=== PATIENT | female | born 1945 | race Caucasian/White ===

== ENCOUNTER 2016-09-03 18:15 | Inpatient (IN) | payer MEDICARE ==
[~2016-09-03] VITALS: Ht 165.1 cm; Wt 117.9 kg
--- OUTSIDE RECORDS SUMMARY | 2016-09-03 18:20 | XMS REPORT | Continuity of Care Document ---
Author Author [facility] Organization [facility] Address Unknown Phone Unavailable Care Team Providers Care Freight Rate Clerk Name Role Phone Niko Underwood PCP [phone] Source Comments Some departments are not documenting in the electronic medical record. If you do not see the information that you expected, contact Release of Information in the Health Information Management department at [phone] for further assistance in locating additional records.[facility] Active Allergies and Adverse Reactions Allergen Noted Date Severity Reactions Comments Dust 05/27/2016 Low SEE COMMENTS Post nasal drip Erythromycin 07/18/2016 Low NAUSEA AND VOMITING Levaquin 07/18/2016 Medium MUSCLE PAIN Mold Spores 05/27/2016 Low SEE COMMENTS Post nasal drip Pollen 05/27/2016 Low SEE COMMENTS Post nasal drip Current Medications Prescription Sig. Disp. Refills Start End Date Status Date DOCOSAHEXANOIC ACID/EPA Take by mouth daily. Active (FISH OIL PO) naproxen sodium(+) Take 1 Tab by mouth as Active (ALEVE) 220 mg tablet Needed. Take with food. ASCORBATE CALCIUM Take by mouth daily. Active (VITAMIN C PO) MULTIVITAMIN PO Take by mouth daily. Active CRANBERRY FRUIT EXTRACT Take by mouth daily. Active (CRANBERRY PO) omeprazole DR(+) Take 20 mg by mouth Active (PRILOSEC) 20 mg capsule daily. atorvastatin (LIPITOR) 10 Take 10 mg by mouth Active mg tablet daily. WARFARIN SODIUM (COUMADIN Take 4 mg by mouth. Active PO) levothyroxine (SYNTHROID) Take 75 mcg by mouth Active 75 mcg tablet daily. oxybutynin XL (DITROPAN Take 5 mg by mouth three Active XL) 5 mg tablet times daily as needed. amiodarone (CORDARONE) Take 400 mg by mouth Active 200 mg tablet daily. Take with food. metoprolol tartrate Take 0.5 Tabs by mouth 30 Tab 1 07/21/20 Active (LOPRESSOR) 25 mg tablet twice daily. 16 Active Problems Problem Noted Date Atrial fibrillation (HCC) 07/18/2016 Overview: Managed by Dr Lincoln VELOZ, Chas Noel. [id number] score is 2. On warfarin. 04/04/16 - Reveal Linq device implant - Dr Munoz. Started Flecainide 04/30/16 - Lexiscan Myoview Stress test: AF persisted throughout testing w/RVR. No ischemia or infarction. EF 66%. Gated images are unreliable d/t underlying AF. 04/24/16 - Echo: Normal LV size. EF 50%. LA upper normal limit in size. No thrombus/clot. Mild MR. AV is trileaflet w/o or regurg. PAP 25mmHg. 07/15/16 - Failed to maintain SR. Flecainide stopped. Switched to Amiodarone, referral to Dr Hernández. Hyperlipidemia 07/18/2016 Overview: On atorvastatin. Carotid stenosis 07/18/2016 Overview: Mild bilateral carotid stenosis. US in March,. Hypothyroidism 07/18/2016 Overview: Managed by PCP Osteopenia 07/18/2016 GERD (gastroesophageal reflux disease) 07/18/2016 Mild obstructive sleep apnea 07/18/2016 Overview: Conservative treatment Most Recent Encounters Date Type Specialty Providers Description 09/03/2016 Telephone Cardiology Brooklynn Arnett RN 07/21/2016 Telephone Cardiology Mariia Hanson LPN Medication Update - Lopressor 07/18/2016 Hospital Cardiology Jose Luis Hernández MD Encounter 07/18/2016 Office Visit Cardiology Jose Luis Hernández MD New Patient; Atrial fibrillation; Device Check-Device Rep - ILR 07/18/2016 Documentation Cardiology Norma Saucedo RN Device Check - request for interrogation ILR 07/18/2016 Telephone Cardiology Norma Saucedo RN Appointment - for today's appt Social History Tobacco Use Types Packs/Day Years Used Date Former Smoker Smokeless Tobacco: Never Used Alcohol Use Drinks/Week oz/Week Comments No Last Filed Vital Signs Vital Sign Reading Time Taken Blood Pressure 116/70 07/18/2016 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 Pulse 55 07/18/2016 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 Temperature - - Respiratory Rate - - Height 1.651 m (5' 5") 07/18/2016 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 Weight 73.029 kg (161 lb) 07/18/2016 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 Body Mass Index 26.79 07/18/2016 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 Oxygen Saturation - - Plan of Care Date Type Specialty Providers Description 10/14/2016 Appointment Cardiology 10/14/2016 Appointment Cardiology Jose Luis Hernández MD [address] [facility] [address] [place] [address] [phone] (Fax) Health Maintenance Due Date Last Done Comments Physical (Comprehensive) 1950 Exam Pertussis Vaccine 1954 Tetanus Vaccine 1960 Breast Cancer Screening 1983 Colorectal Cancer 1993 Screening Shingles Vaccine 2003 Osteoporosis Screening 2008 Prevnar/Pneumovax (#1) 2008 Influenza Vaccine 05/08/2016 Results from Last 3 Months DEVICE EVALUATION - ILR (07/21/2016 9:38 AM) Narrative Outreach Check [07/21/2016 9:40:10 AM - MELLISA AYALA] Device check by [employer] Rep in clinic. ILR check WNL. Please click blue HR Data Sheet Hyperlink for Report. Routed to E for sign off. ECG/QRS (07/18/2016) Component Value Range QRS DURATION 96
[2016-09-03] MEDS ORDERED: PHYTONADIONE (VIT. K) 10 MG/ML AMP IV ONE (18:30)
[2016-09-03] MEDS ORDERED: WARF4TAB70 PO (18:40)
[2016-09-03] MEDS ORDERED: WARF-48 PO (18:40)
[2016-09-03] MEDS ORDERED: OXYB5TAB PO (18:40)
[2016-09-03] MEDS ORDERED: ATOR10TA66 PO (18:40)
[2016-09-03] MEDS ORDERED: LEVO75TA6 PO (18:40)
[2016-09-03 18:43] LABS: BASOPHILS % (AUTO) 0 % (0-10); EOSINOPHILS # (AUTO) 0.5 10^3/uL (0.0-0.3); EOSINOPHILS % (AUTO) 6 % (0-10); LYMPHOCYTES # (AUTO) 1.2 X 10^3 (1.0-4.0); LYMPHOCYTES % (AUTO) 14 % (12-44); MEAN CORPUSCULAR HEMOGLOBIN 31 PG (25-34); MEAN CORPUSCULAR HGB CONC 34 G/DL (32-36); MEAN CORPUSCULAR VOLUME 89 FL (80-99); MEAN PLATELET VOLUME 10.5 FL (7.4-10.4); MONOCYTES # (AUTO) 0.9 X 10^3 (0.0-1.0); MONOCYTES % (AUTO) 11 % (0-12); NEUTROPHILS # (AUTO) 5.6 X 10^3 (1.8-7.8); NEUTROPHILS % (AUTO) 69 % (42-75); PLATELET COUNT 256 10^3/uL (130-400); RED BLOOD COUNT 4.46 10^6/uL (4.35-5.85); RED CELL DISTRIBUTION WIDTH 15.1 % (10.0-14.5); WHITE BLOOD COUNT 8.1 10^3/uL (4.3-11.0)
[2016-09-03 18:58] LABS: INR 9.4 (0.8-1.4); PROTHROMBIN TIME PATIENT 77.1 SEC (12.2-14.7)
[2016-09-03 19:03] LABS: ALANINE AMINOTRANSFERASE 29 U/L (0-55); ANION GAP 11 MMOL/L (5-14); ASPARTATE AMINO TRANSFERASE 40 U/L (5-34); BILIRUBIN,TOTAL 0.4 MG/DL (0.1-1.0); BLOOD UREA NITROGEN 12 MG/DL (7-18); BUN/CREATININE RATIO 14; CALCIUM 9.4 MG/DL (8.5-10.1); CARBON DIOXIDE 26 MMOL/L (21-32); CHLORIDE 98 MMOL/L (98-107); CREATININE SERUM 0.85 MG/DL (0.60-1.30); GFR ESTIMATED > 60; GLUCOSE 94 MG/DL (70-105); POTASSIUM 3.9 MMOL/L (3.6-5.0); SODIUM 135 MMOL/L (135-145); TOTAL PROTEIN 6.9 G/DL (6.4-8.2)
[2016-09-03] MEDS ORDERED: NS IV 500 ML 500 ML ONE (19:37)
--- NOTE | 2016-09-03 19:39 | Diagnostic Imaging Report ---
INDICATION: Hemoptysis. Exam compared to study 09/03/2016. FINDINGS: Five-lobed interstitial opacities and predominantly basilar Hiwot Bs as well as some vague perihilar opacity all unchanged. Heart size stable. No gross overdistention of the vascularity. No effusion or pneumothorax. IMPRESSION: Unchanged bilateral interstitial infiltrates. Dictated by: Dictated on workstation # [id number]
[2016-09-03 19:58] VITALS: BP 149/70
[2016-09-03 20:20] VITALS: BP 146/67
[2016-09-03] MEDS ORDERED: cefTRIAXone INJECTION 1,000 MG in NORMAL SALINE (BAXTER MINI) 50 ML IV ONE (21:15)
[2016-09-03] MEDS ORDERED: NORMAL SALINE (BAXTER MINI) 50 ML IV ONE (21:22)
[2016-09-03] MEDS ORDERED: cefTRIAXone 1 GM (ROCEPHIN) VIAL ONE (21:22)
--- NOTE | 2016-09-03 21:42 | ED General ---
General Chief Complaint: Coughing up blood Stated Complaint: COUGHING UP BLOOD,SOA Nursing Triage Note: AMB TO ED WITH SPITTING UP BLOOD HIGH INR Nursing Sepsis Screen: No Definite Risk Source of Information: Patient Exam Limitations: No Limitations History of Present Illness Time Seen by Provider: 18:16 Initial Comments This 71-year-old woman presents to the emergency room with markedly elevated INR. Her INR in the office today was 9.2. This evening she began coughing up some blood. She presents a bag with bloody tissues representing likely 2-3 teaspoons of blood she has coughed up over the last hour. She takes Coumadin for atrial fibrillation. She reports difficulty managing her INR since having an infection about 2 months ago for which she received antibiotics. Vital signs are stable at this time. She has a history of hemoptysis in the past when ill. Allergies and Home Medications Allergies Coded Allergies: erythromycin base (Verified Allergy, Unknown, 04/04/16) levofloxacin (Verified Allergy, Unknown, 04/04/16) Home Medications Amiodarone HCl 200 Mg Tablet 200 MG PO DAILY (Reported) Atorvastatin Calcium 10 Mg Tablet #45 PO HS (Reported) Levothyroxine Sodium 75 Mcg Tablet #90 PO DAILY (Reported) Metoprolol Tartrate 25 Mg Tablet 25 MG PO DAILY (Reported) Oxybutynin Chloride 5 Mg Tab.er.24 #135 PO TID (Reported) Warfarin Sodium 5 Mg Tablet #30 (Reported) Warfarin Sodium 4 Mg Tablet #90 (Reported) Constitutional: no symptoms reported EENTM: no symptoms reported Respiratory: see HPI Cardiovascular: see HPI Gastrointestinal: no symptoms reported Genitourinary: no symptoms reported Musculoskeletal: no symptoms reported Skin: no symptoms reported Psychiatric/Neurological: No Symptoms Reported Hematologic/Lymphatic: See HPI Past Gwmovub-Dgsjua-Otflxn Hx Patient Social History Recent Foreign Travel: No Contact w/Someone Who Travel: No Recent Infectious Disease Expo: No Recent Hopitalizations: No Surgeries HX Surgeries: No Respiratory Hx Respiratory Disorders: No Cardiovascular Hx Cardiac Disorders: Yes Cardiac Disorders: Atrial Fibrillation Reproductive System : No Genitourinary Hx Genitourinary Disorders: No Gastrointestinal Hx Gastrointestinal Disorders: Yes Gastrointestinal Disorders: Gastroesophageal Reflux Musculoskeletal Hx Musculoskeletal Disorders: Yes Musculoskeletal Disorders: Chronic Back Pain Endocrine Hx Endocrine Disorders: No HEENT HX ENT Disorders: No Cancer Hx Cancer: No Psychosocial Hx Psychiatric Problems: No Physical Exam Vital Signs Vital Sign - Last 12Hours 09/03/16 09/03/16 18:22 19:58 Temp 97.5 Pulse 72 Resp 18 B/P 167/83 Pulse Ox 80 O2 Delivery Nasal Cannula O2 Flow Rate 2 Capillary Refill : Less Than 3 Seconds General Appearance: No Apparent Distress WD/WN HEENT: PERRL/EOMI Normal ENT Inspection Pharynx Normal Neck: Normal Inspection Respiratory: Lungs Clear Normal Breath Sounds No Accessory Muscle Use No Respiratory Distress Other (patient observed to be coughing up bright red blood) Cardiovascular: Regular Rate, Rhythm No Edema No Murmur Gastrointestinal: Normal Bowel Sounds Non Tender Soft Extremity: Normal Inspection No Pedal Edema Neurologic/Psychiatric: Alert Oriented x3 No Motor/Sensory Deficits Normal 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 Norm as Tested Skin: Normal Color Warm/Dry Progress/Results/Core Measures Results/Orders Lab Results Laboratory Tests Test 09/03/16 18:36 09/03/16 21:20 09/04/16 05:02 09/04/16 05:05 Range/Units Activated Partial Thromboplast Time 75 H 24-35 SEC Alanine Aminotransferase (ALT/SGPT) 29 31 0-55 U/L Albumin 4.0 3.7 3.2-4.5 G/DL Alkaline Phosphatase 104 89 40-136 U/L Anion Gap 11 11 5-14 MMOL/L Aspartate Amino Transf (AST/SGOT) 40 H 35 H 5-34 U/L BUN/Creatinine Ratio 14 13 Basophils # (Auto) 0.0 0.0 0.0-0.1 10^3/uL Basophils (%) (Auto) 0 0 0-10 % Blood Urea Nitrogen 12 10 7-18 MG/DL C-Reactive Protein High Sensitivity 3.82 H 0.00-0.50 MG/DL Calcium Level 9.4 9.0 8.5-10.1 MG/DL Carbon Dioxide Level 26 27 21-32 MMOL/L Chloride Level 98 101 98-107 MMOL/L Creatinine 0.85 0.76 0.60-1.30 MG/DL Eosinophils # (Auto) 0.5 H 0.3 0.0-0.3 10^3/uL Eosinophils (%) (Auto) 6 4 0-10 % Estimat Glomerular Filtration Rate > 60 > 60 Free Thyroxine 1.63 H 0.70-1.48 NG/DL Glucose Level 94 100 70-105 MG/DL Hematocrit 40 35 35-52 % Hemoglobin 13.6 12.0 11.5-16.0 G/DL INR Comment 9.4 *H 1.3 0.8-1.4 Lymphocytes # (Auto) 1.2 0.7 L 1.0-4.0 X 10^3 Lymphocytes (%) (Auto) 14 9 L 12-44 % Mean Corpuscular Hemoglobin 31 31 25-34 PG Mean Corpuscular Hemoglobin Concent 34 34 32-36 G/DL Mean Corpuscular Volume 89 89 80-99 FL Mean Platelet Volume 10.5 H 10.8 H 7.4-10.4 FL Monocytes # (Auto) 0.9 0.6 0.0-1.0 X 10^3 Monocytes (%) (Auto) 11 9 0-12 % Neutrophils # (Auto) 5.6 5.8 1.8-7.8 X 10^3 Neutrophils (%) (Auto) 69 78 H 42-75 % Platelet Count 256 228 130-400 10^3/uL Potassium Level 3.9 3.3 L 3.6-5.0 MMOL/L Prothrombin Time 77.1 *H 16.2 H 12.2-14.7 SEC Red Blood Count 4.46 3.91 L 4.35-5.85 10^6/uL Red Cell Distribution Width 15.1 H 14.9 H 10.0-14.5 % Sodium Level 135 139 135-145 MMOL/L Thyroid Stimulating Hormone (TSH) 6.41 H 0.35-4.94 UIU/ML Total Bilirubin 0.4 0.7 0.1-1.0 MG/DL Total Protein 6.9 6.6 6.4-8.2 G/DL White Blood Count 8.1 7.4 4.3-11.0 10^3/uL Lactic Acid Level 0.9 0.5-2.0 MMOL/L My Orders Orders-JOSHUA KEITA MD Cbc With Automated Diff (09/03/16 18:21) Comprehensive Metabolic Panel (09/03/16 18:21) Protime With Inr (09/03/16 18:21) Partial Thromboplastin Time (09/03/16 18:21) Saline Lock/Iv-Start (09/03/16 18:21) O2 (09/03/16 18:21) Phytonadione (Adult) Injection (Aquameph (09/03/16 18:30) Fresh Frozen Plasma (09/03/16 18:21) Red Cells Leukocytes Reduced (09/03/16 18:38) Hs C Reactive Protein (09/03/16 18:38) Chest Pa/Lat (2 View) (09/03/16 18:38) Type And Screen (09/03/16 18:21) Fresh Frozen Plasma (09/03/16 18:45) Ns Iv 500 Ml (Sodium Chloride 0.9%) (09/03/16 19:37) Ceftriaxone Injection (Rocephin Injectio (09/03/16 21:15) Lactic Acid Analyzer (09/03/16 21:05) Blood Culture (09/03/16 21:05) Ceftriaxone Injection (Rocephin Injectio (09/03/16 21:22) Normal Saline (Cross Mini) (Ns (Cross (09/03/16 21:22) Thyroid Stimulating Hormone (09/03/16 21:52) Free T4 (Free Thyroxine) (09/03/16 21:52) Medications Given in ED Current Medications Medications Dose Ordered Sig/Liana Route Start Time Stop Time Status Last Admin Dose Admin Ceftriaxone Sodium/Sodium Chloride 50 ml @ 100 mls/hr ONCE ONCE IV 09/03/16 21:15 09/03/16 21:44 DC 09/03/16 21:33 100 MLS/HR Sodium Chloride 500 ml STK-MED ONCE .ROUTE 09/03/16 19:37 09/03/16 19:44 DC 09/03/16 19:53 Vital Signs/I&O Vital Sign - Last 12Hours 09/03/16 09/03/16 09/03/16 09/03/16 19:58 20:20 22:00 22:10 Temp 97.2 97.6 97.5 Pulse 67 66 66 65 Resp 18 20 16 18 B/P 149/70 146/67 151/66 122/65 Pulse Ox 95 94 94 95 O2 Delivery Nasal Cannula Nasal Cannula Nasal Cannula Nasal Cannula O2 Flow Rate 2.00 2.00 2.00 2.00 09/03/16 09/03/16 09/03/16 09/03/16 22:25 23:00 23:00 23:19 Temp 97.3 97.4 98.8 Pulse 62 62 64 79 Resp 18 16 16 24 B/P 142/70 144/71 148/79 Pulse Ox 94 95 95 91 O2 Delivery Nasal Cannula Nasal Cannula Nasal Cannula O2 Flow Rate 2 2 2.00 09/03/16 09/03/16 09/04/16 09/04/16 23:30 23:52 00:00 00:30 Temp 98.6 97.9 Pulse 85 72 Resp 18 20 B/P 137/65 172/72 Pulse Ox 90 92 93 92 O2 Delivery Nasal Cannula Nasal Cannula Nasal Cannula Nasal Cannula O2 Flow Rate 4.00 2.00 5.00 4.00 09/04/16 09/04/16 09/04/16 09/04/16 00:30 01:01 01:43 02:00 Temp 97.9 97.8 98.6 Pulse 72 66 77 85 Resp 20 18 20 B/P 172/72 164/77 137/65 Pulse Ox 92 90 O2 Delivery Nasal Cannula Nasal Cannula Nasal Cannula O2 Flow Rate 4.00 4.00 4.00 09/04/16 04:00 Temp 98.0 Pulse 88 Resp 18 B/P 139/72 Pulse Ox 93 O2 Delivery Nasal Cannula O2 Flow Rate 5.00 Intake and Output 09/04/16 00:00 Intake Total 51 ml Balance 51 ml Blood Pressure Mean: 93 Progress Note #1: Progress Note due to the life-threatening nature of pulmonary bleeding in the context of markedly elevated INR, vitamin K 10 mg IV was administered and 3 units of FFP were initiated in the emergency room. Patient had no significant hemoptysis during her ER stay. Pneumonia was also discovered on the chest x-ray, relatively unchanged from the x-ray earlier in the day. Rocephin was administered in the ER after lactic acid and blood cultures were drawn. Doxycycline was chosen for atypical coverage due to her allergy profile. TSH and free T4 were ordered prior to admission but results were not back upon admission. Progress Note #2: Progress Note Vitamin K was administered and at least one unit of FFP was administered in the emergency room. The hemoptysis stopped shortly after treatment began. Diagnostic Imaging Diagonstic Imaging: Xray Plain Films/CT/US/NM/MRI: chest Comments Chest x-ray viewed by me and report reviewed. See report below: NAME: SANTOSH CASTREJON [facility] REC#: [id number] PT STATUS: REG ER : 1945 PHYSICIAN: JOSHUA KEITA MD ADMIT DATE: 09/03/16/ER Signed Date of Exam: 09/03/16 CHEST PA/LAT (2 VIEW) INDICATION: Hemoptysis. Exam compared to study 09/03/2016. FINDINGS: Five-lobed interstitial opacities and predominantly basilar Hiwot Bs as well as some vague perihilar opacity all unchanged. Heart size stable. No gross overdistention of the vascularity. No effusion or pneumothorax. IMPRESSION: Unchanged bilateral interstitial infiltrates. Dictated by: Dictated on workstation # [id number] Dict: 09/03/161934 Trans: 09/03/162214 [facility] [id number] Interpreted by: RAYMOND MUNGUIA Electronically signed by:RAYMOND MUNGUIA 09/03/167 Departure Communication Time/Spoke to Admitting Phy: 21:[address] Courtney Time/Spoke to Consulting Physi: 21:45 Communication/Consulting Dr. Torres. Impression Impression: Primary Impression: Elevated INR Additional Impressions: Hemoptysis Pneumonia Qualified Code: J18.9 - Pneumonia, unspecified organism Disposition: ADMITTED INPATIENT Condition: Improved Decision to Admit Reason: Admit from ER (General) Decision to Admit/Date: Sep 03, 2016 Time/Decision to Admit Time: 18:16 Departure-Patient Inst. Referrals: SERGIO MORENO MD (PCP/Family) Primary Care Physician JOSHUA KEITA MD Sep 03, 2016 21:42
[2016-09-03 22:00] VITALS: BP 151/66
[2016-09-03 22:10] VITALS: BP 122/65
[2016-09-03 22:25] VITALS: BP 142/70
[2016-09-03 22:32] LABS: THYROID STIMULATING HORMONE 6.41 UIU/ML (0.35-4.94)
[2016-09-03 23:19] VITALS: BP 148/79
[2016-09-03] MEDS ORDERED: CATHETER FLUSH 10 ML SYR IV PRN (23:30)
[2016-09-03] MEDS ORDERED: ONDANSETRON 4 MG/2 ML (SDV) Z0FRAN IV PRN (23:30)
[2016-09-03] MEDS ORDERED: AMIO200T2 PO (23:41)
[2016-09-03] MEDS ORDERED: METO-333 PO (23:41)
[2016-09-03] MEDS: DOXYCYCLINE 100 MG (VIBRAMYCIN) TABLET PO SCH (23:45)
[2016-09-04] VITALS (9 sets, daily range): BP systolic 109–172; BP diastolic 59–77
[2016-09-04] MEDS ORDERED: RT-ALBUTEROL SULF 2.5 MG/3 ML PRE-MIX VIAL INH PRN (00:15)
[2016-09-04] MEDS: DOXYCYCLINE 100 MG (VIBRAMYCIN) TABLET PO SCH ×3 (02:28→21:10)
[2016-09-04 05:38] LABS: BASOPHILS % (AUTO) 0 % (0-10); EOSINOPHILS # (AUTO) 0.3 10^3/uL (0.0-0.3); EOSINOPHILS % (AUTO) 4 % (0-10); LYMPHOCYTES # (AUTO) 0.7 X 10^3 (1.0-4.0); LYMPHOCYTES % (AUTO) 9 % (12-44); MEAN CORPUSCULAR HEMOGLOBIN 31 PG (25-34); MEAN CORPUSCULAR HGB CONC 34 G/DL (32-36); MEAN CORPUSCULAR VOLUME 89 FL (80-99); MEAN PLATELET VOLUME 10.8 FL (7.4-10.4); MONOCYTES # (AUTO) 0.6 X 10^3 (0.0-1.0); MONOCYTES % (AUTO) 9 % (0-12); NEUTROPHILS # (AUTO) 5.8 X 10^3 (1.8-7.8); NEUTROPHILS % (AUTO) 78 % (42-75); PLATELET COUNT 228 10^3/uL (130-400); RED BLOOD COUNT 3.91 10^6/uL (4.35-5.85); RED CELL DISTRIBUTION WIDTH 14.9 % (10.0-14.5); WHITE BLOOD COUNT 7.4 10^3/uL (4.3-11.0)
[2016-09-04 05:56] LABS: INR 1.3 (0.8-1.4); PROTHROMBIN TIME PATIENT 16.2 SEC (12.2-14.7)
[2016-09-04 06:12] LABS: ALANINE AMINOTRANSFERASE 31 U/L (0-55); ALBUMIN 3.7 G/DL (3.2-4.5); ANION GAP 11 MMOL/L (5-14); ASPARTATE AMINO TRANSFERASE 35 U/L (5-34); BILIRUBIN,TOTAL 0.7 MG/DL (0.1-1.0); BLOOD UREA NITROGEN 10 MG/DL (7-18); BUN/CREATININE RATIO 13; CARBON DIOXIDE 27 MMOL/L (21-32); CHLORIDE 101 MMOL/L (98-107); CREATININE SERUM 0.76 MG/DL (0.60-1.30); GFR ESTIMATED > 60; GLUCOSE 100 MG/DL (70-105); POTASSIUM 3.3 MMOL/L (3.6-5.0); SODIUM 139 MMOL/L (135-145); TOTAL PROTEIN 6.6 G/DL (6.4-8.2)
[2016-09-04] MEDS: CATHETER FLUSH 10 ML SYR IV SCH ×3 (06:46→21:10)
--- NOTE | 2016-09-04 09:13 | History & Physicial ---
History of Present Illness History of Present Illness Reason for visit/HPI patient has atrial fib. Patient on Coumadin. Patient spitting up blood. INR prolonged 9.2. Patient recently put on Amiodarone Patient having much problems with this Patient short of breath for one week. Patient on oxygen at home which is new Date of Admission Sep 03, 2016 at 22:19 I consulted on this patient on 09/04/16 09:08 Attending Physician David Abraham DO Admitting Physician Stacey Underwood MD Consult Allergies and Home Medications Allergies Coded Allergies: erythromycin base (Verified Allergy, Unknown, 04/04/16) levofloxacin (Verified Allergy, Unknown, 04/04/16) Home Medications Amiodarone HCl 200 Mg Tablet 200 MG PO DAILY (Reported) Atorvastatin Calcium 10 Mg Tablet #45 PO HS (Reported) Levothyroxine Sodium 75 Mcg Tablet #90 PO DAILY (Reported) Metoprolol Tartrate 25 Mg Tablet 25 MG PO DAILY (Reported) Oxybutynin Chloride 5 Mg Tab.er.24 #135 PO TID (Reported) Warfarin Sodium 5 Mg Tablet #30 (Reported) Warfarin Sodium 4 Mg Tablet #90 (Reported) Past Hcvwdsu-Tdtyky-Zsdtlm Hx Patient Social History Marrital Status: Smoking Status: Former Smoker Type Used: Cigarettes Recent Foreign Travel: No Contact w/other who traveled: No Recent Hopitalizations: No Recent Infectious Disease Expo: No Seasonal Allergies Seasonal Allergies: Yes Surgeries HX Surgeries: No Respiratory Hx Respiratory Disorders: No Cardiovascular Hx Cardiovascular Disorders: Yes (IMPLANTED ELECTRODE-PER DR JEAN) Cardiac Disorders: Atrial Fibrillation Neurological Hx Neurological Disorders: No Reproductive System : No Hx Reproductive Disorders: No Sexually Transmitted Disease: No HIV/AIDS: No Genitourinary Hx Genitourinary Disorders: Yes ([employer]) Gastrointestinal Hx Gastrointestinal Disorders: Yes Gastrointestinal Disorders: Gastroesophageal Reflux Musculoskeletal Hx Musculoskeletal Disorders: Yes Musculoskeletal Disorders: Chronic Back Pain Endocrine Hx Endocrine Disorders: No Endocrine Disorders: Hypothyroidsim HEENT HX ENT Disorders: No Hearing Impairment: Hard of Hearing Cancer Hx Cancer: No Psychosocial Hx Psychiatric Problems: No Integumentary HX Skin/Integumentary Disorder: No Blood Transfusions Hx Blood Disorders: No Adverse Reaction to a Blood Tr: No Constitutional: malaise weakness EENTM: no symptoms reported Respiratory: short of breath other (on oxygen lately) Cardiovascular: other (atrial fib history) Gastrointestinal: no symptoms reported Physical Exam Vital Signs Vital Sign - Last 12Hours 09/03/16 09/03/16 18:22 19:58 Temp 97.5 Pulse 72 Resp 18 B/P 167/83 Pulse Ox 80 O2 Delivery Nasal Cannula O2 Flow Rate 2 Capillary Refill : Less Than 3 Seconds General Appearance: No Apparent Distress WD/WN HEENT: Normal ENT Inspection Neck: Normal Inspection Respiratory: Chest Non Tender No Accessory Muscle Use No Respiratory Distress Other (Luis oxygen) Cardiovascular: Irregularly Irregular Gastrointestinal: Non Tender Assessment/Plan Assessment and Plan prolonged INR area Hemoptysis. Atrial fibrillation. Weakness Clinical Quality Measures DVT/VTE Risk/Contraindication: Risk Factor Score Per Nursin RFS Level Per Nursing on Admit: 3=High Contraindications-Pharm: Other *list below* DAVID ABRAHAM DO Sep 04, 2016 09:13
[2016-09-04] MEDS ORDERED: KCL 10 MEQ TAB (MICRO K) PO NR (09:15)
[2016-09-04] MEDS ORDERED: FLUT16SP22 NS (09:19)
[2016-09-04] MEDS ORDERED: OMEP20CA12 PO (09:19)
[2016-09-04] MEDS ORDERED: WARF-48 PO (09:26)
[2016-09-04] MEDS ORDERED: ASCO500T6 PO (09:43)
[2016-09-04] MEDS ORDERED: KRIL1CAP18 PO (09:43)
[2016-09-04] MEDS ORDERED: COCO1000 PO (09:43)
[2016-09-04] MEDS ORDERED: CALC-654 PO (09:43)
[2016-09-04] MEDS ORDERED: ZINC50TA51 PO (09:43)
[2016-09-04] MEDS ORDERED: CYAN50TA3 PO (09:43)
[2016-09-04] MEDS ORDERED: CHOL10007 PO (09:43)
[2016-09-04] MEDS ORDERED: TURM500C7 PO (09:43)
[2016-09-04] MEDS ORDERED: LUTE1CAP3 PO (09:43)
[2016-09-04] MEDS ORDERED: MULT-974 PO (09:43)
--- NOTE | 2016-09-04 09:46 | Pulmonary Consultation ---
History of Present Illness History of Present Illness Date of Consultation 09/04/16 09:43 Date of Admission History of Present Illness 71yo with hx of Afib on coumadin therapy presented to ED secondary to hemoptysis. INR found to be 9.2. CXR shows bilateral infiltrates. Coumadin was reversed. I am consulted for pulmonary management. CT scan is pending. She has coughed up blood int eh past. Allergies and Home Medications Allergies Coded Allergies: erythromycin base (Verified Allergy, Unknown, 04/04/16) levofloxacin (Verified Allergy, Unknown, 04/04/16) Home Medications Amiodarone HCl 200 Mg Tablet 100 MG PO BID (Reported) TAKES 1/2 (200MG) TABLET Ascorbic Acid 500 Mg Tablet 500-1,000 MG PO DAILY (Reported) Atorvastatin Calcium 10 Mg Tablet 5 MG PO HS (Reported) TAKES 1/2 (10MG) TABLET Calcium Carbonate/Vitamin D3 1 Each Tablet 1 TAB PO BID (Reported) Cholecalciferol (Vitamin D3) 1,000 Unit Capsule 1,000 UNIT PO DAILY (Reported) Coconut Oil 1,000 Mg Capsule 1,000 MG PO DAILY (Reported) Cyanocobalamin (Vitamin B-12) 50 Mcg Tablet 50 MCG PO DAILY (Reported) Krill/Om-3/Dha/Epa/Phospho/Ast 1 Each Capsule 1,000 MG PO DAILY (Reported) Levothyroxine Sodium 75 Mcg Tablet 75 MCG PO DAILY (Reported) Lutein/Zeaxanthin 1 Each Capsule 1 CAP PO HS (Reported) Metoprolol Tartrate 25 Mg Tablet 12.5 MG PO BID (Reported) TAKES 1/2 (25MG) TABLET Multivitamin 1 Each Tablet 1 TAB PO DAILY (Reported) Omeprazole 20 Mg Capsule.dr 20 MG PO DAILY (Reported) Oxybutynin Chloride 5 Mg Tab.er.24 2.5 MG PO TID (Reported) TAKES 1/2 (5MG) TABLET Turmeric Root Extract 500 Mg Capsule 500 MG PO DAILY (Reported) Warfarin Sodium 5 Mg Tablet 5 MG PO SuMoWeFrSa (Reported) Warfarin Sodium 5 Mg Tablet 2.5 MG PO TuTh (Reported) TAKES 1/2 (5MG) TABLET Zinc Amino Acid Chelate 50 Mg Tablet 50 MG PO DAILY (Reported) Past Xzpsdly-Yjiihw-Mfnnli Hx Patient Social History Smoking Status: Former Smoker Type Used: Cigarettes Recent Foreign Travel: No Contact w/Someone Who Travel: No Recent Infectious Disease Expo: No Recent Hopitalizations: No Seasonal Allergies Seasonal Allergies: Yes Surgeries HX Surgeries: No Respiratory Hx Respiratory Disorders: No Respiratory Disorders: Pneumonia Cardiovascular Hx Cardiac Disorders: Yes (IMPLANTED ELECTRODE-PER DR JEAN) Cardiac Disorders: Atrial Fibrillation Neurological Hx Neurological Disorders: No Reproductive System : No Hx Reproductive Disorders: No Sexually Transmitted Disease: No HIV/AIDS: No Genitourinary Hx Genitourinary Disorders: Yes ([employer]) Gastrointestinal Hx Gastrointestinal Disorders: Yes Gastrointestinal Disorders: Gastroesophageal Reflux Musculoskeletal Hx Musculoskeletal Disorders: Yes Musculoskeletal Disorders: Chronic Back Pain Endocrine Hx Endocrine Disorders: No Endocrine Disorders: Hypothyroidsim HEENT HX ENT Disorders: No Hearing Impairment: Hard of Hearing Cancer Hx Cancer: No Psychosocial Hx Psychiatric Problems: No Integumentary HX Skin/Integumentary Disorder: No Blood Transfusions Hx Blood Disorders: No Adverse Reaction to a Blood Tr: No Exam Exam Vital Signs Date Time Temp Pulse Resp B/P Pulse Ox O2 Delivery O2 Flow Rate FiO2 09/04/16 08:39 4.00 09/04/16 04:00 98.0 88 18 139/72 93 Nasal Cannula 5.00 09/04/16 02:00 98.6 85 20 137/65 90 Nasal Cannula 4.00 09/04/16 01:43 77 09/04/16 01:01 97.8 66 18 164/77 Nasal Cannula 4.00 09/04/16 00:30 97.9 72 20 172/72 92 Nasal Cannula 4.00 09/04/16 00:30 97.9 72 20 172/72 92 Nasal Cannula 4.00 09/04/16 00:00 98.6 85 18 137/65 93 Nasal Cannula 5.00 09/03/16 23:52 92 Nasal Cannula 2.00 09/03/16 23:30 90 Nasal Cannula 4.00 09/03/16 23:19 98.8 79 24 148/79 91 Nasal Cannula 2.00 09/03/16 23:00 64 16 95 Nasal Cannula 2 09/03/16 23:00 97.4 62 16 144/71 95 Nasal Cannula 2 09/03/16 22:25 97.3 62 18 142/70 94 09/03/16 22:10 65 18 122/65 95 Nasal Cannula 2.00 09/03/16 22:00 97.5 66 16 151/66 94 Nasal Cannula 2.00 09/03/16 20:20 97.6 66 20 146/67 94 Nasal Cannula 2.00 09/03/16 19:58 97.2 67 18 149/70 95 Nasal Cannula 2.00 09/03/16 18:41 94 Nasal Cannula 2 09/03/16 18:22 97.5 72 167/83 80 Room Air 09/03/16 18:22 Nasal Cannula 2 I & O 09/04/16 07:00 Intake Total 635 ml Output Total 3100 ml Balance -2465 ml General Appearance: No Apparent Distress WD/WN HEENT: Normal ENT Inspection Neck: Normal Inspection Respiratory: Chest Non Tender No Accessory Muscle Use No Respiratory Distress Other (Luis oxygen) Cardiovascular: Irregularly Irregular Capillary Refill: Less Than 3 Seconds Extremity: Normal Inspection No Pedal Edema Neurologic/Psychiatric: Alert Oriented x3 No Motor/Sensory Deficits Normal 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 Clinical Quality Measures DVT/VTE Risk/Contraindication: Risk Factor Score Per Nursin RFS Level Per Nursing on Admit: 3=High Contraindications-Pharm: Other *list below* LORETTA AYALA DO Sep 04, 2016 09:46
[2016-09-04] MEDS ORDERED: NS 100 ML (IVPB) BAG IV ONE (10:00)
[2016-09-04] MEDS ORDERED: IOHEXOL 350 MG/ML 100 ML (OMNIPAQUE 350) VIAL IV ONE (10:00)
[2016-09-04] MEDS: meTOprolol TARTRATE 25 MG (LOPRESSOR) TABLET PO SCH ×2 (10:25→21:10)
[2016-09-04] MEDS: LEVOTHYROXINE 75 MCG (LEVOTHROID) TABLET PO SCH (10:25)
--- NOTE | 2016-09-04 11:28 | Diagnostic Imaging Report ---
PROCEDURE: CT chest with contrast only. TECHNIQUE: Multiple contiguous axial images were obtained through the chest after administration of intravenous contrast. INDICATION: Patient states hemoptysis yesterday. There is a moderate dense bilateral basilar alveolar infiltrate along the dependent sections. There is groundglass appearance noted scattered throughout the upper lungs. No focal masses are demonstrated. No evidence of the pleural effusions or pericardial effusions. Good opacification aorta and pulmonary arteries which appear normal. No mediastinal or hilar adenopathy of pathologic size. No bony lesions are demonstrated. There is noted monitoring manager implanted in the left chest wall. IMPRESSION: Bilateral lower lobe alveolar infiltrates with bilateral upper lobe groundglass infiltrate. These findings could represent an acute infectious process versus chronic lung disease or superimposed pulmonary edema. Clinical correlation. Dictated by: Dictated on workstation # [id number]
--- NOTE | 2016-09-04 13:34 | Diagnostic Imaging Report ---
PA and lateral views of the chest. INDICATION: Pneumonia. COMPARISON: 09/03/2016. FINDINGS: The lungs are hyperinflated. There are bilateral infiltrates in the lower lobes which appear minimally more prominent compared to the previous exam of 09/03/2016. The heart size is normal. No effusion or pneumothorax. The mediastinum and rylan appear unremarkable. lunchroom monitor is again noted. IMPRESSION: Minimally increased bibasilar infiltrates. Dictated by: Dictated on workstation # [id number]
[2016-09-04] MEDS ORDERED: FUROSEMIDE 40 MG/4 ML INJ (LASIX) IVP ONE (13:45)
[2016-09-04] MEDS ORDERED: NORMAL SALINE (BAXTER MINI) 50 ML IV ONE (14:20)
[2016-09-04] MEDS ORDERED: cefTRIAXone 1 GM (ROCEPHIN) VIAL ONE (14:20)
[2016-09-04] MEDS: ACETAMINOPHEN 500 MG TAB (TYLENOL) PO PRN (14:50)
[2016-09-04] MEDS: cefTRIAXone 1 GM/NS 50 ML IVPB IV SCH ×2 (14:51)
--- NOTE | 2016-09-04 16:39 | Consultation-Cardiology ---
HPI-Cardiology Cardiology Consultation: Date of Consultation 09/04/16 Date of Admission Attending Physician David Courtney DO Admitting Physician Stacey Underwood MD Consulting Physician Brannon TORRES MD HPI: Chief Complaint: Shortness of breath This is a pleasant 71-year-old patient of Dr. Munoz. She has history of atrial fibrillation on Coumadin and amiodarone. She presents with hemoptysis and shortness of breath. She has supratherapeutic INR. She also complains of significant weakness since the dose of amiodarone was increased to 200 twice a day from 200 once a day [address] Dr. Mckeon at . She denies any bleeding except hemoptysis. She denies any chest pain or palpitations. Denies any syncope, near-syncope. She does not have any significant weight change. She denies orthopnea, PND, lower extremity swelling. Review of Systems-Cardiology Review of Systems Constitutional: No As described under HPI, No no symptoms reported, No chills, No fever, No lightheadedness, malaise tirednessNo weight loss, No weight gain, No other Eyes: No As described under HPI, No no symptoms reported, No blindness, No blurred vision, No contact lenses, No drainage, No decreased acuity, No foreign body sensation, No glasses, No inflammation, No pain, No photophobia, No previous injury, No shadows, No tunnel vision, No other, No vision change Ears/Nose/Throat: No As described under HPI, No no symptoms reported, No chronic hearing loss, No epistaxis, No ear discharge, No ear pain, No loose teeth, No mouth pain, No mouth swelling, No nasal drainage, No nose pain, No recent hearing loss, No throat pain, No throat swelling, No ulcerations, No other Respiratory: cough shortness of breath other (Hemoptysis) Cardiovascular: No no symptoms reported, No As described under HPI, No chest pain, No edema, No irregular heart rate, No lightheadedness, No palpitations, No syncope, No other Gastrointestinal: No no symptoms reported, No As described under HPI, No abdomen distended, No abdominal pain, No blood streaked bowels, No constipation , No diarrhea, No difficulty swallowing, No nausea, No poor appetite, No poor fluid intake, No rectal bleeding, No vomiting, No other, No nausea/vomiting/ diarrhea, No stool coloration changes Genitourinary: No no symptoms reported, No As described under HPI, No burning, No dysuria, No discharge, No frequency, No flank pain, No hematuria, No incontinence, No pain, No urgency, No other, No urine frequency changes, No urine coloration changes Musculoskeletal: No no symptoms reported, No As describe under HPI, No back pain, No gout, No joint pain, No joint swelling, No muscle pain, No muscle stiffness, No neck pain, No other Skin: No no symptoms reported, No As described under HPI, No change in color, No change in hair/nails, No dryness, No lesions, No lumps, No rash, No other, No skin related problems, No ulcerations, No rash on exposed areas, No ulcerations on exposed areas Psychiatric/Neurological: No As described under HPI, No anxiety, No depression , No emotional problems, No focal weakness, No headache, No no symptoms reported , No numbness, No other, No pre-existing deficit, No seizure, No syncope, No tingling, No tremors, No weakness Hematologic: No no symptoms reported, No As described under HPI, No anemia, No blood clots, No easy bleeding, No easy bruising, No swollen glands, No other, No bleeding abnormalities [id number] Hx Patient Social History Marrital Status: Smoking Status: Former Smoker Type Used: Cigarettes Recent Foreign Travel: No Recent Infectious Disease Expo: No Hospitalization with Isolation: Denies Immunizations Up To Date Date of Pneumonia Vaccine: Jun 07, 2012 Date of Influenza Vaccine: Jun 07, 2016 Past Medical History PMH As described under Assessment. Allergies and Home Medications Allergies Coded Allergies: erythromycin base (Verified Allergy, Unknown, 04/04/16) levofloxacin (Verified Allergy, Unknown, 04/04/16) Home Medications Amiodarone HCl 200 Mg Tablet 100 MG PO BID (Reported) TAKES 1/2 (200MG) TABLET Ascorbic Acid 500 Mg Tablet 500-1,000 MG PO DAILY (Reported) Atorvastatin Calcium 10 Mg Tablet 5 MG PO HS (Reported) TAKES 1/2 (10MG) TABLET Calcium Carbonate/Vitamin D3 1 Each Tablet 1 TAB PO BID (Reported) Cholecalciferol (Vitamin D3) 1,000 Unit Capsule 1,000 UNIT PO DAILY (Reported) Coconut Oil 1,000 Mg Capsule 1,000 MG PO DAILY (Reported) Cyanocobalamin (Vitamin B-12) 50 Mcg Tablet 50 MCG PO DAILY (Reported) Krill/Om-3/Dha/Epa/Phospho/Ast 1 Each Capsule 1,000 MG PO DAILY (Reported) Levothyroxine Sodium 75 Mcg Tablet 75 MCG PO DAILY (Reported) Lutein/Zeaxanthin 1 Each Capsule 1 CAP PO HS (Reported) Metoprolol Tartrate 25 Mg Tablet 12.5 MG PO BID (Reported) TAKES 1/2 (25MG) TABLET Multivitamin 1 Each Tablet 1 TAB PO DAILY (Reported) Omeprazole 20 Mg Capsule.dr 20 MG PO DAILY (Reported) Oxybutynin Chloride 5 Mg Tab.er.24 2.5 MG PO TID (Reported) TAKES 1/2 (5MG) TABLET Turmeric Root Extract 500 Mg Capsule 500 MG PO DAILY (Reported) Warfarin Sodium 5 Mg Tablet 5 MG PO SuMoWeFrSa (Reported) Warfarin Sodium 5 Mg Tablet 2.5 MG PO TuTh (Reported) TAKES 1/2 (5MG) TABLET Zinc Amino Acid Chelate 50 Mg Tablet 50 MG PO DAILY (Reported) Physical Exam-Cardiology Physical Exam Vital Signs/I&O Vital Sign - Last 12Hours 09/04/16 09/04/16 09/04/16 08:00 08:39 12:00 Temp 99.0 97.2 Pulse 70 63 Resp 18 24 B/P 132/69 128/59 Pulse Ox 91 94 O2 Delivery Nasal Cannula Nasal Cannula O2 Flow Rate 4.50 4.00 5.00 Intake and Output 09/04/16 00:00 Intake Total 51 ml Balance 51 ml Capillary Refill : Less Than 3 Seconds Constitutional: No appears stated age, No AAO x 3, No apparent distress, No PERRL, No well-developed, No well-nourished, No other HEENT: No PERRL, No normal ENT inspection, No TMs normal, No pharynx normal, No scleral icterus (R), No scleral icterus (L), No pale conjunctivae (R), No pale conjunctivae (L), No photophobia, No TM abnormal (R), No TM abnormal (L), No pharyngeal erythema, No tonsillar exudate, No other, No discharge, No EOMI, No hearing is well preserved, No hard of hearing, No oral hygience is good, No ulceration, No xanthelasmas are seen Neck: No non-tender, No full range of motion, No supple, No normal inspection, No carotid bruit, No limited range of motion, No lymphadenopathy (R), No lymphadenopathy (L), No tender lateral, No tender midline, No thyromegaly, No other, No carotid pulses are 2 + bilaterally, No with good upstrokes Respiratory: No accessory muscle use, No respiratory distress, No chest tender , No chest expansion is symmetric, No chest is bilaterally symmetric, No lungs clear to percussion, No lungs clear to auscultation, No crackles, No rhonchi, No rales, No stridor, No wheezing, No pleural rub, No other Cardiovascular: No regular rate-rhythm, No irregularly irregular, No extra beats, No parasternal heave is noted, No JVD, No edema, No bradycardia, No tachycardia, No point of maximal impulse, No cardiac thrills are palpable, No S1 and S2, No gallop/S3, No gallop/S4, No diastolic murmur, No systolic murmur, No friction rub, No click, No other Gastrointestinal: No tender, No soft, No round, No distended, No pulsatile mass , No organomegaly, No guarding, No rebound, No tenderness, No hernia, No mass, No audible bowel sounds, No abnormal bowel sounds, No abdominal bruits, No spleenomegaly, No other Rectal: deferred Extremities: No normal range of motion, No non-tender, No normal inspection, No pedal edema, No calf tenderness, No normal capillary refill, No pelvis stable , No calf tenderness, No inflammation, No pedal edema, No slow capillary refill , No swelling, No other, No abrasion, No clubbing, No cyanosis, No ecchymosis, No laceration, No no lower extremity edema bilateral, No significant edema, No tenderness, No wound Neurologic/Psychiatric: No wheel and pinion inspector II-XII nml as tested, No no motor/sensory deficits, No alert, No normal mood/affect, No oriented x 3, No abnormal cerebellar tests, No abnormal wheel and pinion inspector II-XII, No abnormal gait, No aphasia, No EOM palsy, No facial droop, No motor weakness, No sensory deficit, No depressed affect, No disoriented x 3, No other, No grossly intact, No power is 5/5 both on sides Skin: No normal color, No warm/dry, No cyanosis, No cool, No diaphoresis, No damp, No ecchymosis, No jaundice, No mottled, No pallor, No rash, No tattoos/ piercings, No ulcerations, No rash on exposed areas, No ulcerations on exposed areas, No other Data Review Labs Laboratory Tests 09/03/16 18:36: Activated Partial Thromboplast Time 75H, Alanine Aminotransferase (ALT/SGPT) 29 , Albumin 4.0, Alkaline Phosphatase 104, Anion Gap 11, Aspartate Amino Transf ( AST/SGOT) 40H, BUN/Creatinine Ratio 14, Basophils # (Auto) 0.0, Basophils (%) ( Auto) 0, Blood Urea Nitrogen 12, C-Reactive Protein High Sensitivity 3.82H, Calcium Level 9.4, Carbon Dioxide Level 26, Chloride Level 98, Creatinine 0.85, Eosinophils # (Auto) 0.5H, Eosinophils (%) (Auto) 6, Estimat Glomerular Filtration Rate > 60, Free Thyroxine 1.63H, Glucose Level 94, Hematocrit 40, Hemoglobin 13.6, INR Comment 9.4*H, Lymphocytes # (Auto) 1.2, Lymphocytes (%) ( Auto) 14, Mean Corpuscular Hemoglobin 31, Mean Corpuscular Hemoglobin Concent 34 , Mean Corpuscular Volume 89, Mean Platelet Volume 10.5H, Monocytes # (Auto) 0.9 , Monocytes (%) (Auto) 11, Neutrophils # (Auto) 5.6, Neutrophils (%) (Auto) 69, Platelet Count 256, Potassium Level 3.9, Prothrombin Time 77.1*H, Red Blood Count 4.46, Red Cell Distribution Width 15.1H, Sodium Level 135, Thyroid Stimulating Hormone (TSH) 6.41H, Total Bilirubin 0.4, Total Protein 6.9, White Blood Count 8.1 09/03/16 21:20: Lactic Acid Level 0.9 09/04/16 05:02: INR Comment 1.3, Prothrombin Time 16.2H 09/04/16 05:05: Alanine Aminotransferase (ALT/SGPT) 31, Albumin 3.7, Alkaline Phosphatase 89, Anion Gap 11, Aspartate Amino Transf (AST/SGOT) 35H, BUN/Creatinine Ratio 13, Basophils # (Auto) 0.0, Basophils (%) (Auto) 0, Blood Urea Nitrogen 10, Calcium Level 9.0, Carbon Dioxide Level 27, Chloride Level 101, Creatinine 0.76, Eosinophils # (Auto) 0.3, Eosinophils (%) (Auto) 4, Estimat Glomerular Filtration Rate > 60, Glucose Level 100, Hematocrit 35, Hemoglobin 12.0, Lymphocytes # (Auto) 0.7L, Lymphocytes (%) (Auto) 9L, Mean Corpuscular Hemoglobin 31, Mean Corpuscular Hemoglobin Concent 34, Mean Corpuscular Volume 89, Mean Platelet Volume 10.8H, Monocytes # (Auto) 0.6, Monocytes (%) (Auto) 9, Neutrophils # (Auto) 5.8, Neutrophils (%) (Auto) 78H, Platelet Count 228, Potassium Level 3.3L, Red Blood Count 3.91L, Red Cell Distribution Width 14.9H, Sodium Level 139, Total Bilirubin 0.7, Total Protein 6.6, White Blood Count 7.4 , B-Type Natriuretic Peptide 92.9 A/P-Cardiology Assessment/Admission Diagnosis Paroxysmal atrial fibrillation, supratherapeutic INR, hemoptysis, significant weakness, shortness of breath. Plan This is a very pleasant 71-year-old lady who presents with hemoptysis. She has history of atrial fibrillation and is on Coumadin. She was found to have supratherapeutic INR. Warfarin was discontinued and INR today is 1.3. I have discussed with her newer anticoagulation agents which may have less bleeding as compared to Coumadin and also do not have drug drug interaction with many other medications including amiodarone. She thinks that these medications are too expensive. I have requested her to call her pharmacy and find out if any of these will be affordable. These medications include Eliquis, Xarelto, edoxaban , pradaxa. I'm okay with either of the 4 that she can afford. If she cannot afford either of them then she will have to continue on Coumadin but needs to understand the risk of bleeding and risk of stroke increases with labile INR. She also complains of significant weakness and malaise. This could be secondary due to the recent increasing the dose of amiodarone from 200 mg a day to 200 mg twice a day. Super therapeutic INR could be secondary to drug drug interaction between amiodarone and Coumadin. I will either discontinue amiodarone or change to multaq 400 mg twice a day. Her last echocardiogram done recently showed an EF of over 50 percent. Left atrial size was 4 cm. She also had a normal stress test in April 2016; therefore I think multaq will be a safe choice for her. For atrial fibrillation she is a reasonable candidate for percutaneous ablation as well since she is paroxysmal atrial fibrillation and her left atrial size is 4 cm. She also complains of shortness of breath and pulmonary consult has been recommended. Amiodarone associated lung toxicity should be evaluated for. My chest examination did not reveal any fine or coarse crackle. I will defer to Dr. Lama. Thank you for your consultation. Please call me if you have any questions. Mihaela Torres MD, FACP, FACC, FSCAI, FHRS, CCDS Interventional Cardiology Cardiac Electrophysiology Vascular Medicine and Endovascular Interventions Clinical Quality Measures DVT/VTE Risk/Contraindication: Risk Factor Score Per Nursin RFS Level Per Nursing on Admit: 3=High Contraindications-Pharm: Other *list below* Brannon TORRES MD Sep 04, 2016 4:39 pm
[2016-09-04] MEDS ORDERED: meTOprolol TARTRATE 25 MG (LOPRESSOR) TABLET PO SCH (21:00)
[2016-09-04] MEDS: ATORVASTATIN 10 MG (LIPITOR) TABLET PO SCH (21:10)
[2016-09-05] VITALS: BP 137/68
[2016-09-05] MEDS: ACETAMINOPHEN 500 MG TAB (TYLENOL) PO PRN ×2 (00:38→08:40)
[2016-09-05 04:00] VITALS: BP 119/61
[2016-09-05 05:29] LABS: INR 1.3 (0.8-1.4); PROTHROMBIN TIME PATIENT 15.9 SEC (12.2-14.7)
[2016-09-05] MEDS: PANTOPRAZOLE 20 MG TABLET (PROTONIX) PO SCH (06:02)
[2016-09-05] MEDS: LEVOTHYROXINE 75 MCG (LEVOTHROID) TABLET PO SCH (06:02)
[2016-09-05] MEDS: CATHETER FLUSH 10 ML SYR IV SCH ×3 (06:02→20:28)
--- NOTE | 2016-09-05 08:04 | Progress Note (SOAP) ---
Subjective Subjective/Events-last exam patient doing better today. once back on some amiodarone. Explained she should go back on eLQUIST as a blood thinner. worried about expense Objective Exam Vital Signs Date Time Temp Pulse Resp B/P Pulse Ox O2 Delivery O2 Flow Rate FiO2 09/05/16 04:00 98.3 64 18 119/61 94 Nasal Cannula 5.00 09/05/16 01:00 62 09/05/16 00:00 97.3 67 18 137/68 96 Nasal Cannula 5.00 09/04/16 21:15 95 Nasal Cannula 4.00 09/04/16 20:00 98.7 67 20 132/68 93 Nasal Cannula 5.00 09/04/16 19:00 84 09/04/16 16:00 98.5 64 16 109/65 92 Nasal Cannula 5.00 09/04/16 12:00 97.2 63 24 128/59 94 Nasal Cannula 5.00 09/04/16 09:00 Nasal Cannula 5.00 09/04/16 08:39 4.00 I & O 09/05/16 07:00 Intake Total 2980 ml Output Total 1680 ml Balance 1300 ml Capillary Refill : Less Than 3 Seconds General Appearance: No Apparent Distress WD/WN HEENT: Normal ENT Inspection Neck: Full Range of Motion Normal Inspection Respiratory: Chest Non Tender No Accessory Muscle Use No Respiratory Distress Cardiovascular: Regular Rate, Rhythm Gastrointestinal: non tender soft Results Lab Laboratory Tests 09/04/16 16:31: Lab Scanned Report Transfusion Reaction Form 09/05/16 05:05: INR Comment 1.3, Prothrombin Time 15.9H Microbiology 09/03/16 Blood Culture - Preliminary, Resulted No growth Assessment/Plan Assessment/Plan Assess & Plan/Chief Complaint hemoptysis. Atrial fibrillation now patient in sinus rhythm area Family wants him that her own. Patient worried about expensive blood thinners Diagnosis/Problems: Clinical Quality Measures DVT/VTE Risk/Contraindication: Risk Factor Score Per Nursin RFS Level Per Nursing on Admit: 3=High Contraindications-Pharm: Other *list below* CLAUDINE ABRAHAM DO Sep 05, 2016 08:04
[2016-09-05] MEDS: DOXYCYCLINE 100 MG (VIBRAMYCIN) TABLET PO SCH ×2 (08:32→20:25)
[2016-09-05] MEDS: meTOprolol TARTRATE 25 MG (LOPRESSOR) TABLET PO SCH ×2 (08:32→20:27)
[2016-09-05] MEDS ORDERED: cefTRIAXone INJECTION 1,000 MG in NORMAL SALINE (BAXTER MINI) 50 ML IV SCH (09:00)
[2016-09-05] MEDS ORDERED: LEVOTHYROXINE 75 MCG (LEVOTHROID) TABLET PO SCH (09:00)
[2016-09-05 09:07] VITALS: BP 117/56
--- NOTE | 2016-09-05 10:00 | Cardiology Progress Note ---
Cardiology SOAP Progress Note Subjective: no complaints Objective: I&O/Vital Signs Vital Sign - Last 12Hours 09/05/16 09/05/16 09/05/16 09/05/16 08:32 09:00 09:07 12:00 Temp 97.1 97.3 Pulse 62 58 53 Resp 20 20 B/P 117/56 134/61 Pulse Ox 96 92 95 O2 Delivery Nasal Cannula Nasal Cannula Nasal Cannula O2 Flow Rate 5.00 5.00 5.00 09/05/16 09/05/16 09/05/16 13:00 16:00 19:29 Temp 98.4 99.0 Pulse 60 58 70 Resp 16 20 B/P 100/64 100/60 Pulse Ox 96 93 O2 Delivery Nasal Cannula Nasal Cannula O2 Flow Rate 5.00 5.00 Intake and Output 09/05/16 00:00 Intake Total 2170 ml Output Total 1580 ml Balance 590 ml Weight (Pounds): 260 Weight (Ounces): 0.0 Weight (Calculated Kilograms): 117.159348 Constitutional: No appears stated age, No AAO x 3, No apparent distress, No PERRL, No well-developed, No well-nourished, No other Respiratory: No accessory muscle use, No respiratory distress, No chest tender , No chest expansion is symmetric, No chest is bilaterally symmetric, No lungs clear to percussion, No lungs clear to auscultation, No crackles, No rhonchi, No rales, No stridor, No wheezing, No pleural rub, No other Cardiovascular: No regular rate-rhythm, No irregularly irregular, No extra beats, No parasternal heave is noted, No JVD, No edema, No bradycardia, No tachycardia, No point of maximal impulse, No cardiac thrills are palpable, No S1 and S2, No gallop/S3, No gallop/S4, No diastolic murmur, No systolic murmur, No friction rub, No click, No other Gastrointestional: No tender, No soft, No round, No distended, No pulsatile mass, No organomegaly, No guarding, No rebound, No tenderness, No hernia, No mass, No audible bowel sounds, No abnormal bowel sounds, No abdominal bruits, No spleenomegaly, No other Extremities: No normal range of motion, No non-tender, No normal inspection, No pedal edema, No calf tenderness, No normal capillary refill, No pelvis stable , No calf tenderness, No inflammation, No pedal edema, No slow capillary refill , No swelling, No other, No abrasion, No clubbing, No cyanosis, No ecchymosis, No laceration, No no lower extremity edema bilateral, No significant edema, No tenderness, No wound Neurologic/Psychiatric: No textile screen maker II-XII nml as tested, No no motor/sensory deficits, No alert, No normal mood/affect, No oriented x 3, No abnormal cerebellar tests, No abnormal textile screen maker II-XII, No abnormal gait, No aphasia, No EOM palsy, No facial droop, No motor weakness, No sensory deficit, No depressed affect, No disoriented x 3, No other, No grossly intact, No power is 5/5 both on sides Skin: No normal color, No warm/dry, No cyanosis, No cool, No diaphoresis, No damp, No ecchymosis, No jaundice, No mottled, No pallor, No rash, No tattoos/ piercings, No ulcerations, No rash on exposed areas, No ulcerations on exposed areas, No other Results/Procedures: Labs Laboratory Tests 09/05/16 05:05: INR Comment 1.3, Prothrombin Time 15.9H Microbiology 09/03/16 Blood Culture - Preliminary, Resulted No growth A/P: Assessment/Dx: Atrial Fibrillation, Coumadin toxicity, Weakness Plan: I have been told that the is concerned with the change of medications and my recommendation on her future medications. I believe that the she has had coumadin toxicity with supratherapuetic INR with labile INRs according to records from Dr Munoz's office. This is a common indication for NOACs since labile INR is a known risk factor for CVA in patients with AF. Secondly, the likely cause of increased INR is drug-drug interaction between amiodarone and coumadin. Therefore, it may not be the most appropriate anti- arrhthymic agent. Also the patient complains of weakness which could be secondary to amiodarone and shortness of breath could be also related to amio. once ready for discharge the patient can follow with Dr Munoz and Dr Hernández as an outpatient. Thank you for your consultation. Please call me if you have any questions. Mihaela Torres MD, FACP, FACC, FSCAI, FHRS, CCDS Interventional Cardiology Cardiac Electrophysiology Vascular Medicine and Endovascular Interventions Brannon TORRES MD Sep 05, 2016 10:00 am Mihaela Torres MD, ASIFP, ASIFC, FSCAI, FHRS, CCDS Interventional Cardiology Cardiac Electrophysiology Vascular Medicine and Endovascular Interventions Brannon TORRES MD Sep 05, 2016 10:00
--- NOTE | 2016-09-05 10:42 | Pulmonary Progress Note ---
Subjective Subjective/Events-last exam NO hemoptysis currently. PT is feeling improved no complications noted. Exam Exam Vital Signs Date Time Temp Pulse Resp B/P Pulse Ox O2 Delivery O2 Flow Rate FiO2 09/05/16 09:07 97.1 58 20 117/56 92 Nasal Cannula 5.00 09/05/16 08:32 62 09/05/16 08:01 92 Nasal Cannula 09/05/16 07:00 53 09/05/16 04:00 98.3 64 18 119/61 94 Nasal Cannula 5.00 09/05/16 01:00 62 09/05/16 00:00 97.3 67 18 137/68 96 Nasal Cannula 5.00 09/04/16 21:15 95 Nasal Cannula 4.00 09/04/16 20:00 98.7 67 20 132/68 93 Nasal Cannula 5.00 09/04/16 19:00 84 09/04/16 16:00 98.5 64 16 109/65 92 Nasal Cannula 5.00 09/04/16 12:00 97.2 63 24 128/59 94 Nasal Cannula 5.00 I & O 09/05/16 07:00 Intake Total 2980 ml Output Total 1680 ml Balance 1300 ml General Appearance: No Apparent Distress WD/WN HEENT: Normal ENT Inspection Neck: Normal Inspection Respiratory: Chest Non Tender No Accessory Muscle Use No Respiratory Distress Other (Luis oxygen) Cardiovascular: Irregularly Irregular Capillary Refill: Less Than 3 Seconds Gastrointestinal: non tender soft Extremity: Normal Inspection No Pedal Edema Neurologic/Psychiatric: Alert Oriented x3 No Motor/Sensory Deficits Normal Mood/Affect fireworks maker II-XII Norm as Tested Skin: Normal Color Warm/Dry Results Lab Laboratory Tests 09/03/16 18:36 09/04/16 05:05 Assessment/Plan Assessment/Plan Pneumonia -DOXY and rocephin -Pt will need repeat CT scan in 4-6 wks as out patient Coumadin coagulopathy - resolved with hemoptysis - improved. Pt will probably need home 02. I will see her in f/u as out patient in 4-6 wks. I am going to sign off now. Please call with any questions or concerns. Pt is ok from pulmonary standpoint for discharge. Clinical Quality Measures DVT/VTE Risk/Contraindication: Risk Factor Score Per Nursin RFS Level Per Nursing on Admit: 3=High Contraindications-Pharm: Other *list below* LORETTA AYALA DO Sep 05, 2016 10:41
[2016-09-05 12:00] VITALS: BP 134/61
[2016-09-05 16:00] VITALS: BP 100/64
[2016-09-05] MEDS ORDERED: NORMAL SALINE (BAXTER MINI) 50 ML IV ONE (17:15)
[2016-09-05] MEDS ORDERED: cefTRIAXone 1 GM (ROCEPHIN) VIAL ONE (17:15)
[2016-09-05] MEDS: cefTRIAXone 1 GM/NS 50 ML IVPB IV SCH ×2 (17:27)
[2016-09-05 19:29] VITALS: BP 100/60
[2016-09-05] MEDS: ATORVASTATIN 10 MG (LIPITOR) TABLET PO SCH (20:25)
[2016-09-05] MEDS: APIXABAN 5 MG (ELIQUIS) TABLET PO SCH (20:26)
[2016-09-05] MEDS: AMIODARONE 200 MG (CORDARONE) TAB PO SCH (20:27)
[2016-09-06] VITALS (7 sets, daily range): BP systolic 97–144; BP diastolic 44–70
[2016-09-06] MEDS: ACETAMINOPHEN 500 MG TAB (TYLENOL) PO PRN ×3 (00:11→18:10)
[2016-09-06] MEDS: CATHETER FLUSH 10 ML SYR IV SCH ×3 (06:06→20:48)
[2016-09-06] MEDS: PANTOPRAZOLE 20 MG TABLET (PROTONIX) PO SCH (06:06)
[2016-09-06] MEDS: LEVOTHYROXINE 75 MCG (LEVOTHROID) TABLET PO SCH (06:06)
[2016-09-06 07:18] LABS: MEAN PLATELET VOLUME 10.5 FL (7.4-10.4); RED BLOOD COUNT 4.05 10^6/uL (4.35-5.85); RED CELL DISTRIBUTION WIDTH 14.8 % (10.0-14.5); WHITE BLOOD COUNT 7.1 10^3/uL (4.3-11.0)
[2016-09-06 07:29] LABS: INR 1.8 (0.8-1.4); PROTHROMBIN TIME PATIENT 20.8 SEC (12.2-14.7)
[2016-09-06 07:40] LABS: ANION GAP 12 MMOL/L (5-14); BLOOD UREA NITROGEN 10 MG/DL (7-18); BUN/CREATININE RATIO 13; CARBON DIOXIDE 22 MMOL/L (21-32); CHLORIDE 101 MMOL/L (98-107); CREATININE SERUM 0.77 MG/DL (0.60-1.30); GFR ESTIMATED > 60; GLUCOSE 100 MG/DL (70-105); POTASSIUM 3.8 MMOL/L (3.6-5.0); SODIUM 135 MMOL/L (135-145)
[2016-09-06] MEDS: RT-ALBUTEROL SULF 2.5 MG/3 ML PRE-MIX VIAL INH SCH ×4 (07:54→19:56)
[2016-09-06] MEDS: DOXYCYCLINE 100 MG (VIBRAMYCIN) TABLET PO SCH ×2 (08:26→20:48)
[2016-09-06] MEDS: meTOprolol TARTRATE 25 MG (LOPRESSOR) TABLET PO SCH ×2 (08:26→20:48)
[2016-09-06] MEDS: AMIODARONE 200 MG (CORDARONE) TAB PO SCH ×2 (08:26→20:47)
[2016-09-06] MEDS: APIXABAN 5 MG (ELIQUIS) TABLET PO SCH ×2 (08:26→20:48)
--- NOTE | 2016-09-06 09:50 | Diagnostic Imaging Report ---
EXAMINATION: Chest radiograph, portable AP view. DATE: September 06, 2016, at 0513 hours. INDICATION: 71-year-old female, shortness of breath. COMPARISON: September 04, 2016. FINDINGS: Stable overall appearance of the cardiomediastinal silhouette. There is no identified pneumothorax. There are bilateral interstitial opacities. There is nonspecific left basilar airspace consolidation which has increased since comparison exam. There are right upper quadrant surgical clips. IMPRESSION: 1. Bilateral predominantly interstitial opacities which may relate to atypical infection, pneumonitis, or potentially pulmonary edema. 2. Increased nonspecific left basilar airspace consolidation since comparison exam. Dictated by: Dictated on workstation # [id number]
--- NOTE | 2016-09-06 10:02 | Progress Note (SOAP) ---
Subjective Subjective/Events-last exam patient feeling 40 percent better. Respiratory therapy help yesterday. Patient still has shortness of breath. Patient on amiodarone 100 mg twice a day as per [facility]U Objective Exam Vital Signs Date Time Temp Pulse Resp B/P Pulse Ox O2 Delivery O2 Flow Rate FiO2 09/06/16 08:00 97.8 52 18 123/63 96 Nasal Cannula 5.00 09/06/16 07:54 96 Nasal Cannula 5.00 09/06/16 04:00 98.0 60 16 121/61 96 Nasal Cannula 5.00 09/06/16 01:00 72 09/06/16 00:00 98.0 69 18 144/59 95 Nasal Cannula 5.00 09/05/16 21:03 94 Nasal Cannula 5.00 09/05/16 20:10 94 Nasal Cannula 5.00 09/05/16 19:29 99.0 70 20 100/60 93 Nasal Cannula 5.00 09/05/16 19:00 84 09/05/16 16:00 98.4 58 16 100/64 96 Nasal Cannula 5.00 09/05/16 13:00 60 09/05/16 12:00 97.3 53 20 134/61 95 Nasal Cannula 5.00 I & O 09/06/16 07:00 Intake Total 1960 ml Output Total 1400 ml Balance 560 ml Capillary Refill : Less Than 3 Seconds General Appearance: No Apparent Distress WD/WN HEENT: Normal ENT Inspection Neck: Full Range of Motion Normal Inspection Respiratory: Chest Non Tender No Accessory Muscle Use No Respiratory Distress Cardiovascular: Regular Rate, Rhythm Gastrointestinal: non tender soft Results Lab Laboratory Tests 09/06/16 06:52 Laboratory Tests 09/06/16 06:52: Anion Gap 12, BUN/Creatinine Ratio 13, Blood Urea Nitrogen 10, Calcium Level 9.0 , Carbon Dioxide Level 22, Chloride Level 101, Creatinine 0.77, Estimat Glomerular Filtration Rate > 60, Glucose Level 100, Hematocrit 37, Hemoglobin 12.3, INR Comment 1.8H, Mean Corpuscular Hemoglobin 30, Mean Corpuscular Hemoglobin Concent 34, Mean Corpuscular Volume 90, Mean Platelet Volume 10.5H, Platelet Count 226, Potassium Level 3.8, Prothrombin Time 20.8H, Red Blood Count 4.05L, Red Cell Distribution Width 14.8H, Sodium Level 135, White Blood Count 7.1 Microbiology 09/03/16 Blood Culture - Preliminary, Resulted No growth Assessment/Plan Assessment/Plan Assess & Plan/Chief Complaint hemoptysis. Atrial fibrillation now patient in sinus rhythm area Family wants him that her own. Patient worried about expensive blood thinners. . Hemoptysis due to prolonged INR. Atrial fibrillation history. Hemoptysis Diagnosis/Problems: Clinical Quality Measures DVT/VTE Risk/Contraindication: Risk Factor Score Per Nursin RFS Level Per Nursing on Admit: 3=High Contraindications-Pharm: Other *list below* CLAUDINE ABRAHAM DO Sep 06, 2016 10:02
--- NOTE | 2016-09-06 16:01 | Cardiology Progress Note ---
Cardiology SOAP Progress Note Subjective: no further complaints Objective: I&O/Vital Signs Vital Sign - Last 12Hours 09/06/16 09/06/16 09/06/16 09/06/16 07:54 08:00 08:00 10:57 Temp 97.8 Pulse 52 Resp 18 B/P 123/63 Pulse Ox 96 96 95 O2 Delivery Nasal Cannula Nasal Cannula Nasal Cannula Nasal Cannula O2 Flow Rate 5.00 5.00 5.00 5.00 09/06/16 09/06/16 12:00 15:42 Temp 97.4 Pulse 65 Resp 20 B/P 97/61 Pulse Ox 99 93 O2 Delivery Nasal Cannula O2 Flow Rate 4.00 Intake and Output 09/06/16 00:00 Intake Total 1660 ml Output Total 800 ml Balance 860 ml Weight (Pounds): 260 Weight (Ounces): 0.0 Weight (Calculated Kilograms): 117.124919 Constitutional: No appears stated age, No AAO x 3, No apparent distress, No PERRL, No well-developed, No well-nourished, No other Respiratory: No accessory muscle use, No respiratory distress, No chest tender , No chest expansion is symmetric, No chest is bilaterally symmetric, No lungs clear to percussion, No lungs clear to auscultation, No crackles, No rhonchi, No rales, No stridor, No wheezing, No pleural rub, No other Cardiovascular: No regular rate-rhythm, No irregularly irregular, No extra beats, No parasternal heave is noted, No JVD, No edema, No bradycardia, No tachycardia, No point of maximal impulse, No cardiac thrills are palpable, No S1 and S2, No gallop/S3, No gallop/S4, No diastolic murmur, No systolic murmur, No friction rub, No click, No other Gastrointestional: No tender, No soft, No round, No distended, No pulsatile mass, No organomegaly, No guarding, No rebound, No tenderness, No hernia, No mass, No audible bowel sounds, No abnormal bowel sounds, No abdominal bruits, No spleenomegaly, No other Extremities: No normal range of motion, No non-tender, No normal inspection, No pedal edema, No calf tenderness, No normal capillary refill, No pelvis stable , No calf tenderness, No inflammation, No pedal edema, No slow capillary refill , No swelling, No other, No abrasion, No clubbing, No cyanosis, No ecchymosis, No laceration, No no lower extremity edema bilateral, No significant edema, No tenderness, No wound Neurologic/Psychiatric: No labor contract analyst II-XII nml as tested, No no motor/sensory deficits, No alert, No normal mood/affect, No oriented x 3, No abnormal cerebellar tests, No abnormal labor contract analyst II-XII, No abnormal gait, No aphasia, No EOM palsy, No facial droop, No motor weakness, No sensory deficit, No depressed affect, No disoriented x 3, No other, No grossly intact, No power is 5/5 both on sides Skin: No normal color, No warm/dry, No cyanosis, No cool, No diaphoresis, No damp, No ecchymosis, No jaundice, No mottled, No pallor, No rash, No tattoos/ piercings, No ulcerations, No rash on exposed areas, No ulcerations on exposed areas, No other Results/Procedures: Labs Laboratory Tests 09/06/16 06:52: Anion Gap 12, BUN/Creatinine Ratio 13, Blood Urea Nitrogen 10, Calcium Level 9.0 , Carbon Dioxide Level 22, Chloride Level 101, Creatinine 0.77, Estimat Glomerular Filtration Rate > 60, Glucose Level 100, Hematocrit 37, Hemoglobin 12.3, INR Comment 1.8H, Mean Corpuscular Hemoglobin 30, Mean Corpuscular Hemoglobin Concent 34, Mean Corpuscular Volume 90, Mean Platelet Volume 10.5H, Platelet Count 226, Potassium Level 3.8, Prothrombin Time 20.8H, Red Blood Count 4.05L, Red Cell Distribution Width 14.8H, Sodium Level 135, White Blood Count 7.1 Microbiology 09/03/16 Blood Culture - Preliminary, Resulted No growth A/P: Assessment/Dx: Atrial Fibrillation, Coumadin toxicity, Weakness Plan: continue Eliquis. Low-dose amiodarone. shortness of breath improved with breathing treatments. once ready for discharge the patient can follow with Dr Munoz and Dr Hernández as an outpatient. Brannon MACK MD Sep 06, 2016 4:01 pm
[2016-09-06] MEDS ORDERED: NORMAL SALINE (BAXTER MINI) 50 ML IV ONE (20:08)
[2016-09-06] MEDS ORDERED: cefTRIAXone 1 GM (ROCEPHIN) VIAL ONE (20:08)
[2016-09-06] MEDS: ATORVASTATIN 10 MG (LIPITOR) TABLET PO SCH (20:46)
[2016-09-06] MEDS: cefTRIAXone 1 GM/NS 50 ML IVPB IV SCH ×2 (20:49)
[2016-09-07] VITALS (9 sets, daily range): BP systolic 97–130; BP diastolic 52–89
[2016-09-07] MEDS: ACETAMINOPHEN 500 MG TAB (TYLENOL) PO PRN (03:36)
[2016-09-07] MEDS: LEVOTHYROXINE 75 MCG (LEVOTHROID) TABLET PO SCH (06:09)
[2016-09-07] MEDS: PANTOPRAZOLE 20 MG TABLET (PROTONIX) PO SCH (06:09)
[2016-09-07] MEDS: CATHETER FLUSH 10 ML SYR IV SCH ×3 (06:09→21:00)
[2016-09-07 06:19] LABS: BASOPHILS % (AUTO) 0 % (0-10); EOSINOPHILS # (AUTO) 0.3 10^3/uL (0.0-0.3); EOSINOPHILS % (AUTO) 4 % (0-10); LYMPHOCYTES # (AUTO) 0.8 X 10^3 (1.0-4.0); LYMPHOCYTES % (AUTO) 12 % (12-44); MEAN CORPUSCULAR HEMOGLOBIN 30 PG (25-34); MEAN CORPUSCULAR HGB CONC 34 G/DL (32-36); MEAN CORPUSCULAR VOLUME 90 FL (80-99); MEAN PLATELET VOLUME 10.7 FL (7.4-10.4); MONOCYTES # (AUTO) 0.8 X 10^3 (0.0-1.0); MONOCYTES % (AUTO) 11 % (0-12); NEUTROPHILS # (AUTO) 5.3 X 10^3 (1.8-7.8); NEUTROPHILS % (AUTO) 74 % (42-75); PLATELET COUNT 243 10^3/uL (130-400); RED BLOOD COUNT 3.75 10^6/uL (4.35-5.85); RED CELL DISTRIBUTION WIDTH 14.8 % (10.0-14.5); WHITE BLOOD COUNT 7.2 10^3/uL (4.3-11.0)
[2016-09-07 06:43] LABS: ALANINE AMINOTRANSFERASE 37 U/L (0-55); ALBUMIN 3.2 G/DL (3.2-4.5); ANION GAP 11 MMOL/L (5-14); ASPARTATE AMINO TRANSFERASE 37 U/L (5-34); BILIRUBIN,TOTAL 0.5 MG/DL (0.1-1.0); BLOOD UREA NITROGEN 11 MG/DL (7-18); BUN/CREATININE RATIO 15; CALCIUM 8.9 MG/DL (8.5-10.1); CARBON DIOXIDE 25 MMOL/L (21-32); CHLORIDE 103 MMOL/L (98-107); CREATININE SERUM 0.73 MG/DL (0.60-1.30); GFR ESTIMATED > 60; GLUCOSE 93 MG/DL (70-105); POTASSIUM 3.9 MMOL/L (3.6-5.0); SODIUM 139 MMOL/L (135-145); TOTAL PROTEIN 5.7 G/DL (6.4-8.2)
[2016-09-07] MEDS: RT-ALBUTEROL SULF 2.5 MG/3 ML PRE-MIX VIAL INH SCH ×4 (08:01→19:59)
[2016-09-07] MEDS: meTOprolol TARTRATE 25 MG (LOPRESSOR) TABLET PO SCH ×2 (09:00→20:59)
--- NOTE | 2016-09-07 09:09 | Progress Note (SOAP) ---
Subjective Subjective/Events-last exam patient feels better with her breathing. Yesterday was on 5 L of nasal oxygen. Today on 3 L of nasal oxygen. Patient still can't walk by herself. To start physical therapy. Patient hypotensive this morning. Holding beta katy area Chest x-ray not done Objective Exam Vital Signs Date Time Temp Pulse Resp B/P Pulse Ox O2 Delivery O2 Flow Rate FiO2 09/07/16 08:00 97.7 84 24 97/52 93 Nasal Cannula 3.00 09/07/16 07:45 89 Nasal Cannula 4.00 09/07/16 07:38 Nasal Cannula 5.00 09/07/16 06:30 73 18 115/53 95 Nasal Cannula 3.00 09/07/16 05:30 75 18 118/55 92 Nasal Cannula 3.00 09/07/16 05:20 84 18 130/89 92 09/07/16 03:27 98.5 74 18 125/61 97 Nasal Cannula 3.00 09/07/16 01:00 78 09/06/16 23:32 97.0 75 18 120/70 92 Nasal Cannula 3.00 09/06/16 20:00 97.9 46 22 97/44 93 Nasal Cannula 3.00 09/06/16 19:57 93 Nasal Cannula 3.00 09/06/16 19:55 93 Nasal Cannula 3.00 09/06/16 19:00 84 09/06/16 16:10 98.7 20 20 115/51 92 Nasal Cannula 2.50 09/06/16 15:42 93 Nasal Cannula 4.00 09/06/16 12:00 97.4 65 20 97/61 99 09/06/16 10:57 95 Nasal Cannula 5.00 I & O 09/07/16 07:00 Intake Total 1730 ml Output Total 1550 ml Balance 180 ml Capillary Refill : Less Than 3 SecondsLess Than 3 Seconds General Appearance: No Apparent Distress WD/WN HEENT: Normal ENT Inspection Neck: Normal Inspection Respiratory: Chest Non Tender Normal Breath Sounds No Accessory Muscle Use No Respiratory Distress Cardiovascular: Regular Rate, Rhythm No Murmur Gastrointestinal: soft Results Lab Laboratory Tests 09/07/16 05:50 Laboratory Tests 09/07/16 05:50: Alanine Aminotransferase (ALT/SGPT) 37, Albumin 3.2, Alkaline Phosphatase 92, Anion Gap 11, Aspartate Amino Transf (AST/SGOT) 37H, BUN/Creatinine Ratio 15, Basophils # (Auto) 0.0, Basophils (%) (Auto) 0, Blood Urea Nitrogen 11, Calcium Level 8.9, Carbon Dioxide Level 25, Chloride Level 103, Creatinine 0.73, Eosinophils # (Auto) 0.3, Eosinophils (%) (Auto) 4, Estimat Glomerular Filtration Rate > 60, Glucose Level 93, Hematocrit 34L, Hemoglobin 11.4L, Lymphocytes # (Auto) 0.8L, Lymphocytes (%) (Auto) 12, Mean Corpuscular Hemoglobin 30, Mean Corpuscular Hemoglobin Concent 34, Mean Corpuscular Volume 90, Mean Platelet Volume 10.7H, Monocytes # (Auto) 0.8, Monocytes (%) (Auto) 11 , Neutrophils # (Auto) 5.3, Neutrophils (%) (Auto) 74, Platelet Count 243, Potassium Level 3.9, Red Blood Count 3.75L, Red Cell Distribution Width 14.8H, Sodium Level 139, Total Bilirubin 0.5, Total Protein 5.7L, White Blood Count 7.2 Microbiology 09/03/16 Blood Culture - Preliminary, Resulted No growth Assessment/Plan Assessment/Plan Assess & Plan/Chief Complaint hemoptysis. Atrial fibrillation now patient in sinus rhythm area Family wants him that her own. Patient worried about expensive blood thinners. . Hemoptysis due to prolonged INR. Atrial fibrillation history. Hemoptysis. . 09/07/16 elevated INR. Hemoptysis. Pneumonia. Patient still weak and shaky. Patient breathing better. Patient hypotensive today. Patient needs physical therapy Diagnosis/Problems: Clinical Quality Measures DVT/VTE Risk/Contraindication: Risk Factor Score Per Nursin RFS Level Per Nursing on Admit: 3=High Contraindications-Pharm: Other *list below* CLAUDINE ABRAHAM DO Sep 07, 2016 09:09
[2016-09-07] MEDS: DOXYCYCLINE 100 MG (VIBRAMYCIN) TABLET PO SCH ×2 (09:31→20:57)
[2016-09-07] MEDS: AMIODARONE 200 MG (CORDARONE) TAB PO SCH ×2 (09:31→20:58)
[2016-09-07] MEDS: APIXABAN 5 MG (ELIQUIS) TABLET PO SCH ×2 (09:31→20:57)
[2016-09-07] MEDS: DOCUSATE SODIUM 100 MG (COLACE) CAP PO SCH ×2 (09:38→20:57)
--- NOTE | 2016-09-07 09:42 | Diagnostic Imaging Report ---
EXAMINATION: CHEST (PA AND LATERAL) CLINICAL INDICATION: 71-year-old female, pneumonia. COMPARISON: September 06, 2016. FINDINGS: Stable overall appearance of the cardiomediastinal silhouette. There is no identified pneumothorax. There is no pleural effusion. There are streaky opacities in the lung bases with improved aeration of the left lung base since comparison exam. There are slightly prominent bilateral interstitial opacities. IMPRESSION: 1. Interval improved aeration of the left lung base since comparison exam with persistent streaky opacities in the lung bases and mild interstitial lung opacities. Findings may potentially relate to pulmonary interstitial edema, pneumonitis, or an atypical infection. Dictated by: Dictated on workstation # [id number]
[2016-09-07] MEDS ORDERED: meTOprolol TARTRATE 25 MG (LOPRESSOR) TABLET PO ONE (16:30)
[2016-09-07] MEDS ORDERED: NORMAL SALINE (BAXTER MINI) 50 ML IV ONE (20:15)
[2016-09-07] MEDS ORDERED: cefTRIAXone 1 GM (ROCEPHIN) VIAL ONE (20:15)
[2016-09-07] MEDS: cefTRIAXone 1 GM/NS 50 ML IVPB IV SCH ×2 (20:57)
[2016-09-07] MEDS: ATORVASTATIN 10 MG (LIPITOR) TABLET PO SCH (20:58)
[2016-09-08 04:00] VITALS: BP 112/55
[2016-09-08] MEDS: ACETAMINOPHEN 500 MG TAB (TYLENOL) PO PRN (06:21)
[2016-09-08] MEDS: LEVOTHYROXINE 75 MCG (LEVOTHROID) TABLET PO SCH (06:21)
[2016-09-08] MEDS: CATHETER FLUSH 10 ML SYR IV SCH ×3 (06:21→21:15)
[2016-09-08] MEDS: PANTOPRAZOLE 20 MG TABLET (PROTONIX) PO SCH (06:21)
[2016-09-08 07:22] LABS: BASOPHILS % (AUTO) 1 % (0-10); EOSINOPHILS # (AUTO) 0.4 10^3/uL (0.0-0.3); EOSINOPHILS % (AUTO) 6 % (0-10); LYMPHOCYTES # (AUTO) 0.8 X 10^3 (1.0-4.0); LYMPHOCYTES % (AUTO) 13 % (12-44); MEAN CORPUSCULAR HEMOGLOBIN 30 PG (25-34); MEAN CORPUSCULAR HGB CONC 33 G/DL (32-36); MEAN CORPUSCULAR VOLUME 91 FL (80-99); MEAN PLATELET VOLUME 10.9 FL (7.4-10.4); MONOCYTES # (AUTO) 0.7 X 10^3 (0.0-1.0); MONOCYTES % (AUTO) 13 % (0-12); NEUTROPHILS # (AUTO) 3.8 X 10^3 (1.8-7.8); NEUTROPHILS % (AUTO) 68 % (42-75); PLATELET COUNT 252 10^3/uL (130-400); RED BLOOD COUNT 3.69 10^6/uL (4.35-5.85); RED CELL DISTRIBUTION WIDTH 14.9 % (10.0-14.5); WHITE BLOOD COUNT 5.7 10^3/uL (4.3-11.0)
[2016-09-08] MEDS: RT-ALBUTEROL SULF 2.5 MG/3 ML PRE-MIX VIAL INH SCH (07:33)
[2016-09-08 07:41] LABS: ALANINE AMINOTRANSFERASE 34 U/L (0-55); ALBUMIN 3.1 G/DL (3.2-4.5); ANION GAP 8 MMOL/L (5-14); ASPARTATE AMINO TRANSFERASE 32 U/L (5-34); BILIRUBIN,TOTAL 0.4 MG/DL (0.1-1.0); BLOOD UREA NITROGEN 11 MG/DL (7-18); BUN/CREATININE RATIO 14; CARBON DIOXIDE 27 MMOL/L (21-32); CHLORIDE 104 MMOL/L (98-107); CREATININE SERUM 0.81 MG/DL (0.60-1.30); GFR ESTIMATED > 60; GLUCOSE 89 MG/DL (70-105); POTASSIUM 3.8 MMOL/L (3.6-5.0); SODIUM 139 MMOL/L (135-145); TOTAL PROTEIN 5.7 G/DL (6.4-8.2)
[2016-09-08] MEDS ORDERED: RT-ALBUTEROL/IPRATROPIUM 3 ML (DUONEB) VIAL INH PRN (07:45)
[2016-09-08 07:51] LABS: ANISOCYTOSIS SLIGHT; BAND NEUTROPHILS 1 %; BASOPHILS % (MANUAL) 1 %; EOSINOPHILS % (MANUAL) 5 %; LYMPHOCYTES % (MANUAL) 12 %; NEUTROPHILS % (MANUAL) 70 %
[2016-09-08 08:00] VITALS: BP 93/51
[2016-09-08] MEDS: APIXABAN 5 MG (ELIQUIS) TABLET PO SCH ×2 (08:50→21:14)
[2016-09-08] MEDS: DOXYCYCLINE 100 MG (VIBRAMYCIN) TABLET PO SCH ×2 (08:50→21:14)
[2016-09-08] MEDS: meTOprolol TARTRATE 25 MG (LOPRESSOR) TABLET PO SCH ×2 (08:51→21:14)
[2016-09-08] MEDS: AMIODARONE 200 MG (CORDARONE) TAB PO SCH ×2 (08:51→21:15)
[2016-09-08] MEDS: DOCUSATE SODIUM 100 MG (COLACE) CAP PO SCH ×2 (08:52→21:00)
--- NOTE | 2016-09-08 09:45 | Diagnostic Imaging Report ---
INDICATION: Followup pneumonia. COMPARISON: 09/07/2016. FINDINGS: Bilateral lower lobe heterogeneous consolidations are unchanged. No pleural effusion or pneumothorax. Heart size is normal. Normal pulmonary vasculature. IMPRESSION: Stable bibasilar heterogeneous consolidations likely representing multifocal pneumonia. Dictated by: Dictated on workstation # [id number]
--- NOTE | 2016-09-08 10:58 | Progress Note (SOAP) ---
Subjective Subjective/Events-last exam PT REPORTS THAT SHE IS FATIGUED, BUT FEELING A LITTLE BIT BETTER TODAY. SHE REPORTS THAT SHE FEELS BETTER SINCE HER METOPROLOL WAS RESTARTED AND SHE DOES NOTE SOME "JUMPING AROUND" IN HER PULSE WITH THE BREATHING TREATMENTS. PT NOTES THAT SHE HAS FELT POORLY SINCE SHE WAS STARTED ON THE AMIODARONE. SHE REPORTS THAT SHE WAS TOLD BY DR. SCHAEFFER THAT SHE SHOULD NOT JUST "COLD TURKEY STOP HER AMIODARONE" AND AT THAT TIME HE DECREASED THE DOSE FROM 200MG BID TO 100MG BID. Review of Systems General: Fatigue Malaise HEENT: No Head Aches, No Dysphasia Pulmonary: Dyspnea Cough Cardiovascular: : PalpitationsNo: Chest Pain Gastrointestinal: No: Abdominal Pain, Constipation, Nausea Genitourinary: No Dysuria Musculoskeletal: No: back pain Neurological: : WeaknessNo: Confusion Objective Exam Vital Signs Date Time Temp Pulse Resp B/P Pulse Ox O2 Delivery O2 Flow Rate FiO2 09/08/16 08:00 97.2 78 22 93/51 93 Nasal Cannula 5.00 09/08/16 07:33 89 Nasal Cannula 3.00 09/08/16 07:33 89 09/08/16 04:00 98.3 61 20 112/55 95 Nasal Cannula 3.00 09/08/16 01:00 66 09/07/16 23:33 99.1 71 18 106/53 94 Nasal Cannula 3.00 09/07/16 20:10 Nasal Cannula 3.00 09/07/16 20:00 90 Nasal Cannula 3.00 09/07/16 20:00 99.2 87 20 110/53 92 Nasal Cannula 3.00 09/07/16 19:47 73 09/07/16 16:00 98.2 71 18 107/62 98 Nasal Cannula 3.00 09/07/16 15:57 94 Nasal Cannula 3.00 09/07/16 12:00 97.1 60 24 122/56 96 Nasal Cannula 3.00 I & O 09/08/16 07:00 Intake Total 1970 ml Output Total 2150 ml Balance -180 ml Capillary Refill : Less Than 3 SecondsLess Than 3 Seconds General Appearance: No Apparent Distress WD/WN HEENT: PERRL/EOMI Pharynx Normal Neck: Full Range of Motion Supple Respiratory: Chest Non Tender Crackles (IN BASES BILATERALLY) Decreased Breath Sounds Cardiovascular: Irregularly Irregular Gastrointestinal: normal bowel sounds non tender soft no organomegaly no pulsatile mass Extremity: Normal Capillary Refill No Calf Tenderness No Pedal Edema Neurologic/Psychiatric: Alert Oriented x3 No Motor/Sensory Deficits Normal Mood/Affect special education administrator II-XII Norm as Tested Skin: Normal Color Warm/Dry Lymphatic: No Adenopathy Results Lab Laboratory Tests 09/08/16 06:55: Alanine Aminotransferase (ALT/SGPT) 34, Albumin 3.1L, Alkaline Phosphatase 93, Anion Gap 8, Anisocytosis SLIGHT, Aspartate Amino Transf (AST/SGOT) 32, BUN/ Creatinine Ratio 14, Band Neutrophils 1, Basophils # (Auto) 0.0, Basophils % ( Manual) 1, Basophils (%) (Auto) 1, Blood Urea Nitrogen 11, Calcium Level 9.0, Carbon Dioxide Level 27, Chloride Level 104, Creatinine 0.81, Eosinophils # ( Auto) 0.4H, Eosinophils % (Manual) 5, Eosinophils (%) (Auto) 6, Estimat Glomerular Filtration Rate > 60, Glucose Level 89, Hematocrit 34L, Hemoglobin 11.1L, Lymphocytes # (Auto) 0.8L, Lymphocytes % (Manual) 12, Lymphocytes (%) ( Auto) 13, Mean Corpuscular Hemoglobin 30, Mean Corpuscular Hemoglobin Concent 33 , Mean Corpuscular Volume 91, Mean Platelet Volume 10.9H, Monocytes # (Auto) 0.7 , Monocytes % (Manual) 11, Monocytes (%) (Auto) 13H, Neutrophils # (Auto) 3.8, Neutrophils % (Manual) 70, Neutrophils (%) (Auto) 68, Platelet Count 252, Potassium Level 3.8, Red Blood Count 3.69L, Red Cell Distribution Width 14.9H, Sodium Level 139, Total Bilirubin 0.4, Total Protein 5.7L, White Blood Count 5.7 Microbiology 09/03/16 Blood Culture - Preliminary, Resulted No growth Assessment/Plan Assessment/Plan Assess & Plan/Chief Complaint PNEUMONIA ATRIAL FIBRILLATION WEAKNESS HYPOTENSION PT ON PNEUMONIA PROTOCOL, CONTINUE WITH CURRENT TREATMENT AND MAT PROTOCOL INCREASED. MONITOR PATIENT'S SYMPTOMS AND CHEST XRAY SERIALLY. AFIB - CONTINUE WITH AMIODARONE AND METOPROLOL. HYPOTENSION - PT CANNOT HAVE METOPROLOL DOSE DECREASED OR STOPPED DUE TO HER AFIB. WEAKNESS - CONTINUE WITH THERAPY. Diagnosis/Problems: Clinical Quality Measures DVT/VTE Risk/Contraindication: Risk Factor Score Per Nursin RFS Level Per Nursing on Admit: 3=High Contraindications-Pharm: Other *list below* SERGIO MORENO MD Sep 08, 2016 10:58
[2016-09-08] MEDS: RT-ALBUTEROL/IPRATROPIUM 3 ML (DUONEB) VIAL INH SCH ×4 (11:06→23:44)
--- NOTE | 2016-09-08 11:33 | Physical Therapy Evaluation ---
PT Evaluation-General Medical Diagnosis Admission Date Sep 03, 2016 at 22:19 Medical Diagnosis: pneumonia Onset Date: Sep 03, 2016 Therapy Diagnosis Therapy Diagnosis: debility Height/Weight Height (Feet): 5 Height (Inches): 5.00 Weight (Pounds): 260 Weight (Ounces): 0.0 Precautions Precautions/Isolations: Standard Precautions Referral Physician: Sherwin Reason for Referral: Evaluation/Treatment Medical History Pertinent Medical History: Atrial Fib, Hypothroidism, Smoking Additional Medical History established O2 at home per chart Current History increase SOA x 1 week and hypotensive Reviewed History: Yes Social History Home: Single Level Current Living Status: Spouse Prior/Core FIM Prior Level of Function Functional Edwards Measure 0=Not Assessed/NA 4=Minimal Assistance 1=Total Assistance 5=Supervision or Setup 2=Maximal Assistance 6=Modified Edwards 3=Moderate Assistance 7=Complete Edwards Bed Mobility: 7 Transfers (B,C,W/C) (FIM): 7 Gait: 7 PT Evaluation-Current Subjective Patient is currently up ad elly in room with extended O2 tubing on 5L. Pain Numeric Pain Scale: 0-No Pain Location: No Pain Reported Objective Patient Orientation: Normal For Age Problem Solving: Good Attachments: Oxygen (5L) ROM/Strength ROM Lower Extremities bilateral LE WFL all planes Strenght Lower Extremities MMT bilateral LE 4+/5 all planes Integumentary/Posture Integumentary refer to nursing notes Bowel Incontinence: No Bladder Incontinence: No Posture WNL Neuromuscular (Tone, Coordination, Reflexes) all tone, coordination, reflexes WNL Sensory Vision: Wears Glasses Hearing: Functional Sensation Right Lower Extremit: Intact Sensation Left Lower Extremity: Intact Transfers Functional Edwards Measure 0=Not Assessed/NA 4=Minimal Assistance 1=Total Assistance 5=Supervision or Setup 2=Maximal Assistance 6=Modified Edwards 3=Moderate Assistance 7=Complete Edwards Transfers (B, C, W/C) (FIM): 6 Scootin Rollin Supine to/from Sit: 6 Sit to/from Stand: 6 Gait Mode of Locomotion: Walk Anticipated Mode of Locomotion: Walk Gait (FIM): 6 Distance (FIM): 3=150 ft Distance: 800' Gait Level of Assist: 6 Gait Assistive Device: FWW Comments/Gait Description safe and functional with FWW to assist patient with pulmonary function Balance Sitting Static: Normal Sitting Dynamic: Normal Standing Static: Normal Standing Dynamic: Normal Assessment/Needs 71 y.o. female, will benefit from short term skilled PT to address pulmonary function with functional mobility. Patient has been instructed to ambulate PRN in hallway with family or staff on O2 as set by RT. Rehab Potential: Good PT Nursing Home Goals Nursing Home Goals PT Hydrometer Tester Goals Time Frame: Sep 15, 2016 Transfers (B,C,W/C) (FIM): 6 Gait (FIM): 6 Gait distance (FIM): 3=150 ft Distance: >800 Gait Level of Assist: 6 Gait Assistive Device: None, FWW PT Plan Problem List Problem List: Other (pulmonary function) Treatment/Plan Treatment Plan: Continue Plan of Care Treatment Plan: Education, Functional Activity Alicia, Functional Strength, Gait , Safety, Therapeutic Exercise, Transfers Treatment Duration: Sep 15, 2016 # of days/week 6 Visits Per Week: 6 Pt/Family Agrees w/Plan: Yes Safety Risks/Education Patient Education: Disease Process, Safety Issues Teaching Recipient: Patient Teaching Methods: Discussion Response to Teaching: Verbalize Understanding Time/GCodes Time In: 1040 Time Out: 1110 Total Billed Treatment Time: 30 Total Billed Treatment 1 visit EVM 30 min RAYMON COY PT Sep 08, 2016 11:33
[2016-09-08 12:00] VITALS: BP 109/52
--- NOTE | 2016-09-08 13:42 | Cardiology Progress Note ---
Cardiology SOAP Progress Note Subjective: no cardiac complaints Objective: I&O/Vital Signs Vital Sign - Last 12Hours 09/08/16 09/08/16 09/08/16 09/08/16 11:06 12:00 12:00 14:22 Temp 96.5 Pulse 65 72 Resp 22 B/P 109/52 Pulse Ox 96 99 97 O2 Delivery Nasal Cannula Nasal Cannula Nasal Cannula O2 Flow Rate 5.00 5.00 5.00 09/08/16 09/08/16 09/08/16 16:00 19:00 19:38 Temp 98.1 Pulse 64 69 Resp 22 B/P 120/68 Pulse Ox 98 97 O2 Delivery Nasal Cannula Nasal Cannula O2 Flow Rate 5.00 3.00 Intake and Output 09/08/16 00:00 Intake Total 1470 ml Output Total 1750 ml Balance -280 ml Weight (Pounds): 260 Weight (Ounces): 0.0 Weight (Calculated Kilograms): 117.529659 Constitutional: No appears stated age, No AAO x 3, No apparent distress, No PERRL, No well-developed, No well-nourished, No other Respiratory: No accessory muscle use, No respiratory distress, No chest tender , No chest expansion is symmetric, No chest is bilaterally symmetric, No lungs clear to percussion, No lungs clear to auscultation, No crackles, No rhonchi, No rales, No stridor, No wheezing, No pleural rub, No other Cardiovascular: No regular rate-rhythm, No irregularly irregular, No extra beats, No parasternal heave is noted, No JVD, No edema, No bradycardia, No tachycardia, No point of maximal impulse, No cardiac thrills are palpable, No S1 and S2, No gallop/S3, No gallop/S4, No diastolic murmur, No systolic murmur, No friction rub, No click, No other Gastrointestional: No tender, No soft, No round, No distended, No pulsatile mass, No organomegaly, No guarding, No rebound, No tenderness, No hernia, No mass, No audible bowel sounds, No abnormal bowel sounds, No abdominal bruits, No spleenomegaly, No other Extremities: No normal range of motion, No non-tender, No normal inspection, No pedal edema, No calf tenderness, No normal capillary refill, No pelvis stable , No calf tenderness, No inflammation, No pedal edema, No slow capillary refill , No swelling, No other, No abrasion, No clubbing, No cyanosis, No ecchymosis, No laceration, No no lower extremity edema bilateral, No significant edema, No tenderness, No wound Neurologic/Psychiatric: No value engineer II-XII nml as tested, No no motor/sensory deficits, No alert, No normal mood/affect, No oriented x 3, No abnormal cerebellar tests, No abnormal value engineer II-XII, No abnormal gait, No aphasia, No EOM palsy, No facial droop, No motor weakness, No sensory deficit, No depressed affect, No disoriented x 3, No other, No grossly intact, No power is 5/5 both on sides Skin: No normal color, No warm/dry, No cyanosis, No cool, No diaphoresis, No damp, No ecchymosis, No jaundice, No mottled, No pallor, No rash, No tattoos/ piercings, No ulcerations, No rash on exposed areas, No ulcerations on exposed areas, No other Results/Procedures: Labs Laboratory Tests 09/08/16 06:55: Alanine Aminotransferase (ALT/SGPT) 34, Albumin 3.1L, Alkaline Phosphatase 93, Anion Gap 8, Anisocytosis SLIGHT, Aspartate Amino Transf (AST/SGOT) 32, BUN/ Creatinine Ratio 14, Band Neutrophils 1, Basophils # (Auto) 0.0, Basophils % ( Manual) 1, Basophils (%) (Auto) 1, Blood Urea Nitrogen 11, Calcium Level 9.0, Carbon Dioxide Level 27, Chloride Level 104, Creatinine 0.81, Eosinophils # ( Auto) 0.4H, Eosinophils % (Manual) 5, Eosinophils (%) (Auto) 6, Estimat Glomerular Filtration Rate > 60, Glucose Level 89, Hematocrit 34L, Hemoglobin 11.1L, Lymphocytes # (Auto) 0.8L, Lymphocytes % (Manual) 12, Lymphocytes (%) ( Auto) 13, Mean Corpuscular Hemoglobin 30, Mean Corpuscular Hemoglobin Concent 33 , Mean Corpuscular Volume 91, Mean Platelet Volume 10.9H, Monocytes # (Auto) 0.7 , Monocytes % (Manual) 11, Monocytes (%) (Auto) 13H, Neutrophils # (Auto) 3.8, Neutrophils % (Manual) 70, Neutrophils (%) (Auto) 68, Platelet Count 252, Potassium Level 3.8, Red Blood Count 3.69L, Red Cell Distribution Width 14.9H, Sodium Level 139, Total Bilirubin 0.4, Total Protein 5.7L, White Blood Count 5.7 Microbiology 09/03/16 Blood Culture - Preliminary, Resulted No growth A/P: Assessment/Dx: Atrial Fibrillation, Coumadin toxicity, Weakness, pneumonia Plan: continue Eliquis. Low-dose amiodarone. shortness of breath improved with breathing treatments. Dr Munoz to take over care on thursday for Cardiology. Thank you. Brannon MACK MD Sep 08, 2016 1:42 pm [facility] Brannon MACK MD Sep 08, 2016 1:42 pm
[2016-09-08 16:00] VITALS: BP 120/68
[2016-09-08 20:00] VITALS: BP 114/66
[2016-09-08] MEDS ORDERED: cefTRIAXone 1 GM (ROCEPHIN) VIAL ONE (20:56)
[2016-09-08] MEDS ORDERED: NORMAL SALINE (BAXTER MINI) 50 ML IV ONE (20:57)
[2016-09-08] MEDS: cefTRIAXone 1 GM/NS 50 ML IVPB IV SCH ×2 (21:13)
[2016-09-08] MEDS: ATORVASTATIN 10 MG (LIPITOR) TABLET PO SCH (21:13)
[2016-09-09] VITALS: BP 96/50
[2016-09-09] MEDS: RT-ALBUTEROL/IPRATROPIUM 3 ML (DUONEB) VIAL INH SCH ×6 (01:55→23:04)
[2016-09-09 04:00] VITALS: BP 100/54
[2016-09-09] MEDS: LEVOTHYROXINE 75 MCG (LEVOTHROID) TABLET PO SCH (06:23)
[2016-09-09] MEDS: PANTOPRAZOLE 20 MG TABLET (PROTONIX) PO SCH (06:23)
[2016-09-09] MEDS: CATHETER FLUSH 10 ML SYR IV SCH ×3 (06:23→21:31)
[2016-09-09] MEDS: ACETAMINOPHEN 500 MG TAB (TYLENOL) PO PRN (06:38)
[2016-09-09 08:00] VITALS: BP 136/60
--- NOTE | 2016-09-09 08:17 | Diagnostic Imaging Report ---
INDICATION: Pneumonia. COMPARISON: 09/08/2016 FINDINGS: Frontal and lateral radiographic views of the chest were obtained and continue to show infiltrates within the bilateral lower lungs, left greater than right. Overall, aeration is stable. There is no large effusion or pneumothorax. There is hyperinflation consistent with underlying COPD. Cardiac silhouette and pulmonary vasculature are stable. Bony structures show no new acute abnormalities. IMPRESSION: 1. Stable bibasilar infiltrates. Dictated by: Dictated on workstation # [id number]
[2016-09-09] MEDS: meTOprolol TARTRATE 25 MG (LOPRESSOR) TABLET PO SCH ×2 (08:22→21:25)
[2016-09-09] MEDS: DOCUSATE SODIUM 100 MG (COLACE) CAP PO SCH ×2 (08:22→21:00)
[2016-09-09] MEDS: APIXABAN 5 MG (ELIQUIS) TABLET PO SCH ×2 (08:22→21:25)
[2016-09-09] MEDS: AMIODARONE 200 MG (CORDARONE) TAB PO SCH ×2 (08:22→21:25)
--- NOTE | 2016-09-09 09:15 | Progress Note (SOAP) ---
Subjective Subjective/Events-last exam PT IS A 71 Y/O FEMALE WHO IS KNOWN TO ME FROM CLINIC. SHE REPORTS THAT SHE IS FEELING BETTER TODAY - STILL A LITTLE FATIGUED THIS MORNING, BUT OVERALL, BETTER FROM A BREATHING STANDPOINT Review of Systems General: No Chills, Fatigue HEENT: No Head Aches Pulmonary: Dyspnea Cough (IMPROVED PER PT REPORT) Cardiovascular: No: Chest Pain, Edema Gastrointestinal: No: Abdominal Pain, Nausea Genitourinary: No Dysuria Musculoskeletal: No: back pain Neurological: : WeaknessNo: Confusion Objective Exam Vital Signs Date Time Temp Pulse Resp B/P Pulse Ox O2 Delivery O2 Flow Rate FiO2 09/09/16 08:54 93 Nasal Cannula 2.00 09/09/16 08:13 93 Nasal Cannula 2.00 09/09/16 08:00 96.2 67 20 136/60 95 Nasal Cannula 2.00 09/09/16 04:00 97.1 80 20 100/54 95 Nasal Cannula 2.00 09/09/16 01:56 93 Nasal Cannula 2.00 09/09/16 00:58 76 09/09/16 00:00 96.4 79 20 96/50 95 Nasal Cannula 2.00 09/08/16 23:45 93 Nasal Cannula 2.00 09/08/16 20:55 Nasal Cannula 3.00 09/08/16 20:00 97.4 82 20 114/66 95 Nasal Cannula 2.00 09/08/16 19:38 97 Nasal Cannula 3.00 09/08/16 19:00 69 09/08/16 16:00 98.1 64 22 120/68 98 Nasal Cannula 5.00 09/08/16 14:22 97 Nasal Cannula 5.00 09/08/16 12:00 72 09/08/16 12:00 96.5 65 22 109/52 99 Nasal Cannula 5.00 09/08/16 11:06 96 Nasal Cannula 5.00 I & O 09/09/16 07:00 Intake Total 1490 ml Output Total 1500 ml Balance -10 ml Capillary Refill : Less Than 3 SecondsLess Than 3 Seconds General Appearance: No Apparent Distress WD/WN HEENT: PERRL/EOMI Pharynx Normal Neck: Full Range of Motion Supple Respiratory: Chest Non Tender Decreased Breath Sounds (IN BASES WITH FAINT CRACKLES) Cardiovascular: Irregularly Irregular Gastrointestinal: normal bowel sounds non tender soft no organomegaly no pulsatile mass Extremity: Normal Capillary Refill No Calf Tenderness No Pedal Edema Neurologic/Psychiatric: Alert Oriented x3 No Motor/Sensory Deficits Normal Mood/Affect Skin: Normal Color Warm/Dry Lymphatic: No Adenopathy Results Lab Microbiology 09/03/16 Blood Culture - Preliminary, Resulted No growth Assessment/Plan Assessment/Plan Assess & Plan/Chief Complaint PNEUMONIA ATRIAL FIBRILLATION WEAKNESS HYPOTENSION PT ON PNEUMONIA PROTOCOL, CONTINUE WITH CURRENT TREATMENT AND MAT PROTOCOL INCREASED. PT IMPROVING - MONITOR SYMPTOMS - CONTINUE WITH ANTIBIOTICS. AFIB - CONTINUE WITH AMIODARONE AND METOPROLOL. HYPOTENSION - PT CANNOT HAVE METOPROLOL DOSE DECREASED OR STOPPED DUE TO HER AFIB. WEAKNESS - CONTINUE WITH THERAPY. HOPEFULLY WILL BE ABLE TO DISCHARGE TO HOME TOMORROW WITH CLOSE OUTPATIENT FOLLOW UP AND HOME HEALTH Diagnosis/Problems: Clinical Quality Measures DVT/VTE Risk/Contraindication: Risk Factor Score Per Nursin RFS Level Per Nursing on Admit: 3=High Contraindications-Pharm: Other *list below* SERGIO MORENO MD Sep 09, 2016 09:15
--- NOTE | 2016-09-09 09:55 | Physical Therapy Daily Note ---
PT Daily Note-Current Subjective Patient is in bed and agreeable to participate with PT. Pain Numeric Pain Scale: 0-No Pain Location: No Pain Reported Mental Status Patient Orientation: Normal For Age Attachments: Oxygen (2-3L) Transfers Functional [place] Measure 0=Not Assessed/NA 4=Minimal Assistance 1=Total Assistance 5=Supervision or Setup 2=Maximal Assistance 6=Modified [place] 3=Moderate Assistance 7=Complete IndependenceIRFPAI Quality Coding Scale 6 Independent with activity with or without an assistive device 5 Patient requires set up or clean up by helper. Patient completes activity by themselves 4 Supervision or touching assist (CGA). [place] provide cues , steadying assist 3 The helper provides less than half the effort to complete the activity 2 The helper provides more than half the effort to complete the activity 1 Dependent. The helper does all the effort to complete an activity 7 Patient refused to complete or attempt activity 9 The patient did not perform the activity before the current illness or injury 88 Not attempted due to Medical conditions or safety concerns Transfers (B, C, W/C) (FIM): 6 Scootin Rollin Supine to/from Sit: 6 Sit to/from Stand: 6 Gait Training Gait (FIM): 6 Distance (FIM): 3=150 ft Distance: 1200' Gait Level of Assist: 6 Gait Assistive Device: FWW ambulates with and without FWW with stable and safe gait sequence Assessment Patient tolerated treatment well and displayed mild SOA with O2 3L NC in place. Plan dismissal tomorrow to home. PT Exchange Consultant Goals Exchange Consultant Goals PT Detention Goals Time Frame: Sep 15, 2016 Transfers (B,C,W/C) (FIM): 6 Gait (FIM): 6 Gait distance (FIM): 3=150 ft Distance: >800 Gait Level of Assist: 6 Gait Assistive Device: None, FWW PT Plan Treatment/Plan Treatment Plan: Continue Plan of Care Treatment Plan: Education, Functional Activity Alicia, Functional Strength, Gait , Safety, Therapeutic Exercise, Transfers Treatment Duration: Sep 15, 2016 Visits Per Week: 6 Time/GCodes Time In: 937 Time Out: 947 Total Billed Treatment Time: 10 Total Billed Treatment 1 visit GT 10 min RAYMON COY PT Sep 09, 2016 09:55
[2016-09-09 12:00] VITALS: BP 107/57
[2016-09-09 15:58] VITALS: BP 113/54
[2016-09-09 20:00] VITALS: BP 107/66
[2016-09-09] MEDS ORDERED: cefTRIAXone 1 GM (ROCEPHIN) VIAL ONE (21:03)
[2016-09-09] MEDS ORDERED: NORMAL SALINE (BAXTER MINI) 50 ML IV ONE (21:03)
[2016-09-09] MEDS: ATORVASTATIN 10 MG (LIPITOR) TABLET PO SCH (21:25)
[2016-09-09] MEDS: cefTRIAXone 1 GM/NS 50 ML IVPB IV SCH ×2 (21:26)
[2016-09-10] VITALS: BP 116/64
[2016-09-10] MEDS: ACETAMINOPHEN 500 MG TAB (TYLENOL) PO PRN (00:38)
[2016-09-10] MEDS: RT-ALBUTEROL/IPRATROPIUM 3 ML (DUONEB) VIAL INH SCH ×4 (02:47→15:00)
[2016-09-10] MEDS: LEVOTHYROXINE 75 MCG (LEVOTHROID) TABLET PO SCH (06:09)
[2016-09-10] MEDS: CATHETER FLUSH 10 ML SYR IV SCH ×2 (06:09→13:40)
[2016-09-10] MEDS: PANTOPRAZOLE 20 MG TABLET (PROTONIX) PO SCH (06:09)
[2016-09-10 07:45] VITALS: BP 116/58
[2016-09-10] MEDS: meTOprolol TARTRATE 25 MG (LOPRESSOR) TABLET PO SCH (08:35)
[2016-09-10] MEDS: AMIODARONE 200 MG (CORDARONE) TAB PO SCH (08:35)
[2016-09-10] MEDS: APIXABAN 5 MG (ELIQUIS) TABLET PO SCH (08:35)
[2016-09-10] MEDS: DOCUSATE SODIUM 100 MG (COLACE) CAP PO SCH (08:35)
--- NOTE | 2016-09-10 09:04 | Cardiology Progress Note ---
Subjective Subjective/Events-last exam Patient sitting up in bed. No new complaint. Denies any CP or dyspnea. States she is ready to go home. Review of Systems General: No Night Sweats, No Fatigue, No Malaise HEENT: No Visual Changes, No Dysphasia, No Sore Throat Pulmonary: No Dyspnea, No Cough Cardiovascular: No: Chest Pain, Palpitations Gastrointestinal: No: Abdominal Pain, Nausea, Vomiting Genitourinary: No Dysuria, No Frequency Musculoskeletal: No: back pain, neck pain Neurological: No: Change in speech, Confusion, Numbness, Weakness Objective-Cardiology Exam Last Set of Vital Signs Vital Signs 09/10/16 09/10/16 09/10/16 00:00 01:00 07:48 Temp 98.3 Pulse 108 Resp 20 B/P 116/64 Pulse Ox 94 O2 Delivery Nasal Cannula O2 Flow Rate 2.00 Capillary Refill : Less Than 3 SecondsLess Than 3 Seconds I&O Intake and Output 09/10/16 00:00 Intake Total 1680 ml Output Total 1600 ml Balance 80 ml Intake Oral 1680 ml Output Urine Total 1600 ml # Bowel Movements 1 General: Alert, Oriented X3, Cooperative HEENT: Atraumatic, PERRLA Neck: Supple, No JVD, No Thyromegaly Lungs: Clear to Auscultation, Normal Air Movement Heart: Other (irregular, slightly tachycardic) Abdomen: Normal Bowel Sounds, Soft Extremities: No Clubbing, No Cyanosis Skin: No Rashes, No Breakdown Neuro: Normal Gait, Normal Speech Psych/Mental Status: Mental Status NL, Mood NL A/P-Cardiology Admission Diagnosis Pneumonia Supratherapeutic INR PAF Hypothyroidism Assessment/Plan Pneumonia- continue antibiotics and MAT protocol. Managed by PCP Paroxysmal atrial fibrillation, seen and managed by Dr. Lincoln Marrufo insight director with [facility] cardiology, she was on flecainide and failed to maintain sinus rhythm, Seen by Dr Hernández at , Maintained on amiodarone and metoprolol. Possible A. fib ablation in the next month. [id number] score is 2, yearly risk of stroke without oral anticoagulation is 2.2 percent. Maintained on Coumadin in the past. INR had been difficult to manage. Patient was admitted with pneumonia and supratherapeutic INR >9. Coumadin discontinued and now on Eliquis tolerating it well. Patient voiced concerns about the affordability of NOAC. I will see if she will qualify for patient assistance. Lexiscan stress test shows baseline atrial fibrillation with typical female pattern, no ischemia or infarction, ejection fraction 66 percent, done on April 30, 2016. Continue to monitor Hyperlipidemia, maintained on atorvastatin. Continue to monitor lipids. Recurrent palpitation, status post Reveal device implantation, I will continue monitoring and evaluate for any bradycardia or arrhythmia. Mild bilateral carotid stenosis, ultrasound was done in March 2016. Continue to monitor History of varicose vein surgery, hysterectomy, cholecystectomy Hypothyroidism, followed and managed by primary care physician History of osteopenia History of gastroesophageal reflux disease Mild degree of obstructive sleep apnea, and if conservatively History of flexion sclerosis Clinical Quality Measures DVT/VTE Risk/Contraindication: Risk Factor Score Per Nursin RFS Level Per Nursing on Admit: 3=High Contraindications-Pharm: Other *list below* MANSOOR DUQUE Sep 10, 2016 09:04
[2016-09-10] MEDS ORDERED: APIX5TAB PO (09:43)
[2016-09-10] MEDS ORDERED: IPRA3AMP INH (09:43)
--- NOTE | 2016-09-10 09:50 | Discharge Inst-Home Health ---
Discharge Inst-to Home Health Patient Instructions Patient Instructions/FollowUp: [address] rodriguez 2 weeks with cardiology [place], [place] DISCHARGE ORDERS Allergies: Coded Allergies: erythromycin base (Verified Allergy, Unknown, 04/04/16) levofloxacin (Verified Allergy, Unknown, 04/04/16) Height (Feet): 5 Height (Inches): 5.00 Weight (Pounds): 260 Weight (Ounces): 0.0 Home Health Need/Face to Face Reason Pt Homebound dyspnea, pneumonia, weakness, afib I Have Seen Pt [id number]: Yes Date of Face to Face: Sep 10, 2016 Discharged To: Home Diagnosis/Conditions HH Order: dyspnea, pneumonia, weakness, afib Consult/Follow Up/New Order *I certify that based on my findings, the following services are medically necessary Home Health Services: Services: Nursing Services, Physical Therapy-Evaluate & Treat My clinical findings support the need for the above services; see Diagnosis. Dicharge Diet: Regular Diet Daily Activity as Tolerated: Yes Discharge Medications: New, Converted, or Re-newed RX: Call to Patient Pharmacy I certify that this patient is under my care and that I, a nurse practitioner or a physician; a student assistant working with me, had a face to face encounter that - meets the physician face to face encounter requirements with this patient as dated. SERGIO RODRIGUEZ MD Sep 10, 2016 09:50
--- NOTE | 2016-09-10 09:51 | Discharge Summary ---
Diagnosis/Chief Complaint Date of Admission Sep 03, 2016 at 22:19 Date of Discharge Discharge Date: Sep 10, 2016 Discharge Time: 1000 Admission Diagnosis Admission Diagnosis prolonged INR area Hemoptysis. Atrial fibrillation. Weakness Discharge Diagnosis PNEUMONIA HYPOXEMIA ATRIAL FIBRILLATION WEAKNESS HYPOTENSION HEMOPTYSIS ELEVATED INR Reason Hospital Visit patient has atrial fib. Patient on Coumadin. Patient spitting up blood. INR prolonged 9.2. Patient recently put on Amiodarone Patient having much problems with this Patient short of breath for one week. Patient on oxygen at home which is new Discharge Summary Discharge Physical Examination Allergies: Coded Allergies: erythromycin base (Verified Allergy, Unknown, 04/04/16) levofloxacin (Verified Allergy, Unknown, 04/04/16) Vitals & I&Os Vital Signs Date Time Temp Pulse Resp B/P Pulse Ox O2 Delivery O2 Flow Rate FiO2 09/10/16 10:59 95 Nasal Cannula 2.00 09/10/16 07:45 97.4 80 20 116/58 General Appearance: Alert, Oriented X3, Cooperative HEENT: Atraumatic, PERRLA Respiratory: Clear to Auscultation, Normal Air Movement Cardiovascular: Other (irregular, slightly tachycardic) Abdominal: Normal Bowel Sounds, Soft Extremities: No Clubbing, No Cyanosis Skin: No Rashes, No Breakdown Neuro: Normal Gait, Normal Speech Psych/Mental Status: Mental Status NL, Mood NL Hospital Course PNEUMONIA ATRIAL FIBRILLATION WEAKNESS HYPOTENSION PNEUMONIA, HYPOXEMIA, RESPIRATORY DISTRESS - PT ON PNEUMONIA PROTOCOL, PT WILL GO HOME ON OXYGEN, BREATHING TREATMENTS, AND HOME HEALTH FOR MONITORING OF PT AT HOME AFIB - CONTINUE WITH AMIODARONE AND METOPROLOL AND ELIQUIS HYPOTENSION - PT CANNOT HAVE METOPROLOL DOSE DECREASED OR STOPPED DUE TO HER AFIB. WEAKNESS - CONTINUE WITH THERAPY. DISCHARGE TO HOME TODAY WITH CLOSE OUTPATIENT FOLLOW UP AND HOME HEALTH Discharge Condition at discharge IMPROVING Instructions to patient/family Please see electonic discharge instructions given to patient. Discharge Medications Reviewed and agree with Discharge Medication list on patient's Discharge Instruction sheet Clinical Quality Measures DVT/VTE Risk/Contraindication: Risk Factor Score Per Nursin RFS Level Per Nursing on Admit: 3=High Contraindications-Pharm: Other *list below* SERGIO MORENO MD Sep 10, 2016 09:51
--- NOTE | 2016-09-10 15:26 | Physical Therapy Daily Note ---
PT Daily Note-Current Subjective Pt sitting in recliner upon arrival. Pt reports discharging today. Pt agrees to walking for PT. Pain Numeric Pain Scale: 0-No Pain Location: No Pain Reported Mental Status Patient Orientation: Person, Place, Time, Situation Attachments: Oxygen Transfers Functional [place] Measure 0=Not Assessed/NA 4=Minimal Assistance 1=Total Assistance 5=Supervision or Setup 2=Maximal Assistance 6=Modified [place] 3=Moderate Assistance 7=Complete IndependenceIRFPAI Quality Coding Scale 6 Independent with activity with or without an assistive device 5 Patient requires set up or clean up by helper. Patient completes activity by themselves 4 Supervision or touching assist (CGA). [place] provide cues , steadying assist 3 The helper provides less than half the effort to complete the activity 2 The helper provides more than half the effort to complete the activity 1 Dependent. The helper does all the effort to complete an activity 7 Patient refused to complete or attempt activity 9 The patient did not perform the activity before the current illness or injury 88 Not attempted due to Medical conditions or safety concerns Scootin Sit to/from Stand: 6 Weight Bearing Weight Bearing Restriction: Full Weight Bearing Location Restriction: LE Bilateral Gait Training Distance (FIM): 3=150 ft Distance: 500' Gait Level of Assist: 5 Gait Persons Needed: 1 Gait Assistive Device: None Pt walks at SBA w/o AD but occasionally will slightly have LOB but self corrects but holding on the hand rail in hallway. Pt walks with normalized gait. Treatments Pt transfers from recliner to standing at Mod I w/o AD then ambulates in hallway w/o AD at SBA for approx. 500'. Pt then returns to recliner to rest. Pt asks PT & nursing a few questions regarding discharge for today. Pt is left with all needs met at end of tx. Assessment Pt has made progress with transfers and mobility as well as activity tolerance. PT Fci Goals [employer] Goals PT Fci Goals Time Frame: Sep 15, 2016 Transfers (B,C,W/C) (FIM): 6 Gait (FIM): 6 Gait distance (FIM): 3=150 ft Distance: >800 Gait Level of Assist: 6 Gait Assistive Device: None, FWW PT Plan Problem List Problem List: Functional Strength Treatment/Plan Treatment Plan: Continue Plan of Care Treatment Plan: Education, Functional Activity Alicia, Functional Strength, Gait , Safety, Therapeutic Exercise, Transfers Treatment Duration: Sep 15, 2016 Visits Per Week: 6 Safety Risks/Education Patient Education: Gait Training, Transfer Techniques, Correct Positioning, Safety Issues Teaching Recipient: Patient Teaching Methods: Discussion Response to Teaching: Verbalize Understanding Time/GCodes Time In: 1340 Time Out: 1405 Total Billed Treatment Time: 25 Total Billed Treatment visit, GT (15m) & FA (10m) TIFF LEMUS EXPRESSIVE THERAPIST Sep 10, 2016 15:26
[2016-09-10 16:00] VITALS: BP 110/66
[2016-12-05] MEDS ORDERED: ENOX40DI13 SQ (07:41)
[2016-12-05] MEDS ORDERED: SENN-20 PO (07:41)
[2016-12-05] MEDS ORDERED: HYDR-3812 PO (07:41)
[2016-12-05] MEDS ORDERED: GABA-488 PO (07:41)
[2016-12-05] MEDS ORDERED: APIX5TAB PO (07:41)
[2016-12-08] MEDS ORDERED: APIX5TAB PO (09:45)
[2016-12-08] MEDS ORDERED: ENOX40DI13 SQ (09:45)
[2016-12-08] MEDS ORDERED: CEPH-507 PO (09:46)
== END 2016-09-10 17:08 | disposition home health service (06) | DRG 194 ==
LOC: EDUNIT# 18:15 → ER 18:16 → 4TH 22:19
PROVIDERS: ADMIT Family Medicine; ATTEND Family Medicine
DX: J18.9 Pneumonia, unspecified organism (principal); R09.02 Hypoxemia; R04.2 Hemoptysis; R79.1 Abnormal coagulation profile; I48.0 Paroxysmal atrial fibrillation; I95.9 Hypotension, unspecified; K21.9 Gastro-esophageal reflux disease without esophagitis; M54.9 Dorsalgia, unspecified; R53.1 Weakness; E03.9 Hypothyroidism, unspecified; E78.5 Hyperlipidemia, unspecified; I65.23 Occlusion and stenosis of bilateral carotid arteries; G47.33 Obstructive sleep apnea (adult) (pediatric); Z79.01 Long term (current) use of anticoagulants; Z87.891 Personal history of nicotine dependence
CPT/HCPCS: 36415; 36430; 71010; 71020; 71260; 80048; 80053; 83605; 83880; 84439; 84443; 85007; 85025; 85027; 85610; 85730; 86141; 86850; 86900; 86901; 86920; 87040; 94640; 94664; 94760; 94761; 96361; 96365; 96375

== ENCOUNTER → 2016-09-18 | Outpatient (CLI) | payer MEDICARE ==
[~2016-09-18] MED LIST: ALPR0.25 PO; AMIO200T2 PO; AMOX1TAB11 PO; AMOX500C2 PO; APIX5TAB PO; ASCO500T6 PO; ATOR10TA66 PO; CALC-654 PO; CEPH-507 PO; CHOL10007 PO; COCO1000 PO; CRAN1CAP9 PO; CYAN50TA3 PO; DICL100G18 TOP; ENOX40DI13 SQ; ENOX40DI8 SQ; FAMO-119 PO; FLUT16SP22 NS; GABA-486 PO; GABA-488 PO; HYDR-3812 PO; IPRA3AMP IH; IPRA3AMP INH; KRIL1CAP18 PO; LEVO75TA6 PO; LUTE1CAP3 PO; METO-333 PO; MULT-974 PO; NAPR220T66 PO; NITR-65 PO; OMEP20CA12 PO; OMG1KC PO; ONDA4TAB11 PO; ONDA8TAB13 PO; ORPH100T PO; OXYB5TAB PO; OXYC-471 PO; PANT40TA3 PO; PROM25TA14 PO; SENN-20 PO; TURM500C7 PO; WARF-48 PO; WARF4TAB70 PO; ZINC50TA51 PO
--- OUTSIDE RECORDS SUMMARY | 2016-09-18 12:27 | XMS REPORT | Continuity of Care Document ---
[facility] Address Unknown Phone Unavailable Care Team Providers Care Mgmt Specialist Name Role Phone Niko Underwood PCP [phone] Source Comments Some departments are not documenting in the electronic medical record. If you do not see the information that you expected, contact Release of Information in the Health Information Management department at [phone] for further assistance in locating additional records[facility] Active Allergies and Adverse Reactions Allergen Noted [...] Take 0.5 Tabs by mouth 30 Tab 11 09/05/20 Active (LOPRESSOR) 25 mg tablet twice daily. 16 metoprolol tartrate Take 0.5 Tabs by mouth 30 Tab 1 07/21/20 Discontin (LOPRESSOR) 25 mg tablet twice daily. 16 16 ued Active Problems Problem Noted Date Atrial fibrillation (HCC) 07/18/2016 Overview: Managed by Dr Lincoln VELOZ, [place]. [id number] score is 2. On warfarin. 04/04/16 - [...] Recent Encounters Date Type Specialty Providers Description 09/05/2016 Refill Cardiology Paula Siddiqi, label drier Refill - Metoprolol 09/03/2016 Telephone Cardiology Brooklynn Arnett RN 07/21/2016 Telephone Cardiology Mariia Hanson LPN Medication Update - Lopressor 07/18/2016 Hospital Cardiology Jose Luis Hernández MD Encounter 07/18/2016 Office Visit Cardiology Jose Luis Hernández MD New Patient; Atrial fibrillation; Device Check-Device Rep - ILR 07/18/2016 Documentation Cardiology Norma Saucedo, VALDEZ Device Check - request for interrogation ILR 07/18/2016 Telephone Cardiology Norma Saucedo, RN Appointment - for today's appt Social History Tobacco Use Types Packs/Day Years Used Date Former Smoker Smokeless Tobacco: Never Used Alcohol Use Drinks/Week oz/Week Comments No Last Filed Vital Signs Vital Sign Reading Time Taken Blood Pressure 116/70 07/18/2016 12:58 PM ETHICS OFFICER Pulse 55 07/18/2016 12:58 PM ETHICS OFFICER Temperature - - Respiratory Rate - - Height 1.651 m (5' 5") 07/18/2016 12:58 PM ETHICS OFFICER Weight 73.029 kg (161 lb) 07/18/2016 12:58 PM ETHICS OFFICER Body Mass Index 26.79 07/18/2016 12:58 PM ETHICS OFFICER Oxygen Saturation - - Plan of Care Date Type Specialty Providers Description 10/14/2016 Appointment Cardiology 10/14/2016 Appointment Cardiology Jose Luis Hernández MD [address] [facility] [address] [place] [address] [phone] (Fax) Health Maintenance Due Date Last Done [...]
--- NOTE | 2016-09-18 15:02 | Diagnostic Imaging Report ---
INDICATION: Pneumonia. PA and lateral chest. FINDINGS: There are some patchy infiltrates in both medial lung bases. This has shown interval improvement since 09/09/2009. There are no effusions or pneumothoraces. IMPRESSION: Improving bilateral medial basilar infiltrates. Dictated by: Dictated on workstation # [id number]
== END ==
LOC: RAD 12:23
PROVIDERS: ATTEND Nurse Practitioner Family
DX: J18.9 Pneumonia, unspecified organism (principal)
CPT/HCPCS: 71020

== ENCOUNTER → 2016-09-29 | Outpatient (CLI) | payer MEDICARE ==
--- OUTSIDE RECORDS SUMMARY | 2016-09-29 12:46 | XMS REPORT | Continuity of Care Document ---
Author Author [facility] Organization [facility] Address Unknown Phone Unavailable Care Team Providers Care Meat Seafood Associate Name Role Phone Niko Underwood PCP [phone] Source Comments Some departments are not documenting in the electronic medical record. If you do not see the information that you expected, contact Release of Information in the Health Information Management department at [phone] for further assistance in locating additional records.[facility] Active Allergies and Adverse Reactions Allergen [...] mg by mouth Active mg tablet daily. levothyroxine (SYNTHROID) Take 75 mcg by mouth Active 75 mcg tablet daily. oxybutynin XL (DITROPAN Take 5 mg by mouth three Active XL) 5 mg tablet times daily as needed. metoprolol tartrate Take 0.5 Tabs by mouth 30 Tab 11 09/05/20 Active (LOPRESSOR) 25 mg tablet twice daily. 16 apixaban (ELIQUIS) 5 mg Take 5 mg by mouth twice Active tablet daily. amiodarone (CORDARONE) Take 100 mg by mouth Active 200 mg tablet twice daily. Take with food. WARFARIN SODIUM (COUMADIN Take 4 mg by mouth. 09/18/19 Discontin PO) 17 ued amiodarone (CORDARONE) Take 200 mg by mouth 09/18/19 Discontin 200 mg tablet twice daily. Take with 17 ued food. metoprolol tartrate Take 0.5 Tabs by mouth 30 Tab 1 07/21/20 Discontin (LOPRESSOR) 25 mg tablet twice daily. 16 16 ued Active Problems Problem Noted Date Atrial fibrillation (HCC) 07/18/2016 [facility] [id number] score is 2. On warfarin. 04/04/16 - [...] Recent Encounters Date Type Specialty Providers Description 09/19/2016 Documentation Cardiology Sharona Guadarrama Records Request - [facility]- [phone] 09/18/2016 Telephone Cardiology Ramona Barriga, RN Notification Of Hospitalization - ED with bleeding inr 9.2, and dx pneumonia 09/05/2016 Refill Cardiology Paula Siddiqi, preschool education director Refill - Metoprolol 09/03/2016 Telephone Cardiology Brooklynn [...] Taken Blood Pressure 116/70 07/18/2016 12:58 PM WAREHOUSE ASSEMBLY WORKER Pulse 55 07/18/2016 12:58 PM WAREHOUSE ASSEMBLY WORKER Temperature - - Respiratory Rate - - Height 1.651 m (5' 5") 07/18/2016 12:58 PM WAREHOUSE ASSEMBLY WORKER Weight 73.029 kg (161 lb) 07/18/2016 12:58 PM WAREHOUSE ASSEMBLY WORKER Body Mass Index 26.79 07/18/2016 12:58 PM WAREHOUSE ASSEMBLY WORKER Oxygen Saturation - - Plan of Care Date Type Specialty Providers Description 10/14/2016 Appointment Cardiology 10/14/2016 Appointment Cardiology Jose Luis Hernández MD [address] [facility] [address] [place] [address] [phone] (Fax) Health Maintenance Due Date Last Done [...] clinic. ILR check WNL. Please click blue HRM Data Sheet Hyperlink for Report. Routed to E for sign off. ECG/QRS (07/18/2016) Component Value Range QRS DURATION 96
--- NOTE | 2016-09-29 13:18 | Diagnostic Imaging Report ---
PROCEDURE: CT chest without contrast. TECHNIQUE: Multiple contiguous axial images were obtained through the chest without the use of intravenous contrast. INDICATION: Pneumonia. FINDINGS: The previous CT chest exam performed on 09/04/2016 noted bilateral lower lobe alveolar/interstitial pulmonary infiltrates with bilateral upper lobe ground-glass infiltrates. On this study, both lungs do seem much better aerated. However, there are still patchy alveolar/interstitial infiltrates involving both lower lobes. This appearance suggests that there is some residual pneumonia/atelectasis present. The heart size is within normal limits. Coronary artery calcifications are noted. The aorta is not abnormally dilated. There is no mediastinal or hilar adenopathy, although this exam is limited in evaluation of adenopathy due to the absence of intravenous contrast. The thyroid gland was not visualized in its entirety. Where visualized, it seems similar to the prior study. The ventricular recording device in the subcutaneous fat of the left thorax seen previously is again evident and no different. There is no obvious breast mass. The sections through the upper abdomen fail to show any sign of an acute abnormality. As noted on the prior exam, the gallbladder is surgically absent. The bone window show no evidence for a fracture or for a destructive lesion. IMPRESSION: 1. The appearance of the chest has improved as both lungs do seem much better aerated. However, there are still persistent alveolar/interstitial infiltrates involving the lower lobes. These may well be secondary to residual pneumonia/atelectasis. 2. No new abnormality has developed otherwise. Dictated by: Dictated on workstation # [id number]
== END ==
LOC: RAD 12:42
PROVIDERS: ATTEND Internal Medicine Critical Care Medicine
DX: R06.00 Dyspnea, unspecified (principal); R09.02 Hypoxemia
CPT/HCPCS: 71250

== ENCOUNTER → 2016-10-08 | Outpatient (CLI) | payer MEDICARE ==
[~2016-10-08] MED LIST changes: +RT-ALBUTEROL SULF 2.5 MG/3 ML PRE-MIX VIAL INH ONE
--- OUTSIDE RECORDS SUMMARY | 2016-10-08 11:47 | XMS REPORT | Continuity of Care Document ---
Author Author [facility] Organization [facility] Address Unknown Phone Unavailable Care Team Providers Care Centrifugal Drier Operator Name Role Phone Niko Underwood PCP [phone] Source Comments Some departments are not documenting in the electronic medical record. If you do not see the information that you expected, contact Release of Information in the Health Information Management department at [phone] for further assistance in locating additional records.[facility] Active Allergies and Adverse Reactions Allergen [...] twice daily. Take with 17 ued food. Active Problems Problem Noted Date Atrial fibrillation (HCC) 07/18/2016 Overview: Managed by Dr Lincoln VELOZ, Chas Panda'Neill. [id number] score is 2. On warfarin. 04/04/16 - [...] Cardiology Sharona Guadarrama Records Request - Via [facility]- [phone] 09/18/2016 Telephone Cardiology Ramona Barriga, VALDEZ Notification Of Hospitalization - ED with bleeding inr 9.2, and dx pneumonia 09/05/2016 Refill Cardiology Paula Siddiqi, welding machine operator ultrasonic Refill - Metoprolol 09/03/2016 Telephone Cardiology Brooklynn Arnett, VALDEZ 07/21/2016 Telephone Cardiology Mariia Hanson LPN Medication [...] Taken Blood Pressure 116/70 07/18/2016 12:58 PM ASSOCIATE DRAFTER Pulse 55 07/18/2016 12:58 PM ASSOCIATE DRAFTER Temperature - - Respiratory Rate - - Height 1.651 m (5' 5") 07/18/2016 12:58 PM ASSOCIATE DRAFTER Weight 73.029 kg (161 lb) 07/18/2016 12:58 PM ASSOCIATE DRAFTER Body Mass Index 26.79 07/18/2016 12:58 PM ASSOCIATE DRAFTER Oxygen Saturation - - Plan of Care Date Type Specialty Providers Description 10/14/2016 Appointment Cardiology 10/14/2016 Appointment Cardiology Jose Luis Hernández MD [address] [facility] [address] [place] [address] [phone] (Fax) Health Maintenance Due Date Last Done [...]
== END ==
LOC: RT 11:42
PROVIDERS: ATTEND Internal Medicine Critical Care Medicine
DX: R06.00 Dyspnea, unspecified (principal); R09.02 Hypoxemia
CPT/HCPCS: 94060; 94640; 94726; 94729

== ENCOUNTER → 2016-10-16 | Outpatient (CLI) | payer MEDICARE ==
[~2016-10-16] MED LIST changes: +CATHETER FLUSH 10 ML SYR IV PRN; +IOHEXOL 350 MG/ML 150 ML (OMNIPAQUE 350) VIAL IV ONE; +NS 100 ML (IVPB) BAG IV ONE; -RT-ALBUTEROL SULF 2.5 MG/3 ML PRE-MIX VIAL INH ONE
--- OUTSIDE RECORDS SUMMARY | 2016-10-16 14:19 | XMS REPORT | Continuity of Care Document ---
Author Author [facility] Organization [facility] Address Unknown Phone Unavailable Care Team Providers Care Campus Recruiting Coordinator Name Role Phone Niko Underwood PCP [phone] Source Comments Some departments are not documenting in the electronic medical record. If you do not see the information that you expected, contact Release of Information in the Health Information Management department at [phone] for further assistance in locating additional records.[facility] [...] naproxen sodium(+) Take 1 Tab by mouth twice Active (ALEVE) 220 mg tablet daily. Take with food. ASCORBATE CALCIUM Take by [...] mg by mouth twice Active tablet daily. CALCIUM CARBONATE Take by mouth. Active (CALCIUM 500 PO) ERGOCALCIFEROL (VITAMIN Take by mouth. Active D2) (VITAMIN D PO) cyanocobalamin (VITAMIN Take 1,000 mcg by mouth Active B-12) 1,000 mcg tablet daily. WARFARIN SODIUM (COUMADIN Take 4 mg by mouth. 09/18/19 Discontin PO) 17 ued amiodarone (CORDARONE) Take 200 mg by mouth 09/18/19 Discontin 200 mg tablet twice daily. Take with 17 ued food. amiodarone (CORDARONE) Take 100 mg by mouth 10/14/19 Discontin 200 mg tablet twice daily. Take with 17 ued food. Active Problems Problem Noted Date Atrial fibrillation (HCC) 07/18/2016 Overview: Managed by Dr Lincoln VELOZ, [place]. [id number] score is 2. On warfarin. 04/04/16 - [...] Recent Encounters Date Type Specialty Providers Description 10/15/2016 Orders Only Cardiology Mei Perdomo RN Atrial fibrillation, unspecified type (Primary Dx) 10/15/2016 Telephone Cardiology Mei Perdomo RN Other - cta requested 10/14/2016 Office Visit Cardiology Jose Luis Hernández MD Atrial fibrillation - 3 month F/U ; Medication Follow-up - Increase Amiodarone to 400mg daily ; Device Check 10/14/2016 Hospital Cardiology Jose Luis Hernández MD Arrived Encounter 09/19/2016 Documentation Cardiology Sharona Guadarrama Records Request - Via [facility]- [phone] 09/18/2016 Telephone Cardiology Ramona Barriga, VALDEZ Notification Of Hospitalization - ED with bleeding inr 9.2, and dx pneumonia 09/05/2016 Refill Cardiology Paula Siddiqi, radio maintainer Refill - Metoprolol 09/03/2016 Telephone Cardiology Brooklynn [...] Vital Sign Reading Time Taken Blood Pressure 164/80 10/14/2016 1:36 PM CHECKERING MACHINE OPERATOR Pulse 54 10/14/2016 1:17 PM CHECKERING MACHINE OPERATOR Temperature - - Respiratory Rate - - Height 1.651 m (5' 5") 10/14/2016 1:17 PM CHECKERING MACHINE OPERATOR Weight 70.716 kg (155 lb 14.4 10/14/2016 1:17 PM CHECKERING MACHINE OPERATOR oz) Body Mass Index 25.94 10/14/2016 1:17 PM CHECKERING MACHINE OPERATOR Oxygen Saturation - - Plan of Care Date Type Specialty Providers Description 01/09/2017 Appointment Cardiology Jose Luis Hernández MD [address] [facility] [address] [place] [address] [phone] (Fax) Health Maintenance Due Date Last Done Comments Physical (Comprehensive) 1950 Exam Pertussis Vaccine 1954 Tetanus Vaccine 1960 Breast Cancer Screening 1983 Colorectal Cancer 1993 Screening Shingles Vaccine 2003 Osteoporosis Screening 2008 Prevnar/Pneumovax (#1) 2008 Influenza Vaccine 05/08/2016 Results from Last 3 Months DEVICE EVALUATION - ILR (10/14/2016 1:23 PM)Only the most recent of 2 results within the time period is included. Component Value Range ILR Date of Last Daily 10/14/16 Connection ILR History of Afib Yes Generator Implnat Date 04/04/16 Generator Model # Reveal [id number] Generator Serial # [id number] EP Device Followed by MPE Name ILR Lifetime Events as of 10/14/16 Datetion ILR Symptom Events Since 0 Last Interrogation ILR Symptom Lifetime 1 Events as of ILR Symptom Duration Four 7.5min Episodes ILR Tachy Events Since 0 Last Interrogation ILR Tachy Lifetime Events 1 as of ILR Tachy Rate 158 ILR Tachy Duration 16 ILR Pause Events Since 0 Last Interrogation ILR Pause Lifetime Events 8 as of ILR Pause Duration 3 ILR Christian Events Since 0 Last Interrogation ILR Christian Lifetime Events 2 as of ILR Chrsitian Rate 30 ILR Christian Duration 4 ILR AT Events Since Last 0 Interrogation ILR AT Lifetime Events as 0 of ILR AF Events Since Last 98 Interrogation ILR AF Lifetime Events as 302 of ILR Percent Time in AT/AF 1.1%, 0.3hr /day Events Since Last Interrogation ILR Percent Time in AT/AF Sensitivity 0.025mv Duration ILR Battery Status Good ILR Presenting ECG Strip VS at 58bpm Remote Monitor Serial# [id number] Generator Galley Stripper Medtronic Generator Location Left Device Type ILR ILR AF Duration all episodes Device [place] Carelink Express Transmitter Compatible Narrative [facility] Reveal LINQ Interrogation. Presenting Rhythm: VS at 58bpm. Events since 04/04/16: 98 AF events. [place] 1.1%. Longest duration 2gu6qxy, A rates 86-261bpm. V rates 64-122bpm. Events #267 thru # 296 EGM/Markers show AF/AFL. Pt stated is on Eliquis. Remote followed by Dr Charles in [place], [place]. Report to MPE in clinic. ECG/QRS (10/14/2016)Only the most recent of 2 results within the time period is included. Component Value Range QRS DURATION 98
[2016-10-16 14:51] LABS: BLOOD UREA NITROGEN 13 MG/DL (7-18); BUN/CREATININE RATIO 15; CREATININE SERUM 0.88 MG/DL (0.60-1.30); GFR ESTIMATED > 60
--- NOTE | 2016-10-16 15:32 | Diagnostic Imaging Report ---
PROCEDURE: CT angiography of the chest with contrast. TECHNIQUE: Multiple contiguous axial images were obtained through the chest after uneventful bolus administration of intravenous contrast. Reconstructed CTA MIP acquisitions were also performed. INDICATION: Decreased diffusion capacity of the lung. Comparison 09/29/2016. 125 mL of Omnipaque 350 is administered intravenously. FINDINGS: The pulmonary arteries are well opacified. There is no pulmonary embolism. The thoracic aorta is normal in caliber. No aortic dissection. There is no mediastinal mass. There is a slightly prominent infracarinal lymph node measuring 1.1 cm in short-axis. Mildly enlarged right hilar lymph node measuring 1.3 cm is seen. The heart size is slightly prominent. No pericardial or pleural effusion. The lungs demonstrate mild groundglass opacities in the bases may relate to atelectasis or mild pneumonitis. This is significantly improved when compared to 08/27/2016, exam. Upper lobe predominant emphysema changes are seen. There are bilateral basilar bronchiectatic changes. Sections in the upper abdomen demonstrate cholecystectomy clips. There is no significant osseous abnormality seen. IMPRESSION: 1. No pulmonary embolism or aortic dissection. 2. Mild upper lobe predominant emphysema changes. Bilateral lower lobe scarring and bronchiectasis. 3. Mild dependent groundglass opacities in the posterior aspect of the lower lobes on both sides are favored to be atelectasis rather than mild pneumonitis. Dictated by: Dictated on workstation # [id number]
== END ==
LOC: RAD 14:16
PROVIDERS: ATTEND Nurse Practitioner Family
DX: J18.9 Pneumonia, unspecified organism (principal); G47.33 Obstructive sleep apnea (adult) (pediatric); R94.2 Abnormal results of pulmonary function studies; R06.00 Dyspnea, unspecified; J30.9 Allergic rhinitis, unspecified; J47.9 Bronchiectasis, uncomplicated; R09.02 Hypoxemia; Z87.891 Personal history of nicotine dependence
CPT/HCPCS: 36415; 71275; 82565; 84520

== ENCOUNTER 2016-12-03 16:30 | Observation (INO) | payer MEDICARE ==
[~2016-12-03] VITALS: Ht 165.1 cm; Wt 67.8 kg
[~2016-12-03 16:30] MED LIST changes: -ALPR0.25 PO; -AMOX1TAB11 PO; -AMOX500C2 PO; -CATHETER FLUSH 10 ML SYR IV PRN; -CEPH-507 PO; -CRAN1CAP9 PO; -DICL100G18 TOP; -ENOX40DI13 SQ; -ENOX40DI8 SQ; -FAMO-119 PO; -GABA-486 PO; -GABA-488 PO; -HYDR-3812 PO; -IOHEXOL 350 MG/ML 150 ML (OMNIPAQUE 350) VIAL IV ONE; -IPRA3AMP IH; -NAPR220T66 PO; -NITR-65 PO; -NS 100 ML (IVPB) BAG IV ONE; -OMG1KC PO; -ONDA4TAB11 PO; -ONDA8TAB13 PO; -ORPH100T PO; -OXYC-471 PO; -PANT40TA3 PO; -PROM25TA14 PO; -SENN-20 PO
[2016-12-03] MEDS ORDERED: methylPREDNISolone 125 MG (Solu-MEDROL) VIAL IM ONE (18:45)
[2016-12-03] MEDS ORDERED: ORPHENADRINE 60 MG/2 ML (NORFLEX) AMP IM ONE (18:45)
[2016-12-03] MEDS ORDERED: fentaNYL INJECTION 100 MCG/2 ML AMP IM ONE (18:45)
[2016-12-03] MEDS ORDERED: HYDR-3812 PO (18:58)
[2016-12-03] MEDS ORDERED: ORPH100T PO (18:58)
--- NOTE | 2016-12-03 18:59 | ED Back Pain ---
General Chief Complaint: Back Problems Stated Complaint: LOWER BACK/R LEG PAIN Nursing Triage Note: pt reports low back pain that radiates to r hip and leg x 1 week. Pt reports she had a ablation done 3 weeks ago for afib and had to have manual pressure to control bleeding in r groin. pt reports her back pain has been worse since then. pt reports she is currently taking gabapentin with no releif. Nursing Sepsis Screen: No Definite Risk Source of Information: Patient, Spouse History of Present Illness Time Seen by Provider: 18:25 Initial Comments PT ARRIVES VIA POV FROM HOME C/O LOWER BACK PAIN RADIATING DOWN RIGHT LEG TO RIGHT FOOT X 1 WEEK HAS HAD LOWER BACK PAIN FOR A LONG TIME OFF AND ON, BUT RADIATION DOWN RIGHT LEG IS A NEW PROBLEM NO PARESTHESIAS OR MOTOR DEFICITS NO BOWEL OR BLADDER DIFFICULTIES NO INJURY PT STATES SHE HAS BEEN SEEN BY DR. MORENO TWICE AND ALSO BY P.A. FOR DR[address] MCCALL [address] PT WAS STARTED ON GABAPENTIN 300 MG AT HS AT [address], THEN DR. MORENO ADDED 100 MG IN AM WELL PT HAD AN MRI OF HER LOWER BACK SCHEDULED FOR THIS PAST Thursday12/01/16 BUT COULD NOT GO DUE TO THIS PAIN, HAS NOT RESCHEDULED PT WAS ALSO SUPPOSED TO HAVE STARTED PHYSICAL THERAPY THIS WEEK ,BUT DID NOT DUE TO THIS PAIN PT STATES THIS IS THE FIRST TIME SHE HAS BEEN ABLE TO GET OUT OF BED ALL WEEK PT HAS TAKEN ALEVE AND EXCEDRIN WITHOUT RELIEF PT STATES SHE HAD A CARDIAC ABLATION FOR ATRIAL FIBRILLATION 3 WEEKS AGO AT , AND HAD TO HAVE MANUAL PRESSURE TO RIGHT GROIN FOR 5-6 HOURS CONTINUOUSLY-- THINKS THAT CONTRIBUTED TO THIS PROBLEM Other Comments PCP: DR. MORENO Allergies and Home Medications Allergies Coded Allergies: erythromycin base (Verified Allergy, Unknown, 04/04/16) levofloxacin (Verified Allergy, Unknown, 04/04/16) Home Medications Amoxicillin 500 Mg Capsule, 500 MG PO BID, (Reported) Apixaban 5 Mg Tablet, 5 MG PO BID, #60 Ref 3 Prescribed by: SERGIO MORENO on 09/10/16 0943 Ascorbic Acid 500 Mg Tablet, 500-1,000 MG PO DAILY, (Reported) Atorvastatin Calcium 10 Mg Tablet, 5 MG PO HS, (Reported) TAKES 1/2 (10MG) TABLET Calcium Carbonate/Vitamin D3 1 Each Tablet, 1 TAB PO BID, (Reported) Cholecalciferol (Vitamin D3) 1,000 Unit Capsule, 1,000 UNIT PO DAILY, (Reported) Coconut Oil 1,000 Mg Capsule, 1,000 MG PO DAILY, (Reported) Cyanocobalamin (Vitamin B-12) 50 Mcg Tablet, 50 MCG PO DAILY, (Reported) Hydrocodone/Acetaminophen 1 Each Tablet, 1 EACH PO Q4H, #20 Prescribed by: MARA KHALIL on 12/03/16 1858 Ipratropium/Albuterol Sulfate 3 Ml Ampul.neb, 3 ML INH RTQ4HR, #120 Prescribed by: SERGIO MORENO on 09/10/16 0943 Krill/Om-3/Dha/Epa/Phospho/Ast 1 Each Capsule, 1,000 MG PO DAILY, (Reported) Levothyroxine Sodium 75 Mcg Tablet, 75 MCG PO DAILY, (Reported) Lutein/Zeaxanthin 1 Each Capsule, 1 CAP PO HS, (Reported) Metoprolol Tartrate 25 Mg Tablet, 12.5 MG PO BID, (Reported) TAKES 1/2 (25MG) TABLET Multivitamin 1 Each Tablet, 1 TAB PO DAILY, (Reported) Omeprazole 20 Mg Capsule.dr, 20 MG PO DAILY, (Reported) Orphenadrine Citrate 100 Mg Tablet.er, 100 MG PO BID, #14 FOR MUSCLE SPASMS Prescribed by: MARA KHALIL on 12/03/161857 Oxybutynin Chloride 5 Mg Tab.er.24, 2.5 MG PO TID, (Reported) TAKES 1/2 (5MG) TABLET Pantoprazole Sodium 40 Mg Tablet.dr, 40 MG PO BID, (Reported) Turmeric Root Extract 500 Mg Capsule, 500 MG PO DAILY, (Reported) Zinc Amino Acid Chelate 50 Mg Tablet, 50 MG PO DAILY, (Reported) Constitutional: no symptoms reported Respiratory: no symptoms reported Cardiovascular: see HPI Gastrointestinal: no symptoms reported Genitourinary: no symptoms reported Musculoskeletal: see HPI, back pain Skin: no symptoms reported Psychiatric/Neurological: No Symptoms Reported, Anxiety, Denies Paresthesia, Denies Tingling, Denies Weakness Past Lbebhif-Mxfrbj-Yqbsxo Hx Patient Social History Alcohol Use: Denies Use Recreational Drug Use: No Smoking Status: Former Smoker Type Used: Cigarettes Recent Foreign Travel: No Contact w/Someone Who Travel: No Recent Infectious Disease Expo: No Recent Hopitalizations: No Immunizations Up To Date Date of Pneumonia Vaccine: Jun 07, 2012 Date of Influenza Vaccine: Jun 07, 2016 Seasonal Allergies Seasonal Allergies: Yes Surgeries HX Surgeries: Yes (CARDIAC ABLATION FOR ATRIAL FIBRILLATION 11/2016 AT ) Surgeries: Bladder Surgery, Cardiac, Gallbladder, Hysterectomy, Vascular Surgery Respiratory Hx Respiratory Disorders: Yes Respiratory Disorders: Pneumonia Cardiovascular Hx Cardiac Disorders: Yes (IMPLANTED ELECTRODE-PER DR JEAN) Cardiac Disorders: Atrial Fibrillation, High Cholesterol, Hypertension Neurological Hx Neurological Disorders: No Reproductive System Hx Reproductive Disorders: No Sexually Transmitted Disease: No HIV/AIDS: No Genitourinary Hx Genitourinary Disorders: Yes (STRESS INCONTINENCE) Gastrointestinal Hx Gastrointestinal Disorders: Yes Gastrointestinal Disorders: Gastroesophageal Reflux Musculoskeletal Hx Musculoskeletal Disorders: Yes Musculoskeletal Disorders: Chronic Back Pain Endocrine Hx Endocrine Disorders: Yes Endocrine Disorders: Hypothyroidsim HEENT HX ENT Disorders: No Hearing Impairment: Hard of Hearing Cancer Hx Cancer: No Psychosocial Hx Psychiatric Problems: No Integumentary HX Skin/Integumentary Disorder: No Blood Transfusions Hx Blood Disorders: No Adverse Reaction to a Blood Tr: No Physical Exam Vital Signs Vital Sign - Last 12Hours 12/03/16 18:11 Temp 98.1 Pulse 71 Resp 20 B/P (MAP) 147/106 Pulse Ox 100 Capillary Refill : Less Than 3 Seconds General Appearance: WD/WN, Anxious (BOTH PT AND VERY ANXIOUS. PT CONSTANTLY RUBBING RIGHT LEG. ) Neck: Full Range of Motion, Normal Inspection, Non Tender, Supple Cardiovascular: Regular Rate, Rhythm, No Edema, No JVD, No Murmur, Normal Peripheral Pulses Respiratory: Normal Breath Sounds, No Accessory Muscle Use, No Respiratory Distress Peripheral Pulses: 2+ Dorsalis Pedis (R), 2+ Left Dors-Pedis (L) Gastrointestinal: Non Tender, Soft Back: Other (MILD TENDERNESS TO LOWER LUMBAR AREA, BUT PINPOINT TENDERNESS OVER RIGHT SI JOINT--PALPATION DRAMATICALLY REPRODUCES PAIN, DOES STRAIGHT LEG RAISING ON RIGHT. ) Extremity: Normal Capillary Refill, Normal Range of Motion, Non Tender, No Calf Tenderness, No Pedal Edema Neurologic/Psychiatric: Alert, Oriented x3, No Motor/Sensory Deficits, information technology account manager II- XII Norm as Tested Skin: Normal Color, Warm/Dry, No Rash Progress/Results/Core Measures Results/Orders My Orders Orders - MARA KHALIL DO Methylprednisolone Sod Succ (Solu-Medrol (12/03/16 18:45) Orphenadrine Injection (Norflex Injectio (12/03/16 18:45) Fentanyl Injection (Sublimaze Injection (12/03/16 18:45) Saline Lock/Iv-Start (12/03/16 19:21) Morphine Injection (Morphine Injection (12/03/16 19:21) Morphine Injection (Morphine Injection (12/03/16 19:55) Medications Given in ED Current Medications Medications Dose Ordered Sig/Liana Route Start Time Stop Time Status Last Admin Dose Admin Fentanyl Citrate 50 mcg ONCE ONCE IM 12/03/16 18:45 12/03/16 18:46 DC 12/03/16 19:04 50 MCG Methylprednisolone Sodium Succinate 125 mg ONCE ONCE IM 12/03/16 18:45 12/03/16 18:46 DC 12/03/16 19:04 125 MG Orphenadrine Citrate 60 mg ONCE ONCE IM 12/03/16 18:45 12/03/16 18:46 DC 12/03/16 19:04 60 MG Vital Signs/I&O Vital Sign - Last 12Hours 12/03/16 18:11 Temp 98.1 Pulse 71 Resp 20 B/P (MAP) 147/106 Pulse Ox 100 Blood Pressure Mean: 120 Progress Note : Progress Note NO RELIEF WITH SOLU-MEDROL, NORFLEX AND FENTANYL IM GAVE 9 MG MORPHINE IV WITH MODERATE IMPROVEMENT IN PAIN Departure Communication Progress Notes 2027--SPOKE WITH DR. MORENO, ACCEPTS PT FOR ADMIT. WILL CONSULT DR. GREEN FOR PAIN MANAGEMENT AND GET MRI IN AM Impression Impression: Primary Impression: Low back pain with right-sided sciatica Disposition: ADMITTED INPATIENT Condition: Improved Decision to Admit Reason: Admit from ER (General) Decision to Admit/Date: Dec 03, 2016 Time/Decision to Admit Time: 20:30 Departure-Patient Inst. Referrals: SERGIO MORENO MD (PCP/Family) Primary Care Physician KEESHA MCCALL LARRY C Add. Discharge Instructions: All discharge instructions reviewed with patient and/or family. Voiced understanding. MARA KHALIL DO Dec 03, 2016 18:59
[2016-12-03] MEDS ORDERED: morphine INJ 10 MG/ML 1ML (SYR OR VIAL) IVP STA ×2 (19:21→19:55)
[2016-12-03] MEDS ORDERED: ONDANSETRON 4 MG/2 ML (SDV) Z0FRAN IVP ONE (21:30)
[2016-12-03 22:00] VITALS: BP 158/78
[2016-12-03] MEDS ORDERED: morphine PCA 30 MG/30 ML VIAL IV ONE (22:11)
[2016-12-03] MEDS ORDERED: NS IV 1000 ML 1,000 ML ONE (22:12)
[2016-12-03] MEDS ORDERED: ONDANSETRON 4 MG/2 ML (SDV) Z0FRAN IV PRN ×2 (22:30)
[2016-12-03] MEDS ORDERED: diphenhydrAMINE 50 MG/ML INJ (BENADRYL) IV PRN (22:30)
[2016-12-03] MEDS ORDERED: NALOXONE 0.4 MG/ML 1 ML (NARCAN) VIAL IV PRN (22:30)
[2016-12-03] MEDS ORDERED: morphine PCA 30 MG/30 ML VIAL IV PRN (22:30)
[2016-12-03] MEDS: NS IV 500 ML PCA CARRIER FLUID IV SCH (22:30)
[2016-12-03] MEDS: NS IV 1000 ML 1,000 ML IV SCH (22:56)
[2016-12-04] VITALS: BP 138/60
[2016-12-04] MEDS ORDERED: ORPHENADRINE 60 MG/2 ML (NORFLEX) AMP IV SCH (02:00)
[2016-12-04] MEDS ORDERED: AMOX500C2 PO (03:07)
[2016-12-04] MEDS ORDERED: PANT40TA3 PO (03:09)
[2016-12-04 04:00] VITALS: BP 120/55
[2016-12-04 08:27] VITALS: BP 128/64
[2016-12-04] MEDS ORDERED: DICL100G18 TOP (08:55)
[2016-12-04] MEDS ORDERED: GABA-488 PO (08:55)
[2016-12-04] MEDS ORDERED: GABA-486 PO (08:55)
[2016-12-04] MEDS ORDERED: morphine INJ 4 MG/ML 1 ML (VIAL/SYRINGE) ONE (08:55)
[2016-12-04] MEDS ORDERED: AMOX1TAB11 PO (08:55)
[2016-12-04] MEDS ORDERED: IPRA3AMP IH (08:55)
[2016-12-04] MEDS ORDERED: APIX5TAB PO (08:55)
[2016-12-04] MEDS ORDERED: morphine INJ 4 MG/ML 1 ML (VIAL/SYRINGE) IVP ONE (09:15)
--- NOTE | 2016-12-04 09:28 | Short Stay Summary ---
History of Present Illness History of Present Illness Reason for visit/HPI PT IS A 71 Y/O FEMALE WHO IS KNOWN TO ME FROM CLINIC. SHE PRESENTED TO THE EMERGENCY DEPARTMENT YESTERDAY AFTER HAVING A WEEK TO 10 DAYS OF SEVERE PAIN AFTER A VASCULAR SURGERY IN [place]. SHE STATES THAT AFTER THE PROCEDURE - THE PAIN HAS JUST INCREASED DRAMATICALLY - WITH PAIN IN HER LOWER BACK ON RIGHT, IN HER GROIN ON THE RIGHT, DOWN THE BACK OF RIGHT LEG AND ON LOWER LEG TO FOOT. Date of Admission Dec 03, 2016 at 20:30 Date of Discharge Attending Physician Sergio Underwood MD Admitting Physician Segrio Underwood MD Consult Allergies and Home Medications Allergies Coded Allergies: erythromycin base (Verified Allergy, Unknown, 04/04/16) levofloxacin (Verified Allergy, Unknown, 04/04/16) Home Medications Apixaban 5 Mg Tablet, 5 MG PO BID, (Reported) Ascorbic Acid 500 Mg Tablet, 500-1,000 MG PO DAILY, (Reported) Atorvastatin Calcium 10 Mg Tablet, 5 MG PO HS, (Reported) TAKES 1/2 (10MG) TABLET Calcium Carbonate/Vitamin D3 1 Each Tablet, 1 TAB PO BID, (Reported) Cholecalciferol (Vitamin D3) 1,000 Unit Capsule, 1,000 UNIT PO DAILY@1300, ( Reported) Coconut Oil 1,000 Mg Capsule, 2,000 MG PO BID, (Reported) take 2 (1000mg) tabs Cranberry Conc/Ascorbic Acid 1 Each Capsule, 2 CAP PO TID, (Reported) Cyanocobalamin (Vitamin B-12) 50 Mcg Tablet, 50 MCG PO DAILY, (Reported) Diclofenac Sodium 100 Gm Gel..gram., TOP BID, (Reported) APPLY TO LEG AND BACK Enoxaparin Sodium 40 Mg/0.4 Ml Syringe, 40 MG SQ HS, (Reported) Gabapentin 300 Mg Capsule, 300 MG PO TID, (Reported) Hydrocodone/Acetaminophen 1 Each Tablet, 1 EACH PO Q4H PRN for PAIN, (Reported) Krill/Om-3/Dha/Epa/Phospho/Ast 1 Each Capsule, 1,000 MG PO DAILY, (Reported) Levothyroxine Sodium 75 Mcg Tablet, 75 MCG PO DAILY, (Reported) Lutein/Zeaxanthin 1 Each Capsule, 1 CAP PO HS, (Reported) Metoprolol Tartrate 25 Mg Tablet, 12.5 MG PO BID, (Reported) TAKES 1/2 (25MG) TABLET Multivitamin 1 Each Tablet, 1 TAB PO DAILY, (Reported) Naproxen Sodium 220 Mg Tablet, 220 MG PO BID, (Reported) Omeprazole 20 Mg Capsule.dr, 20 MG PO DAILY, (Reported) Oxybutynin Chloride 5 Mg Tab.er.24, 2.5 MG PO TID, (Reported) TAKES 1/2 (5MG) TABLET Sennosides/Docusate Sodium 1 Each Tablet, 1 TAB PO BID PRN for CONSTIPATION-6TH LINE, (Reported) Turmeric Root Extract 500 Mg Capsule, 500 MG PO DAILY, (Reported) Zinc Amino Acid Chelate 50 Mg Tablet, 50 MG PO DAILY, (Reported) Past Yotvzba-Arhmug-Mrubye Hx Patient Social History Alcohol Use: Denies Use Recreational Drug Use: No Smoking Status: Former Smoker Type Used: Cigarettes Physical Abuse Screen: No Sexual Abuse: No Recent Foreign Travel: No Contact w/other who traveled: No Recent Hopitalizations: No Recent Infectious Disease Expo: No Immunizations Up To Date Date of Pneumonia Vaccine: Jun 07, 2012 Date of Influenza Vaccine: Jun 07, 2016 Seasonal Allergies Seasonal Allergies: Yes Surgeries HX Surgeries: Yes (CARDIAC ABLATION FOR ATRIAL FIBRILLATION 11/2016 AT ) Surgeries: Bladder Surgery, Cardiac, Gallbladder, Hysterectomy, Vascular Surgery Respiratory Hx Respiratory Disorders: Yes Cardiovascular Hx Cardiovascular Disorders: Yes (IMPLANTED ELECTRODE-PER DR JEAN) Cardiac Disorders: Atrial Fibrillation, High Cholesterol, Hypertension Neurological Hx Neurological Disorders: No Reproductive System Hx Reproductive Disorders: No Sexually Transmitted Disease: No HIV/AIDS: No Genitourinary Hx Genitourinary Disorders: Yes (STRESS INCONTINENCE) Gastrointestinal Hx Gastrointestinal Disorders: Yes Gastrointestinal Disorders: Gastroesophageal Reflux Musculoskeletal Hx Musculoskeletal Disorders: Yes Musculoskeletal Disorders: Chronic Back Pain Endocrine Hx Endocrine Disorders: Yes Endocrine Disorders: Hypothyroidsim HEENT HX ENT Disorders: No Hearing Impairment: Hard of Hearing Cancer Hx Cancer: No Psychosocial Hx Psychiatric Problems: No Integumentary HX Skin/Integumentary Disorder: No Blood Transfusions Hx Blood Disorders: No Adverse Reaction to a Blood Tr: No Family Medical History Family Hx: Alcoholism 19 FATHER Physical Exam Vital Signs Vital Sign - Last 12Hours 12/03/16 18:11 Temp 98.1 Pulse 71 Resp 20 B/P (MAP) 147/106 Pulse Ox 100 Capillary Refill : Less Than 3 Seconds Clinical Quality Measures DVT/VTE Risk/Contraindication: Risk Factor Score Per Nursin RFS Level Per Nursing on Admit: 2=Moderate Short Stay Diagnosis Discharge Diagnosis-Short Stay Admission Diagnosis: INTRACTIBLE PAIN OF LOWER BACK SCIATIC PAIN ATRIAL FIBRILLATION CHRONIC ANTICOAGULATION Final Discharge Diagnosis: INTRACTIBLE PAIN OF LOWER BACK SCIATIC PAIN ATRIAL FIBRILLATION CHRONIC ANTICOAGULATION Conclusion Conclusion/Plan INTRACTABLE PAIN OF LOWER BACK - PT ADMITTED TO THE HOSPITAL WITH SEVERE PAIN, CALL TO SURGEON - IMAGING CONSISTENT WITH RUPTURED DISC - PT CANNOT HAVE SURGERY RIGHT NOW DUE TO PATIENT ON ELIQUIS - WILL HAVE TO BE OFF OF ELIQUIS AND ON LOVENOX UNTIL SURGICAL PROCEDURE. PT DISCHARGED ON PAIN MEDICATION - WITH FOLLOW UP WITH SPINE SURGEON IN THE NEXT FEW DAYS. SERGIO UNDERWOOD MD Dec 04, 2016 09:28
[2016-12-04] MEDS ORDERED: APIXABAN 5 MG (ELIQUIS) TABLET PO SCH (09:30)
[2016-12-04] MEDS ORDERED: RT-ALBUTEROL/IPRATROPIUM 3 ML (DUONEB) VIAL IH PRN (09:30)
[2016-12-04] MEDS ORDERED: GABAPENTIN 100 MG (NEURONTIN) CAP PO SCH ×2 (09:30→09:55)
[2016-12-04] MEDS: SENNA W/DOCUSATE (SENOKOT S) TABLET PO SCH (09:53)
[2016-12-04] MEDS: METOCLOPRAMIDE INJ 10 MG/2 ML (REGLAN) IV PRN (10:28)
[2016-12-04] MEDS: AUGMENTIN 500 MG TAB (AMOXICILLIN/CLAVULANATE) PO SCH ×2 (10:29→16:01)
[2016-12-04 12:00] VITALS: BP 101/54
--- NOTE | 2016-12-04 12:16 | Diagnostic Imaging Report ---
PROCEDURE: MRI lumbar spine. TECHNIQUE: Multiplanar, multisequence MRI of the lumbar spine was performed without contrast. INDICATION: Intractable back pain. FINDINGS: There is grade 1 spondylolisthesis of L5 over S1. There is also mild retrolisthesis of L2 over L3 and minimal retrolisthesis of L3 over L4. This is associated with multilevel prominent disc desiccation and disc height loss. There is also endplate irregularity particularly prominent at L2-L3 level with associated endplate edema at this level and also slightly prominent at L3-L4. There is also prominent facet arthropathy and minimal facet joint effusion bilaterally at L3-L4 level. There is also relatively prominent facet arthropathy at the L2-L3 and L4-L5 levels as well. No suspicious bone marrow lesion is seen. The cauda equina and conus medullaris appear grossly unremarkable. T12-L1: There is no disc herniation. No spinal canal or foraminal stenosis. L1-L2: There is a diffuse disc bulge and mild facet hypertrophy. No central canal stenosis. There is mild/ moderate narrowing of the left lateral recess. The right lateral recess is patent. There is no significant foraminal stenosis. L2-L3: There is a diffuse disc bulge asymmetric to the left. There is bilateral mild/ moderate facet arthropathy. No central canal stenosis. There is bilateral lateral recess stenosis of moderate degree bilaterally, more prominent on the left side abutting the descending L3 nerve root. The foramina demonstrate mild stenosis on the right side and moderate stenosis on the left worse at the medial aspect of the neural foramen. L3-L4: There is a diffuse disc bulge asymmetric to the right side. There is an associated large right paracentral disc extrusion with caudal migration of about 2.3 cm along the upper/ mid aspect of L4 vertebral body. There is bilateral moderate facet hypertrophy. There is moderate/ severe central canal stenosis reducing the AP dimension of the spinal canal to 7.3 mm. There is also bilateral lateral recess stenosis of severe degree worse on the right side compressing the descending right L4 nerve root. The neural foramina demonstrate bilateral stenosis mild on the left side and severe on the right. L4-L5: There is diffuse disc bulge and mild/ moderate facet hypertrophy. No central canal stenosis. There is bilateral moderate lateral recess stenosis. There is also bilateral foraminal stenosis of moderate degree bilaterally. L5-S1: There is grade 1 spondylolisthesis and diffuse disc bulge. There is moderate facet arthropathy. There is mild central canal stenosis reducing the AP dimension of the canal to 8 mm. The lateral recesses demonstrate moderate stenosis on the right and mild/ moderate stenosis on the left abutting the descending S1 nerve root particularly on the right side. The foramina demonstrate mild/ moderate stenosis on the left and moderate/severe stenosis on the right side. IMPRESSION: Alignment abnormalities with disc and facet degenerative changes as described. There is multilevel central canal, lateral recess, and foraminal stenosis worst at L3-L4 level. Dictated by: Dictated on workstation # [id number]
[2016-12-04] MEDS: OXYBUTYNIN (DITROPAN) 5 MG TAB PO SCH ×2 (12:24→20:45)
--- NOTE | 2016-12-04 13:02 | Consultation ---
History of Present Illness History of Present Illness Patient Consulted On(dereje/time) 12/04/16 12:56 Date of Admission 12/04/16 Reason for Visit: low back and right leg pain History of Present Illness Patient is a pleasant 71-year-old female seen in consultation for chief complaints of low back and right leg pain. Patient reports recent flareup of severe low back pain following a vascular procedure and has continued to gradually worsen. Currently endorsing pain now that can be up to a 9 out of 10 on a 10 point visual analog scale with activity and a 1 out of 10 on a 10 point visual analog scale with rest and pain medications. She describes the pains as sharp, stabbing, burning, and constant in nature located in the lower back radiating down the entire right leg to the foot. She denies any numbness or tingling in her legs or feet and no pain or numbness in her left leg. 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 Patient reports recently she was advised per gram ordered an MRI lumbar spine and she was unable to complete that as an outpatient but had MRI lumbar spine earlier today. Allergies and Home Medications Allergies Coded Allergies: erythromycin base (Verified Allergy, Unknown, 04/04/16) levofloxacin (Verified Allergy, Unknown, 04/04/16) Home Medications Amoxicillin/Potassium Clav 1 Each Tablet, 1 TAB PO BID, (Reported) 7 DAY SUPPLY FILLED 11-27-16 Apixaban 5 Mg Tablet, 5 MG PO BID, (Reported) Ascorbic Acid 500 Mg Tablet, 500-1,000 MG PO DAILY, (Reported) Atorvastatin Calcium 10 Mg Tablet, 5 MG PO HS, (Reported) TAKES 1/2 (10MG) TABLET Calcium Carbonate/Vitamin D3 1 Each Tablet, 1 TAB PO BID, (Reported) Cholecalciferol (Vitamin D3) 1,000 Unit Capsule, 1,000 UNIT PO DAILY, (Reported) Coconut Oil 1,000 Mg Capsule, 1,000 MG PO DAILY, (Reported) Cyanocobalamin (Vitamin B-12) 50 Mcg Tablet, 50 MCG PO DAILY, (Reported) Diclofenac Sodium 100 Gm Gel..gram., TOP BID, (Reported) APPLY TO LEG AND BACK Gabapentin 100 Mg Capsule, 100 MG PO UD, (Reported) TAKE 100MG DAILY FOR 7 DAYS THEN ICREASE TO 100MG TWICE DAILY (START DATE ) Gabapentin 300 Mg Capsule, 300 MG PO HS, (Reported) Ipratropium/Albuterol Sulfate 3 Ml Ampul.neb, 3 ML IH Q6H PRN for SHORTNESS OF BREATH, (Reported) Krill/Om-3/Dha/Epa/Phospho/Ast 1 Each Capsule, 1,000 MG PO DAILY, (Reported) Levothyroxine Sodium 75 Mcg Tablet, 75 MCG PO DAILY, (Reported) Lutein/Zeaxanthin 1 Each Capsule, 1 CAP PO HS, (Reported) Metoprolol Tartrate 25 Mg Tablet, 12.5 MG PO BID, (Reported) TAKES 1/2 (25MG) TABLET Multivitamin 1 Each Tablet, 1 TAB PO DAILY, (Reported) Oxybutynin Chloride 5 Mg Tab.er.24, 2.5 MG PO TID, (Reported) TAKES 1/2 (5MG) TABLET Pantoprazole Sodium 40 Mg Tablet.dr, 40 MG PO BID, (Reported) Turmeric Root Extract 500 Mg Capsule, 500 MG PO DAILY, (Reported) Zinc Amino Acid Chelate 50 Mg Tablet, 50 MG PO DAILY, (Reported) Past Kxjurhz-Nfbqje-Bkgyka Hx Patient Social History Alcohol Use: Denies Use Recreational Drug Use: No Smoking Status: Former Smoker Type Used: Cigarettes Recent Foreign Travel: No Contact w/Someone Who Travel: No Recent Infectious Disease Expo: No Recent Hopitalizations: No Physical Abuse Screen: No Sexual Abuse: No Immunizations Up To Date Date of Pneumonia Vaccine: Jun 07, 2012 Date of Influenza Vaccine: Jun 07, 2016 Seasonal Allergies Seasonal Allergies: Yes Surgeries HX Surgeries: Yes (CARDIAC ABLATION FOR ATRIAL FIBRILLATION 11/2016 AT ) Surgeries: Bladder Surgery, Cardiac, Gallbladder, Hysterectomy, Vascular Surgery Respiratory Hx Respiratory Disorders: Yes Respiratory Disorders: Pneumonia Cardiovascular Hx Cardiac Disorders: Yes (IMPLANTED ELECTRODE-PER DR JEAN) Cardiac Disorders: Atrial Fibrillation, High Cholesterol, Hypertension Neurological Hx Neurological Disorders: No Reproductive System Hx Reproductive Disorders: No Sexually Transmitted Disease: No HIV/AIDS: No Genitourinary Hx Genitourinary Disorders: Yes (STRESS INCONTINENCE) Gastrointestinal Hx Gastrointestinal Disorders: Yes Gastrointestinal Disorders: Gastroesophageal Reflux Musculoskeletal Hx Musculoskeletal Disorders: Yes Musculoskeletal Disorders: Chronic Back Pain Endocrine Hx Endocrine Disorders: Yes Endocrine Disorders: Hypothyroidsim HEENT HX ENT Disorders: No Hearing Impairment: Hard of Hearing Cancer Hx Cancer: No Psychosocial Hx Psychiatric Problems: No Integumentary HX Skin/Integumentary Disorder: No Blood Transfusions Hx Blood Disorders: No Adverse Reaction to a Blood Tr: No Family Medical History Family Medial History: Alcoholism 19 FATHER Review of Systems-General Constitutional: see HPI EENTM: no symptoms reported Respiratory: no symptoms reported Cardiovascular: no symptoms reported Gastrointestinal: nausea, vomiting Genitourinary: no symptoms reported Musculoskeletal: back pain Skin: no symptoms reported Psychiatric/Neurological: No Symptoms Reported Physical Exam-General Problems Physical Exam Vital Signs Vital Sign - Last 12Hours 12/03/16 18:11 Temp 98.1 Pulse 71 Resp 20 B/P (MAP) 147/106 Pulse Ox 100 Capillary Refill : Less Than 3 Seconds General Appearance: WD/WN, no apparent distress Eyes: Bilateral Eye EOMI, Bilateral Eye PERRL Respiratory: no respiratory distress Gastrointestinal: non tender, soft Back: other (tenderness to palpation lumbar spine paraspinal muscles. Tenderness to palpation over bilateral sacroiliac joints, right on left. Nontender palpation or bilateral trochanteric bursa. No pain to passive range of motion of bilateral hip joints.Fabers maneuver is negative bilaterally.) Extremities: normal range of motion, normal inspection Neurologic/Psychiatric: no motor/sensory deficits, alert, normal mood/affect, oriented x 3, other (seated straight leg raise test is positive on the right, negative on the left) Skin: normal color, warm/dry Assessment/Plan Assessment/Plan Admission Diagnosis/Plan Lumbago, degenerative disc disease lumbar, lumbar spinal stenosis Plan: Results of MRI lumbar spine were discussed with patient at length. Patient was advised that this clinic would recommend in the future follow-up with Dr. Felder to discuss surgical treatment options for her moderate to severe lumbar spinal stenosis. Patient was counseled about the etiology of their pain and advised that they would like benefit from a L3-L4 lumbar epidural steroid injection under fluoroscopic guidance. Patient was counseled on the risks and benefits of the procedure including but not limited to bleeding, infection, seizures, severe headache, loss of consciousness, , spinal cord infarction, paraplegia, quadriplegia, cortical blindness, stroke, seizures, brain edema, lack of pain relief, and nerve damage. Patient is currently on chronic anticoagulation with apixiban and she was advised that for neuraxial interventional procedures we will need to hold that medication for at least 72 hours and during that timeframe she'll be at increased risk of thrombotic events including but not limited to Phoebe and so we will need to obtain permission from either her end trimmer or her primary care team prior to considering that option in the future . Patient reports this time she like to defer on that treatment option Recommended patient is going to remain in hospital to start course of physical therapy if not recommend outpatient physical therapy to help with maintaining strength and range of motion as well as decreasing pain in the lower back and legs. 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 We'll increase gabapentin to 300 mg 3 times daily and started hydrocodone 5/325 one tab every 6 hours as needed for severe breakthrough pain. Thank you for this consultation Clinical Quality Measures DVT/VTE Risk/Contraindication: Risk Factor Score Per Nursin RFS Level Per Nursing on Admit: 2=Moderate BRENDA GREEN MD Dec 04, 2016 13:02
[2016-12-04] MEDS: NS IV 500 ML PCA CARRIER FLUID IV SCH (15:10)
[2016-12-04 15:20] VITALS: BP 122/53
[2016-12-04] MEDS: PANTOPRAZOLE 40 MG (PROTONIX) TAB PO SCH (16:01)
[2016-12-04 20:25] VITALS: BP 111/58
[2016-12-04] MEDS: meTOprolol TARTRATE 25 MG (LOPRESSOR) TABLET PO SCH (20:44)
[2016-12-04] MEDS: GABAPENTIN 300 MG (NEURONTIN) CAP PO SCH (20:44)
[2016-12-04] MEDS: DICLOFENAC 1% GEL 100 GM (VOLTAREN) TUBE TOP SCH (20:52)
[2016-12-04] MEDS ORDERED: ENOXAPARIN 30 MG/0.3 ML (LOVENOX) SYR SC NR (21:00)
[2016-12-04] MEDS ORDERED: GABAPENTIN 300 MG (NEURONTIN) CAP PO SCH (21:00)
[2016-12-04] MEDS ORDERED: ATORVASTATIN 10 MG (LIPITOR) TABLET PO SCH (21:00)
[2016-12-05] MEDS: HYDROcodone/APAP 5 MG/325 MG (LORTAB) TAB PO PRN ×2 (00:19→06:25)
[2016-12-05 00:58] VITALS: BP 104/55
[2016-12-05 04:10] VITALS: BP 119/57
[2016-12-05] MEDS: AUGMENTIN 500 MG TAB (AMOXICILLIN/CLAVULANATE) PO SCH (06:20)
[2016-12-05] MEDS: PANTOPRAZOLE 40 MG (PROTONIX) TAB PO SCH (06:20)
[2016-12-05] MEDS: NS IV 1000 ML 1,000 ML IV SCH (06:22)
[2016-12-05] MEDS ORDERED: LEVOTHYROXINE 75 MCG (LEVOTHROID) TABLET PO SCH (06:30)
[2016-12-05] MEDS ORDERED: MULTIVIT W/MINERALS TAB (THERAGRAN M) PO SCH (07:00)
[2016-12-05] MEDS ORDERED: ASCORBIC ACID (VIT C) 500 MG TABLET PO SCH (07:00)
[2016-12-05] MEDS ORDERED: ENOX40DI13 SQ (07:41)
[2016-12-05] MEDS ORDERED: GABA-488 PO (07:41)
[2016-12-05] MEDS ORDERED: APIX5TAB PO (07:41)
[2016-12-05] MEDS ORDERED: SENN-20 PO (07:41)
[2016-12-05] MEDS ORDERED: HYDR-3812 PO (07:41)
--- NOTE | 2016-12-05 07:45 | Discharge Inst-Complex ---
PDI Med Rec & Follow Up Appt. New Medications: Enoxaparin Sodium (Lovenox) 40 Mg/0.4 Ml Syringe 40 MG SQ HS for 4 Days, #4 SYRINGE Gabapentin (Gabapentin) 300 Mg Capsule 300 MG PO TID for 30 Days, #90 CAP Hydrocodone/Acetaminophen (Hydrocodon -Acetaminophen 5-325) 1 Each Tablet 1-2 TAB PO Q6HR PRN for BACK PAIN for 30 Days, #60 TAB Sennosides/Docusate Sodium (Senna-Time S Tablet) 1 Each Tablet 1 EA PO BID for 30 Days, #60 TAB Changed Medications: Apixaban (Eliquis) 5 Mg Tablet 5 MG PO BID for 30 Days, #30 TAB (Medication details modified) eliquis on hold from 12/04/16 through 11/09/16 or at least 24 hours post op back surgery, then restart at twice daily dosing Continued Medications: Ascorbic Acid (Vitamin C) 500 Mg Tablet 500-1000 MG PO DAILY, TAB Atorvastatin Calcium (Atorvastatin Calcium) 10 Mg Tablet 5 MG PO HS, TAB TAKES 1/2 (10MG) TABLET Calcium Carbonate/Vitamin D3 (Calcium 500 + D Tablet) 1 Each Tablet 1 TAB PO BID, TAB Cholecalciferol (Vitamin D3) (Vitamin D3) 1,000 Unit Capsule 1000 UNIT PO DAILY, CAP Coconut Oil (Coconut Oil) 1,000 Mg Capsule 1000 MG PO DAILY, CAP Cyanocobalamin (Vitamin B-12) (Vitamin B-12) 50 Mcg Tablet 50 MCG PO DAILY, TAB Diclofenac Sodium (Voltaren) 100 Gm Gel..gram. TOP BID, EA APPLY TO LEG AND BACK Ipratropium/Albuterol Sulfate (Iprat-Albut 0.5-3(2.5) mg/3 ml) 3 Ml Ampul.neb 3 ML IH Q6H PRN for SHORTNESS OF BREATH, EACH Krill/Om-3/Dha/Epa/Phospho/Ast (Krill Oil 1,000 mg Softgel) 1 Each Capsule 1000 MG PO DAILY, CAP Levothyroxine Sodium (Levothyroxine Sodium) 75 Mcg Tablet 75 MCG PO DAILY, TAB Lutein/Zeaxanthin ([facility]vs Lutein 40 mg Softgel) 1 Each Capsule 1 CAP PO HS, CAP Metoprolol Tartrate (Metoprolol Tartrate) 25 Mg Tablet 12.5 MG PO BID, TAB TAKES 1/2 (25MG) TABLET Multivitamin (Multi-Vitamin Daily) 1 Each Tablet 1 TAB PO DAILY, TAB Oxybutynin Chloride (Oxybutynin Chloride ER) 5 Mg Tab.er.24 2.5 MG PO TID, TAB TAKES 1/2 (5MG) TABLET Pantoprazole Sodium (Pantoprazole Sodium) 40 Mg Tablet.dr 40 MG PO BID, TAB Turmeric Root Extract (Turmeric) 500 Mg Capsule 500 MG PO DAILY, CAP Zinc Amino Acid Chelate (Zinc) 50 Mg Tablet 50 MG PO DAILY, TAB Discontinued Medications: Amoxicillin/Potassium Clav (Amox Tr-K Clv 500-125 mg Tab) 1 Each Tablet 1 TAB PO BID, TAB 7 DAY SUPPLY FILLED 11-27-16 Gabapentin (Gabapentin) 100 Mg Capsule 100 MG PO UD, CAP TAKE 100MG DAILY FOR 7 DAYS THEN ICREASE TO 100MG TWICE DAILY (START DATE 12-01-16) Gabapentin (Gabapentin) 300 Mg Capsule 300 MG PO HS, CAP Prescription: Other (printed hydrocodone, rest went electronically to [facility]) Patient Instructions: follow up with dr. tyron martinez at [phone] at his office in [place] at [address] give lovenox injections at bedtime Activity, Diet and PDI Resume Normal Activity: No (bed-rest as much as possible for the next 4 days) Discharge Diet: Regular Diet Drink 6-8 Glasses of Fluid/Day: Yes Driving Instructions: No Driving/Refer to Return to The Hospital For: any concern for worsening symptoms of back pain, leg pain that is uncontrolled. Symptoms to Reoprt to : Bleeding Excessive, Pain Increased, Pain/Pressure in Chest For Problems or Questions: Contact Your Physician, Go to Emergency Room SERGIO MORENO MD Dec 05, 2016 07:45
[2016-12-05] MEDS: NS IV 500 ML PCA CARRIER FLUID IV SCH (07:50)
[2016-12-05 08:00] VITALS: BP 120/67
[2016-12-05] MEDS: OXYBUTYNIN (DITROPAN) 5 MG TAB PO SCH (08:46)
[2016-12-05] MEDS: meTOprolol TARTRATE 25 MG (LOPRESSOR) TABLET PO SCH (08:46)
[2016-12-05] MEDS: SENNA W/DOCUSATE (SENOKOT S) TABLET PO SCH (08:46)
[2016-12-05] MEDS: GABAPENTIN 300 MG (NEURONTIN) CAP PO SCH (08:46)
[2016-12-05] MEDS: DICLOFENAC 1% GEL 100 GM (VOLTAREN) TUBE TOP SCH (08:50)
[2016-12-05] MEDS: METOCLOPRAMIDE INJ 10 MG/2 ML (REGLAN) IV PRN (09:35)
[2016-12-05] MEDS ORDERED: PROM25TA14 PO (10:25)
[2016-12-08] MEDS ORDERED: GABAPENTIN 100 MG (NEURONTIN) CAP PO SCH (09:00)
--- OUTSIDE RECORDS SUMMARY | 2016-12-28 05:04 | XMS REPORT | Continuity of Care Document ---
Author Author [facility] Organization [facility] Address Unknown Phone Unavailable Care Team Providers Care Psych Rn Name Role Phone Stacey Underwood PCP [phone] Source Comments Some departments are not documenting in the electronic medical record. If you do not see the information that you expected, contact Release of Information in the Health Information Management department at [phone] for further assistance in locating additional records.[facility] Active Allergies and Adverse Reactions Allergen Noted Date Severity Reactions Comments Dust 05/27/2016 Low SEE COMMENTS Post nasal drip Erythromycin 07/18/2016 Low NAUSEA AND VOMITING Levaquin 07/18/2016 Medium MUSCLE PAIN Mold Spores 05/27/2016 Low SEE COMMENTS Post nasal drip Pollen 05/27/2016 Low SEE COMMENTS Post nasal drip Current Medications Prescription Sig. Disp. Refills Start End Date Status Date naproxen sodium(+) Take 1 Tab by mouth twice Active (ALEVE) 220 mg tablet daily. Take with food. atorvastatin (LIPITOR) 10 Take 5 mg by mouth at Active mg tablet bedtime daily. levothyroxine (SYNTHROID) Take 75 mcg by mouth Active 75 mcg tablet daily. oxybutynin XL (DITROPAN Take 2.5 mg by mouth Active XL) 5 mg tablet three times daily as needed. metoprolol tartrate Take 0.5 Tabs by mouth 30 Tab 11 09/05/20 Active (LOPRESSOR) 25 mg tablet twice daily. 16 apixaban (ELIQUIS) 5 mg Take 5 mg by mouth twice Active tablet daily. cholecalciferol (VITAMIN Take 1,000 Units by mouth Active D-3) 1,000 units tablet daily after lunch. HYDROcodone/acetaminophen Take 1 Tab by mouth every 10 Tab 0 11/09/19 Active (NORCO) 5/325 mg tablet 4 hours as needed [address] Take 1 Tab by mouth twice 70 Tab 0 10/31/19 (PROTONIX) 40 mg tablet daily for 35 days. Start 17 17 10/31, last dose 12/05 Active Problems Problem Noted Date Atrial fibrillation (HCC) 07/18/2016 Overview: Managed by Dr Lincoln Estrada EP, [facility]. [id number] score is 2. On warfarin. 04/04/16 - [...] Recent Encounters Date Type Specialty Providers Description 12/11/2016 Telephone Cardiology Delores Ac, Onelia Question - RN protonix 12/08/2016 Orders Only Cardiology Rama Franklin Atrial fibrillation, unspecified type (Primary Dx) 11/14/2016 Telephone Cardiology Mati Frederick RN Follow-up Phone Call - 1 week post-LAAA f/u phone call; s/p LAAA 3/3 w/ MPE 11/07/2016 Hospital Cardiology Jose Luis Hernández MD No Show Encounter 11/07/2016 Hospital Jose Luis Hernández MD Atrial fibrillation (HCC) - Encounter 11/08/2016 11/07/2016 Surgery Cardiology Jose Luis Hernández MD Atrial Fibrillation Cryo Ablation 11/06/2016 Patient Profile Cardiology Maryann Anderson New Patient - Paroxysmal atrial fibrillation 11/06/2016 Pre-Admit Cardiology Amanda Mg APRN-C Orders Only 11/05/2016 Telephone Cardiology Paula Siddiqi RN Other - EDWARD order for 3/3 ablation 11/04/2016 Telephone Cardiology Ramona Barriga RN 11/03/2016 Telephone Cardiology Norma Saucedo RN General Question - no reason given 11/03/2016 Telephone Cardiology Ramona Barriga RN Results - 10/16/16 CT angio chest - completed Via Cathy 11/03/2016 Documentation Cardiology Joyce Johns RN Medication Follow-up - Enoxaparin 100 mg/ml syringe approved until 12/01/16 per [employer]. 10/31/2016 Telephone Cardiology Norma Saucedo RN Medication Change Request - Protonix 10/29/2016 Documentation Cardiology Norma Saucedo RN 10/29/2016 Documentation Cardiology Sarah Hensley RN Records Request - Dr. Alan Lama p) [phone] / f) [phone] 10/29/2016 Telephone Cardiology Ramona Barriga RN Shortness of Breath - improving but continues following her pneumonia 10/28/2016 Documentation Cardiology Ramona Barriga RN EDWARD Pre-Procedure Instuctions - orders only - to be done in EP lab prior to procedure 10/28/2016 Orders Only Cardiology Ramona Barriga RN Paroxysmal atrial fibrillation (HCC) (Primary Dx) 10/27/2016 Hospital Cardiology Jose Luis Hernández MD Encounter 10/27/2016 PAC Office Anesthesiology Jose Luis Hernández MD Preop examination Visit (Primary Dx); Paroxysmal atrial fibrillation (HCC); Encounter for blood typing 10/27/2016 [facility] Radiology Jose Luis Hernández MD Encounter 10/27/2016 Anesthesia Cardiology Tarsha Taveras APRN-JOCKEY AGENT Event 10/27/2016 Orders Only Cardiology Ramona Barriga RN Paroxysmal atrial fibrillation (HCC) (Primary Dx) 10/27/2016 Telephone Cardiology Mariia Hanson LPN Cardiac Clearance 10/22/2016 Telephone Cardiology Mariia Hanson LPN Appointment - Pre op 10/27/16 10/22/2016 Orders Only Cardiology Sharona Ordoñez Atrial fibrillation, unspecified type 10/21/2016 Documentation Cardiology Paddy Schrader RN Precertification - Medicare 10/17/2016 Orders Only Cardiology Lou Joseph RN Atrial fibrillation , unspecified type (Primary Dx) 10/16/2016 Telephone Cardiology Ramona Barriga RN 10/15/2016 Orders Only Cardiology Mei Perdomo RN Atrial fibrillation, unspecified type (Primary Dx) 10/15/2016 Telephone Cardiology Mei Perdomo RN Other - cta requested 10/14/2016 Office Visit Cardiology Jose Luis Hernández MD Atrial fibrillation - 3 month F/U ; Medication Follow-up - Increase Amiodarone to 400mg daily ; Device Check 10/14/2016 Hospital Cardiology Jose Luis Hernández MD Encounter Social History Tobacco Use Types Packs/Day Years Used Date Former Smoker 0.2 8 Quit: 09/07/1968 Smokeless Tobacco: Never Used Alcohol Use Drinks/Week oz/Week Comments No Last Filed Vital Signs Vital Sign Reading Time Taken Blood Pressure 89/44 11/08/2016 12:00 PM FEEDLOT MANAGER Pulse 69 11/08/2016 12:00 PM FEEDLOT MANAGER Temperature 36.7 C (98 F) 11/08/2016 12:00 PM FEEDLOT MANAGER Respiratory Rate - - Height 1.651 m (5' 5") 11/07/2016 9:06 AM FEEDLOT MANAGER Weight 68.1 kg (150 lb 2.1 oz) 11/07/2016 9:06 AM FEEDLOT MANAGER Body Mass Index 24.98 11/07/2016 9:06 AM FEEDLOT MANAGER Oxygen Saturation 93% 11/08/2016 12:00 PM FEEDLOT MANAGER Plan of Care Health Maintenance Due Date Last Done Comments Physical (Comprehensive) 1950 Exam Pertussis Vaccine 1954 Tetanus Vaccine 1960 Breast Cancer Screening 1983 Colorectal Cancer 1993 Screening Shingles Vaccine 2003 Osteoporosis Screening 2008 Prevnar/Pneumovax (#1) 2008 Influenza Vaccine 05/08/2017 Procedures from Last 3 Months Procedure Name Priority Date/Time Associated Diagnosis Comments ECG-SCAN 11/13/2016 Results for this 8:48 AM FEEDLOT MANAGER procedure are in the results section. ECG-SCAN 11/13/2016 Results for this 8:48 AM FEEDLOT MANAGER procedure are in the results section. TELEMETRY STRIPS-SCAN 11/12/2016 Results for this 2:07 PM FEEDLOT MANAGER procedure are in the results section. ECG UNCONFIRMED-SCAN 11/12/2016 Results for this 1:59 PM FEEDLOT MANAGER procedure are in the results section. ECG UNCONFIRMED-SCAN 11/12/2016 Results for this 1:58 PM FEEDLOT MANAGER procedure are in the results section. ECG UNCONFIRMED-SCAN 11/12/2016 Results for this 1:57 PM FEEDLOT MANAGER procedure are in the results section. ECG-SCAN 11/12/2016 Results for this 10:28 AM FEEDLOT MANAGER procedure are in the results section. Results from Last 3 Months * ECG-SCAN (11/13/2016 8:48 AM) Narrative Ordered by an unspecified provider. * ECG-SCAN (11/13/2016 8:48 AM) Narrative Ordered by an unspecified provider. * TELEMETRY STRIPS-SCAN (11/12/2016 2:07 PM) Narrative Ordered by an unspecified provider. * ECG UNCONFIRMED-SCAN (11/12/2016 1:59 PM) Narrative Ordered by an unspecified provider. * ECG UNCONFIRMED-SCAN (11/12/2016 1:58 PM) Narrative Ordered by an unspecified provider. * ECG UNCONFIRMED-SCAN (11/12/2016 1:57 PM) Narrative Ordered by an unspecified provider. * ECG-SCAN (11/12/2016 10:28 AM) Narrative Ordered by an unspecified provider. * CBC (11/08/2016 4:45 AM) Only the most recent of 3 results within the time period is included. Component Value Range White Blood Cells 6.5 4.5-11.0 K/UL RBC 3.63 (L) 4.0-5.0 M/UL Hemoglobin 11.2 (L) 12.0-15.0 GM/DL Hematocrit 32.5 (L) 36-45 % MCV 89.4 80-100 FL MCH 30.7 26-34 PG MCHC 34.4 32.0-36.0 G/DL RDW 16.1 (H) 11-15 % Platelet Count 162 150-400 K/UL MPV 8.6 7-11 FL Specimen Blood * MAGNESIUM (11/08/2016 4:45 AM) Only the most recent of 2 results within the time period is included. Component Value Range Magnesium 1.8 1.6-2.6 mg/dL Specimen Blood * BASIC METABOLIC PANEL (11/08/2016 4:45 AM) Only the most recent of 4 results within the time period is included. Component Value Range Sodium 133 (L) 137-147 MMOL/L Potassium 3.8 3.5-5.1 MMOL/L Chloride 101 98-110 MMOL/L CO2 27 21-30 MMOL/L Anion Gap 5 3-12 Glucose 117 (H) 70-100 MG/DL Blood Urea Nitrogen 10 7-25 MG/DL Creatinine 0.76 0.4-1.00 MG/DL Calcium 8.4 (L) 8.5-10.6 MG/DL eGFR Non >60Comment: >60 mL/min The eGFR is not validated for use in drug dosing adjustments. Continue to use estimated creatinine clearance per dosing reference text. Please contact the Clinical Pharmacist for questions. eGFR >60Comment: >60 mL/min The eGFR is not validated for use in drug dosing adjustments. Continue to use estimated creatinine clearance per dosing reference text. Please contact the Clinical Pharmacist for questions. Specimen Blood * POC ACTIVATED CLOTTING TIME (11/07/2016 2:47 PM) Only the most recent of 3 results within the time period is included. Component Value Range Activated Clotting Time 162 s * AMIODARONE LEVEL (11/07/2016 2:34 PM) Component Value Range Amiodarone 0.4 (L)Comment: Unit: mcg/mL REFERENCE VALUE 0.5 - 2.0 (Toxic >2.5) [facility], [address] [place] [id number] Desethylamiodarone 0.7Comment: Unit: mcg/mL REFERENCE VALUE No therapeutic range established; activity and serum concentration are similar to parent drug. ADDITIONAL INFORMATION This test was developed and its performance characteristics determined by [facility] in a manner consistent with CLIA requirements. This test has not been cleared or approved by the U.S. Food and Drug Administration. [facility], [address], [place] [address] Specimen Blood * EP STUDY (11/07/2016 12:01 PM) Impressions : -NSR existed at baseline -Status post Cryo-Balloon Ablation of AFIB -Atrial fibrillation status post pulmonary vein antral isolation. -Successful ablation of LA to isolate pulmonary veins. Normal AV node function. Normal His-Purkinje system function. -Procedure done under general anesthesia. PLAN: -Patient will be monitored overnight in the hospital with access sites checked in the morning. -Will restart home antiarrhythmic drug for the next two to three months. -Will give Lasix and KCl Q12 hr for fluid and electrolyte management. -Will restart Coumadin. We will bridge with Lovenox until INR 2.0 or greater. -Pt. To be extubated and recovered per anesthesia Local [id number] TS Znzu308 Pre TS Fluoro4.9 LA Dwell Qfmy656 Total Hsllev79.1 Narrative AFIB ABLATION WITH CRYO ENERGY Patient Name: Bria Shirley DATE OF PROCEDURE: 11/07/2016 PROCEDURE: Intracardiac Ablation of Atrial Fibrillation through pulmonary vein antral isolation in the left atrium with a [employer] [place] Cryo-Balloon Left atrial antral ablation for atrial fibrillation General Anesthesia EP study with CS catheter placement His bundle assessment Right and left heart catheterization Intracardiac echocardiography Single transseptal puncture with LA entry Pulmonary vein angiography Three-dimensional intracardiac electroanatomic mapping using the Vascular Closure NAvX System. Intracardiac left atrial ablation of atrial fibrillation for pulmonary vein antral isolation Complex fractionated atrial electrogram ablation IV drug Administration - Isuprel PHOTOGRAPHIC INTELLIGENCE OFFICER: Jose Luis Hernández MD FELLOW: none INDICATION FOR PROCEDURE: Symptomatic paroxysmal atrial fibrillation PRESENTING RHYTHM: NORMAL SINUS RHYTHM CONSENT: The risks, benefits, indications and alternatives to the procedure were explained in detail with the patient and discussed at length prior to the procedure. The patient expressed understanding of the risks and consented to the procedure. All questions asked were answered and all permits were signed. The patient was transported to the Electrophysiology Laboratory in a non-sedated state and was placed supine on the fluoroscopy table. GENERAL ANESTHESIA: The patient underwent general anesthesia as administered by a Anesthesia servce. He was on mechanical ventilation which was managed by anesthesia team who was present through out the procedure. Continuous blood pressure, heart rate and O2 saturation monitoring with supplemental oxygen as needed was utilized throughout the procedure. LOCAL ANESTHESIA: Marcaine 0.25% was injected into subcutaneous tissue for local anesthesia. ANTICOAGULATION: Heparin bolus was given following transseptal puncture and a drip was started to maintain ACT > 400 throughout the procedure. Protamine was given at the completion of the procedure for reversal of heparin anticoagulation. ANATOMY: The left atrial anatomy correlated well with the cardiac CT. CATHETERS USED: - An 11Fr. SL1 sheath was exchanged for a short 8 Fr. Sheath in the RFV and then for the Flex Cryo-balloon deflectable sheath - A 20 pole Variable Lasso was used and inserted thru the Flex Cryo-balloon Sheath in the RFV in exchanged for the Cryo-balloon catheter at the end of the procedure to confirm PV isolation. - The Cryo-Balloon catheter was advanced into the LA for ablation thru the deflectable sheath in the RFV.20 mm Achieve lasso Catheter was introduced through the Flex sheath - Decapolar deflectable EP catheter inserted via a 6Fr Swazi sheath in the left femoral vein, advanced to the coronary sinus. - Accunav or SJM ICE catheter placed via access with an 11 Swazi sheath in the left femoral vein and advanced into right atrium to assess cardiac anatomy. - A 6 Fr. Fixed QuadrapolarCatheter was advanced thru a short sheath in the LFV and used for Temporary RVA pacing as needed and then advanced to the Right SCV to pace stimulate the phrenic nerve with all Rt. Sided Ablation applications. ACCESS: The left and right groins and right neck were prepped and draped in a sterile fashion. 0.25% Marcaine was injected into the subcutaneous tissue overlying the right and left femoral veins, and right internal jugular vein. The veins were accessed using the modified Seldinger technique with placement of sheaths and catheters as mentioned above. INTRACARDIAC ECHO: A 9 Swazi ICEcatheter was advanced via left femoral vein to mid right atrium to assess cardiac anatomy and to guide transseptal puncture. There was no pericardial effusion or thrombus. The left atrium was mildly enlarged. Intracardiac echo was used to assist and guide transseptal puncture. SINGLE TRANSSEPTAL PUNCTURE WITH LA ENTRY: A short 8 Swazi sheath in the right femoral vein was exchanged for a long SL1 sheath. A transseptal needle was used for transseptal puncture. Transseptal puncture was performed in the low septum successfully under guidance of fluoroscopy and intracardiac echo. Contrast was injected immediately after puncture to confirm appropriate LA location before advancing the sheath. Heparin IV bolus was started immediately to keep ACT 400 or greater throughout left atrial ablation. (Intra-atrial pressure was 12/1 mmHg) TS needle angle at 0400 THREE-DIMENSIONAL INTRACARDIAC ELECTROANATOMIC MAPPING: Using the 20 pole Achieve Lasso catheter 3-D electroanatomic mapping of the left atrium and pulmonary veins was created. Post RFA the Variable Lasso catheter was used. The left atrial anatomy correlated well with the cardiac CT. CRYOABLATION: The 4 veins were sequentially entered using the Achieve lasso catheter, and the balloon was advanced into each of the veins. Using the 3-D electro-anatomic map and the Doppler window on the ICE catheter, an appropriate occlusion of the vein was judged.The balloon was dilated and an occlusive venogram of each vein was done to confirm that there was no leak.The balloon was adjusted to minimize any leak around the balloon. An initial freeze for was done, and at lease one subsequent freeze was done on each vein.The goal freezing temperature would be less than 40 degrees. The transseptal puncture was done using a SL1 sheath in the inferoanterior aspect of the interatrial septum.The sheath was then exchanged over to the 15-Swazi FlexCath sheath.The groin access site was dilated using the 14-Swazi dilator before introducing the sheath as well.With the long wire parked in the left upper vein, the FlexCath sheath was introduced into the left atrium with the Achieve Lasso leading.Using the Achieve Lasso, we demarcated the different Pulmonary Veins under NavX 3D guidance mapping. He had a 2 SEPARATE LEFT PVs--a LSPV and A LIPV AND 2 SEPARATE RIGHT PVs--a RSPV AND RIPV. The left superior pulmonary vein was very superior and very anterior in its course.It was isolated and 35 seconds of cryo application.The PV potential stretched out and then disappeared.The left inferior pulmonary vein had an anterior branch that followed a typical course for a standard left superior pulmonary vein but of course it was the superior branch. This is able to be identified utilizing 3D mapping and utilizing the prior CT that have been reconstructed for the procedure. The cryo balloon was sequentially applied at the pulmonary vein ostia. For each PV Cryo-balloon application, the position of the balloon was also confirmed with the ICE catheter.The ICE catheter was panned across the vein to make sure there was no leak across through the sides of the balloon.Also, puffs of contrast/venogram of the vein was done to demonstrate PV os occlusion. If there was a leak, or there was a suspicion of inadequate occlusion, adjustment of the balloon was done to cover the leaked segment and repeat treatment was done.This strategy was followed at all the Pulmonary Veins. We started with the Left PVs, followed by the Right inferior PV and finally the Right Superior PV. After positioning the Achieve Lasso inside the vein, the balloon was pushed onto the antrum and was inflated.Proper occlusion of the vein was done and an angiogram using injection of dye from the distal port was done to verify appropriate occlusion of the vein.Once it was confirmed that the vein was adequately occluded, we sometimes also did pull back the balloon just a bit to make sure we were not too much inside the vein and was appropriately at the antrum. Treatment in the form of cryoablation using liquid nitrogen with freezing of the balloon at a target of -40 to 55 degrees Celsius was done. Applications are described below. During Cryo energy delivery to the Right-sided veins the phrenic nerve was stimulated by pacing and diaphragmatic stimulation was monitored thru the entire application to ensure no diaphragmatic paralysis occurred, i.e. Phrenic nerve injury. LocationTemp @ 30 SecTime To EffectMaximum TempDuration [id number] There was complete elimination of potentials on the Achieve Lasso at the end of isolation in all the 4 veins. After the isolation of all the 4 PVs patient was started on Isuprel for 10 minutes at 20mcg/kg/min with no spontaneous ectopic activity. After ablation, the patient was started on Isuprel at 20 mcg.Burst pacing was done at 350 and down to 250 msec without any inducible arrhythmias, flutters, or atrial fibrillation. All 4 veins were active and signals disappeared with each application. No inducible arrhythmias with aggressive stimulation and isuprel. ADDITIONAL COMMENTS: --Vascular Closure Navx was used as the mapping system for the procedure. --Transseptal puncture was performed with the access needle pointed to 0400 o'clock and theTS puncture occurred without difficulty --Arrhythmogenic Vein:The all pulmonary vein(s) was/were the most active, although all veins were active. --Dissociated Firing of the PVs:Did not occur --Vagal Effect:did occur during Cryo of the RSPV. --A CTI ablation for AFL:was not performed. No Hx of AFL COMPREHENSIVE EP STUDY WITH CORONARY SINUS CATHETER FINDINGS and PROGRAMMED ELECTRICAL STIMULATION WITH AND WITHOUT ISUPREL: Initial:SR 940 msec, WA 180 msec,QRS 82 msec, QT 424 msec. Final: SR coming off isuprel 640 msec, WA 140 msec,QRS 90 msec, QT 385 msec. AH 97msec and HV57 msec,at completion of procedure. The patient did have evidence of bundle branch block aberrancy that occurred when atrial pacing at a rate of 250 ms. INTRA ATRIAL AND INTRAVENTRICULAR PACING & ARRHYTHMIA INDUCTION: -We paced the RA/LA and RV for decremental conduction and programmed electrical stimulation with no inducible atrial fibrillation. -AV wenkeback 410ms -AV node function was normal -After the isolation of all the 4 PVs patient was started on Isuprel for 10 minutes at 20mcg/kg/min with no spontaneous ectopic activity. -Atrial burst pacing up to 250 msec from both the atria, did not induce any arrhythmias. POSTABLATION INTRACARDIAC ECHOCARDIOGRAPHY: The ICE catheter was placed at the tricuspid annulus. The cardiac anatomy was assessed. There was no evidence of pericardial effusion. The left ventricular ejection fraction was unchanged. No regional wall motion abnormalities were noted. ACUTE DRUG TESTING: Isuprel was started at 10 mcg/min for acute drug testing. After 10 minutes of infusion, and burst pacing up to 250 ms from CS as well as gutierrez, no additional atrial arrhythmias were noted. The Isuprel was stopped and catheters were pulled back. POST ABLATION INTRACARDIAC ECHOCARDIOGRAPHY: The ICE catheter was placed at the tricuspid annulus. The cardiac anatomy was assessed. There was no evidence of pericardial effusion. The left ventricular ejection fraction was unchanged. No regional wall motion abnormalities were noted. Time Out:908 Procedure End:1143 COMPLICATIONS: The patient tolerated the procedure well. No adverse events were noted at the end of the study. The catheters were then removed and the long SL1 sheaths were exchanged for short sheaths. The patient was then given protamine to reverse anticoagulation and was transferred to the outpatient for plans to remove sheaths with manual pressure held until adequate hemostasis noted. IV lasix was given to prevent pulmonary congestion. ASSESSMENT/ * POC ACTIVATED CLOTTING TIME (11/07/2016 11:37 AM) Only the most recent of 7 results within the time period is included. Component Value Range Activated Clotting Time 349 s * EDWARD INTCD IN CATH/EP/CVOR PRO ONLY (11/07/2016 9:06 AM) Component Value Range BSA 1.77 m2 ECHO EF 55 % Referring Provider Stacey Underwood CV ECHO PV INFORMATION SYSTEMS AUDIT MANAGER EP lab Narrative Mildly dilated atria Left ventricular ejection fraction=55% Possible mild prolapse of a segment of the mitral valve Mild MV and TV regurgitation No significant pericardial effusion No thrombus present in the left atrium or its appendage No prior study is available for comparison. Zeus Appiah MD, MSc * POC PT/INR (11/07/2016 7:17 AM) Component Value Range INR POC 1.0 0.8-1.2 * TYPE & CROSSMATCH (11/07/2016 6:40 AM) Component Value Range Units Ordered 0 Crossmatch Expires 11/10/2016 Record Check FOUND ABO/RH(D) B NEG Antibody Screen NEG Specimen Blood * CT CARDIAC STRUCTURE WO/W CONT (10/27/2016 12:34 PM) Impressions Cardiac: 1. Mildly enlarged left atrium without evidence of left atrial appendage thrombus. 2.Normal pulmonary venous anatomy as described, with early branching of the right superior and inferior pulmonary veins. Limited CT Chest: 1. Scattered areas of bronchiectasis, greatest in the right middle lobe and lingula, with mild associated mucous plugging, likely related to previous infection. 2. Patchy groundglass opacity within the lower lobes, which is nonspecific and may be related to scarring, however atypical pneumonia is a possibility. 3. Prominent mediastinal and hilar nodes, which are likely reactive in the absence of known malignancy. Finalized by SHAILESH FREIRE M.D. on 10/27/2016 2:29 PM. Dictated by SHAILESH FREIRE M.D. on 10/27/2016 2:[address] of the heart with contrast for cardiac structure evaluation, pulmonary vein mapping and limited CT chest. Clinical Indication: 71-year-old female with atrial fibrillation undergoing evaluation for pulmonary vein ablation therapy. Technique: CT of the heart was performed with precontrast scans for localization. Dynamic contrast-enhanced scans were performed during bolus contrast administration. Multiplanar reformations and 3 dimensional reformations were performed on a free standing workstation for evaluation of the left atrium and pulmonary veins. 100 ml of Isovue 370 was given intravenously. Findings: 1. Cardiac morphology and structure with attention to the left atrium and pulmonary veins: Left atrium and left atrial appendage: The left atrium is mildly enlarged. The left atrial volume including the appendage measures approximately 111 cc.The atrial septum appears intact. No left atrial appendage thrombus is identified. Pulmonary veins: There is normal pulmonary venous anatomy with bilateral superior and inferior pulmonary veins. There is early branching of the right superior and inferior pulmonary veins. Pulmonary vein ostia measurements: Right superior pulmonary vein: 14mm x 17mm; 185 sq mm. Right inferior pulmonary vein:19mm x 15mm; 206 sq mm. Left inferior pulmonary vein:11mm x 17mm; 148 sq mm. Left superior pulmonary vein:17mm x 13mm; 167 sq mm. General cardiac morphology: No pericardial effusion is identified. The pericardium appears normal in thickness. The aortic and mitral valves are unremarkable.The left ventricular wall is within normal limits for thickness.There is at least mild calcified coronary artery plaque identified, however, the coronary arteries are poorly evaluated and the presence of soft plaque and/or coronary artery stenosis cannot be determined on this study. 2. Aorta and pulmonary vessels: The visualized portions of the pulmonary arteries are unremarkable.The ascending aorta measures about 2.8 cm in diameter. 3. Limited CT Chest findings: There are prominent mediastinal and hilar nodes. Scattered areas of mild to moderate bronchiectasis are present bilaterally, greatest within the right middle lobe and lingula, with few areas of mucus plugging. Patchy groundglass opacity is present bilaterally, greatest in the lower lobes. Mild, focal subpleural consolidation is present within the right middle lobe, likely scarring or atelectasis. Procedure Note Interface, Radiant Results - ThuOct 27, 2016 2:[address] of the heart with contrast for cardiac structure evaluation, pulmonary vein mapping and limited CT chest. Clinical Indication: 71-year-old female with atrial fibrillation undergoing evaluation for pulmonary vein ablation therapy. Technique: CT of the heart was performed with precontrast scans for localization. Dynamic contrast-enhanced scans were performed during bolus contrast administration. Multiplanar reformations and 3 dimensional reformations were performed on a free standing workstation for evaluation of the left atrium and pulmonary veins. 100 ml of Isovue 370 was given intravenously. Findings: 1. Cardiac morphology and structure with attention to the left atrium and pulmonary veins: Left atrium and left atrial appendage: The left atrium is mildly enlarged. The left atrial volume including the appendage measures approximately 111 cc. The atrial septum appears intact. No left atrial appendage thrombus is identified. Pulmonary veins: There is normal pulmonary venous anatomy with bilateral superior and inferior pulmonary veins. There is early branching of the right superior and inferior pulmonary veins. Pulmonary vein ostia measurements: Right superior pulmonary vein: 14mm x 17mm; 185 sq mm. Right inferior pulmonary vein: 19mm x 15mm; 206 sq mm. Left inferior pulmonary vein: 11mm x 17mm; 148 sq mm. Left superior pulmonary vein: 17mm x 13mm; 167 sq mm. General cardiac morphology: No pericardial effusion is identified. The pericardium appears normal in thickness. The aortic and mitral valves are unremarkable. The left ventricular wall is within normal limits for thickness. There is at least mild calcified coronary artery plaque identified, however, the coronary arteries are poorly evaluated and the presence of soft plaque and/or coronary artery stenosis cannot be determined on this study. 2. Aorta and pulmonary vessels: The visualized portions of the pulmonary arteries are unremarkable. The ascending aorta measures about 2.8 cm in diameter. 3. Limited CT Chest findings: There are prominent mediastinal and hilar nodes. Scattered areas of mild to moderate bronchiectasis are present bilaterally, greatest within the right middle lobe and lingula, with few areas of mucus plugging. Patchy groundglass opacity is present bilaterally, greatest in the lower lobes. Mild, focal subpleural consolidation is present within the right middle lobe, likely scarring or atelectasis. IMPRESSION Cardiac: 1. Mildly enlarged left atrium without evidence of left atrial appendage thrombus. 2. Normal pulmonary venous anatomy as described, with early branching of the right superior and inferior pulmonary veins. Limited CT Chest: 1. Scattered areas of bronchiectasis, greatest in the right middle lobe and lingula, with mild associated mucous plugging, likely related to previous infection. 2. Patchy groundglass opacity within the lower lobes, which is nonspecific and may be related to scarring, however atypical pneumonia is a possibility. 3. Prominent mediastinal and hilar nodes, which are likely reactive in the absence of known malignancy. Finalized by SHAILESH FREIRE M.D. on 10/27/2016 2:29 PM. Dictated by SHAILESH FREIRE M.D. on 10/27/2016 2:12 PM. * CT LMTD CHEST W CARDIAC (10/27/2016 12:34 PM) Impressions Cardiac: 1. Mildly enlarged left atrium without evidence of left atrial appendage thrombus. 2.Normal pulmonary venous anatomy as described, with early branching of the right superior and inferior pulmonary veins. Limited CT Chest: 1. Scattered areas of bronchiectasis, greatest in the right middle lobe and lingula, with mild associated mucous plugging, likely related to previous infection. 2. Patchy groundglass opacity within the lower lobes, which is nonspecific and may be related to scarring, however atypical pneumonia is a possibility. 3. Prominent mediastinal and hilar nodes, which are likely reactive in the absence of known malignancy. Finalized by SHAILESH FREIRE M.D. on 10/27/2016 2:29 PM. Dictated by SHAILESH FREIRE M.D. on 10/27/2016 2:[address] of the heart with contrast for cardiac structure evaluation, pulmonary vein mapping and limited CT chest. Clinical Indication: 71-year-old female with atrial fibrillation undergoing evaluation for pulmonary vein ablation therapy. Technique: CT of the heart was performed with precontrast scans for localization. Dynamic contrast-enhanced scans were performed during bolus contrast administration. Multiplanar reformations and 3 dimensional reformations were performed on a free standing workstation for evaluation of the left atrium and pulmonary veins. 100 ml of Isovue 370 was given intravenously. Findings: 1. Cardiac morphology and structure with attention to the left atrium and pulmonary veins: Left atrium and left atrial appendage: The left atrium is mildly enlarged. The left atrial volume including the appendage measures approximately 111 cc.The atrial septum appears intact. No left atrial appendage thrombus is identified. Pulmonary veins: There is normal pulmonary venous anatomy with bilateral superior and inferior pulmonary veins. There is early branching of the right superior and inferior pulmonary veins. Pulmonary vein ostia measurements: Right superior pulmonary vein: 14mm x 17mm; 185 sq mm. Right inferior pulmonary vein:19mm x 15mm; 206 sq mm. Left inferior pulmonary vein:11mm x 17mm; 148 sq mm. Left superior pulmonary vein:17mm x 13mm; 167 sq mm. General cardiac morphology: No pericardial effusion is identified. The pericardium appears normal in thickness. The aortic and mitral valves are unremarkable.The left ventricular wall is within normal limits for thickness.There is at least mild calcified coronary artery plaque identified, however, the coronary arteries are poorly evaluated and the presence of soft plaque and/or coronary artery stenosis cannot be determined on this study. 2. Aorta and pulmonary vessels: The visualized portions of the pulmonary arteries are unremarkable.The ascending aorta measures about 2.8 cm in diameter. 3. Limited CT Chest findings: There are prominent mediastinal and hilar nodes. Scattered areas of mild to moderate bronchiectasis are present bilaterally, greatest within the right middle lobe and lingula, with few areas of mucus plugging. Patchy groundglass opacity is present bilaterally, greatest in the lower lobes. Mild, focal subpleural consolidation is present within the right middle lobe, likely scarring or atelectasis. Procedure Note Interface, Radiant Results - ThuOct 27, 2016 2:[address] of the heart with contrast for cardiac structure evaluation, pulmonary vein mapping and limited CT chest. Clinical Indication: 71-year-old female with atrial fibrillation undergoing evaluation for pulmonary vein ablation therapy. Technique: CT of the heart was performed with precontrast scans for localization. Dynamic contrast-enhanced scans were performed during bolus contrast administration. Multiplanar reformations and 3 dimensional reformations were performed on a free standing workstation for evaluation of the left atrium and pulmonary veins. 100 ml of Isovue 370 was given intravenously. Findings: 1. Cardiac morphology and structure with attention to the left atrium and pulmonary veins: Left atrium and left atrial appendage: The left atrium is mildly enlarged. The left atrial volume including the appendage measures approximately 111 cc. The atrial septum appears intact. No left atrial appendage thrombus is identified. Pulmonary veins: There is normal pulmonary venous anatomy with bilateral superior and inferior pulmonary veins. There is early branching of the right superior and inferior pulmonary veins. Pulmonary vein ostia measurements: Right superior pulmonary vein: 14mm x 17mm; 185 sq mm. Right inferior pulmonary vein: 19mm x 15mm; 206 sq mm. Left inferior pulmonary vein: 11mm x 17mm; 148 sq mm. Left superior pulmonary vein: 17mm x 13mm; 167 sq mm. General cardiac morphology: No pericardial effusion is identified. The pericardium appears normal in thickness. The aortic and mitral valves are unremarkable. The left ventricular wall is within normal limits for thickness. There is at least mild calcified coronary artery plaque identified, however, the coronary arteries are poorly evaluated and the presence of soft plaque and/or coronary artery stenosis cannot be determined on this study. 2. Aorta and pulmonary vessels: The visualized portions of the pulmonary arteries are unremarkable. The ascending aorta measures about 2.8 cm in diameter. 3. Limited CT Chest findings: There are prominent mediastinal and hilar nodes. Scattered areas of mild to moderate bronchiectasis are present bilaterally, greatest within the right middle lobe and lingula, with few areas of mucus plugging. Patchy groundglass opacity is present bilaterally, greatest in the lower lobes. Mild, focal subpleural consolidation is present within the right middle lobe, likely scarring or atelectasis. IMPRESSION Cardiac: 1. Mildly enlarged left atrium without evidence of left atrial appendage thrombus. 2. Normal pulmonary venous anatomy as described, with early branching of the right superior and inferior pulmonary veins. Limited CT Chest: 1. Scattered areas of bronchiectasis, greatest in the right middle lobe and lingula, with mild associated mucous plugging, likely related to previous infection. 2. Patchy groundglass opacity within the lower lobes, which is nonspecific and may be related to scarring, however atypical pneumonia is a possibility. 3. Prominent mediastinal and hilar nodes, which are likely reactive in the absence of known malignancy. Finalized by SHAILESH FREIRE M.D. on 10/27/2016 2:29 PM. Dictated by SHAILESH FREIRE M.D. on 10/27/2016 2:12 PM. * TYPE & SCREEN (NOT CROSSMATCH ELIGIBLE) (10/27/2016 9:25 AM) Component Value Range ABO/RH(D) B NEG Antibody Screen NEG Blood Component Type RED CELL GROUP Specimen Blood, venous - Blood * PROTIME INR (PT) (10/27/2016 9:25 AM) Component Value Range INR 1.3 (H) 0.8-1.2 Specimen Blood * DEVICE EVALUATION - ILR (10/14/2016 1:23 PM) Component Value Range ILR Date of Last Daily 10/14/16 Connection ILR History of Afib Yes Generator Implnat Date 04/04/16 Generator Model # Reveal [id number] Generator Serial # [id number] EP Device Followed by MPE Name ILR [...] Christian Lifetime Events 2 as of ILR Christian Rate 30 ILR Christian Duration 4 ILR [...] Strip VS at 58bpm Remote Monitor Serial# [id number] Generator [employer] Generator Location Left Device Type ILR ILR AF Duration all episodes Device [place] [employer] Express Transmitter Compatible Narrative [facility] Reveal LINQ Interrogation. Presenting Rhythm: VS at 58bpm. Events since 04/04/16: 98 AF events. [place] 1.1%. Longest duration [id number], A rates 86-261bpm. V rates 64-122bpm. Events #267 thru # 296 EGM/Markers show AF/AFL. Pt stated is on [employer]. Remote followed by Dr Charles in [place], [place]. Report to MPE in clinic. * ECG/QRS (10/14/2016) Component Value Range QRS DURATION 98
--- OUTSIDE RECORDS SUMMARY | 2016-12-28 05:05 | XMS REPORT | Continuity of Care Document ---
Author Author [facility] Organization [facility] Address Unknown Phone Unavailable Allergies Active Description Code Type Severity Reaction Onset Reported/Identified Relationship to Patient Clinical Status Yes erythromycin base [id number] Drug Allergy Unknown N/A 04/04/2016 Yes levofloxacin [id number] Drug Allergy Unknown N/A 04/04/2016 Medications Problems Date Dx Coded Attending Type Code Diagnosis Diagnosed By 01/14/2016 TIFFANIE MARTINEZ, SERGIO Pope Ot G47.33 OBSTRUCTIVE SLEEP APNEA (ADULT) ( PEDIATR 02/19/2016 TIFFANIE MARTINEZ, SERGIO Pope Ot G47.33 OBSTRUCTIVE SLEEP APNEA (ADULT) ( PEDIATR 02/19/2016 TIFFANIE MARTINEZ, SERGIO Pope Ot G47.33 OBSTRUCTIVE SLEEP APNEA (ADULT) ( PEDIATR 02/19/2016 TIFFANIE MARTINEZ, SERGIO Pope Ot G47.33 OBSTRUCTIVE SLEEP APNEA (ADULT) ( PEDIATR 02/19/2016 TIFFANIE MARTINEZ, SERGIO Pope Ot G47.33 OBSTRUCTIVE SLEEP APNEA (ADULT) ( PEDIATR 02/19/2016 TIFFANIE MARTINEZ, SERGIO Pope Ot G47.33 OBSTRUCTIVE SLEEP APNEA (ADULT) ( PEDIATR 02/19/2016 TIFFANIE MARTINEZ, SERGIO Pope Ot G47.33 OBSTRUCTIVE SLEEP APNEA (ADULT) ( PEDIATR 02/20/2016 TIFFANIE MARTINEZ, SERGIO Pope Ot G47.33 OBSTRUCTIVE SLEEP APNEA (ADULT) ( PEDIATR 02/26/2016 TIFFANIE MARTINEZ, SERGIO Pope Ot G47.33 OBSTRUCTIVE SLEEP APNEA (ADULT) ( PEDIATR 04/17/2016 TED MARTINEZ, ABDON Sneed Ot E03.9 HYPOTHYROIDISM, UNSPECIFIED 04/17/2016 TED MARTINEZ, ABDON Sneed Ot E78.5 HYPERLIPIDEMIA, UNSPECIFIED 04/17/2016 ETD MARTINEZ, ABDON Sneed Ot G47.33 OBSTRUCTIVE SLEEP APNEA (ADULT) (PEDIATR 04/17/2016 TED MARTINEZ, ABDON Sneed Ot I48.0 PAROXYSMAL ATRIAL FIBRILLATION 04/17/2016 TED MARTINEZ, ABDON Sneed Ot Z79.01 TUNNEL HEADING INSPECTOR (CURRENT) USE OF ANTICOAGULANT 04/17/2016 ABDON JEAN MD Ot Z79.899 OTHER DETENTION (CURRENT) DRUG THERAPY 04/24/2016 ABDON JEAN MD Ot E03.9 HYPOTHYROIDISM, UNSPECIFIED 04/24/2016 ABDON JEAN MD Ot E78.5 HYPERLIPIDEMIA, UNSPECIFIED 04/24/2016 ABDON JEAN MD Ot G47.33 OBSTRUCTIVE SLEEP APNEA (ADULT) (PEDIATR 04/24/2016 ABDON JEAN MD Ot I48.0 PAROXYSMAL ATRIAL FIBRILLATION 04/24/2016 ABDON JEAN MD Ot Z79.01 DETENTION (CURRENT) USE OF ANTICOAGULANT 04/24/2016 ABDON JEAN MD Ot Z79.899 OTHER TUNNEL HEADING INSPECTOR (CURRENT) DRUG THERAPY 04/25/2016 ABDON JEAN MD Ot E78.5 HYPERLIPIDEMIA, UNSPECIFIED 04/25/2016 ABDON JEAN MD Ot G47.33 OBSTRUCTIVE SLEEP APNEA (ADULT) (PEDIATR 04/25/2016 ABDON JEAN MD Ot I48.91 UNSPECIFIED ATRIAL FIBRILLATION 04/25/2016 ABDON JEAN MD Ot 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 04/30/2016 ABDON JEAN MD Ot E78.5 HYPERLIPIDEMIA, UNSPECIFIED 04/30/2016 ABDON JEAN MD Ot G47.33 OBSTRUCTIVE SLEEP APNEA (ADULT) (PEDIATR 04/30/2016 ABDON JEAN MD Ot I48.91 UNSPECIFIED ATRIAL FIBRILLATION 04/30/2016 ABDON JEAN MD Ot 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 04/30/2016 ABDON JEAN MD Ot E03.9 HYPOTHYROIDISM, UNSPECIFIED 04/30/2016 ABDON JEAN MD Ot E78.5 HYPERLIPIDEMIA, UNSPECIFIED 04/30/2016 ABDON JEAN MD Ot G47.33 OBSTRUCTIVE SLEEP APNEA (ADULT) (PEDIATR 04/30/2016 ABDON JEAN MD Ot I48.0 PAROXYSMAL ATRIAL FIBRILLATION 04/30/2016 ABDON JEAN MD Ot Z79.01 DETENTION (CURRENT) USE OF ANTICOAGULANT 04/30/2016 ABDON JEAN MD Ot Z79.899 OTHER TUNNEL HEADING INSPECTOR (CURRENT) DRUG THERAPY 04/30/2016 ABDON JEAN MD Ot I48.91 UNSPECIFIED ATRIAL FIBRILLATION 04/30/2016 ABDON JEAN MD Ot I48.91 UNSPECIFIED ATRIAL FIBRILLATION 05/01/2016 ABDON JEAN MD Ot I48.91 UNSPECIFIED ATRIAL FIBRILLATION 05/02/2016 ABDON JEAN MD Ot E78.5 HYPERLIPIDEMIA, UNSPECIFIED 05/02/2016 ABDON JEAN MD Ot G47.33 OBSTRUCTIVE SLEEP APNEA (ADULT) (PEDIATR 05/02/2016 ABDON JEAN MD Ot I48.91 UNSPECIFIED ATRIAL FIBRILLATION 05/02/2016 ABDON JEAN MD Ot 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 05/06/2016 ABDON JEAN MD Ot E78.5 HYPERLIPIDEMIA, UNSPECIFIED 05/06/2016 ABDON JEAN MD Ot G47.33 OBSTRUCTIVE SLEEP APNEA (ADULT) (PEDIATR 05/06/2016 ABDON JEAN MD Ot I48.91 UNSPECIFIED ATRIAL FIBRILLATION 05/06/2016 ABDON JEAN MD Ot 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 05/06/2016 ABDON JEAN MD Ot E03.9 HYPOTHYROIDISM, UNSPECIFIED 05/06/2016 ABDON JEAN MD Ot E78.5 HYPERLIPIDEMIA, UNSPECIFIED 05/06/2016 ABDON JEAN MD Ot G47.33 OBSTRUCTIVE SLEEP APNEA (ADULT) (PEDIATR 05/06/2016 ABDON JEAN MD Ot I48.0 PAROXYSMAL ATRIAL FIBRILLATION 05/06/2016 ABDON JEAN MD Ot Z79.01 TUNNEL HEADING INSPECTOR (CURRENT) USE OF ANTICOAGULANT 05/06/2016 BADON JEAN MD Ot Z79.899 OTHER TUNNEL HEADING INSPECTOR (CURRENT) DRUG THERAPY 05/09/2016 ABDON JEAN MD Ot E03.9 HYPOTHYROIDISM, UNSPECIFIED 05/09/2016 ABDON JEAN MD Ot E78.5 HYPERLIPIDEMIA, UNSPECIFIED 05/09/2016 ABDON JEAN MD Ot G47.33 OBSTRUCTIVE SLEEP APNEA (ADULT) (PEDIATR 05/09/2016 ABDON JEAN MD Ot I48.0 PAROXYSMAL ATRIAL FIBRILLATION 05/09/2016 ABDON JEAN MD Ot Z79.01 DETENTION (CURRENT) USE OF ANTICOAGULANT 05/09/2016 ABDON JEAN MD Ot Z79.899 OTHER TUNNEL HEADING INSPECTOR (CURRENT) DRUG THERAPY 05/09/2016 ABDON JEAN MD Ot E78.5 HYPERLIPIDEMIA, UNSPECIFIED 05/09/2016 ABDON JEAN MD Ot G47.33 OBSTRUCTIVE SLEEP APNEA (ADULT) (PEDIATR 05/09/2016 ABDON JEAN MD Ot I48.91 UNSPECIFIED ATRIAL FIBRILLATION 05/09/2016 ABDON JEAN MD Ot 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 05/09/2016 ABDON JEAN MD Ot E78.5 HYPERLIPIDEMIA, UNSPECIFIED 05/09/2016 ABDON JEAN MD Ot G47.33 OBSTRUCTIVE SLEEP APNEA (ADULT) (PEDIATR 05/09/2016 ABDON JEAN MD Ot I48.91 UNSPECIFIED ATRIAL FIBRILLATION 05/09/2016 ABDON JEAN MD Ot 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 05/16/2016 ABDON JEAN MD Ot E78.5 HYPERLIPIDEMIA, UNSPECIFIED 05/16/2016 ABDON JEAN MD Ot G47.33 OBSTRUCTIVE SLEEP APNEA (ADULT) (PEDIATR 05/16/2016 ABDON JEAN MD Ot I48.91 UNSPECIFIED ATRIAL FIBRILLATION 05/16/2016 ABDON JEAN MD Ot 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 05/19/2016 ABDON JEAN MD Ot E03.9 HYPOTHYROIDISM, UNSPECIFIED 05/19/2016 ABDON JEAN MD Ot E78.5 HYPERLIPIDEMIA, UNSPECIFIED 05/19/2016 ABDON JEAN MD Ot G47.33 OBSTRUCTIVE SLEEP APNEA (ADULT) (PEDIATR 05/19/2016 ABDON JEAN MD Ot I48.0 PAROXYSMAL ATRIAL FIBRILLATION 05/19/2016 ABDON JEAN MD Ot Z79.01 TUNNEL HEADING INSPECTOR (CURRENT) USE OF ANTICOAGULANT 05/19/2016 ABDON JEAN MD Ot Z79.899 OTHER TUNNEL HEADING INSPECTOR (CURRENT) DRUG THERAPY 05/21/2016 ABDON JEAN MD Ot E78.5 HYPERLIPIDEMIA, UNSPECIFIED 05/21/2016 ABDON JEAN MD Ot G47.33 OBSTRUCTIVE SLEEP APNEA (ADULT) (PEDIATR 05/21/2016 ABDON JEAN MD Ot I48.91 UNSPECIFIED ATRIAL FIBRILLATION 05/21/2016 ABDON JEAN MD Ot 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 05/29/2016 ABDON JEAN MD Ot E78.5 HYPERLIPIDEMIA, UNSPECIFIED 05/29/2016 ABDON JEAN MD, Ot G47.33 OBSTRUCTIVE SLEEP APNEA (ADULT) (PEDIATR 05/29/2016 ABDON JEAN MD Ot I48.91 UNSPECIFIED ATRIAL FIBRILLATION 05/29/2016 ABDON JEAN MD Ot 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 06/09/2016 ABDON JEAN MD Ot E78.5 HYPERLIPIDEMIA, UNSPECIFIED 06/09/2016 ABDON JEAN MD, Ot G47.33 OBSTRUCTIVE SLEEP APNEA (ADULT) (PEDIATR 06/09/2016 ABDON JEAN MD Ot I48.91 UNSPECIFIED ATRIAL FIBRILLATION 06/09/2016 ABDON JEAN MD, Ot 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 09/04/2016 MARTA HANCOCK APRN Ot E03.9 HYPOTHYROIDISM, UNSPECIFIED 09/04/2016 MARTA HANCOCK APRN Ot R06.02 SHORTNESS OF BREATH 09/09/2016 GELLENDER DOCLAUDINE Ot I48.91 UNSPECIFIED ATRIAL FIBRILLATION 09/09/2016 EMETERIOLENCLAUDINE MANJARREZ DO Ot J18.9 PNEUMONIA, UNSPECIFIED ORGANISM 09/09/2016 GELLENDER DO, CLAUDINE Pope Ot K21.9 GASTRO-ESOPHAGEAL REFLUX DISEASE WITHOUT 09/09/2016 GELLENDER DOCLAUDINE Ot M54.9 DORSALGIA, UNSPECIFIED 09/09/2016 GELLENDER DOCLAUDINE Ot R04.2 HEMOPTYSIS 09/09/2016 GELLENDER DOCLAUDINE Ot R79.1 ABNORMAL COAGULATION PROFILE 09/09/2016 GELLENDER DOCLAUDINE Ot Z79.01 DETENTION (CURRENT) USE OF ANTICOAGULANT 09/10/2016 ABDON JEAN MD Ot E03.9 HYPOTHYROIDISM, UNSPECIFIED 09/10/2016 ABDON JEAN MD, Ot E78.5 HYPERLIPIDEMIA, UNSPECIFIED 09/10/2016 ABDON JEAN MD, Ot G47.33 OBSTRUCTIVE SLEEP APNEA (ADULT) (PEDIATR 09/10/2016 ABDON JEAN MD Ot I48.0 PAROXYSMAL ATRIAL FIBRILLATION 09/10/2016 ABDON JEAN MD Ot Z79.01 TUNNEL HEADING INSPECTOR (CURRENT) USE OF ANTICOAGULANT 09/10/2016 ABDON JEAN MD, Ot Z79.899 OTHER DETENTION (CURRENT) DRUG THERAPY 09/10/2016 ABDON JEAN MD, Ot E78.5 HYPERLIPIDEMIA, UNSPECIFIED 09/10/2016 TED MARTINEZ, ABDON Sneed Ot G47.33 OBSTRUCTIVE SLEEP APNEA (ADULT) (PEDIATR 09/10/2016 TED MARTINEZ, ABDON Sneed Ot I48.91 UNSPECIFIED ATRIAL FIBRILLATION 09/10/2016 ABDON JEAN MD Ot 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 09/10/2016 ABDON JEAN MD Ot E78.5 HYPERLIPIDEMIA, UNSPECIFIED 09/10/2016 ABDON JEAN MD, Ot G47.33 OBSTRUCTIVE SLEEP APNEA (ADULT) (PEDIATR 09/10/2016 TED MARTINEZ, ABDON Sneed Ot I48.91 UNSPECIFIED ATRIAL FIBRILLATION 09/10/2016 ABDON JEAN MD, Ot 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 09/10/2016 MARTA HANCOCK APRN Ot E03.9 HYPOTHYROIDISM, UNSPECIFIED 09/10/2016 MARTA HANCOCK APRN Ot R06.02 SHORTNESS OF BREATH 09/10/2016 GELLENDER DOCLAUDINE Ot I48.91 UNSPECIFIED ATRIAL FIBRILLATION 09/10/2016 CLAUDINE ABRAHAM DO Ot J18.9 PNEUMONIA, UNSPECIFIED ORGANISM 09/10/2016 GELLENDER CLAUDINE ZACARIAS Ot K21.9 GASTRO-ESOPHAGEAL REFLUX DISEASE WITHOUT 09/10/2016 GELLENDER DOCLAUDINE Ot M54.9 DORSALGIA, UNSPECIFIED 09/10/2016 GELLENDER CLAUDINE ZACARIAS Ot R04.2 HEMOPTYSIS 09/10/2016 GELLENDER CLAUDINE ZACARIAS Ot R79.1 ABNORMAL COAGULATION PROFILE 09/10/2016 GELXOCHITLDER CLAUDINE ZACARIAS Ot Z79.01 TUNNEL HEADING INSPECTOR (CURRENT) USE OF ANTICOAGULANT 09/10/2016 EMETERIOLENDER CLAUDINE ZACARIAS Ot E03.9 HYPOTHYROIDISM, UNSPECIFIED 09/10/2016 GELLENDER DOCLAUDINE Ot E78.5 HYPERLIPIDEMIA, UNSPECIFIED 09/10/2016 GELLENDER DOCLAUDINE Ot G47.33 OBSTRUCTIVE SLEEP APNEA (ADULT) ( PEDIATR 09/10/2016 GELLENDER DOCLAUDINE Ot I48.0 PAROXYSMAL ATRIAL FIBRILLATION 09/10/2016 EMETERIOLENDER DOCLAUDINE Ot I65.23 OCCLUSION AND STENOSIS OF BILATERAL CARREON 09/10/2016 GELLENDER DOCLAUDINE Ot I95.9 HYPOTENSION, UNSPECIFIED 09/10/2016 GELLENDER DOCLAUDINE Ot J18.9 PNEUMONIA, UNSPECIFIED ORGANISM 09/10/2016 CLAUDINE ABRAHAM DO Ot K21.9 GASTRO-ESOPHAGEAL REFLUX DISEASE WITHOUT 09/10/2016 CLAUDINE ABRAHAM DO Ot M54.9 DORSALGIA, UNSPECIFIED 09/10/2016 CLAUDINE ABRAHAM DO Ot R04.2 HEMOPTYSIS 09/10/2016 CLAUDINE ABRAHAM DO Ot R09.02 HYPOXEMIA 09/10/2016 CLAUDINE ABRAHAM DO Ot R53.1 WEAKNESS 09/10/2016 CLAUDINE ABRAHAM DO Ot R79.1 ABNORMAL COAGULATION PROFILE 09/10/2016 CLAUDINE ABRAHAM DO Ot Z79.01 TUNNEL HEADING INSPECTOR (CURRENT) USE OF ANTICOAGULANT 09/10/2016 CLAUDINE ABRAHAM DO Ot Z87.891 PERSONAL HISTORY OF NICOTINE DEPENDENCE 09/19/2016 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 Ot J18.9 PNEUMONIA, UNSPECIFIED ORGANISM 09/24/2016 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 Ot J18.9 PNEUMONIA, UNSPECIFIED ORGANISM 09/26/2016 MARTA HANCOCK PROMOTIONAL DEMONSTRATOR Ot E03.9 HYPOTHYROIDISM, UNSPECIFIED 09/26/2016 MARTA HANCOCK PROMOTIONAL DEMONSTRATOR Ot R06.02 SHORTNESS OF BREATH 10/08/2016 ABDON JEAN MD Ot E03.9 HYPOTHYROIDISM, UNSPECIFIED 10/08/2016 ABDON JEAN MD Ot E78.5 HYPERLIPIDEMIA, UNSPECIFIED 10/08/2016 ABDON JEAN MD Ot G47.33 OBSTRUCTIVE SLEEP APNEA (ADULT) (PEDIATR 10/08/2016 ABDON JEAN MD Ot I48.0 PAROXYSMAL ATRIAL FIBRILLATION 10/08/2016 ABDON JEAN MD Ot Z79.01 TUNNEL HEADING INSPECTOR (CURRENT) USE OF ANTICOAGULANT 10/08/2016 ABDON JEAN MD Ot Z79.899 OTHER DETENTION (CURRENT) DRUG THERAPY 10/08/2016 ABDON JEAN MD Ot E78.5 HYPERLIPIDEMIA, UNSPECIFIED 10/08/2016 ABDON JEAN MD Ot G47.33 OBSTRUCTIVE SLEEP APNEA (ADULT) (PEDIATR 10/08/2016 ABDON JEAN MD Ot I48.91 UNSPECIFIED ATRIAL FIBRILLATION 10/08/2016 ABDON JEAN MD Ot 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 10/08/2016 ABDON JEAN MD Ot E78.5 HYPERLIPIDEMIA, UNSPECIFIED 10/08/2016 TED MARTINEZ, ABDON Sneed Ot G47.33 OBSTRUCTIVE SLEEP APNEA (ADULT) (PEDIATR 10/08/2016 TED MARTINEZ, ABDON Sneed Ot I48.91 UNSPECIFIED ATRIAL FIBRILLATION 10/08/2016 TED MARTINEZ, ABDON Sneed Ot 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 10/08/2016 MARTA HANCOCK PROMOTIONAL DEMONSTRATOR Ot E03.9 HYPOTHYROIDISM, UNSPECIFIED 10/08/2016 MARTA HANCOCK APRN Ot R06.02 SHORTNESS OF BREATH 10/08/2016 SEB MENDOZA Ot J18.9 PNEUMONIA, UNSPECIFIED ORGANISM 10/08/2016 LORETTA AYALA DO Ot R06.00 DYSPNEA, UNSPECIFIED 10/08/2016 LORETTA AYALA DO Ot R09.02 HYPOXEMIA 10/10/2016 MARTA HANCOCK APRN Ot E03.9 HYPOTHYROIDISM, UNSPECIFIED 10/10/2016 MARTA HANCOCK PROMOTIONAL DEMONSTRATOR Ot R06.02 SHORTNESS OF BREATH 10/13/2016 SEB MENDOZAP Ot J18.9 PNEUMONIA, UNSPECIFIED ORGANISM 10/17/2016 NUNU QURESHI APRN Ot G47.33 OBSTRUCTIVE SLEEP APNEA (ADULT) ( PEDIATR 10/17/2016 NUNU QURESHI APRN Ot J18.9 PNEUMONIA, UNSPECIFIED ORGANISM 10/17/2016 NUNU QURESHI APRN Ot J30.9 ALLERGIC RHINITIS, UNSPECIFIED 10/17/2016 NUNU QURESHI PROMOTIONAL DEMONSTRATOR Ot J47.9 BRONCHIECTASIS, UNCOMPLICATED 10/17/2016 NUNU QURESHI APRN Ot R06.00 DYSPNEA, UNSPECIFIED 10/17/2016 NUNU QURESHI APRN Ot R09.02 HYPOXEMIA 10/17/2016 NUNU QURESHI APRN Ot R94.2 ABNORMAL RESULTS OF PULMONARY FUNCTION S 10/17/2016 NUNU QURESHI APRN Ot Z87.891 PERSONAL HISTORY OF NICOTINE DEPENDENCE 10/28/2016 LORETTA AYALA DO Ot R06.00 DYSPNEA, UNSPECIFIED 10/28/2016 LORETTA AYALA DO Ot R09.02 HYPOXEMIA 10/30/2016 LORETTA AYALA DO Ot R06.00 DYSPNEA, UNSPECIFIED 10/30/2016 LORETTA AYALA DO Ot R09.02 HYPOXEMIA 10/30/2016 SEB MENDOZA Ot J18.9 PNEUMONIA, UNSPECIFIED ORGANISM 10/30/2016 LUCY DO L[place]TA [place] Ot R06.00 DYSPNEA, UNSPECIFIED 10/30/2016 LUCY LORETTA ZACARIAS Ot R09.02 HYPOXEMIA 11/06/2016 NUNU QURESHI APRN Ot G47.33 OBSTRUCTIVE SLEEP APNEA (ADULT) ( PEDIATR 11/06/2016 NUNU QURESHI APRN Ot J18.9 PNEUMONIA, UNSPECIFIED ORGANISM 11/06/2016 NUNU QURESHI APRN Ot J30.9 ALLERGIC RHINITIS, UNSPECIFIED 11/06/2016 NUNU QURESHI APRN Ot J47.9 BRONCHIECTASIS, UNCOMPLICATED 11/06/2016 NUNU QURESHI APRN Ot R06.00 DYSPNEA, UNSPECIFIED 11/06/2016 NUNU QURESHI APRN Ot R09.02 HYPOXEMIA 11/06/2016 NUNU QURESHI APRN Ot R94.2 ABNORMAL RESULTS OF PULMONARY FUNCTION S 11/06/2016 NUNU QURESHI APRN Ot Z87.891 PERSONAL HISTORY OF NICOTINE DEPENDENCE 11/10/2016 LUCY [place] Ot R06.00 DYSPNEA, UNSPECIFIED 11/10/2016 LUCY [place] Ot R09.02 HYPOXEMIA 11/10/2016 LUCY [place] Ot R06.00 DYSPNEA, UNSPECIFIED 11/10/2016 LUCY ZACARIAS [place] Ot R09.02 HYPOXEMIA 11/24/2016 NUNU QURESHI APRN Ot G47.33 OBSTRUCTIVE SLEEP APNEA (ADULT) ( PEDIATR 11/24/2016 NUNU QURESHI APRN Ot J18.9 PNEUMONIA, UNSPECIFIED ORGANISM 11/24/2016 NUNU QURESHI APRN Ot J30.9 ALLERGIC RHINITIS, UNSPECIFIED 11/24/2016 NUNU QURESHI APRN Ot J47.9 BRONCHIECTASIS, UNCOMPLICATED 11/24/2016 NUNU QURESHI APRN Ot R06.00 DYSPNEA, UNSPECIFIED 11/24/2016 NUNU QURESHI APRN Ot R09.02 HYPOXEMIA 11/24/2016 NUNU QURESHI PROMOTIONAL DEMONSTRATOR Ot R94.2 ABNORMAL RESULTS OF PULMONARY FUNCTION S 11/24/2016 NUNU QURESHI PROMOTIONAL DEMONSTRATOR Ot Z87.891 PERSONAL HISTORY OF NICOTINE DEPENDENCE 12/04/2016 LUCYLORETTA MARTIN DO Ot R06.00 DYSPNEA, UNSPECIFIED 12/04/2016 LUCY ZACARIAS [place] Ot R09.02 HYPOXEMIA 12/08/2016 SERGIO MORENO MD, Ot E03.9 HYPOTHYROIDISM, UNSPECIFIED 12/08/2016 SERGIO MORENO MD Ot E87.1 HYPO-OSMOLALITY AND HYPONATREMIA 12/08/2016 SERGIO MORENO MD, Ot I10 ESSENTIAL (PRIMARY) HYPERTENSION 12/08/2016 SERGIO MORENO MD, Ot I48.91 UNSPECIFIED ATRIAL FIBRILLATION 12/08/2016 SERGIO MORENO MD, Ot K21.9 GASTRO-ESOPHAGEAL REFLUX DISEASE WITHOUT 12/08/2016 SERGIO MORENO MD, Ot N39.0 URINARY TRACT INFECTION, SITE NOT SPECIF 12/08/2016 SERGIO MORENO MD, Ot R41.82 ALTERED MENTAL STATUS, UNSPECIFIED 12/08/2016 SERGIO MORENO MD, Ot Z87.891 PERSONAL HISTORY OF NICOTINE DEPENDENCE 12/12/2016 MARTA HANCOCK PROMOTIONAL DEMONSTRATOR Ot M79.604 PAIN IN RIGHT LEG 12/12/2016 MARTA HANCOCK PROMOTIONAL DEMONSTRATOR Ot M79.604 PAIN IN RIGHT LEG Procedures Results Test Result Range Automated blood complete blood count (hemogram) panel - 09/03/16 11:07 Blood leukocytes automated count (number/volume) 9.5 10*3/ uL 4.3-11.0 Blood erythrocytes automated count (number/volume) 4.56 10*6 /uL 4.35-5.85 Venous blood hemoglobin measurement (mass/volume) 13.7 g/dL 11.5-16.0 Blood hematocrit (volume fraction) 41 % 35-52 Automated erythrocyte mean corpuscular volume 90 [foz_us] 80-99 Automated erythrocyte mean corpuscular hemoglobin (mass per erythrocyte) 30 pg 25-34 Automated erythrocyte mean corpuscular hemoglobin concentration measurement ( mass/volume) 34 g/dL 32-36 Automated erythrocyte distribution width ratio 15.1 % 10.0-14.5 Automated blood platelet count (count/volume) 268 10*3/uL 130-400 Automated blood platelet mean volume measurement 10.4 [foz_ us] 7.4-10.4 PT panel in platelet poor plasma by coagulation assay - 09/03/16 11:07 Prothrombin time (PT) in platelet poor plasma by coagulation assay 75.9 s 12.2-14.7 INR in platelet poor plasma or blood by coagulation assay 9.2 0.8-1.4 Fibrin D-dimer FEU measurement in platelet poor plasma (mass/volume) - 11:07 Fibrin D-dimer FEU measurement in platelet poor plasma (mass/volume) < ug/mL 0.00-0.49 Comprehensive metabolic panel - 09/03/16 11:07 Serum or plasma sodium measurement (moles/volume) 135 mmol/ L 135-145 Serum or plasma potassium measurement (moles/volume) 4.0 mmol/L 3.6-5.0 Serum or plasma chloride measurement (moles/volume) 99 mmol/ L 98-107 Carbon dioxide 25 mmol/L 21-32 Serum or plasma anion gap determination (moles/volume) 11 mmol/L 5-14 Serum or plasma urea nitrogen measurement (mass/volume) 15 mg/dL 7-18 Serum or plasma creatinine measurement (mass/volume) 0.89 mg /dL 0.60-1.30 Serum or plasma urea nitrogen/creatinine mass ratio 17 NRG Serum or plasma creatinine measurement with calculation of estimated glomerular filtration rate > NRG Serum or plasma glucose measurement (mass/volume) 82 mg/dL 70-105 Serum or plasma calcium measurement (mass/volume) 9.5 mg/dL 8.5-10.1 Serum or plasma total bilirubin measurement (mass/volume) 0.4 mg/dL 0.1-1.0 Serum or plasma alkaline phosphatase measurement (enzymatic activity/volume) 104 U/L 40-136 Serum or plasma aspartate aminotransferase measurement (enzymatic activity/ volume) 40 U/L 5-34 Serum or plasma alanine aminotransferase measurement (enzymatic activity/volume ) 28 U/L 0-55 Serum or plasma protein measurement (mass/volume) 6.7 g/dL 6.4-8.2 Serum or plasma albumin measurement (mass/volume) 3.9 g/dL 3.2-4.5 THYROID STIMULATING HORMONE - 09/03/16 11:07 THYROID STIMULATING HORMONE 4.68 u[iU]/mL 0.35-4.94 Serum or plasma thyroxine (T4) free measurement (mass/volume) - 09/03/16 11:07 Serum or plasma thyroxine (T4) free measurement (mass/volume) 1.68 ng/dL 0.70-1.48 Complete blood count (CBC) with automated white blood cell (WBC) differential - 09/03/16 18:36 Blood leukocytes automated count (number/volume) 8.1 10*3/ uL 4.3-11.0 Blood erythrocytes automated count (number/volume) 4.46 10*6 /uL 4.35-5.85 Venous blood hemoglobin measurement (mass/volume) 13.6 g/dL 11.5-16.0 Blood hematocrit (volume fraction) 40 % 35-52 Automated erythrocyte mean corpuscular volume 89 [foz_us] 80-99 Automated erythrocyte mean corpuscular hemoglobin (mass per erythrocyte) 31 pg 25-34 Automated erythrocyte mean corpuscular hemoglobin concentration measurement ( mass/volume) 34 g/dL 32-36 Automated erythrocyte distribution width ratio 15.1 % 10.0-14.5 Automated blood platelet count (count/volume) 256 10*3/uL 130-400 Automated blood platelet mean volume measurement 10.5 [foz_ us] 7.4-10.4 Automated blood neutrophils/100 leukocytes 69 % 42-75 Automated blood lymphocytes/100 leukocytes 14 % 12-44 Blood monocytes/100 leukocytes 11 % 0-12 Automated blood eosinophils/100 leukocytes 6 % 0-10 Automated blood basophils/100 leukocytes 0 % 0-10 Blood neutrophils automated count (number/volume) 5.6 10*3 1.8-7.8 Blood lymphocytes automated count (number/volume) 1.2 10*3 1.0-4.0 Blood monocytes automated count (number/volume) 0.9 10*3 0.0-1.0 Automated eosinophil count 0.5 10*3/uL 0.0-0.3 Automated blood basophil count (count/volume) 0.0 10*3/uL 0.0-0.1 PT panel in platelet poor plasma by coagulation assay - 09/03/16 18:36 Prothrombin time (PT) in platelet poor plasma by coagulation assay 77.1 s 12.2-14.7 INR in platelet poor plasma or blood by coagulation assay 9.4 0.8-1.4 Activated partial thromboplastin time (aPTT) in platelet poor plasma bycoagulation assay - 09/03/16 18:36 Activated partial thromboplastin time (aPTT) in platelet poor plasma bycoagulation assay 75 s 24-35 FRESH FROZEN PLASMA - 09/03/16 18:36 FRESH FROZEN PLASMA TRANSFUSED 09/04/16 0007 NRG RED CELLS LEUKO REDUCED AS1 - 09/03/16 18:36 RED CELLS LEUKO REDUCED AS1 NOT AVAILABLE NRG Blood type T Indirect antibody screen panel - 09/03/16 18:36 ABO+Rh group BN NRG Transfusion band number [id number] NR Blood group antibody screen NEGATIVE NRG Serum or plasma C reactive protein measurement (mass/volume) - 09/03/16 18:36 Serum or plasma C reactive protein measurement (mass/volume) 3.82 mg/dL 0.00-0.50 Comprehensive metabolic panel - 09/03/16 18:36 Serum or plasma sodium measurement (moles/volume) 135 mmol/ L 135-145 Serum or plasma potassium measurement (moles/volume) 3.9 mmol/L 3.6-5.0 Serum or plasma chloride measurement (moles/volume) 98 mmol/ L 98-107 Carbon dioxide 26 mmol/L 21-32 Serum or plasma anion gap determination (moles/volume) 11 mmol/L 5-14 Serum or plasma urea nitrogen measurement (mass/volume) 12 mg/dL 7-18 Serum or plasma creatinine measurement (mass/volume) 0.85 mg /dL 0.60-1.30 Serum or plasma urea nitrogen/creatinine mass ratio 14 NRG Serum or plasma creatinine measurement with calculation of estimated glomerular filtration rate > NRG Serum or plasma glucose measurement (mass/volume) 94 mg/dL 70-105 Serum or plasma calcium measurement (mass/volume) 9.4 mg/dL 8.5-10.1 Serum or plasma total bilirubin measurement (mass/volume) 0.4 mg/dL 0.1-1.0 Serum or plasma alkaline phosphatase measurement (enzymatic activity/volume) 104 U/L 40-136 Serum or plasma aspartate aminotransferase measurement (enzymatic activity/ volume) 40 U/L 5-34 Serum or plasma alanine aminotransferase measurement (enzymatic activity/volume ) 29 U/L 0-55 Serum or plasma protein measurement (mass/volume) 6.9 g/dL 6.4-8.2 Serum or plasma albumin measurement (mass/volume) 4.0 g/dL 3.2-4.5 THYROID STIMULATING HORMONE - 09/03/16 18:36 THYROID STIMULATING HORMONE 6.41 u[iU]/mL 0.35-4.94 Serum or plasma thyroxine (T4) free measurement (mass/volume) - 09/03/16 18:36 Serum or plasma thyroxine (T4) free measurement (mass/volume) 1.63 ng/dL 0.70-1.48 Blood lactic acid measurement (moles/volume) - 09/03/16 21:20 Blood lactic acid measurement (moles/volume) 0.9 mmol/L 0.5-2.0 Bacterial blood culture - 09/03/16 21:22 Bacterial blood culture NG NRG Bacterial blood culture - 09/03/16 21:30 Bacterial blood culture NG NRG PT panel in platelet poor plasma by coagulation assay - 09/04/16 05:02 Prothrombin time (PT) in platelet poor plasma by coagulation assay 16.2 s 12.2-14.7 INR in platelet poor plasma or blood by coagulation assay 1.3 0.8-1.4 Complete blood count (CBC) with automated white blood cell (WBC) differential - 09/04/16 05:05 Blood leukocytes automated count (number/volume) 7.4 10*3/ uL 4.3-11.0 Blood erythrocytes automated count (number/volume) 3.91 10*6 /uL 4.35-5.85 Venous blood hemoglobin measurement (mass/volume) 12.0 g/dL 11.5-16.0 Blood hematocrit (volume fraction) 35 % 35-52 Automated erythrocyte mean corpuscular volume 89 [foz_us] 80-99 Automated erythrocyte mean corpuscular hemoglobin (mass per erythrocyte) 31 pg 25-34 Automated erythrocyte mean corpuscular hemoglobin concentration measurement ( mass/volume) 34 g/dL 32-36 Automated erythrocyte distribution width ratio 14.9 % 10.0-14.5 Automated blood platelet count (count/volume) 228 10*3/uL 130-400 Automated blood platelet mean volume measurement 10.8 [foz_ us] 7.4-10.4 Automated blood neutrophils/100 leukocytes 78 % 42-75 Automated blood lymphocytes/100 leukocytes 9 % 12-44 Blood monocytes/100 leukocytes 9 % 0-12 Automated blood eosinophils/100 leukocytes 4 % 0-10 Automated blood basophils/100 leukocytes 0 % 0-10 Blood neutrophils automated count (number/volume) 5.8 10*3 1.8-7.8 Blood lymphocytes automated count (number/volume) 0.7 10*3 1.0-4.0 Blood monocytes automated count (number/volume) 0.6 10*3 0.0-1.0 Automated eosinophil count 0.3 10*3/uL 0.0-0.3 Automated blood basophil count (count/volume) 0.0 10*3/uL 0.0-0.1 Comprehensive metabolic panel - 09/04/16 05:05 Serum or plasma sodium measurement (moles/volume) 139 mmol/ L 135-145 Serum or plasma potassium measurement (moles/volume) 3.3 mmol/L 3.6-5.0 Serum or plasma chloride measurement (moles/volume) 101 mmol /L 98-107 Carbon dioxide 27 mmol/L 21-32 Serum or plasma anion gap determination (moles/volume) 11 mmol/L 5-14 Serum or plasma urea nitrogen measurement (mass/volume) 10 mg/dL 7-18 Serum or plasma creatinine measurement (mass/volume) 0.76 mg /dL 0.60-1.30 Serum or plasma urea nitrogen/creatinine mass ratio 13 NRG Serum or plasma creatinine measurement with calculation of estimated glomerular filtration rate > NRG Serum or plasma glucose measurement (mass/volume) 100 mg/dL 70-105 Serum or plasma calcium measurement (mass/volume) 9.0 mg/dL 8.5-10.1 Serum or plasma total bilirubin measurement (mass/volume) 0.7 mg/dL 0.1-1.0 Serum or plasma alkaline phosphatase measurement (enzymatic activity/volume) 89 U/L 40-136 Serum or plasma aspartate aminotransferase measurement (enzymatic activity/ volume) 35 U/L 5-34 Serum or plasma alanine aminotransferase measurement (enzymatic activity/volume ) 31 U/L 0-55 Serum or plasma protein measurement (mass/volume) 6.6 g/dL 6.4-8.2 Serum or plasma albumin measurement (mass/volume) 3.7 g/dL 3.2-4.5 Serum or plasma lithium measurement (moles/volume) - 09/04/16 05:05 BNP level 92.9 pg/mL <100.0 PT panel in platelet poor plasma by coagulation assay - 09/05/16 05:05 Prothrombin time (PT) in platelet poor plasma by coagulation assay 15.9 s 12.2-14.7 INR in platelet poor plasma or blood by coagulation assay 1.3 0.8-1.4 Automated blood complete blood count (hemogram) panel - 09/06/16 06:52 Blood leukocytes automated count (number/volume) 7.1 10*3/ uL 4.3-11.0 Blood erythrocytes automated count (number/volume) 4.05 10*6 /uL 4.35-5.85 Venous blood hemoglobin measurement (mass/volume) 12.3 g/dL 11.5-16.0 Blood hematocrit (volume fraction) 37 % 35-52 Automated erythrocyte mean corpuscular volume 90 [foz_us] 80-99 Automated erythrocyte mean corpuscular hemoglobin (mass per erythrocyte) 30 pg 25-34 Automated erythrocyte mean corpuscular hemoglobin concentration measurement ( mass/volume) 34 g/dL 32-36 Automated erythrocyte distribution width ratio 14.8 % 10.0-14.5 Automated blood platelet count (count/volume) 226 10*3/uL 130-400 Automated blood platelet mean volume measurement 10.5 [foz_ us] 7.4-10.4 PT panel in platelet poor plasma by coagulation assay - 09/06/16 06:52 Prothrombin time (PT) in platelet poor plasma by coagulation assay 20.8 s 12.2-14.7 INR in platelet poor plasma or blood by coagulation assay 1.8 0.8-1.4 Whole blood basic metabolic panel - 09/06/16 06:52 Serum or plasma sodium measurement (moles/volume) 135 mmol/ L 135-145 Serum or plasma potassium measurement (moles/volume) 3.8 mmol/L 3.6-5.0 Serum or plasma chloride measurement (moles/volume) 101 mmol /L 98-107 Carbon dioxide 22 mmol/L 21-32 Serum or plasma anion gap determination (moles/volume) 12 mmol/L 5-14 Serum or plasma urea nitrogen measurement (mass/volume) 10 mg/dL 7-18 Serum or plasma creatinine measurement (mass/volume) 0.77 mg /dL 0.60-1.30 Serum or plasma urea nitrogen/creatinine mass ratio 13 NRG Serum or plasma creatinine measurement with calculation of estimated glomerular filtration rate > NRG Serum or plasma glucose measurement (mass/volume) 100 mg/dL 70-105 Serum or plasma calcium measurement (mass/volume) 9.0 mg/dL 8.5-10.1 Complete blood count (CBC) with automated white blood cell (WBC) differential - 09/07/16 05:50 Blood leukocytes automated count (number/volume) 7.2 10*3/ uL 4.3-11.0 Blood erythrocytes automated count (number/volume) 3.75 10*6 /uL 4.35-5.85 Venous blood hemoglobin measurement (mass/volume) 11.4 g/dL 11.5-16.0 Blood hematocrit (volume fraction) 34 % 35-52 Automated erythrocyte mean corpuscular volume 90 [foz_us] 80-99 Automated erythrocyte mean corpuscular hemoglobin (mass per erythrocyte) 30 pg 25-34 Automated erythrocyte mean corpuscular hemoglobin concentration measurement ( mass/volume) 34 g/dL 32-36 Automated erythrocyte distribution width ratio 14.8 % 10.0-14.5 Automated blood platelet count (count/volume) 243 10*3/uL 130-400 Automated blood platelet mean volume measurement 10.7 [foz_ us] 7.4-10.4 Automated blood neutrophils/100 leukocytes 74 % 42-75 Automated blood lymphocytes/100 leukocytes 12 % 12-44 Blood monocytes/100 leukocytes 11 % 0-12 Automated blood eosinophils/100 leukocytes 4 % 0-10 Automated blood basophils/100 leukocytes 0 % 0-10 Blood neutrophils automated count (number/volume) 5.3 10*3 1.8-7.8 Blood lymphocytes automated count (number/volume) 0.8 10*3 1.0-4.0 Blood monocytes automated count (number/volume) 0.8 10*3 0.0-1.0 Automated eosinophil count 0.3 10*3/uL 0.0-0.3 Automated blood basophil count (count/volume) 0.0 10*3/uL 0.0-0.1 Comprehensive metabolic panel - 09/07/16 05:50 Serum or plasma sodium measurement (moles/volume) 139 mmol/ L 135-145 Serum or plasma potassium measurement (moles/volume) 3.9 mmol/L 3.6-5.0 Serum or plasma chloride measurement (moles/volume) 103 mmol /L 98-107 Carbon dioxide 25 mmol/L 21-32 Serum or plasma anion gap determination (moles/volume) 11 mmol/L 5-14 Serum or plasma urea nitrogen measurement (mass/volume) 11 mg/dL 7-18 Serum or plasma creatinine measurement (mass/volume) 0.73 mg /dL 0.60-1.30 Serum or plasma urea nitrogen/creatinine mass ratio 15 NRG Serum or plasma creatinine measurement with calculation of estimated glomerular filtration rate > NRG Serum or plasma glucose measurement (mass/volume) 93 mg/dL 70-105 Serum or plasma calcium measurement (mass/volume) 8.9 mg/dL 8.5-10.1 Serum or plasma total bilirubin measurement (mass/volume) 0.5 mg/dL 0.1-1.0 Serum or plasma alkaline phosphatase measurement (enzymatic activity/volume) 92 U/L 40-136 Serum or plasma aspartate aminotransferase measurement (enzymatic activity/ volume) 37 U/L 5-34 Serum or plasma alanine aminotransferase measurement (enzymatic activity/volume ) 37 U/L 0-55 Serum or plasma protein measurement (mass/volume) 5.7 g/dL 6.4-8.2 Serum or plasma albumin measurement (mass/volume) 3.2 g/dL 3.2-4.5 Blood CBC with ordered manual differential panel - 09/08/16 06:55 Blood leukocytes automated count (number/volume) 5.7 10*3/ uL 4.3-11.0 Blood erythrocytes automated count (number/volume) 3.69 10*6 /uL 4.35-5.85 Venous blood hemoglobin measurement (mass/volume) 11.1 g/dL 11.5-16.0 Blood hematocrit (volume fraction) 34 % 35-52 Automated erythrocyte mean corpuscular volume 91 [foz_us] 80-99 Automated erythrocyte mean corpuscular hemoglobin (mass per erythrocyte) 30 pg 25-34 Automated erythrocyte mean corpuscular hemoglobin concentration measurement ( mass/volume) 33 g/dL 32-36 Automated erythrocyte distribution width ratio 14.9 % 10.0-14.5 Automated blood platelet count (count/volume) 252 10*3/uL 130-400 Automated blood platelet mean volume measurement 10.9 [foz_ us] 7.4-10.4 Automated blood neutrophils/100 leukocytes 68 % 42-75 Automated blood lymphocytes/100 leukocytes 13 % 12-44 Blood monocytes/100 leukocytes 11 % NRG Automated blood eosinophils/100 leukocytes 6 % 0-10 Automated blood basophils/100 leukocytes 1 % 0-10 Blood neutrophils automated count (number/volume) 3.8 10*3 1.8-7.8 Blood lymphocytes automated count (number/volume) 0.8 10*3 1.0-4.0 Blood monocytes automated count (number/volume) 0.7 10*3 0.0-1.0 Automated eosinophil count 0.4 10*3/uL 0.0-0.3 Automated blood basophil count (count/volume) 0.0 10*3/uL 0.0-0.1 Manual blood segmented neutrophils/100 leukocytes 70 % NRG Blood band neutrophils/100 leukocytes 1 % NRG Manual blood lymphocytes/100 leukocytes 12 % NRG Manual eosinophils/100 leukocytes in nose 5 % NRG Manual blood basophils/100 leukocytes 1 % NRG Blood anisocytosis detection by light microscopy [facility] Comprehensive metabolic panel - 09/08/16 06:55 Serum or plasma sodium measurement (moles/volume) 139 mmol/ L 135-145 Serum or plasma potassium measurement (moles/volume) 3.8 mmol/L 3.6-5.0 Serum or plasma chloride measurement (moles/volume) 104 mmol /L 98-107 Carbon dioxide 27 mmol/L 21-32 Serum or plasma anion gap determination (moles/volume) 8 mmol/L 5-14 Serum or plasma urea nitrogen measurement (mass/volume) 11 mg/dL 7-18 Serum or plasma creatinine measurement (mass/volume) 0.81 mg /dL 0.60-1.30 Serum or plasma urea nitrogen/creatinine mass ratio 14 NRG Serum or plasma creatinine measurement with calculation of estimated glomerular filtration rate > NRG Serum or plasma glucose measurement (mass/volume) 89 mg/dL 70-105 Serum or plasma calcium measurement (mass/volume) 9.0 mg/dL 8.5-10.1 Serum or plasma total bilirubin measurement (mass/volume) 0.4 mg/dL 0.1-1.0 Serum or plasma alkaline phosphatase measurement (enzymatic activity/volume) 93 U/L 40-136 Serum or plasma aspartate aminotransferase measurement (enzymatic activity/ volume) 32 U/L 5-34 Serum or plasma alanine aminotransferase measurement (enzymatic activity/volume ) 34 U/L 0-55 Serum or plasma protein measurement (mass/volume) 5.7 g/dL 6.4-8.2 Serum or plasma albumin measurement (mass/volume) 3.1 g/dL 3.2-4.5 [id number] - 10/16/16 14:27 Serum or plasma urea nitrogen measurement (mass/volume) 13 mg/dL 7-18 Serum or plasma creatinine measurement (mass/volume) 0.88 mg /dL 0.60-1.30 Serum or plasma urea nitrogen/creatinine mass ratio 15 NRG Serum or plasma creatinine measurement with calculation of estimated glomerular filtration rate > NRG Complete blood count (CBC) with automated white blood cell (WBC) differential - 12/07/16 20:40 Blood leukocytes automated count (number/volume) 8.5 10*3/ uL 4.3-11.0 Blood erythrocytes automated count (number/volume) 4.14 10*6 /uL 4.35-5.85 Venous blood hemoglobin measurement (mass/volume) 12.6 g/dL 11.5-16.0 Blood hematocrit (volume fraction) 37 % 35-52 Automated erythrocyte mean corpuscular volume 90 [foz_us] 80-99 Automated erythrocyte mean corpuscular hemoglobin (mass per erythrocyte) 30 pg 25-34 Automated erythrocyte mean corpuscular hemoglobin concentration measurement ( mass/volume) 34 g/dL 32-36 Automated erythrocyte distribution width ratio 14.6 % 10.0-14.5 Automated blood platelet count (count/volume) 209 10*3/uL 130-400 Automated blood platelet mean volume measurement 9.9 [foz_us ] 7.4-10.4 Automated blood neutrophils/100 leukocytes 83 % 42-75 Automated blood lymphocytes/100 leukocytes 11 % 12-44 Blood monocytes/100 leukocytes 5 % 0-12 Automated blood eosinophils/100 leukocytes 1 % 0-10 Automated blood basophils/100 leukocytes 0 % 0-10 Blood neutrophils automated count (number/volume) 7.0 10*3 1.8-7.8 Blood lymphocytes automated count (number/volume) 1.0 10*3 1.0-4.0 Blood monocytes automated count (number/volume) 0.4 10*3 0.0-1.0 Automated eosinophil count 0.1 10*3/uL 0.0-0.3 Automated blood basophil count (count/volume) 0.0 10*3/uL 0.0-0.1 Comprehensive metabolic panel - 12/07/16 20:40 Serum or plasma sodium measurement (moles/volume) 131 mmol/ L 135-145 Serum or plasma potassium measurement (moles/volume) 4.5 mmol/L 3.6-5.0 Serum or plasma chloride measurement (moles/volume) 94 mmol/ L 98-107 Carbon dioxide 30 mmol/L 21-32 Serum or plasma anion gap determination (moles/volume) 7 mmol/L 5-14 Serum or plasma urea nitrogen measurement (mass/volume) 11 mg/dL 7-18 Serum or plasma creatinine measurement (mass/volume) 0.98 mg /dL 0.60-1.30 Serum or plasma urea nitrogen/creatinine mass ratio 11 NRG Serum or plasma creatinine measurement with calculation of estimated glomerular filtration rate 56 NRG Serum or plasma glucose measurement (mass/volume) 102 mg/dL 70-105 Serum or plasma calcium measurement (mass/volume) 8.9 mg/dL 8.5-10.1 Serum or plasma total bilirubin measurement (mass/volume) 0.5 mg/dL 0.1-1.0 Serum or plasma alkaline phosphatase measurement (enzymatic activity/volume) 63 U/L 40-136 Serum or plasma aspartate aminotransferase measurement (enzymatic activity/ volume) 58 U/L 5-34 Serum or plasma alanine aminotransferase measurement (enzymatic activity/volume ) 50 U/L 0-55 Serum or plasma protein measurement (mass/volume) 5.8 g/dL 6.4-8.2 Serum or plasma albumin measurement (mass/volume) 3.5 g/dL 3.2-4.5 Magnesium - 12/07/16 20:40 Magnesium 2.0 mg/dL 1.8-2.4 Complete urinalysis with reflex to culture - 12/07/16 21:30 Urine color determination YELLOW NRG Urine clarity determination CLEAR NRG Urine pH measurement by test strip 7 5- 9 Specific gravity of urine by test strip 1.010 1.016-1.022 Urine protein assay by test strip, semi-quantitative NEGATIVE NEGATIVE Urine glucose detection by automated test strip NEGATIVE NEGATIVE Erythrocytes detection in urine sediment by light microscopy NEGATIVE NEGATIVE Urine ketones detection by automated test strip NEGATIVE NEGATIVE Urine nitrite detection by test strip NEGATIVE NEGATIVE Urine total bilirubin detection by test strip NEGATIVE NEGATIVE Urine urobilinogen measurement by automated test strip (mass/volume) NORMAL NORMAL Urine leukocyte esterase detection by dipstick 2+ NEGATIVE Automated urine sediment erythrocyte count by microscopy (number/high power field) NONE NRG Automated urine sediment leukocyte count by microscopy (number/high power field ) [HPF] NRG Bacteria detection in urine sediment by light microscopy TRACE NRG Squamous epithelial cells detection in urine sediment by light microscopy 2-5 NRG Crystals detection in urine sediment by light microscopy NONE NRG Casts detection in urine sediment by light microscopy NONE NRG Mucus detection in urine sediment by light microscopy NEGATIVE NRG Complete urinalysis with reflex to culture YES NRG Bacterial urine culture - 12/07/16 21:30 Bacterial urine culture [id number] NRG COLONY COUNT 10,000/ML - 100,000/ML NRG FTX;REPORTABLE SENSITIVITY REPORTED 12/09/16 6:45 NRG Bacterial susceptibility panel - 12/07/16 21:30 Gentamicin susceptibility test by minimum inhibitory concentration 2 NRG Trimethoprim/sulfamethoxazole susceptibility test by minimum inhibitoryconcentration >= NRG Ampicillin susceptibility test by minimum inhibitory concentration >= NRG Tobramycin susceptibility test by minimum inhibitory concentration 2 NRG Cefazolin susceptibility test by minimum inhibitory concentration <= NRG Ceftriaxone susceptibility test by minimum inhibitory concentration <= NRG Ampicillin/sulbactam susceptibility test by minimum inhibitory concentration >= NRG Piperacillin/tazobactam susceptibility test by minimum inhibitory concentration <= NRG Ciprofloxacin susceptibility test by minimum inhibitory concentration <= NRG Meropenem susceptibility test by minimum inhibitory concentration <= NRG Nitrofurantoin susceptibility test by minimum inhibitory concentration 128 NRG Aztreonam susceptibility test by minimum inhibitory concentration <= NRG Extended spectrum beta lactamase (ESBL) producing bacteria susceptibility test by minimum inhibitory concentration - NRG Methicillin resistant Staphylococcus aureus (MRSA) screening culture - 10:17 Methicillin resistant Staphylococcus aureus (MRSA) screening culture NEG NRG Blood type T Indirect antibody screen panel - 12/22/16 13:52 ABO+Rh group BN NRG Transfusion band number [id number] NRG Blood group antibody screen NEGATIVE NRG Automated blood complete blood count (hemogram) panel - 12/23/16 07:15 Blood leukocytes automated count (number/volume) 10.9 10*3/ uL 4.3-11.0 Blood erythrocytes automated count (number/volume) 3.48 10*6 /uL 4.35-5.85 Venous blood hemoglobin measurement (mass/volume) 10.7 g/dL 11.5-16.0 Blood hematocrit (volume fraction) 32 % 35-52 Automated erythrocyte mean corpuscular volume 91 [foz_us] 80-99 Automated erythrocyte mean corpuscular hemoglobin (mass per erythrocyte) 31 pg 25-34 Automated erythrocyte mean corpuscular hemoglobin concentration measurement ( mass/volume) 34 g/dL 32-36 Automated erythrocyte distribution width ratio 14.6 % 10.0-14.5 Automated blood platelet count (count/volume) 261 10*3/uL 130-400 Automated blood platelet mean volume measurement 10.2 [foz_ us] 7.4-10.4 Comprehensive metabolic panel - 12/23/16 07:15 Serum or plasma sodium measurement (moles/volume) 138 mmol/ L 135-145 Serum or plasma potassium measurement (moles/volume) 3.9 mmol/L 3.6-5.0 Serum or plasma chloride measurement (moles/volume) 103 mmol /L 98-107 Carbon dioxide 26 mmol/L 21-32 Serum or plasma anion gap determination (moles/volume) 9 mmol/L 5-14 Serum or plasma urea nitrogen measurement (mass/volume) 9 mg /dL 7-18 Serum or plasma creatinine measurement (mass/volume) 0.70 mg /dL 0.60-1.30 Serum or plasma urea nitrogen/creatinine mass ratio 13 NRG Serum or plasma creatinine measurement with calculation of estimated glomerular filtration rate > NRG Serum or plasma glucose measurement (mass/volume) 105 mg/dL 70-105 Serum or plasma calcium measurement (mass/volume) 8.3 mg/dL 8.5-10.1 Serum or plasma total bilirubin measurement (mass/volume) 0.4 mg/dL 0.1-1.0 Serum or plasma alkaline phosphatase measurement (enzymatic activity/volume) 55 U/L 40-136 Serum or plasma aspartate aminotransferase measurement (enzymatic activity/ volume) 73 U/L 5-34 Serum or plasma alanine aminotransferase measurement (enzymatic activity/volume ) 69 U/L 0-55 Serum or plasma protein measurement (mass/volume) 5.3 g/dL 6.4-8.2 Serum or plasma albumin measurement (mass/volume) 3.3 g/dL 3.2-4.5 Encounters ACCT No. Visit Date/Time Discharge Status Pt. Type Provider Facility Loc./Unit Complaint [id number] 12/08/2016 00:27:00 2016 18:47:00 DIS Outpatient TIFFANIE MARTINEZ, SERGIO Thompson [facility] 4TH AMS, UTI, MILD HYPONATREMIA [id number] 12/03/2016 22:00:00 2016 12:22:00 DIS Inpatient SERGIO MORENO MD [facility] 4TH INTRACTABLE LOW BACK PAIN WITH SCIATICA [id number] 09/03/2016 22:19:00 2016 17:08:00 DIS Inpatient CLAUDINE ABRAHAM DO [facility] 4TH ELEVATED INR,HEMOPTYSIS, PNEUMONIA [id number] 02/19/2016 19:56:00 2015 06:20:00 DIS Outpatient SERGIO MORENO MD [facility] SLEEP OBSERVED APNEAS,SNORING, HYPERSOMNIA [id number] 12/25/2016 16:07:00 Document Registration [id number] 12/22/2016 14:34:00 Document Registration [id number] 12/19/2016 15:17:00 Document Registration [id number] 12/12/2016 14:09:00 ACT Outpatient MARTA HANCOCK APRN [facility] RAD SEVERE RT LEG PAIN [id number] 12/11/2016 14:30:00 ACT Outpatient LORETTA AYALA DO [facility] PULM DYSPNEA,HYPOXEMIA [id number] 10/16/2016 14:16:00 ACT Outpatient NUNU QURESHI APRN [facility] RAD DECREASED DIFFUSION CAPACITY OF LUNG [id number] 10/08/2016 11:42:00 ACT Outpatient LORETTA AYALA DO [facility] RT DYSPNEA,HYPOXEMIA REQUIRING SUPPLEMENTAL OXYGEN [id number] 09/29/2016 12:42:00 ACT Outpatient LORETTA AYALA DO [facility] RAD DYSPNEA, HYPOXEMIA REQUIRING SUPPLEMENT OXYGEN [id number] 09/18/2016 12:23:00 ACT Outpatient 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 [facility] RAD PNEUMONIA [id number] 09/03/2016 11:08:00 ACT Outpatient MARTA HANCOCK APRN [facility] RAD SOB, HYPOTHYROID [id number] 04/30/2016 12:27:00 ACT Outpatient TED MARTINEZ, ABDON Sneed [facility] CARD AF,HLP,ATRIAL BIGEMINY,ROB,PALPITATIONS [id number] 04/24/2016 07:58:00 ACT Outpatient TED MARTINEZ, ABDON Sneed [facility] CARD AF,HLP,ROB,PALPITATIONS [id number] 04/08/2016 05:55:00 Document Registration [id number] 04/04/2016 09:20:00 ACT Outpatient ABDON JEAN MD [facility] CATH AF,PALPITATIONS
--- OUTSIDE RECORDS SUMMARY | 2016-12-28 05:29 | XMS REPORT | Continuity of Care Document ---
Author Author [facility] Organization [facility] Address Unknown Phone Unavailable Care Team Providers Care Service Member Name Role Phone Stacey Underwood PCP [phone] Source Comments Some departments are not documenting in the electronic medical record. If you do not see the information that you expected, contact Release of Information in the Health Information Management department at [phone] for further assistance in locating additional records.[facility] Active Allergies and Adverse Reactions Allergen Noted [...] Overview: Managed by Dr Lincoln Estrada EP, [facility]. [id number] score is 2. On warfarin. 04/04/16 - [...] Records Request - Dr. Alan Lama p) [phone] / f) [phone] 10/29/2016 Telephone Cardiology Ramona Barriga RN Shortness [...] fibrillation (HCC); Encounter for blood typing 10/27/2016 [facility] Radiology Jose Luis Hernández MD Encounter 10/27/2016 Anesthesia Cardiology Tarsha Taveras APRN-STORE SALES MANAGER Event 10/27/2016 Orders Only Cardiology Ramona Barriga [...] Taken Blood Pressure 89/44 11/08/2016 12:00 PM SHEET METAL SUPERINTENDENT Pulse 69 11/08/2016 12:00 PM SHEET METAL SUPERINTENDENT Temperature 36.7 C (98 F) 11/08/2016 12:00 PM SHEET METAL SUPERINTENDENT Respiratory Rate - - Height 1.651 m (5' 5") 11/07/2016 9:06 AM SHEET METAL SUPERINTENDENT Weight 68.1 kg (150 lb 2.1 oz) 11/07/2016 9:06 AM SHEET METAL SUPERINTENDENT Body Mass Index 24.98 11/07/2016 9:06 AM SHEET METAL SUPERINTENDENT Oxygen Saturation 93% 11/08/2016 12:00 PM SHEET METAL SUPERINTENDENT Plan of Care Health Maintenance Due Date Last Done Comments Physical (Comprehensive) 1950 Exam Pertussis Vaccine 1954 Tetanus Vaccine 1960 Breast Cancer Screening 1983 Colorectal Cancer 1993 Screening Shingles Vaccine 2003 Osteoporosis Screening 2008 Prevnar/Pneumovax (#1) 2008 Influenza Vaccine 05/08/2017 Procedures from Last 3 Months Procedure Name Priority Date/Time Associated Diagnosis Comments ECG-SCAN 11/13/2016 Results for this 8:48 AM SHEET METAL SUPERINTENDENT procedure are in the results section. ECG-SCAN 11/13/2016 Results for this 8:48 AM SHEET METAL SUPERINTENDENT procedure are in the results section. TELEMETRY STRIPS-SCAN 11/12/2016 Results for this 2:07 PM SHEET METAL SUPERINTENDENT procedure are in the results section. ECG UNCONFIRMED-SCAN 11/12/2016 Results for this 1:59 PM SHEET METAL SUPERINTENDENT procedure are in the results section. ECG UNCONFIRMED-SCAN 11/12/2016 Results for this 1:58 PM SHEET METAL SUPERINTENDENT procedure are in the results section. ECG UNCONFIRMED-SCAN 11/12/2016 Results for this 1:57 PM SHEET METAL SUPERINTENDENT procedure are in the results section. ECG-SCAN 11/12/2016 Results for this 10:28 AM SHEET METAL SUPERINTENDENT procedure are in the results section. Results [...] REFERENCE VALUE 0.5 - 2.0 (Toxic >2.5) [facility], [address] [place] [id number] Desethylamiodarone 0.7Comment: Unit: mcg/mL REFERENCE VALUE No therapeutic range established; activity and serum concentration are similar to parent drug. ADDITIONAL INFORMATION This test was developed and its performance characteristics determined by [facility] in a manner consistent with CLIA requirements. This test has not been cleared or approved by the U.S. Food and Drug Administration. [facility], [address] [facility], [place] [address] Specimen Blood * EP STUDY (11/07/2016 12:01 [...] be extubated and recovered per anesthesia Local [id number] TS Mevf766 Pre TS Fluoro4.9 LA Dwell Rhbo390 Total Rtgmos79.1 Narrative AFIB ABLATION WITH CRYO ENERGY Patient Name: Bria Shirley DATE OF PROCEDURE: 11/07/2016 PROCEDURE: Intracardiac Ablation of Atrial Fibrillation through pulmonary vein antral isolation in the left atrium with a FonJaxtronic [place] Front Cryo-Balloon Left atrial antral ablation for atrial fibrillation General Anesthesia EP study with CS catheter placement His bundle assessment Right and left heart catheterization Intracardiac echocardiography Single transseptal puncture with LA entry Pulmonary vein angiography Three-dimensional intracardiac electroanatomic mapping using the Power Vision NAvX System. Intracardiac left atrial ablation of atrial fibrillation for pulmonary vein antral isolation Complex fractionated atrial electrogram ablation IV drug Administration - Isuprel SALES DEVELOPMENT COORDINATOR: Jose Luis Hernández MD FELLOW: none INDICATION [...] deflectable EP catheter inserted via a 6Fr [place] sheath in the left femoral vein, advanced to the coronary sinus. - Accunav or SJM ICE catheter placed via access with an 11 [place] sheath in the left femoral vein and [...] as mentioned above. INTRACARDIAC ECHO: A 9 [place] ICEcatheter was advanced via left femoral vein to mid right atrium to assess cardiac anatomy and to guide transseptal puncture. There was no pericardial effusion or thrombus. The left atrium was mildly enlarged. Intracardiac echo was used to assist and guide transseptal puncture. SINGLE TRANSSEPTAL PUNCTURE WITH LA ENTRY: A short 8 [place] sheath in the right femoral vein was [...] sheath was then exchanged over to the 15-South African FlexCath sheath.The groin access site was dilated using the 14-South African dilator before introducing the sheath as well.With [...] LocationTemp @ 30 SecTime To EffectMaximum TempDuration [id number] [id number] [id number] [id number] [id number] There was complete elimination of potentials on [...] with aggressive stimulation and isuprel. ADDITIONAL COMMENTS: --Power Vision Navx was used as the mapping system [...] WITH AND WITHOUT ISUPREL: Initial:SR 940 msec, AK 180 msec,QRS 82 msec, QT 424 msec. Final: SR coming off isuprel 640 msec, AK 140 msec,QRS 90 msec, QT 385 msec. [...] Referring Provider Stacey Underwood CV ECHO PV BUTTERMAKER CONTINUOUS CHURN EP lab Narrative Mildly dilated atria Left [...] Results - ThuOct 27, 2016 2:32 PM SHEET METAL SUPERINTENDENT CT of the heart with contrast for [...] Results - ThuOct 27, 2016 2:32 PM SHEET METAL SUPERINTENDENT CT of the heart with contrast for [...] Model # Reveal LINQ11 Generator Serial # [id number] EP Device Followed by MPE Name ILR [...] Strip VS at 58bpm Remote Monitor Serial# [id number] Generator Hardwood Floor Installation Helper Medtronic Generator Location Left Device Type ILR ILR AF Duration all episodes Device [place] [facility] Transmitter Compatible Narrative [facility] Reveal LINQ Interrogation. Presenting Rhythm: VS at 58bpm. Events since 04/04/16: 98 AF events. [place] 1.1%. Longest duration 3qs1fby, A rates 86-261bpm. V rates 64-122bpm. Events #267 thru # 296 EGM/Markers show AF/AFL. Pt stated is on Unyqe. Remote followed by Dr Charles in [place], [place]. Report to MPE in clinic. * ECG/QRS (10/14/2016) Component Value Range QRS DURATION 98
--- OUTSIDE RECORDS SUMMARY | 2016-12-28 05:30 | XMS REPORT | Continuity of Care Document ---
Author Author [facility] Organization [facility] Address Unknown Phone Unavailable Allergies Active Description Code Type Severity Reaction Onset Reported/Identified Relationship to Patient Clinical Status Yes erythromycin base [id number] Drug Allergy Unknown N/A 04/04/2016 Yes levofloxacin [id number] Drug Allergy Unknown N/A 04/04/2016 Medications Problems [...] ABDON Sneed Ot E78.5 HYPERLIPIDEMIA, UNSPECIFIED 04/17/2016 TED MARTINEZ, ABDON Sneed Ot G47.33 OBSTRUCTIVE SLEEP APNEA (ADULT) (PEDIATR 04/17/2016 TED MARTINEZ, ABDON Sneed Ot I48.0 PAROXYSMAL ATRIAL FIBRILLATION 04/17/2016 TED MARTINEZ, ABDON Sneed Ot Z79.01 TELEPHONE CLERKS SUPERVISOR (CURRENT) USE OF ANTICOAGULANT 04/17/2016 ABDON JEAN MD Ot Z79.899 OTHER SKILLED NURSING (CURRENT) DRUG THERAPY 04/24/2016 ABDON JEAN MD Ot E03.9 HYPOTHYROIDISM, UNSPECIFIED 04/24/2016 ABDON JEAN MD Ot E78.5 HYPERLIPIDEMIA, UNSPECIFIED 04/24/2016 ABDON JEAN MD Ot G47.33 OBSTRUCTIVE SLEEP APNEA (ADULT) (PEDIATR 04/24/2016 ABDON JEAN MD Ot I48.0 PAROXYSMAL ATRIAL FIBRILLATION 04/24/2016 ABDON JEAN MD Ot Z79.01 SKILLED NURSING (CURRENT) USE OF ANTICOAGULANT 04/24/2016 ABDON JEAN MD Ot Z79.899 OTHER TELEPHONE CLERKS SUPERVISOR (CURRENT) DRUG THERAPY 04/25/2016 ABDON JEAN MD [...] FIBRILLATION 04/30/2016 ABDON JEAN MD Ot Z79.01 SKILLED NURSING (CURRENT) USE OF ANTICOAGULANT 04/30/2016 ABDON JEAN MD Ot Z79.899 OTHER TELEPHONE CLERKS SUPERVISOR (CURRENT) DRUG THERAPY 04/30/2016 ABDON JEAN MD [...] FIBRILLATION 05/06/2016 ABDON JEAN MD Ot Z79.01 TELEPHONE CLERKS SUPERVISOR (CURRENT) USE OF ANTICOAGULANT 05/06/2016 ABDON JEAN MD Ot Z79.899 OTHER TELEPHONE CLERKS SUPERVISOR (CURRENT) DRUG THERAPY 05/09/2016 ABDON JEAN MD Ot E03.9 HYPOTHYROIDISM, UNSPECIFIED 05/09/2016 ABDON JEAN MD Ot E78.5 HYPERLIPIDEMIA, UNSPECIFIED 05/09/2016 ABDON JEAN MD Ot G47.33 OBSTRUCTIVE SLEEP APNEA (ADULT) (PEDIATR 05/09/2016 ABDON JEAN MD Ot I48.0 PAROXYSMAL ATRIAL FIBRILLATION 05/09/2016 ABDON JEAN MD Ot Z79.01 SKILLED NURSING (CURRENT) USE OF ANTICOAGULANT 05/09/2016 ABDON JEAN MD Ot Z79.899 OTHER TELEPHONE CLERKS SUPERVISOR (CURRENT) DRUG THERAPY 05/09/2016 ABDON JEAN MD [...] FIBRILLATION 05/19/2016 ABDON JEAN MD Ot Z79.01 TELEPHONE CLERKS SUPERVISOR (CURRENT) USE OF ANTICOAGULANT 05/19/2016 ABDON JEAN MD Ot Z79.899 OTHER TELEPHONE CLERKS SUPERVISOR (CURRENT) DRUG THERAPY 05/21/2016 ABDON JEAN MD [...] COAGULATION PROFILE 09/09/2016 GELLENDER DOCLAUDINE Ot Z79.01 SKILLED NURSING (CURRENT) USE OF ANTICOAGULANT 09/10/2016 BADON JEAN MD Ot E03.9 HYPOTHYROIDISM, UNSPECIFIED 09/10/2016 ABDON JEAN MD, Ot E78.5 HYPERLIPIDEMIA, UNSPECIFIED 09/10/2016 ABDON JEAN MD, Ot G47.33 OBSTRUCTIVE SLEEP APNEA (ADULT) (PEDIATR 09/10/2016 ABDON JEAN MD Ot I48.0 PAROXYSMAL ATRIAL FIBRILLATION 09/10/2016 ABDON JEAN MD Ot Z79.01 TELEPHONE CLERKS SUPERVISOR (CURRENT) USE OF ANTICOAGULANT 09/10/2016 ABDON JEAN MD, Ot Z79.899 OTHER SKILLED NURSING (CURRENT) DRUG THERAPY 09/10/2016 ABDON JEAN MD, [...] PROFILE 09/10/2016 GELXOCHITLDER CLAUDINE ZACARIAS Ot Z79.01 TELEPHONE CLERKS SUPERVISOR (CURRENT) USE OF ANTICOAGULANT 09/10/2016 EMETERIOLENDER CLAUDINE [...] PROFILE 09/10/2016 CLAUDINE ABRAHAM DO Ot Z79.01 TELEPHONE CLERKS SUPERVISOR (CURRENT) USE OF ANTICOAGULANT 09/10/2016 CLAUDINE ABRAHAM DO Ot Z87.891 PERSONAL HISTORY OF NICOTINE DEPENDENCE 09/19/2016 SEB MENDOZA TON CYLINDER INSPECTOR Ot J18.9 PNEUMONIA, UNSPECIFIED ORGANISM 09/24/2016 SEB MENDOZA TON CYLINDER INSPECTOR Ot J18.9 PNEUMONIA, UNSPECIFIED ORGANISM 09/26/2016 MARTA HANCOCK FLAME PLANER Ot E03.9 HYPOTHYROIDISM, UNSPECIFIED 09/26/2016 MARTA HANCOCK FLAME PLANER Ot R06.02 SHORTNESS OF BREATH 10/08/2016 ABDON JEAN MD Ot E03.9 HYPOTHYROIDISM, UNSPECIFIED 10/08/2016 ABDON JEAN MD Ot E78.5 HYPERLIPIDEMIA, UNSPECIFIED 10/08/2016 ABDON JEAN MD Ot G47.33 OBSTRUCTIVE SLEEP APNEA (ADULT) (PEDIATR 10/08/2016 ABDON JEAN MD Ot I48.0 PAROXYSMAL ATRIAL FIBRILLATION 10/08/2016 ABDON JEAN MD Ot Z79.01 TELEPHONE CLERKS SUPERVISOR (CURRENT) USE OF ANTICOAGULANT 10/08/2016 ABDON JEAN MD Ot Z79.899 OTHER SKILLED NURSING (CURRENT) DRUG THERAPY 10/08/2016 ABDON JEAN MD Ot E78.5 HYPERLIPIDEMIA, UNSPECIFIED 10/08/2016 ABDON JEAN MD Ot G47.33 OBSTRUCTIVE SLEEP APNEA (ADULT) (PEDIATR 10/08/2016 ABDON JAEN MD Ot I48.91 UNSPECIFIED ATRIAL FIBRILLATION 10/08/2016 ABDON JEAN MD Ot 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 10/08/2016 ABDON JEAN MD Ot E78.5 HYPERLIPIDEMIA, UNSPECIFIED 10/08/2016 TED MARTINEZ, ABDON Sneed Ot G47.33 OBSTRUCTIVE SLEEP APNEA (ADULT) (PEDIATR 10/08/2016 TED MARTINEZ, ABDON Sneed Ot I48.91 UNSPECIFIED ATRIAL FIBRILLATION 10/08/2016 TED MARTINEZ, ABDON Sneed Ot 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 10/08/2016 MARTA HANCOCK FLAME PLANER Ot E03.9 HYPOTHYROIDISM, UNSPECIFIED 10/08/2016 MARTA HANCOCK APRN Ot R06.02 SHORTNESS OF BREATH 10/08/2016 SEB MENDOZA Ot J18.9 PNEUMONIA, UNSPECIFIED ORGANISM 10/08/2016 LORETTA AYALA DO Ot R06.00 DYSPNEA, UNSPECIFIED 10/08/2016 LORETTA AYALA DO Ot R09.02 HYPOXEMIA 10/10/2016 MARTA HANCOCK APRN Ot E03.9 HYPOTHYROIDISM, UNSPECIFIED 10/10/2016 MARTA HANCOCK FLAME PLANER Ot R06.02 SHORTNESS OF BREATH 10/13/2016 SEB MENDOZAP Ot J18.9 PNEUMONIA, UNSPECIFIED ORGANISM 10/17/2016 NUNU QURESHI APRN Ot G47.33 OBSTRUCTIVE SLEEP APNEA (ADULT) ( PEDIATR 10/17/2016 NUNU QURESHI APRN Ot J18.9 PNEUMONIA, UNSPECIFIED ORGANISM 10/17/2016 NUNU QURESHI APRN Ot J30.9 ALLERGIC RHINITIS, UNSPECIFIED 10/17/2016 NUNU QURESHI FLAME PLANER Ot J47.9 BRONCHIECTASIS, UNCOMPLICATED 10/17/2016 NUNU QURESHI [...] APRN Ot R09.02 HYPOXEMIA 11/24/2016 NUNU QURESHI FLAME PLANER Ot R94.2 ABNORMAL RESULTS OF PULMONARY FUNCTION S 11/24/2016 NUNU QURESHI FLAME PLANER Ot Z87.891 PERSONAL HISTORY OF NICOTINE DEPENDENCE 12/04/2016 LUCYLORETTA MARTIN DO Ot R06.00 DYSPNEA, UNSPECIFIED 12/04/2016 LUCY ZACARIAS LORETTA [place] Ot R09.02 HYPOXEMIA 12/08/2016 SERGIO MORENO MD, Ot E03.9 HYPOTHYROIDISM, UNSPECIFIED 12/08/2016 SERGIO MORENO MD Ot E87.1 HYPO-OSMOLALITY AND HYPONATREMIA 12/08/2016 SERGIO MORENO MD, Ot I10 ESSENTIAL (PRIMARY) HYPERTENSION 12/08/2016 SERGIO MORENO MD, Ot I48.91 UNSPECIFIED ATRIAL FIBRILLATION 12/08/2016 SERGIO MORNEO MD, Ot K21.9 GASTRO-ESOPHAGEAL REFLUX DISEASE WITHOUT 12/08/2016 SERGIO MORENO MD, Ot N39.0 URINARY TRACT INFECTION, SITE NOT SPECIF 12/08/2016 SERGIO MORENO MD, Ot R41.82 ALTERED MENTAL STATUS, UNSPECIFIED 12/08/2016 SERGIO MORENO MD, Ot Z87.891 PERSONAL HISTORY OF NICOTINE DEPENDENCE 12/12/2016 MARTA HANCOCK FLAME PLANER Ot M79.604 PAIN IN RIGHT LEG 12/12/2016 MARTA HANCOCK FLAME PLANER Ot M79.604 PAIN IN RIGHT LEG Procedures [...] ABO+Rh group BN NRG Transfusion band number [id number] NR Blood group antibody screen NEGATIVE NRG [...] Blood anisocytosis detection by light microscopy SLIGHT BANNER Comprehensive metabolic panel - 09/08/16 06:55 Serum [...] plasma albumin measurement (mass/volume) 3.1 g/dL 3.2-4.5 [id number] - 10/16/16 14:27 Serum or plasma urea [...] culture - 12/07/16 21:30 Bacterial urine culture [id number] NRG COLONY COUNT 10,000/ML - 100,000/ML NRG [...] ABO+Rh group BN NRG Transfusion band number [id number] NRG Blood group antibody screen NEGATIVE NRG [...] Status Pt. Type Provider Facility Loc./Unit Complaint [id number] 12/08/2016 00:27:00 2016 18:47:00 DIS Outpatient TIFFANIE MARTINEZ, SERGIO [facility] 4TH AMS, UTI, MILD HYPONATREMIA [id number] 12/03/2016 22:00:00 2016 12:22:00 DIS Inpatient SERGIO MORENO MD [facility] 4TH INTRACTABLE LOW BACK PAIN WITH SCIATICA [id number] 09/03/2016 22:19:00 2016 17:08:00 DIS Inpatient CLAUDINE ABRAHAM DO [facility] 4TH ELEVATED INR,HEMOPTYSIS, PNEUMONIA [id number] 02/19/2016 19:56:00 2015 06:20:00 DIS Outpatient SERGIO MORENO MD [facility] SLEEP OBSERVED APNEAS,SNORING, HYPERSOMNIA [id number] 12/25/2016 16:07:00 Document Registration [id number] 12/22/2016 14:34:00 Document Registration [id number] 12/19/2016 15:17:00 Document Registration [id number] 12/12/2016 14:09:00 ACT Outpatient MARTA HANCOCK APRN [facility] RAD SEVERE RT LEG PAIN [id number] 12/11/2016 14:30:00 ACT Outpatient LORETTA AYALA DO [facility] PULM DYSPNEA,HYPOXEMIA [id number] 10/16/2016 14:16:00 ACT Outpatient NUNU QURESHI APRN [facility] RAD DECREASED DIFFUSION CAPACITY OF LUNG [id number] 10/08/2016 11:42:00 ACT Outpatient LORETTA AYALA DO [facility] RT DYSPNEA,HYPOXEMIA REQUIRING SUPPLEMENTAL OXYGEN [id number] 09/29/2016 12:42:00 ACT Outpatient LORETTA AYALA DO [facility] RAD DYSPNEA, HYPOXEMIA REQUIRING SUPPLEMENT OXYGEN [id number] 09/18/2016 12:23:00 ACT Outpatient SEB MENDOZA TON CYLINDER INSPECTOR [facility] RAD PNEUMONIA [id number] 09/03/2016 11:08:00 ACT Outpatient MARTA HANCOCK APRN [facility] RAD SOB, HYPOTHYROID [id number] 04/30/2016 12:27:00 ACT Outpatient TED MARTINEZ, ABDON Sneed [facility] CARD AF,HLP,ATRIAL BIGEMINY,ROB,PALPITATIONS [id number] 04/24/2016 07:58:00 ACT Outpatient TED MARTINEZ, ABDON Sneed [facility] CARD AF,HLP,ROB,PALPITATIONS [id number] 04/08/2016 05:55:00 Document Registration [id number] 04/04/2016 09:20:00 ACT Outpatient ABDON JEAN MD [facility] CATH AF,PALPITATIONS
== END 2016-12-05 07:41 | disposition home or self-care (01) ==
LOC: DELPENDDIS → EDUNIT# 16:30 → ER 16:31 → UNDOADMOB 20:30 → 4TH 20:30
PROVIDERS: ADMIT Family Medicine; ATTEND Family Medicine
DX: M54.41 Lumbago with sciatica, right side (principal); I48.91 Unspecified atrial fibrillation; Z79.01 Long term (current) use of anticoagulants; I10 Essential (primary) hypertension; K21.9 Gastro-esophageal reflux disease without esophagitis; E03.9 Hypothyroidism, unspecified; Z87.891 Personal history of nicotine dependence
CPT/HCPCS: 72148; 94760; 96372; 96374; 96375; 96376; G0378

== ENCOUNTER 2016-12-07 20:28 | Observation (INO) | payer MEDICARE ==
[~2016-12-07] VITALS: Ht 153.7 cm; Wt 67.6 kg
[~2016-12-07 20:28] MED LIST changes: +AMOX1TAB11 PO; +AMOX500C2 PO; +DICL100G18 TOP; +ENOX40DI13 SQ; +GABA-486 PO; +GABA-488 PO; +HYDR-3812 PO; +IPRA3AMP IH; +ORPH100T PO; +PANT40TA3 PO; +PROM25TA14 PO; +SENN-20 PO
[2016-12-07] MEDS ORDERED: NS IV 1000 ML 1,000 ML IV ONE (20:34)
[2016-12-07 20:46] LABS: BASOPHILS % (AUTO) 0 % (0-10); EOSINOPHILS # (AUTO) 0.1 10^3/uL (0.0-0.3); EOSINOPHILS % (AUTO) 1 % (0-10); LYMPHOCYTES % (AUTO) 11 % (12-44); MEAN CORPUSCULAR HEMOGLOBIN 30 PG (25-34); MEAN CORPUSCULAR HGB CONC 34 G/DL (32-36); MEAN CORPUSCULAR VOLUME 90 FL (80-99); MEAN PLATELET VOLUME 9.9 FL (7.4-10.4); MONOCYTES # (AUTO) 0.4 X 10^3 (0.0-1.0); MONOCYTES % (AUTO) 5 % (0-12); NEUTROPHILS % (AUTO) 83 % (42-75); PLATELET COUNT 209 10^3/uL (130-400); RED BLOOD COUNT 4.14 10^6/uL (4.35-5.85); RED CELL DISTRIBUTION WIDTH 14.6 % (10.0-14.5); WHITE BLOOD COUNT 8.5 10^3/uL (4.3-11.0)
[2016-12-07 21:09] LABS: ALBUMIN 3.5 G/DL (3.2-4.5); BILIRUBIN,TOTAL 0.5 MG/DL (0.1-1.0); CALCIUM 8.9 MG/DL (8.5-10.1); CREATININE SERUM 0.98 MG/DL (0.60-1.30); POTASSIUM 4.5 MMOL/L (3.6-5.0); TOTAL PROTEIN 5.8 G/DL (6.4-8.2)
[2016-12-07 21:37] LABS: BILIRUBIN,URINE NEGATIVE (NEGATIVE); KETONES,URINE NEGATIVE (NEGATIVE); LEUKOCYTE ESTERASE ,URINE 2+ (NEGATIVE); NITRITE,URINE NEGATIVE (NEGATIVE); PH,URINE 7 (5-9); PROTEIN,URINE NEGATIVE (NEGATIVE); UROBILINOGEN,URINE NORMAL (NORMAL)
[2016-12-07 21:48] LABS: WBC,URINE 25-50 /HPF
[2016-12-07] MEDS ORDERED: cefTRIAXone INJECTION 1,000 MG in NS (IVPB) 50 ML IV ONE (22:00)
--- NOTE | 2016-12-08 00:32 | ED General ---
General Chief Complaint: Altered Mental Status Stated Complaint: AMS Nursing Triage Note: PT ARRIVED PER EMS, PT STATES HAS ALTERED MENTAL STATUS FROM MEDS Nursing Sepsis Screen: No Definite Risk Source of Information: Patient, EMS, Family Exam Limitations: No Limitations History of Present Illness Time Seen by Provider: 20:30 Initial Comments This 71-year-old woman presents to the emergency room via EMS after her family became concerned about her mental status. Patient's cognition seems to be dulled and she is somewhat confused. She has been taking multiple medications to help with pain associated with spinal problems. She reportedly is set to have surgery in the near future. She has been taking a combination of gabapentin, hydrocodone, and promethazine which were recently prescribed to her after a hospital stay. Family reports that she also fell at home. Patient reports she simply lowered herself to the floor because she was "weak in the knees". She denies any head injury but the family is not so certain. Patient is presently on Lovenox for prophylaxis with atrial fibrillation. Allergies and Home Medications Allergies Coded Allergies: erythromycin base (Verified Allergy, Unknown, 04/04/16) levofloxacin (Verified Allergy, Unknown, 04/04/16) Home Medications Apixaban 5 Mg Tablet, 5 MG PO BID for 30 Days, #30 eliquis on hold from 12/04/16 through 11/09/16 or at least 24 hours post op back surgery, then restart at twice daily dosing Prescribed by: SERGIO UNDERWOOD on 12/05/16 0741 Ascorbic Acid 500 Mg Tablet, 500-1,000 MG PO DAILY, (Reported) Atorvastatin Calcium 10 Mg Tablet, 5 MG PO HS, (Reported) TAKES 1/2 (10MG) TABLET Calcium Carbonate/Vitamin D3 1 Each Tablet, 1 TAB PO BID, (Reported) Cholecalciferol (Vitamin D3) 1,000 Unit Capsule, 1,000 UNIT PO DAILY, (Reported) Coconut Oil 1,000 Mg Capsule, 1,000 MG PO DAILY, (Reported) Cyanocobalamin (Vitamin B-12) 50 Mcg Tablet, 50 MCG PO DAILY, (Reported) Diclofenac Sodium 100 Gm Gel..gram., TOP BID, (Reported) APPLY TO LEG AND BACK Enoxaparin Sodium 40 Mg/0.4 Ml Syringe, 40 MG SQ HS for 4 Days, #4 Prescribed by: SERGIO UNDERWOOD on 12/05/16 0741 Gabapentin 300 Mg Capsule, 300 MG PO TID for 30 Days, #90 Prescribed by: SERGIO UNDERWOOD on 12/05/16 0741 Hydrocodone/Acetaminophen 1 Each Tablet, 1-2 TAB PO Q6HR PRN for BACK PAIN for 30 Days, #60 Prescribed by: SERGIO UNDERWOOD on 12/05/16 0741 Ipratropium/Albuterol Sulfate 3 Ml Ampul.neb, 3 ML IH Q6H PRN for SHORTNESS OF BREATH, (Reported) Krill/Om-3/Dha/Epa/Phospho/Ast 1 Each Capsule, 1,000 MG PO DAILY, (Reported) Levothyroxine Sodium 75 Mcg Tablet, 75 MCG PO DAILY, (Reported) Lutein/Zeaxanthin 1 Each Capsule, 1 CAP PO HS, (Reported) Metoprolol Tartrate 25 Mg Tablet, 12.5 MG PO BID, (Reported) TAKES 1/2 (25MG) TABLET Multivitamin 1 Each Tablet, 1 TAB PO DAILY, (Reported) Oxybutynin Chloride 5 Mg Tab.er.24, 2.5 MG PO TID, (Reported) TAKES 1/2 (5MG) TABLET Pantoprazole Sodium 40 Mg Tablet.dr, 40 MG PO BID, (Reported) Promethazine HCl 25 Mg Tablet, 25 MG PO Q6H PRN for NAUSEA/VOMITING, #30 Ref 0 Prescribed by: VICKY WALLACE on 12/05/16 1025 Sennosides/Docusate Sodium 1 Each Tablet, 1 EA PO BID for 30 Days, #60 Prescribed by: SERGIO UNDERWOOD on 12/05/16 0741 Turmeric Root Extract 500 Mg Capsule, 500 MG PO DAILY, (Reported) Zinc Amino Acid Chelate 50 Mg Tablet, 50 MG PO DAILY, (Reported) Constitutional: see HPI EENTM: no symptoms reported Respiratory: no symptoms reported Cardiovascular: no symptoms reported Gastrointestinal: no symptoms reported Genitourinary: no symptoms reported Musculoskeletal: see HPI Skin: no symptoms reported Psychiatric/Neurological: See HPI Hematologic/Lymphatic: No Symptoms Reported Past Moyobiy-Pydsza-Sjbwka Hx Patient Social History Alcohol Use: Denies Use Recreational Drug Use: No Smoking Status: Former Smoker Type Used: Cigarettes Recent Foreign Travel: No Contact w/Someone Who Travel: No Recent Infectious Disease Expo: No Recent Hopitalizations: Yes (INTRACTABLE PAIN) Immunizations Up To Date Date of Pneumonia Vaccine: Jun 07, 2012 Date of Influenza Vaccine: Jun 07, 2016 Seasonal Allergies Seasonal Allergies: Yes Surgeries HX Surgeries: Yes (CARDIAC ABLATION FOR ATRIAL FIBRILLATION 11/2016 AT ) Surgeries: Bladder Surgery, Cardiac, Gallbladder, Hysterectomy, Vascular Surgery Respiratory Hx Respiratory Disorders: Yes Respiratory Disorders: Pneumonia Cardiovascular Hx Cardiac Disorders: Yes (IMPLANTED ELECTRODE-PER DR JEAN) Cardiac Disorders: Atrial Fibrillation, High Cholesterol, Hypertension Neurological Hx Neurological Disorders: No Reproductive System Hx Reproductive Disorders: No Sexually Transmitted Disease: No HIV/AIDS: No Genitourinary Hx Genitourinary Disorders: Yes (STRESS INCONTINENCE) Gastrointestinal Hx Gastrointestinal Disorders: Yes Gastrointestinal Disorders: Gastroesophageal Reflux Musculoskeletal Hx Musculoskeletal Disorders: Yes Musculoskeletal Disorders: Chronic Back Pain Endocrine Hx Endocrine Disorders: Yes Endocrine Disorders: Hypothyroidsim HEENT HX ENT Disorders: No Hearing Impairment: Hard of Hearing Cancer Hx Cancer: No Psychosocial Hx Psychiatric Problems: No Integumentary HX Skin/Integumentary Disorder: No Blood Transfusions Hx Blood Disorders: No Adverse Reaction to a Blood Tr: No Family Medical History Family Medial History: Alcoholism 19 FATHER Physical Exam Vital Signs Vital Sign - Last 12Hours 12/07/16 12/08/16 12/08/16 20:30 01:10 02:03 Temp 97.8 Pulse 63 Resp 18 B/P (MAP) 138/68 Pulse Ox 94 O2 Delivery Nasal Cannula O2 Flow Rate 2.00 Capillary Refill : Less Than 3 Seconds General Appearance: No Apparent Distress, WD/WN HEENT: PERRL/EOMI, Normal ENT Inspection, Other (Dry oropharynx) Neck: Normal Inspection, Non Tender, Supple Respiratory: Lungs Clear, Normal Breath Sounds, No Accessory Muscle Use, No Respiratory Distress Cardiovascular: Regular Rate, Rhythm, No Edema, Systolic Murmur Gastrointestinal: Normal Bowel Sounds, Non Tender, Soft Extremity: Normal Inspection, No Pedal Edema Neurologic/Psychiatric: Alert, No Motor/Sensory Deficits, Normal Mood/Affect, Other (Oriented to person, place, and age, but not month. Cognition dulled, speech slightly slurred) Skin: Normal Color, Warm/Dry Progress/Results/Core Measures Results/Orders Lab Results Laboratory Tests Test 12/07/16 20:40 12/07/16 21:30 Range/Units White Blood Count 8.5 4.3-11.0 10^3/uL Red Blood Count 4.14 L 4.35-5.85 10^6/uL Hemoglobin 12.6 11.5-16.0 G/DL Hematocrit 37 35-52 % Mean Corpuscular Volume 90 80-99 FL Mean Corpuscular Hemoglobin 30 25-34 PG Mean Corpuscular Hemoglobin Concent 34 32-36 G/DL Red Cell Distribution Width 14.6 H 10.0-14.5 % Platelet Count 209 130-400 10^3/uL Mean Platelet Volume 9.9 7.4-10.4 FL Neutrophils (%) (Auto) 83 H 42-75 % Lymphocytes (%) (Auto) 11 L 12-44 % Monocytes (%) (Auto) 5 0-12 % Eosinophils (%) (Auto) 1 0-10 % Basophils (%) (Auto) 0 0-10 % Neutrophils # (Auto) 7.0 1.8-7.8 X 10^3 Lymphocytes # (Auto) 1.0 1.0-4.0 X 10^3 Monocytes # (Auto) 0.4 0.0-1.0 X 10^3 Eosinophils # (Auto) 0.1 0.0-0.3 10^3/uL Basophils # (Auto) 0.0 0.0-0.1 10^3/uL Sodium Level 131 L 135-145 MMOL/L Potassium Level 4.5 3.6-5.0 MMOL/L Chloride Level 94 L 98-107 MMOL/L Carbon Dioxide Level 30 21-32 MMOL/L Anion Gap 7 5-14 MMOL/L Blood Urea Nitrogen 11 7-18 MG/DL Creatinine 0.98 0.60-1.30 MG/DL Estimat Glomerular Filtration Rate 56 BUN/Creatinine Ratio 11 Glucose Level 102 70-105 MG/DL Calcium Level 8.9 8.5-10.1 MG/DL Magnesium Level 2.0 1.8-2.4 MG/DL Total Bilirubin 0.5 0.1-1.0 MG/DL Aspartate Amino Transf (AST/SGOT) 58 H 5-34 U/L Alanine Aminotransferase (ALT/SGPT) 50 0-55 U/L Alkaline Phosphatase 63 40-136 U/L Total Protein 5.8 L 6.4-8.2 G/DL Albumin 3.5 3.2-4.5 G/DL Urine Color YELLOW Urine Clarity CLEAR Urine pH 7 5-9 Urine Specific [place] 1.010 L 1.016-1.022 Urine Protein NEGATIVE NEGATIVE Urine Glucose (UA) NEGATIVE NEGATIVE Urine Ketones NEGATIVE NEGATIVE Urine Nitrite NEGATIVE NEGATIVE Urine Bilirubin NEGATIVE NEGATIVE Urine Urobilinogen NORMAL NORMAL MG/DL Urine Leukocyte Esterase 2+ H NEGATIVE Urine RBC (Auto) NEGATIVE NEGATIVE Urine RBC NONE /HPF Urine WBC 25-50 H /HPF Urine Squamous Epithelial Cells 2-5 /HPF Urine Crystals NONE /LPF Urine Bacteria TRACE /HPF Urine Casts NONE /LPF Urine Mucus NEGATIVE /LPF Urine Culture Indicated YES Micro Results Microbiology 12/07/16 Urine Culture - Preliminary, Resulted Gram Negative Tommy My Orders Orders - JOSHUA KEITA MD Cbc With Automated Diff (12/07/16 20:34) Comprehensive Metabolic Panel (12/07/16 20:34) Magnesium (12/07/16 20:34) Ua Culture If Indicated (12/07/16 20:34) Saline Lock/Iv-Start (12/07/16 20:34) Ns Iv 1000 Ml (Sodium Chloride 0.9%) (12/07/16 20:34) Urine Culture (12/07/16 21:30) Ceftriaxone Injection (Rocephin Injectio (12/07/16 22:00) Ct Head Wo (12/07/16 22:36) Medications Given in ED Current Medications Medications Dose Ordered Sig/Liana Route Start Time Stop Time Status Last Admin Dose Admin Ceftriaxone Sodium 1000 mg/ Sodium Chloride 50 ml @ 100 mls/hr ONCE ONCE IV 12/07/16 22:00 12/07/16 22:29 DC 12/07/16 22:07 100 MLS/HR Sodium Chloride 1,000 ml @ 0 mls/hr Q0M ONCE IV 12/07/16 20:34 12/07/16 20:36 DC 12/07/16 20:50 0 MLS/HR Vital Signs/I&O Vital Sign - Last 12Hours 12/07/16 12/08/16 12/08/16 12/08/16 20:30 01:10 02:03 02:26 Temp 97.8 96.9 Pulse 63 60 60 Resp 18 18 20 B/P (MAP) 138/68 134/75 Pulse Ox 94 92 95 O2 Delivery Nasal Cannula Nasal Cannula O2 Flow Rate 2.00 2.00 2.00 12/08/16 04:00 Temp 96.5 Pulse 57 Resp 16 B/P (MAP) 137/66 Pulse Ox 100 O2 Delivery Nasal Cannula O2 Flow Rate 2.00 Blood Pressure Mean: 91 Progress Note #1: Time: 22:00 Progress Note Patient received a liter of IV fluids. Urinary tract infection was noted by UA. Rocephin was ordered. Progress Note #2: Time: 22:40 Progress Note After further discussion with the and question of possible head injury was raised in [place] on timing of fall and onset symptoms, CT of the head was ordered. Progress Note #3: Time: 00:30 Progress Note As believes patient is not safe to return home. He reports mental status is still not near her baseline. Altered mental status is felt to be multi- factorial with factors including multiple sedating medications, urinary tract infection, and hyponatremia. Dr. Underwood agrees to admit the patient. Patient is not happy about being admitted but her safety at home is questionable. Diagnostic Imaging Diagonstic Imaging: CT Plain Films/CT/US/NM/MRI: head Comments CT head viewed by me and Stat Rad report reviewed. No acute abnormalities appreciated. Departure Communication Time/Spoke to Admitting Phy: 00:[address] Underwood who agrees with admission for observation. Impression Impression: Primary Impression: Altered mental state Qualified Codes: R41.82 - Altered mental status, unspecified Additional Impressions: Urinary tract infection Qualified Codes: N39.0 - Urinary tract infection, site not specified Hyponatremia Disposition: ADMITTED INPATIENT Condition: Improved Decision to Admit Reason: Admit from ER (General) Decision to Admit/Date: Dec 08, 2016 Time/Decision to Admit Time: 00:20 Departure-Patient Inst. Referrals: SERGIO UNDERWOOD MD (PCP/Family) Primary Care Physician JOSHUA KEITA MD Dec 08, 2016 00:32
[2016-12-08 02:26] VITALS: BP 134/75
[2016-12-08 04:00] VITALS: BP 137/66
--- NOTE | 2016-12-08 06:10 | Diagnostic Imaging Report ---
PROCEDURE: CT head without contrast. TECHNIQUE: Multiple contiguous axial images were obtained through the brain without the use of intravenous contrast. INDICATION: Altered mental status. COMPARISON: None FINDINGS: There are diffuse atrophic changes with prominence of the ventricles and sulci. There are scattered areas of decreased attenuation suggestive of chronic small vessel ischemic disease. There is otherwise normal constantino-white differentiation. No abnormal areas of attenuation to suggest edema from ischemia. There is no midline shift or mass effect. No evidence for acute intracranial hemorrhage or abnormal extra-axial fluid collection. Bony calvarium is intact. Paranasal sinuses are clear. Mastoid air cells also appear clear. IMPRESSION: 1. No CT evidence for acute intracranial abnormality. 2. Age-related atrophic changes with changes of small vessel ischemic disease. Dictated by: Dictated on workstation # [id number]
[2016-12-08 08:00] VITALS: BP 115/74
[2016-12-08] MEDS ORDERED: ENOX40DI13 SQ (09:45)
[2016-12-08] MEDS ORDERED: APIX5TAB PO (09:45)
[2016-12-08] MEDS ORDERED: CEPH-507 PO (09:46)
--- NOTE | 2016-12-08 09:48 | Discharge Inst-Complex ---
[facility] Med Rec & Follow Up Appt. New Medications: Cephalexin (Keflex) 500 Mg Capsule 500 MG PO TID, #21 CAP Changed Medications: Apixaban (Eliquis) 5 Mg Tablet 5 MG PO BID for 30 Days, #30 TAB (Changed from: eliquis on hold from 12/04/16 through 11/09/16 or at least 24 hours post op back surgery, then restart at twice daily dosing) eliquis on hold from 12/04/16 through 12/13/16 or at least 24 hours post op back surgery, then restart at twice daily dosing Continued Medications: Ascorbic Acid (Vitamin C) 500 Mg Tablet 500-1000 MG PO DAILY, TAB Atorvastatin Calcium (Atorvastatin Calcium) 10 Mg Tablet 5 MG PO HS, TAB TAKES 1/2 (10MG) TABLET Calcium Carbonate/Vitamin D3 (Calcium 500 + D Tablet) 1 Each Tablet 1 TAB PO BID, TAB Cholecalciferol (Vitamin D3) (Vitamin D3) 1,000 Unit Capsule 1000 UNIT PO DAILY, CAP Coconut Oil (Coconut Oil) 1,000 Mg Capsule 1000 MG PO DAILY, CAP Cyanocobalamin (Vitamin B-12) (Vitamin B-12) 50 Mcg Tablet 50 MCG PO DAILY, TAB Diclofenac Sodium (Voltaren) 100 Gm Gel..gram. TOP BID, EA APPLY TO LEG AND BACK Enoxaparin Sodium (Lovenox) 40 Mg/0.4 Ml Syringe 40 MG SQ HS for 4 Days, #4 SYRINGE (This prescription has been renewed) Gabapentin (Gabapentin) 300 Mg Capsule 300 MG PO TID for 30 Days, #90 CAP Hydrocodone/Acetaminophen (Hydrocodon -Acetaminophen 5-325) 1 Each Tablet 1-2 TAB PO Q6HR PRN for BACK PAIN for 30 Days, #60 TAB Ipratropium/Albuterol Sulfate (Iprat-Albut 0.5-3(2.5) mg/3 ml) 3 Ml Ampul.neb 3 ML IH Q6H PRN for SHORTNESS OF BREATH, EACH Krill/Om-3/Dha/Epa/Phospho/Ast (Krill Oil 1,000 mg Softgel) 1 Each Capsule 1000 MG PO DAILY, CAP Levothyroxine Sodium (Levothyroxine Sodium) 75 Mcg Tablet 75 MCG PO DAILY, TAB Lutein/Zeaxanthin (Cvs Lutein 40 mg Softgel) 1 Each Capsule 1 CAP PO HS, CAP Metoprolol Tartrate (Metoprolol Tartrate) 25 Mg Tablet 12.5 MG PO BID, TAB TAKES 1/2 (25MG) TABLET Multivitamin (Multi-Vitamin Daily) 1 Each Tablet 1 TAB PO DAILY, TAB Oxybutynin Chloride (Oxybutynin Chloride ER) 5 Mg Tab.er.24 2.5 MG PO TID, TAB TAKES 1/2 (5MG) TABLET Pantoprazole Sodium (Pantoprazole Sodium) 40 Mg Tablet.dr 40 MG PO BID, TAB Promethazine HCl (Promethazine Tablet) 25 Mg Tablet 25 MG PO Q6H PRN for NAUSEA/VOMITING, #30 TAB 0 Refills Sennosides/Docusate Sodium (Senna-Time S Tablet) 1 Each Tablet 1 EA PO BID for 30 Days, #60 TAB Turmeric Root Extract (Turmeric) 500 Mg Capsule 500 MG PO DAILY, CAP Zinc Amino Acid Chelate (Zinc) 50 Mg Tablet 50 MG PO DAILY, TAB Prescription: Transmitted to Pharmacy Activity, Diet and PDI Resume Normal Activity: No Discharge Diet: Regular Diet Return to The Hospital For: ANY CONCERN FOR WORSENING SYMPTOMS Symptoms to Reoprt to : Fever Over 101 Degrees F SERGIO MORENO MD Dec 08, 2016 09:48
--- NOTE | 2016-12-08 09:49 | Short Stay Summary ---
History of Present Illness History of Present Illness Reason for visit/HPI PT PRESENTED TO THE HOSPITAL AFTER HER NOTICED THAT SHE WAS CONFUSED AND HAVING TROUBLE WITH STANDING, SHE FELL AND HIT HER HEAD ON THE FLOOR PER FAMILY REPORT - HOWEVER PT REPORTS THAT SHE FELL GETTING OFF OF THE TOILET AND DUE TO HER BACK PAIN WAS UNABLE TO STAND. Date of Admission Dec 08, 2016 at 00:27 Date of Discharge Attending Physician Sergio Underwood MD Admitting Physician Sergio Underwood MD Consult Allergies and Home Medications Allergies Coded Allergies: erythromycin base (Verified Allergy, Unknown, 04/04/16) levofloxacin (Verified Allergy, Unknown, 04/04/16) Home Medications Apixaban 5 Mg Tablet, 5 MG PO BID, (Reported) Ascorbic Acid 500 Mg Tablet, 500-1,000 MG PO DAILY, (Reported) Atorvastatin Calcium 10 Mg Tablet, 5 MG PO HS, (Reported) TAKES 1/2 (10MG) TABLET Calcium Carbonate/Vitamin D3 1 Each Tablet, 1 TAB PO BID, (Reported) Cholecalciferol (Vitamin D3) 1,000 Unit Capsule, 1,000 UNIT PO DAILY@1300, ( Reported) Coconut Oil 1,000 Mg Capsule, 2,000 MG PO BID, (Reported) take 2 (1000mg) tabs Cranberry Conc/Ascorbic Acid 1 Each Capsule, 2 CAP PO TID, (Reported) Cyanocobalamin (Vitamin B-12) 50 Mcg Tablet, 50 MCG PO DAILY, (Reported) Diclofenac Sodium 100 Gm Gel..gram., TOP BID, (Reported) APPLY TO LEG AND BACK Enoxaparin Sodium 40 Mg/0.4 Ml Syringe, 40 MG SQ HS, (Reported) Gabapentin 300 Mg Capsule, 300 MG PO TID, (Reported) Hydrocodone/Acetaminophen 1 Each Tablet, 1 EACH PO Q4H PRN for PAIN, (Reported) Krill/Om-3/Dha/Epa/Phospho/Ast 1 Each Capsule, 1,000 MG PO DAILY, (Reported) Levothyroxine Sodium 75 Mcg Tablet, 75 MCG PO DAILY, (Reported) Lutein/Zeaxanthin 1 Each Capsule, 1 CAP PO HS, (Reported) Metoprolol Tartrate 25 Mg Tablet, 12.5 MG PO BID, (Reported) TAKES 1/2 (25MG) TABLET Multivitamin 1 Each Tablet, 1 TAB PO DAILY, (Reported) Naproxen Sodium 220 Mg Tablet, 220 MG PO BID, (Reported) Omeprazole 20 Mg Capsule.dr, 20 MG PO DAILY, (Reported) Oxybutynin Chloride 5 Mg Tab.er.24, 2.5 MG PO TID, (Reported) TAKES 1/2 (5MG) TABLET Sennosides/Docusate Sodium 1 Each Tablet, 1 TAB PO BID PRN for CONSTIPATION-6TH LINE, (Reported) Turmeric Root Extract 500 Mg Capsule, 500 MG PO DAILY, (Reported) Zinc Amino Acid Chelate 50 Mg Tablet, 50 MG PO DAILY, (Reported) Past Pnecqxh-Cclatt-Cvhaif Hx Patient Social History Marrital Status: Living Status: LIVES WITH Alcohol Use: Denies Use Recreational Drug Use: No Smoking Status: Former Smoker Type Used: Cigarettes Physical Abuse Screen: No Sexual Abuse: No Recent Foreign Travel: No Contact w/other who traveled: No Recent Hopitalizations: Yes (INTRACTABLE PAIN) Recent Infectious Disease Expo: No Immunizations Up To Date Date of Pneumonia Vaccine: Jun 07, 2012 Date of Influenza Vaccine: Jun 07, 2016 Seasonal Allergies Seasonal Allergies: Yes Surgeries HX Surgeries: Yes (CARDIAC ABLATION FOR ATRIAL FIBRILLATION 11/2016 AT ) Surgeries: Bladder Surgery, Cardiac, Gallbladder, Hysterectomy, Vascular Surgery Respiratory Hx Respiratory Disorders: Yes Cardiovascular Hx Cardiovascular Disorders: Yes (IMPLANTED ELECTRODE-PER DR JEAN) Cardiac Disorders: Atrial Fibrillation, High Cholesterol, Hypertension Neurological Hx Neurological Disorders: No Reproductive System Hx Reproductive Disorders: No Sexually Transmitted Disease: No HIV/AIDS: No Genitourinary Hx Genitourinary Disorders: Yes (STRESS INCONTINENCE) Gastrointestinal Hx Gastrointestinal Disorders: Yes Gastrointestinal Disorders: Gastroesophageal Reflux Musculoskeletal Hx Musculoskeletal Disorders: Yes Musculoskeletal Disorders: Chronic Back Pain Endocrine Hx Endocrine Disorders: Yes Endocrine Disorders: Hypothyroidsim HEENT HX ENT Disorders: No Hearing Impairment: Hard of Hearing Cancer Hx Cancer: No Psychosocial Hx Psychiatric Problems: No Integumentary HX Skin/Integumentary Disorder: No Blood Transfusions Hx Blood Disorders: No Adverse Reaction to a Blood Tr: No Reviewed Nursing Assessment Reviewed/Agree w Nursing PMH: Yes Family Medical History Significant Family History: Heart Disease Family Hx: Alcoholism 19 FATHER Constitutional: weakness Respiratory: No cough, No dyspnea on exertion Cardiovascular: No chest pain Gastrointestinal: No abdominal pain, No constipation Genitourinary: no symptoms reported Musculoskeletal: back pain Skin: no symptoms reported Psychiatric/Neurological: Anxiety, Denies Depressed Physical Exam Vital Signs Vital Sign - Last 12Hours 12/07/16 12/08/16 12/08/16 20:30 01:10 02:03 Temp 97.8 Pulse 63 Resp 18 B/P (MAP) 138/68 Pulse Ox 94 O2 Delivery Nasal Cannula O2 Flow Rate 2.00 Capillary Refill : Less Than 3 Seconds General Appearance: No Apparent Distress, WD/WN Eyes: Bilateral Eye EOMI, Bilateral Eye Normal Inspection, Bilateral Eye PERRL HEENT: PERRL/EOMI, Pharynx Normal Neck: Full Range of Motion, Supple Respiratory: Chest Non Tender, Lungs Clear, Normal Breath Sounds, No Accessory Muscle Use Cardiovascular: Regular Rate, Rhythm, No Edema Gastrointestinal: Normal Bowel Sounds, Soft Rectal: Deferred Extremity: No Calf Tenderness, No Pedal Edema Neurologic/Psychiatric: Alert, Oriented x3, No Motor/Sensory Deficits, Normal Mood/Affect Skin: Normal Color, Warm/Dry Lymphatic: No Adenopathy Clinical Quality Measures DVT/VTE Risk/Contraindication: Risk Factor Score Per Nursin RFS Level Per Nursing on Admit: 2=Moderate Short Stay Diagnosis Discharge Diagnosis-Short Stay Admission Diagnosis: ACCIDENTAL MEDICATION OVERDOSE INTRACTIBLE PAIN OF LOWER BACK SCIATIC PAIN ATRIAL FIBRILLATION CHRONIC ANTICOAGULATION Final Discharge Diagnosis: ACCIDENTAL MEDICATION OVERDOSE INTRACTIBLE PAIN OF LOWER BACK SCIATIC PAIN ATRIAL FIBRILLATION CHRONIC ANTICOAGULATION Conclusion Labs Laboratory Tests 12/07/16 20:40: White Blood Count 8.5, Red Blood Count 4.14L, Hemoglobin 12.6, Hematocrit 37, Mean Corpuscular Volume 90, Mean Corpuscular Hemoglobin 30, Mean Corpuscular Hemoglobin Concent 34, Red Cell Distribution Width 14.6H, Platelet Count 209, Mean Platelet Volume 9.9, Neutrophils (%) (Auto) 83H, Lymphocytes (%) (Auto) 11L , Monocytes (%) (Auto) 5, Eosinophils (%) (Auto) 1, Basophils (%) (Auto) 0, Neutrophils # (Auto) 7.0, Lymphocytes # (Auto) 1.0, Monocytes # (Auto) 0.4, Eosinophils # (Auto) 0.1, Basophils # (Auto) 0.0, Sodium Level 131L, Potassium Level 4.5, Chloride Level 94L, Carbon Dioxide Level 30, Anion Gap 7, Blood Urea Nitrogen 11, Creatinine 0.98, Estimat Glomerular Filtration Rate 56, BUN/ Creatinine Ratio 11, Glucose Level 102, Calcium Level 8.9, Magnesium Level 2.0, Total Bilirubin 0.5, Aspartate Amino Transf (AST/SGOT) 58H, Alanine Aminotransferase (ALT/SGPT) 50, Alkaline Phosphatase 63, Total Protein 5.8L, Albumin 3.5 12/07/16 21:30: Urine Color YELLOW, Urine Clarity CLEAR, Urine pH 7, Urine Specific [place] 1.010L, Urine Protein NEGATIVE, Urine Glucose (UA) NEGATIVE, Urine Ketones NEGATIVE, Urine Nitrite NEGATIVE, Urine Bilirubin NEGATIVE, Urine Urobilinogen NORMAL, Urine Leukocyte Esterase 2+H, Urine RBC (Auto) NEGATIVE, Urine RBC NONE , Urine WBC 25-50H, Urine Squamous Epithelial Cells 2-5, Urine Crystals NONE, Urine Bacteria TRACE, Urine Casts NONE, Urine Mucus NEGATIVE, Urine Culture Indicated YES Microbiology 12/07/16 Urine Culture - Preliminary, Resulted Gram Negative Tommy Conclusion/Plan INTRACTABLE PAIN OF LOWER BACK ACCIDENTAL MEDICATION OVERDOSE PT TO CONTINUE WITH CURRENT TREATMENT PLAN PT DISCHARGED ON PAIN MEDICATION - WITH FOLLOW UP WITH SPINE SURGEON IN THE NEXT FEW DAYS. SERGIO UNDERWOOD MD Dec 08, 2016 09:49
[2016-12-08] MEDS ORDERED: cefTRIAXone INJECTION 1,000 MG in NS (IVPB) 50 ML IV NR (09:53)
[2016-12-08] MEDS ORDERED: HYDROcodone/APAP 5 MG/325 MG (LORTAB) TAB PO NR (10:00)
[2016-12-08 12:00] VITALS: BP 95/57
[2016-12-08 18:43] VITALS: BP 95/57
--- OUTSIDE RECORDS SUMMARY | 2017-01-11 04:32 | XMS REPORT | Continuity of Care Document ---
Author Author [facility] Organization [facility] Address Unknown Phone Unavailable Care Team Providers Care Pathology Secretary Name Role Phone Stacey Underwood PCP [phone] Source Comments Some departments are not documenting in the electronic medical record. If you do not see the information that you expected, contact Release of Information in the Health Information Management department at [phone] for further assistance in locating additional records.[facility] Active Allergies and Adverse Reactions [...] mg tablet 4 hours as needed 17 Active Problems Problem Noted Date Atrial fibrillation (HCC) 07/18/2016 Overview: Managed by Dr Lincoln VELOZ, Chas Noel. [id number] score is 2. On warfarin. 04/04/16 - [...] Providers Description 12/11/2016 Telephone Cardiology Delores Ac, Medication Question - RN protonix 12/08/2016 Orders Only [...] Paroxysmal atrial fibrillation 11/06/2016 Pre-Admit Cardiology Amanda Mg, INSPECTOR OUTSIDE PRODUCTION-C Orders Only 11/05/2016 Telephone Cardiology Paula Siddiqi [...] RN Records Request - Dr. Alan Lama (p) [phone] / (f) [phone] 10/29/2016 Telephone Cardiology Ramona Barriga RN Shortness [...] fibrillation (HCC); Encounter for blood typing 10/27/2016 [facility] Radiology Jose Luis Hernández MD Encounter 10/27/2016 Anesthesia Cardiology Tarsha Taveras APRN-PROGRAM INSTRUCTOR Event 10/27/2016 Orders Only Cardiology Ramona Barriga RN Paroxysmal atrial fibrillation (HCC) (Primary Dx) 10/27/2016 Telephone Cardiology Mariia Hanson LPN Cardiac Clearance 10/22/2016 Telephone Cardiology Mariia aHnson LPN Appointment - Pre op 10/27/16 10/22/2016 [...] Taken Blood Pressure 89/44 11/08/2016 12:00 PM ENGINEERING DEPARTMENT CHAIR Pulse 69 11/08/2016 12:00 PM ENGINEERING DEPARTMENT CHAIR Temperature 36.7 C (98 F) 11/08/2016 12:00 PM ENGINEERING DEPARTMENT CHAIR Respiratory Rate - - Height 1.651 m (5' 5") 11/07/2016 9:06 AM ENGINEERING DEPARTMENT CHAIR Weight 68.1 kg (150 lb 2.1 oz) 11/07/2016 9:06 AM ENGINEERING DEPARTMENT CHAIR Body Mass Index 24.98 11/07/2016 9:06 AM ENGINEERING DEPARTMENT CHAIR Oxygen Saturation 93% 11/08/2016 12:00 PM ENGINEERING DEPARTMENT CHAIR Plan of Care Health Maintenance Due Date Last Done Comments Physical (Comprehensive) 1950 Exam Pertussis Vaccine 1954 Tetanus Vaccine 1960 Breast Cancer Screening 1983 Colorectal Cancer 1993 Screening Shingles Vaccine 2003 Osteoporosis Screening 2008 Prevnar/Pneumovax (#1) 2008 Influenza Vaccine 05/08/2017 Procedures from Last 3 Months Procedure Name Priority Date/Time Associated Diagnosis Comments ECG-SCAN 11/13/2016 Results for this 8:48 AM ENGINEERING DEPARTMENT CHAIR procedure are in the results section. ECG-SCAN 11/13/2016 Results for this 8:48 AM ENGINEERING DEPARTMENT CHAIR procedure are in the results section. TELEMETRY STRIPS-SCAN 11/12/2016 Results for this 2:07 PM ENGINEERING DEPARTMENT CHAIR procedure are in the results section. ECG UNCONFIRMED-SCAN 11/12/2016 Results for this 1:59 PM ENGINEERING DEPARTMENT CHAIR procedure are in the results section. ECG UNCONFIRMED-SCAN 11/12/2016 Results for this 1:58 PM ENGINEERING DEPARTMENT CHAIR procedure are in the results section. ECG UNCONFIRMED-SCAN 11/12/2016 Results for this 1:57 PM ENGINEERING DEPARTMENT CHAIR procedure are in the results section. ECG-SCAN 11/12/2016 Results for this 10:28 AM ENGINEERING DEPARTMENT CHAIR procedure are in the results section. Results [...] REFERENCE VALUE 0.5 - 2.0 (Toxic >2.5) [facility], [address] [place], [place] [id number] Desethylamiodarone 0.7Comment: Unit: mcg/mL REFERENCE VALUE No therapeutic range established; activity and serum concentration are similar to parent drug. ADDITIONAL INFORMATION This test was developed and its performance characteristics determined by [facility] in a manner consistent with CLIA requirements. This test has not been cleared or approved by the U.S. Food and Drug Administration. [facility], [address] [place] [id number] Specimen Blood * EP STUDY (11/07/2016 12:01 [...] be extubated and recovered per anesthesia Local [id number] TS Mibs696 Pre TS Fluoro4.9 LA Dwell Taoo970 Total Gaejju29.1 Narrative AFIB ABLATION WITH CRYO ENERGY Patient Name: Bria Shirley DATE OF PROCEDURE: 11/07/2016 PROCEDURE: Intracardiac Ablation of Atrial Fibrillation through pulmonary vein antral isolation in the left atrium with a WiiiWaaa [place] Cryo-Balloon Left atrial antral ablation for atrial fibrillation General Anesthesia EP study with CS catheter placement His bundle assessment Right and left heart catheterization Intracardiac echocardiography Single transseptal puncture with LA entry Pulmonary vein angiography Three-dimensional intracardiac electroanatomic mapping using the [employer] NAvX System. Intracardiac left atrial ablation of atrial fibrillation for pulmonary vein antral isolation Complex fractionated atrial electrogram ablation IV drug Administration - Isuprel VALVER: Jose Luis Hernández MD FELLOW: none INDICATION [...] deflectable EP catheter inserted via a 6Fr Palestinian sheath in the left femoral vein, advanced to the coronary sinus. - Accunav or SJM ICE catheter placed via access with an 11 Palestinian sheath in the left femoral vein and [...] as mentioned above. INTRACARDIAC ECHO: A 9 Palestinian ICEcatheter was advanced via left femoral vein to mid right atrium to assess cardiac anatomy and to guide transseptal puncture. There was no pericardial effusion or thrombus. The left atrium was mildly enlarged. Intracardiac echo was used to assist and guide transseptal puncture. SINGLE TRANSSEPTAL PUNCTURE WITH LA ENTRY: A short 8 Palestinian sheath in the right femoral vein was [...] sheath was then exchanged over to the 15-Palestinian FlexCath sheath.The groin access site was dilated using the 14-Palestinian dilator before introducing the sheath as well.With [...] LocationTemp @ 30 SecTime To EffectMaximum TempDuration [id number] There was complete elimination of potentials on [...] with aggressive stimulation and isuprel. ADDITIONAL COMMENTS: --[employer] was used as the mapping system for [...] WITH AND WITHOUT ISUPREL: Initial:SR 940 msec, NM 180 msec,QRS 82 msec, QT 424 msec. Final: SR coming off isuprel 640 msec, NM 140 msec,QRS 90 msec, QT 385 msec. [...] Referring Provider Stacey Underwood CV ECHO PV EDUCATIONAL PSYCHOLOGY TEACHER EP lab Narrative Mildly dilated atria Left [...] Results - ThuOct 27, 2016 2:[address] CHAIR CT of the heart with contrast for [...] Results - ThuOct 27, 2016 2:[address] DE[address]MENT CHAIR CT of the heart with contrast for [...] Model # Reveal [id number] Generator Serial # [id number] EP Device Followed by MPE Name ILR [...] Strip VS at 58bpm Remote Monitor Serial# [id number] Generator Strategy Analyst Medtronic Generator Location Left Device Type ILR ILR AF Duration all episodes Device Stearns Carelink Express Transmitter Compatible Narrative [facility] Reveal LINQ Interrogation. Presenting Rhythm: VS at 58bpm. Events since 04/04/16: 98 AF events. [place] 1.1%. Longest duration 2tr5cvh, A rates 86-261bpm. V rates 64-122bpm. Events #267 thru # 296 EGM/Markers show AF/AFL. Pt stated is on [place]. Remote followed by Dr Charles in [place], [place]. Report to MPE in clinic. * ECG/QRS (10/14/2016) Component Value Range QRS DURATION 98
--- OUTSIDE RECORDS SUMMARY | 2017-01-11 04:33 | XMS REPORT | Continuity of Care Document ---
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 04/17/2016 ABDON JEAN MD Ot Z79.899 OTHER [facility] (CURRENT) DRUG THERAPY 04/24/2016 ABDON JEAN MD Ot E03.9 HYPOTHYROIDISM, UNSPECIFIED 04/24/2016 ABDON JEAN MD Ot E78.5 HYPERLIPIDEMIA, UNSPECIFIED 04/24/2016 ABDON JEAN MD Ot G47.33 OBSTRUCTIVE SLEEP APNEA (ADULT) (PEDIATR 04/24/2016 ABDON JEAN MD Ot I48.0 PAROXYSMAL ATRIAL FIBRILLATION 04/24/2016 ABDON JEAN MD Ot Z79.01 [facility] (CURRENT) USE OF ANTICOAGULANT 04/24/2016 ABDON JEAN MD Ot Z79.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 THERAPY 04/25/2016 ABDON JEAN MD [...] FIBRILLATION 04/30/2016 ABDON JEAN MD Ot Z79.01 [facility] (CURRENT) USE OF ANTICOAGULANT 04/30/2016 ABDON JEAN MD Ot Z79.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 THERAPY 04/30/2016 ABDON JEAN MD [...] FIBRILLATION 05/06/2016 ABDON JEAN MD Ot 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 05/06/2016 ABDON JEAN MD Ot Z79.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 THERAPY 05/09/2016 ABDON JEAN MD Ot E03.9 HYPOTHYROIDISM, UNSPECIFIED 05/09/2016 ABDON JEAN MD Ot E78.5 HYPERLIPIDEMIA, UNSPECIFIED 05/09/2016 ABDON JEAN MD Ot G47.33 OBSTRUCTIVE SLEEP APNEA (ADULT) (PEDIATR 05/09/2016 ABDON JEAN MD Ot I48.0 PAROXYSMAL ATRIAL FIBRILLATION 05/09/2016 ABDON JEAN MD Ot Z79.01 [facility] (CURRENT) USE OF ANTICOAGULANT 05/09/2016 ABDON JEAN MD Ot 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.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 THERAPY 05/09/2016 ABDON JEAN MD [...] FIBRILLATION 05/19/2016 ABDON JEAN MD Ot 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 05/19/2016 ABDON JEAN MD Ot Z79.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 THERAPY 05/21/2016 ABDON JEAN MD [...] COAGULATION PROFILE 09/09/2016 GELLENDER DOCLAUDINE Ot Z79.01 [facility] (CURRENT) USE OF ANTICOAGULANT 09/10/2016 ABDON JEAN MD Ot E03.9 HYPOTHYROIDISM, UNSPECIFIED 09/10/2016 ABDON JEAN MD, Ot E78.5 HYPERLIPIDEMIA, UNSPECIFIED 09/10/2016 ABDON JEAN MD, Ot G47.33 OBSTRUCTIVE SLEEP APNEA (ADULT) (PEDIATR 09/10/2016 ABDON JEAN MD Ot I48.0 PAROXYSMAL ATRIAL FIBRILLATION 09/10/2016 ABDON JEAN MD Ot 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 09/10/2016 ABDON JEAN MD, Ot Z79.899 OTHER [facility] (CURRENT) DRUG THERAPY 09/10/2016 ABDON JEAN MD, [...] PROFILE 09/10/2016 GELXOCHITLDER CLAUDINE ZACARIAS Ot 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 09/10/2016 EMETERIOLENDER CLAUDINE [...] PROFILE 09/10/2016 CLAUDINE ABRAHAM DO Ot 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 09/10/2016 CLAUDINE ABRAHAM DO Ot Z87.891 PERSONAL HISTORY OF NICOTINE DEPENDENCE 09/19/2016 SEB MENDOZA CASUALTY CLAIM ADJUSTER Ot J18.9 PNEUMONIA, UNSPECIFIED ORGANISM 09/24/2016 SEB MENDOZA CASUALTY CLAIM ADJUSTER Ot J18.9 PNEUMONIA, UNSPECIFIED ORGANISM 09/26/2016 MARTA HANCOCK PROPERTY APPRAISER Ot E03.9 HYPOTHYROIDISM, UNSPECIFIED 09/26/2016 MARTA HANCOCK PROPERTY APPRAISER Ot R06.02 SHORTNESS OF BREATH 10/08/2016 ABDON JEAN MD Ot E03.9 HYPOTHYROIDISM, UNSPECIFIED 10/08/2016 ABDON JEAN MD Ot E78.5 HYPERLIPIDEMIA, UNSPECIFIED 10/08/2016 ABDON JEAN MD Ot G47.33 OBSTRUCTIVE SLEEP APNEA (ADULT) (PEDIATR 10/08/2016 ABDON JEAN MD Ot I48.0 PAROXYSMAL ATRIAL FIBRILLATION 10/08/2016 ABDON JEAN MD Ot 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 10/08/2016 ABDON JEAN MD Ot Z79.899 OTHER [facility] (CURRENT) DRUG THERAPY 10/08/2016 ABDON JEAN MD [...] 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 10/08/2016 MARTA HANCOCK PROPERTY APPRAISER Ot E03.9 HYPOTHYROIDISM, UNSPECIFIED 10/08/2016 MARTA HANCOCK APRN Ot R06.02 SHORTNESS OF BREATH 10/08/2016 SEB MENDOZA Ot J18.9 PNEUMONIA, UNSPECIFIED ORGANISM 10/08/2016 LORETTA AYALA DO Ot R06.00 DYSPNEA, UNSPECIFIED 10/08/2016 LORETTA AYALA DO Ot R09.02 HYPOXEMIA 10/10/2016 MARTA HANCOCK APRN Ot E03.9 HYPOTHYROIDISM, UNSPECIFIED 10/10/2016 MARTA HANCOCK PROPERTY APPRAISER Ot R06.02 SHORTNESS OF BREATH 10/13/2016 SEB MENDOZAP Ot J18.9 PNEUMONIA, UNSPECIFIED ORGANISM 10/17/2016 NUNU QURESHI APRN Ot G47.33 OBSTRUCTIVE SLEEP APNEA (ADULT) ( PEDIATR 10/17/2016 NUNU QURESHI APRN Ot J18.9 PNEUMONIA, UNSPECIFIED ORGANISM 10/17/2016 NUNU QURESHI APRN Ot J30.9 ALLERGIC RHINITIS, UNSPECIFIED 10/17/2016 NUNU QURESHI PROPERTY APPRAISER Ot J47.9 BRONCHIECTASIS, UNCOMPLICATED 10/17/2016 NUNU QURESHI [...] APRN Ot R09.02 HYPOXEMIA 11/24/2016 NUNU QURESHI PROPERTY APPRAISER Ot R94.2 ABNORMAL RESULTS OF PULMONARY FUNCTION S 11/24/2016 NUNU QURESHI NORA Ot Z87.891 PERSONAL HISTORY OF NICOTINE DEPENDENCE 12/04/2016 LORETTA AYALA DO Ot R06.00 DYSPNEA, UNSPECIFIED 12/04/2016 LORETTA AYALA DO Ot R09.02 HYPOXEMIA 12/05/2016 SERGIO MORENO MD Ot E03.9 HYPOTHYROIDISM, UNSPECIFIED 12/05/2016 SERGIO MORENO MD Ot I10 ESSENTIAL (PRIMARY) HYPERTENSION 12/05/2016 SERGIO MORENO MD Ot I48.91 UNSPECIFIED ATRIAL FIBRILLATION 12/05/2016 SERGIO MORENO MD, Ot K21.9 GASTRO-ESOPHAGEAL REFLUX DISEASE WITHOUT 12/05/2016 SERGIO MORENO MD Ot M54.41 LUMBAGO WITH SCIATICA, RIGHT SIDE 12/05/2016 SERGIO MORENO MD Ot Z79.01 [facility] (CURRENT) USE OF ANTICOAGULANT 12/05/2016 SERGIO MORENO MD, Ot Z87.891 PERSONAL HISTORY OF NICOTINE DEPENDENCE 12/08/2016 SERGIO MORENO MD Ot E03.9 HYPOTHYROIDISM, UNSPECIFIED 12/08/2016 SERGIO MORENO MD Ot E87.1 HYPO-OSMOLALITY AND HYPONATREMIA 12/08/2016 SERGIO MORENO MD Ot I10 ESSENTIAL (PRIMARY) HYPERTENSION 12/08/2016 SERGIO MORENO MD Ot I48.91 UNSPECIFIED ATRIAL FIBRILLATION 12/08/2016 SERGIO MORENO MD, Ot K21.9 GASTRO-ESOPHAGEAL REFLUX DISEASE WITHOUT 12/08/2016 SERGIO MORENO MD Ot N39.0 URINARY TRACT INFECTION, SITE NOT SPECIF 12/08/2016 SERGIO MORENO MD Ot R41.82 ALTERED MENTAL STATUS, UNSPECIFIED 12/08/2016 SERGIO MORENO MD Ot Z87.891 PERSONAL HISTORY OF NICOTINE DEPENDENCE 12/12/2016 MARTA HANCOCK PROPERTY APPRAISER Ot M79.604 PAIN IN RIGHT LEG 12/12/2016 MARTA HANCOCK PROPERTY APPRAISER Ot M79.604 PAIN IN RIGHT LEG 12/19/2016 KEESHA MCCALL DO Ot M51.26 OTHER INTERVERTEBRAL DISC DISPLACEMENT, 12/19/2016 KEESHA MCCALL DO Ot Z01.818 ENCOUNTER FOR OTHER PREPROCEDURAL EXAMIN 12/19/2016 KEESHA MCCALL DO Ot Z11.2 ENCOUNTER FOR SCREENING FOR OTHER BACTER 12/24/2016 KEESHA MCCALL DO Ot M51.26 OTHER INTERVERTEBRAL DISC DISPLACEMENT, 12/24/2016 KEESHA MCCALL DO Ot Z01.818 ENCOUNTER FOR OTHER PREPROCEDURAL EXAMIN 12/24/2016 KEESHA MCCALL DO Ot Z11.2 ENCOUNTER FOR SCREENING FOR OTHER BACTER 12/25/2016 KEESHA MCCALL DO Ot I10 ESSENTIAL (PRIMARY) HYPERTENSION 12/25/2016 KEESHA MCCALL DO Ot I25.10 ATHSCL HEART DISEASE OF [place] CORONARY 12/25/2016 KEESHA MCCALL DO Ot I48.91 UNSPECIFIED ATRIAL FIBRILLATION 12/25/2016 KEESHA MCCALL DO Ot K21.9 GASTRO-ESOPHAGEAL REFLUX DISEASE WITHOUT 12/25/2016 KEESHA MCCALL DO Ot M43.10 SPONDYLOLISTHESIS, SITE UNSPECIFIED 12/25/2016 KEESHA MCCALL DO Ot M47.27 OTHER SPONDYLOSIS WITH RADICULOPATHY, ZAKIA 12/25/2016 KEESHA MCCALL DO Ot M48.06 SPINAL STENOSIS, LUMBAR REGION 12/25/2016 KEESHA MCCALL DO Ot M51.16 INTERVERTEBRAL DISC DISORDERS W RADICULO 12/25/2016 KEESHA MCCALL DO Ot M51.37 OTHER INTERVERTEBRAL DISC DEGENERATION, 12/25/2016 KEESHA MCCALL DO Ot Z87.891 PERSONAL HISTORY OF NICOTINE DEPENDENCE 01/03/2017 MIGUEL MCCALL MD E Ot D64.9 ANEMIA, UNSPECIFIED 01/03/2017 MIGUEL MCCALL MD E Ot E03.9 HYPOTHYROIDISM, UNSPECIFIED 01/03/2017 MIGUEL MCCALL MD E Ot E78.00 PURE HYPERCHOLESTEROLEMIA, UNSPECIFIED 01/03/2017 MIGUEL MCCALL MD E Ot I10 ESSENTIAL (PRIMARY) HYPERTENSION 01/03/2017 MIGUEL MCCALL MD Ot I48.91 UNSPECIFIED ATRIAL FIBRILLATION 01/03/2017 MIGUEL MCCALL MD E Ot J98.11 ATELECTASIS 01/03/2017 MIGUEL MCCALL MD Ot K21.9 GASTRO-ESOPHAGEAL REFLUX DISEASE WITHOUT 01/03/2017 MIGUEL MCCALL MD E Ot K59.00 CONSTIPATION, UNSPECIFIED 01/03/2017 MIGUEL MCCALL MD E Ot L30.9 DERMATITIS, UNSPECIFIED 01/03/2017 MIGUEL MCCALL MD Ot Z48.89 ENCOUNTER FOR OTHER SPECIFIED SURGICAL A 01/03/2017 MIGUEL MCCALL MD, Ot 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 01/03/2017 MIGUEL MCCALL MD, Ot Z87.891 PERSONAL HISTORY OF NICOTINE DEPENDENCE 01/03/2017 MIGUEL MCCALL MD, Ot Z98.1 ARTHRODESIS STATUS Procedures Code Description Performed By Performed On [id number] FUSION LUM JT W AUTOL SUB, POST APPR P C 12/22/2016 [id number] FUSION LUM JT W INTBD FUS DEV, POST APPR 12/22/2016 [id number] RESECTION OF LUMBAR VERTEBRAL DISC, OPEN 12/22/2016 Results Test Result Range Automated blood complete [...] 18:36 FRESH FROZEN PLASMA TRANSFUSED 09/04/16 0007 NR RED CELLS LEUKO REDUCED AS1 - 09/03/16 18:36 RED CELLS LEUKO REDUCED AS1 NOT AVAILABLE NRG Blood type T Indirect antibody screen panel - 09/03/16 18:36 ABO+Rh group BN NRG Transfusion band number [id number] NR Blood group antibody screen NEGATIVE NRG [...] Blood anisocytosis detection by light microscopy SLIGHT NRG Comprehensive metabolic panel - 09/08/16 06:55 Serum [...] or plasma urea nitrogen/creatinine mass ratio 14 [facility] Serum or plasma creatinine measurement with calculation of estimated glomerular filtration rate > [facility] Serum or plasma glucose measurement (mass/volume) 89 [...] plasma albumin measurement (mass/volume) 3.1 g/dL 3.2-4.5 [id number] - 10/16/16 14:27 Serum or plasma urea nitrogen measurement (mass/volume) 13 mg/dL 7-18 Serum or plasma creatinine measurement (mass/volume) 0.88 mg /dL 0.60-1.30 Serum or plasma urea nitrogen/creatinine mass ratio 15 NR Serum or plasma creatinine measurement with calculation of estimated glomerular filtration rate > [facility] Complete blood count (CBC) with automated white [...] culture - 12/07/16 21:30 Bacterial urine culture [id number] NRG COLONY COUNT 10,000/ML - 100,000/ML NRG [...] ABO+Rh group BN NRG Transfusion band number [id number] NRG Blood group antibody screen NEGATIVE NRG [...] Status Pt. Type Provider Facility Loc./Unit Complaint [id number] 12/25/2016 11:20:00 2016 14:43:00 DIS Outpatient MIGUEL MCCALL MD [facility] IRF LUMBAR STENOSIS [id number] 12/22/2016 13:12:00 2016 11:20:00 DIS Inpatient KEESHA MCACLL DO [facility] 4TH HERNIATED NUCLEUS PULPOSUS [id number] 12/18/2016 10:01:00 2016 11:00:00 DIS Outpatient KEESHA MCCALL DO [facility] PREOP RIGHT L3-4 TLIF [id number] 12/08/2016 00:27:00 2016 18:47:00 DIS Outpatient SERGIO MORENO MD [facility] 4TH AMS, UTI, MILD HYPONATREMIA [id number] 12/03/2016 22:00:00 2016 12:22:00 DIS Inpatient SERGIO MORENO MD [facility] 4TH INTRACTABLE LOW BACK PAIN WITH SCIATICA [id number] 09/03/2016 22:19:00 2016 17:08:00 DIS Inpatient CLAUDINE ABRAHAM DO [facility] 4TH ELEVATED INR,HEMOPTYSIS, PNEUMONIA [id number] 02/19/2016 19:56:00 2015 06:20:00 DIS Outpatient SERGIO MORENO MD [facility] SLEEP OBSERVED APNEAS,SNORING, HYPERSOMNIA [id number] 12/12/2016 14:09:00 ACT Outpatient MARTA HANCOCK APRN [facility] RAD SEVERE RT LEG PAIN [id number] 12/11/2016 14:30:00 ACT Outpatient LORETTA AYALA DO [facility] PULM DYSPNEA,HYPOXEMIA [id number] 10/16/2016 14:16:00 ACT Outpatient NUNU QURESHI APRN [facility] RAD DECREASED DIFFUSION CAPACITY OF LUNG [id number] 10/08/2016 11:42:00 ACT Outpatient LORETTA AYALA DO [facility] RT DYSPNEA,HYPOXEMIA REQUIRING SUPPLEMENTAL OXYGEN [id number] 09/29/2016 12:42:00 ACT Outpatient LORETTA AYALA DO [facility] RAD DYSPNEA, HYPOXEMIA REQUIRING SUPPLEMENT OXYGEN [id number] 09/18/2016 12:23:00 ACT Outpatient SEB MENDOZA CASUALTY CLAIM ADJUSTER [facility] RAD PNEUMONIA [id number] 09/03/2016 11:08:00 ACT Outpatient MARTA HANCOCK APRN [facility] RAD SOB, HYPOTHYROID [id number] 04/30/2016 12:27:00 ACT Outpatient ABDON JEAN MD [facility] CARD AF,HLP,ATRIAL BIGEMINY,ROB,PALPITATIONS [id number] 04/24/2016 07:58:00 ACT Outpatient ABDON JEAN MD [facility] CARD AF,HLP,ROB,PALPITATIONS [id number] 04/08/2016 05:55:00 Document Registration [id number] 04/04/2016 09:20:00 ACT Outpatient TED MARTINEZ, ABDON Sneed [facility] AF,PALPITATIONS
--- OUTSIDE RECORDS SUMMARY | 2017-01-11 05:11 | XMS REPORT | Continuity of Care Document ---
Author Author [facility] Organization [facility] Address Unknown Phone Unavailable Care Team Providers Care Featherer Name Role Phone Stacey Underwood PCP [phone] Source Comments Some departments are not documenting in the electronic medical record. If you do not see the information that you expected, contact Release of Information in the Health Information Management department at [phone] for further assistance in locating additional records.[facility] Active Allergies and Adverse Reactions [...] Managed by Dr Lincoln VELOZ, Chas Noel. [id number] score is 2. On warfarin. 04/04/16 - [...] atrial fibrillation 11/06/2016 Pre-Admit Cardiology Amanda Mg, BOTTLE FILLER-C Orders Only 11/05/2016 Telephone Cardiology Paula Siddiqi [...] Records Request - Dr. Alan Lama (p) [phone] / (f) [phone] 10/29/2016 Telephone Cardiology Ramona Barriga RN Shortness [...] fibrillation (HCC); Encounter for blood typing 10/27/2016 [facility] Radiology Jose Luis Hernández MD Encounter 10/27/2016 Anesthesia Cardiology Tarsha Taveras APRN-MANAGER RISK MANAGEMENT Event 10/27/2016 Orders Only Cardiology Ramona Barriga [...] Taken Blood Pressure 89/44 11/08/2016 12:00 PM REPORTING SPECIALIST Pulse 69 11/08/2016 12:00 PM REPORTING SPECIALIST Temperature 36.7 C (98 F) 11/08/2016 12:00 PM REPORTING SPECIALIST Respiratory Rate - - Height 1.651 m (5' 5") 11/07/2016 9:06 AM REPORTING SPECIALIST Weight 68.1 kg (150 lb 2.1 oz) 11/07/2016 9:06 AM REPORTING SPECIALIST Body Mass Index 24.98 11/07/2016 9:06 AM REPORTING SPECIALIST Oxygen Saturation 93% 11/08/2016 12:00 PM REPORTING SPECIALIST Plan of Care Health Maintenance Due Date Last Done Comments Physical (Comprehensive) 1950 Exam Pertussis Vaccine 1954 Tetanus Vaccine 1960 Breast Cancer Screening 1983 Colorectal Cancer 1993 Screening Shingles Vaccine 2003 Osteoporosis Screening 2008 Prevnar/Pneumovax (#1) 2008 Influenza Vaccine 05/08/2017 Procedures from Last 3 Months Procedure Name Priority Date/Time Associated Diagnosis Comments ECG-SCAN 11/13/2016 Results for this 8:48 AM REPORTING SPECIALIST procedure are in the results section. ECG-SCAN 11/13/2016 Results for this 8:48 AM REPORTING SPECIALIST procedure are in the results section. TELEMETRY STRIPS-SCAN 11/12/2016 Results for this 2:07 PM REPORTING SPECIALIST procedure are in the results section. ECG UNCONFIRMED-SCAN 11/12/2016 Results for this 1:59 PM REPORTING SPECIALIST procedure are in the results section. ECG UNCONFIRMED-SCAN 11/12/2016 Results for this 1:58 PM REPORTING SPECIALIST procedure are in the results section. ECG UNCONFIRMED-SCAN 11/12/2016 Results for this 1:57 PM REPORTING SPECIALIST procedure are in the results section. ECG-SCAN 11/12/2016 Results for this 10:28 AM REPORTING SPECIALIST procedure are in the results section. Results [...] REFERENCE VALUE 0.5 - 2.0 (Toxic >2.5) [facility], [address] [place], [place] [id number] Desethylamiodarone 0.7Comment: Unit: mcg/mL REFERENCE VALUE No therapeutic range established; activity and serum concentration are similar to parent drug. ADDITIONAL INFORMATION This test was developed and its performance characteristics determined by [facility] in a manner consistent with CLIA requirements. This test has not been cleared or approved by the U.S. Food and Drug Administration. [facility], [address] [place] [id number] Specimen Blood * EP STUDY (11/07/2016 12:01 [...] be extubated and recovered per anesthesia Local [id number] TS [id number] Pre TS Fluoro4.9 LA Dwell Okpj627 Total Qdtnqn31.1 Narrative AFIB ABLATION WITH CRYO ENERGY Patient Name: Bria Shirley DATE OF PROCEDURE: 11/07/2016 PROCEDURE: Intracardiac Ablation of Atrial Fibrillation through pulmonary vein antral isolation in the left atrium with a [facility] Cryo-Balloon Left atrial antral ablation for atrial fibrillation General Anesthesia EP study with CS catheter placement His bundle assessment Right and left heart catheterization Intracardiac echocardiography Single transseptal puncture with LA entry Pulmonary vein angiography Three-dimensional intracardiac electroanatomic mapping using the [employer] NAvX System. Intracardiac left atrial ablation of atrial fibrillation for pulmonary vein antral isolation Complex fractionated atrial electrogram ablation IV drug Administration - Isuprel LAUNDERER HAND: Jose Luis Hernández MD FELLOW: none INDICATION [...] deflectable EP catheter inserted via a 6Fr Tongan sheath in the left femoral vein, advanced to the coronary sinus. - Accunav or SJM ICE catheter placed via access with an 11 Tongan sheath in the left femoral vein and [...] as mentioned above. INTRACARDIAC ECHO: A 9 Tongan ICEcatheter was advanced via left femoral vein to mid right atrium to assess cardiac anatomy and to guide transseptal puncture. There was no pericardial effusion or thrombus. The left atrium was mildly enlarged. Intracardiac echo was used to assist and guide transseptal puncture. SINGLE TRANSSEPTAL PUNCTURE WITH LA ENTRY: A short 8 Tongan sheath in the right femoral vein was [...] sheath was then exchanged over to the 15-Tongan FlexCath sheath.The groin access site was dilated using the 14-Tongan dilator before introducing the sheath as well.With [...] LocationTemp @ 30 SecTime To EffectMaximum TempDuration [id number] [id number] [id number] ekfc-[id number] ivad-[id number] [id number] rrqg-[id number] jwgm-[id number] dklq-[id number] tdqs-[id number] There was complete elimination of potentials on [...] with aggressive stimulation and isuprel. ADDITIONAL COMMENTS: --[email or web address] was used as the mapping system for [...] Referring Provider Stacey Underwood CV ECHO PV TITLE I ASSISTANT EP lab Narrative Mildly dilated atria Left [...] Results - ThuOct 27, 2016 2:[address] of the heart with contrast for [...] Results - ThuOct 27, 2016 2:[address] of the heart with contrast for [...] Model # Reveal [id number] Generator Serial # [id number] EP Device Followed by MPE Name ILR [...] Strip VS at 58bpm Remote Monitor Serial# [id number] Generator [employer] Shop Attendant Medtronic Generator Location Left Device Type ILR ILR AF Duration all episodes Device Valentine Carelink Express Transmitter Compatible Narrative [facility] Reveal LINQ Interrogation. Presenting Rhythm: VS at 58bpm. Events since 04/04/16: 98 AF events. [place] 1.1%. Longest duration 5rj6xgj, A rates 86-261bpm. V rates 64-122bpm. Events #267 thru # 296 EGM/Markers show AF/AFL. Pt stated is on [email or web address]. Remote followed by Dr Charles in [place], [place]. Report to MPE in clinic. * ECG/QRS (10/14/2016) Component Value Range QRS DURATION 98
--- OUTSIDE RECORDS SUMMARY | 2017-01-11 05:12 | XMS REPORT | Continuity of Care Document ---
Author Author [facility] Organization [facility] Address Unknown Phone Unavailable Allergies Active Description Code Type Severity Reaction Onset Reported/Identified Relationship to Patient Clinical Status Yes erythromycin base [id number] Drug Allergy Unknown N/A 04/04/2016 Yes levofloxacin [id number] Drug Allergy Unknown N/A 04/04/2016 Medications Problems [...] 04/17/2016 TED MARTINEZ, ABDON Sneed Ot Z79.01 DIRECTOR OF FOOD AND BEVERAGE SERVICES (CURRENT) USE OF ANTICOAGULANT 04/17/2016 ABDON JEAN MD Ot Z79.899 OTHER CORRECTION (CURRENT) DRUG THERAPY 04/24/2016 ABDON JEAN MD Ot E03.9 HYPOTHYROIDISM, UNSPECIFIED 04/24/2016 ABDON JEAN MD Ot E78.5 HYPERLIPIDEMIA, UNSPECIFIED 04/24/2016 ABDON JEAN MD Ot G47.33 OBSTRUCTIVE SLEEP APNEA (ADULT) (PEDIATR 04/24/2016 ABDON JEAN MD Ot I48.0 PAROXYSMAL ATRIAL FIBRILLATION 04/24/2016 ABDON JEAN MD Ot Z79.01 CORRECTION (CURRENT) USE OF ANTICOAGULANT 04/24/2016 ABDON JEAN MD Ot Z79.899 OTHER DIRECTOR OF FOOD AND BEVERAGE SERVICES (CURRENT) DRUG THERAPY 04/25/2016 ABDON JEAN MD [...] FIBRILLATION 04/30/2016 ABDON JEAN MD Ot Z79.01 CORRECTION (CURRENT) USE OF ANTICOAGULANT 04/30/2016 ABDON JEAN MD Ot Z79.899 OTHER DIRECTOR OF FOOD AND BEVERAGE SERVICES (CURRENT) DRUG THERAPY 04/30/2016 ABDON JEAN MD [...] FIBRILLATION 05/06/2016 ABDON JEAN MD Ot Z79.01 DIRECTOR OF FOOD AND BEVERAGE SERVICES (CURRENT) USE OF ANTICOAGULANT 05/06/2016 ABDON JEAN MD Ot Z79.899 OTHER DIRECTOR OF FOOD AND BEVERAGE SERVICES (CURRENT) DRUG THERAPY 05/09/2016 ABDON JAEN MD Ot E03.9 HYPOTHYROIDISM, UNSPECIFIED 05/09/2016 ABDON JEAN MD Ot E78.5 HYPERLIPIDEMIA, UNSPECIFIED 05/09/2016 ABDON JEAN MD Ot G47.33 OBSTRUCTIVE SLEEP APNEA (ADULT) (PEDIATR 05/09/2016 ABDON JEAN MD Ot I48.0 PAROXYSMAL ATRIAL FIBRILLATION 05/09/2016 ABDON JEAN MD Ot Z79.01 CORRECTION (CURRENT) USE OF ANTICOAGULANT 05/09/2016 ABDON JEAN MD Ot Z79.899 OTHER DIRECTOR OF FOOD AND BEVERAGE SERVICES (CURRENT) DRUG THERAPY 05/09/2016 ABDON JEAN MD [...] FIBRILLATION 05/19/2016 ABDON JEAN MD Ot Z79.01 DIRECTOR OF FOOD AND BEVERAGE SERVICES (CURRENT) USE OF ANTICOAGULANT 05/19/2016 ABDON JEAN MD Ot Z79.899 OTHER DIRECTOR OF FOOD AND BEVERAGE SERVICES (CURRENT) DRUG THERAPY 05/21/2016 ABDON JEAN MD [...] MD Ot E78.5 HYPERLIPIDEMIA, UNSPECIFIED 06/09/2016 ABDON JENA MD, Ot G47.33 OBSTRUCTIVE SLEEP APNEA (ADULT) [...] COAGULATION PROFILE 09/09/2016 GELLENDER DOCLAUDINE Ot Z79.01 CORRECTION (CURRENT) USE OF ANTICOAGULANT 09/10/2016 ABDON JEAN MD Ot E03.9 HYPOTHYROIDISM, UNSPECIFIED 09/10/2016 ABDON JEAN MD, Ot E78.5 HYPERLIPIDEMIA, UNSPECIFIED 09/10/2016 ABDON JEAN MD, Ot G47.33 OBSTRUCTIVE SLEEP APNEA (ADULT) (PEDIATR 09/10/2016 ABDON JEAN MD Ot I48.0 PAROXYSMAL ATRIAL FIBRILLATION 09/10/2016 ABDON JEAN MD Ot Z79.01 DIRECTOR OF FOOD AND BEVERAGE SERVICES (CURRENT) USE OF ANTICOAGULANT 09/10/2016 ABDON JEAN MD, Ot Z79.899 OTHER CORRECTION (CURRENT) DRUG THERAPY 09/10/2016 ABDON JEAN MD, [...] PROFILE 09/10/2016 GELXOCHITLDER CLAUDINE ZACARIAS Ot Z79.01 DIRECTOR OF FOOD AND BEVERAGE SERVICES (CURRENT) USE OF ANTICOAGULANT 09/10/2016 EMETERIOLENDER CLAUDINE [...] PROFILE 09/10/2016 CLAUDINE ABRAHAM DO Ot Z79.01 DIRECTOR OF FOOD AND BEVERAGE SERVICES (CURRENT) USE OF ANTICOAGULANT 09/10/2016 CLAUDINE ABRAHAM DO Ot Z87.891 PERSONAL HISTORY OF NICOTINE DEPENDENCE 09/19/2016 SEB MENDOZA PNEUMATIC DEICER INSPECTOR Ot J18.9 PNEUMONIA, UNSPECIFIED ORGANISM 09/24/2016 SEB MENDOZA PNEUMATIC DEICER INSPECTOR Ot J18.9 PNEUMONIA, UNSPECIFIED ORGANISM 09/26/2016 MARTA HANCOCK ACTIVE DIRECTORY SYSTEMS ADMINISTRATOR Ot E03.9 HYPOTHYROIDISM, UNSPECIFIED 09/26/2016 MARTA HANCOCK ACTIVE DIRECTORY SYSTEMS ADMINISTRATOR Ot R06.02 SHORTNESS OF BREATH 10/08/2016 ABDON JEAN MD Ot E03.9 HYPOTHYROIDISM, UNSPECIFIED 10/08/2016 ABDON JEAN MD Ot E78.5 HYPERLIPIDEMIA, UNSPECIFIED 10/08/2016 ABDON JEAN MD Ot G47.33 OBSTRUCTIVE SLEEP APNEA (ADULT) (PEDIATR 10/08/2016 ABDON JEAN MD Ot I48.0 PAROXYSMAL ATRIAL FIBRILLATION 10/08/2016 ABDON JEAN MD Ot Z79.01 DIRECTOR OF FOOD AND BEVERAGE SERVICES (CURRENT) USE OF ANTICOAGULANT 10/08/2016 ABDON JEAN MD Ot Z79.899 OTHER CORRECTION (CURRENT) DRUG THERAPY 10/08/2016 ABDON JEAN MD [...] 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 10/08/2016 MARTA HANCOCK ACTIVE DIRECTORY SYSTEMS ADMINISTRATOR Ot E03.9 HYPOTHYROIDISM, UNSPECIFIED 10/08/2016 MARTA HANCOCK APRN Ot R06.02 SHORTNESS OF BREATH 10/08/2016 SEB MENDOZA Ot J18.9 PNEUMONIA, UNSPECIFIED ORGANISM 10/08/2016 LORETTA AYALA DO Ot R06.00 DYSPNEA, UNSPECIFIED 10/08/2016 LORETTA AYALA DO Ot R09.02 HYPOXEMIA 10/10/2016 MARTA HANCOCK APRN Ot E03.9 HYPOTHYROIDISM, UNSPECIFIED 10/10/2016 MARTA HANCOCK ACTIVE DIRECTORY SYSTEMS ADMINISTRATOR Ot R06.02 SHORTNESS OF BREATH 10/13/2016 SEB MENDOZAP Ot J18.9 PNEUMONIA, UNSPECIFIED ORGANISM 10/17/2016 NUNU QURESHI APRN Ot G47.33 OBSTRUCTIVE SLEEP APNEA (ADULT) ( PEDIATR 10/17/2016 NUNU QURESHI APRN Ot J18.9 PNEUMONIA, UNSPECIFIED ORGANISM 10/17/2016 NUNU QURESHI APRN Ot J30.9 ALLERGIC RHINITIS, UNSPECIFIED 10/17/2016 NUNU QURESHI ACTIVE DIRECTORY SYSTEMS ADMINISTRATOR Ot J47.9 BRONCHIECTASIS, UNCOMPLICATED 10/17/2016 NUNU QURESHI [...] APRN Ot R09.02 HYPOXEMIA 11/24/2016 NUNU QURESHI ACTIVE DIRECTORY SYSTEMS ADMINISTRATOR Ot R94.2 ABNORMAL RESULTS OF PULMONARY FUNCTION [...] SIDE 12/05/2016 SERGIO MORENO MD Ot Z79.01 CORRECTION (CURRENT) USE OF ANTICOAGULANT 12/05/2016 SERGIO MORENO MD, Ot Z87.891 PERSONAL HISTORY OF NICOTINE DEPENDENCE 12/08/2016 SERGIO MROENO MD Ot E03.9 HYPOTHYROIDISM, UNSPECIFIED 12/08/2016 SERGIO [...] HISTORY OF NICOTINE DEPENDENCE 12/12/2016 MARTA HANCOCK ACTIVE DIRECTORY SYSTEMS ADMINISTRATOR Ot M79.604 PAIN IN RIGHT LEG 12/12/2016 MARTA HANCOCK ACTIVE DIRECTORY SYSTEMS ADMINISTRATOR Ot M79.604 PAIN IN RIGHT LEG 12/19/2016 [...] DO Ot I25.10 ATHSCL HEART DISEASE OF [place] CORONARY 12/25/2016 KEESHA MCCALL DO Ot I48.91 [...] A 01/03/2017 MIGUEL MCCALL MD, Ot Z79.01 DIRECTOR OF FOOD AND BEVERAGE SERVICES (CURRENT) USE OF ANTICOAGULANT 01/03/2017 MIGUEL MCCALL MD, Ot Z87.891 PERSONAL HISTORY OF NICOTINE DEPENDENCE 01/03/2017 MIGUEL MCCALL MD, Ot Z98.1 ARTHRODESIS STATUS Procedures Code Description Performed By Performed On [id number] FUSION LUM JT W AUTOL SUB, POST APPR P C 12/22/2016 [id number] FUSION LUM JT W INTBD FUS DEV, POST APPR 12/22/2016 [id number] RESECTION OF LUMBAR VERTEBRAL DISC, OPEN 12/22/2016 [...] ABO+Rh group BN NRG Transfusion band number [id number] NR Blood group antibody screen NEGATIVE NRG [...] or plasma urea nitrogen/creatinine mass ratio 14 [facility] Serum or plasma creatinine measurement with calculation of estimated glomerular filtration rate > [facility] Serum or plasma glucose measurement (mass/volume) [...] plasma albumin measurement (mass/volume) 3.1 g/dL 3.2-4.5 [id number] - 10/16/16 14:27 Serum or plasma urea nitrogen measurement (mass/volume) 13 mg/dL 7-18 Serum or plasma creatinine measurement (mass/volume) 0.88 mg /dL 0.60-1.30 Serum or plasma urea nitrogen/creatinine mass ratio 15 NR Serum or plasma creatinine measurement with calculation of estimated glomerular filtration rate > [facility] Complete blood count (CBC) with automated [...] culture - 12/07/16 21:30 Bacterial urine culture [id number] NRG COLONY COUNT 10,000/ML - 100,000/ML NRG [...] ABO+Rh group BN NRG Transfusion band number [id number] NRG Blood group antibody screen NEGATIVE NRG [...] Status Pt. Type Provider Facility Loc./Unit Complaint [id number] 12/25/2016 11:20:00 2016 14:43:00 DIS Outpatient MIGUEL MCCALL MD [facility] IRF LUMBAR STENOSIS [id number] 12/22/2016 13:12:00 2016 11:20:00 DIS Inpatient KEESHA MCCALL DO [facility] 4TH HERNIATED NUCLEUS PULPOSUS [id number] 12/18/2016 10:01:00 2016 11:00:00 DIS Outpatient KEESHA MCCALL DO [facility] PREOP RIGHT L3-4 TLIF [id number] 12/08/2016 00:27:00 2016 18:47:00 DIS Outpatient SERGIO MORENO MD [facility] 4TH AMS, UTI, MILD HYPONATREMIA [id number] 12/03/2016 22:00:00 2016 12:22:00 DIS Inpatient SERGIO MORENO MD [facility] 4TH INTRACTABLE LOW BACK PAIN WITH SCIATICA [id number] 09/03/2016 22:19:00 2016 17:08:00 DIS Inpatient CLAUDINE ABRAHAM DO [facility] 4TH ELEVATED INR,HEMOPTYSIS, PNEUMONIA [id number] 02/19/2016 19:56:00 2015 06:20:00 DIS Outpatient SERGIO MORENO MD [facility] SLEEP OBSERVED APNEAS,SNORING, HYPERSOMNIA [id number] 12/12/2016 14:09:00 ACT Outpatient MARTA HANCOCK APRN [facility] RAD SEVERE RT LEG PAIN [id number] 12/11/2016 14:30:00 ACT Outpatient LORETTA AYALA DO [facility] PULM DYSPNEA,HYPOXEMIA [id number] 10/16/2016 14:16:00 ACT Outpatient NUNU QURESHI APRN [facility] RAD DECREASED DIFFUSION CAPACITY OF LUNG [id number] 10/08/2016 11:42:00 ACT Outpatient LORETTA AYALA DO [facility] RT DYSPNEA,HYPOXEMIA REQUIRING SUPPLEMENTAL OXYGEN [id number] 09/29/2016 12:42:00 ACT Outpatient LORETTA AYALA DO [facility] RAD DYSPNEA, HYPOXEMIA REQUIRING SUPPLEMENT OXYGEN [id number] 09/18/2016 12:23:00 ACT Outpatient SEB MENDOZA PNEUMATIC DEICER INSPECTOR [facility] RAD PNEUMONIA [id number] 09/03/2016 11:08:00 ACT Outpatient MARTA HANCOCK APRN [facility] RAD SOB, HYPOTHYROID [id number] 04/30/2016 12:27:00 ACT Outpatient ABDON JEAN MD [facility] CARD AF,HLP,ATRIAL BIGEMINY,ROB,PALPITATIONS [id number] 04/24/2016 07:58:00 ACT Outpatient ABDON JEAN MD [facility] CARD AF,HLP,ROB,PALPITATIONS [id number] 04/08/2016 05:55:00 Document Registration [id number] 04/04/2016 09:20:00 ACT Outpatient TED MARTINEZ, ABDON Sneed [facility] AF,PALPITATIONS
== END 2016-12-08 09:46 | disposition home or self-care (01) ==
LOC: EDUNIT# 20:28 → ER 20:31 → 4TH 12-08 00:27 → UNDOADMOB 12-08 00:27 → 4TH 12-08 01:15 → ENPENDDIS 12-08 09:50 → UNDODISOB 12-08 18:47
PROVIDERS: ADMIT Family Medicine; ATTEND Family Medicine
DX: R41.82 Altered mental status, unspecified (principal); N39.0 Urinary tract infection, site not specified; E87.1 Hypo-osmolality and hyponatremia; I48.91 Unspecified atrial fibrillation; I10 Essential (primary) hypertension; K21.9 Gastro-esophageal reflux disease without esophagitis; E03.9 Hypothyroidism, unspecified; Z87.891 Personal history of nicotine dependence
CPT/HCPCS: 36415; 70450; 80053; 81000; 83735; 85025; 87088; 87186; 96374; G0378

== ENCOUNTER 2016-12-11 14:30 | Outpatient (RCR) | payer MEDICARE ==
--- OUTSIDE RECORDS SUMMARY | 2016-10-13 10:18 | XMS REPORT | Continuity of Care Document ---
Author Author [facility] Organization [facility] Address Unknown Phone Unavailable Care Team Providers Care Export Sales Assistant Name Role Phone Niko Underwood PCP [phone] Source Comments Some departments are not documenting in the electronic medical record. If you do not see the information that you expected, contact Release of Information in the Health Information Management department at [phone] for further assistance in locating additional records.[facility] [...] Managed by Dr Lincoln VELOZ, Chas Panda'Neill. [id number] score is 2. On warfarin. 04/04/16 - [...] Cardiology Sharona Guadarrama Records Request - Via [facility]- [phone] 09/18/2016 Telephone Cardiology Ramona Barriga, VALDEZ Notification Of Hospitalization - ED with bleeding inr 9.2, and dx pneumonia 09/05/2016 Refill Cardiology Paula Siddiqi, train brake operator Refill - Metoprolol 09/03/2016 Telephone Cardiology Brooklynn [...] Taken Blood Pressure 116/70 07/18/2016 12:58 PM FLARING MACHINE OPERATOR Pulse 55 07/18/2016 12:58 PM FLARING MACHINE OPERATOR Temperature - - Respiratory Rate - - Height 1.651 m (5' 5") 07/18/2016 12:58 PM FLARING MACHINE OPERATOR Weight 73.029 kg (161 lb) 07/18/2016 12:58 PM FLARING MACHINE OPERATOR Body Mass Index 26.79 07/18/2016 12:58 PM FLARING MACHINE OPERATOR Oxygen Saturation - - Plan of Care Date Type Specialty Providers Description 10/14/2016 Appointment Cardiology Jose Luis Hernández MD [address] [facility] [address] [place] [address] [phone] (Fax) 10/14/2016 Appointment Cardiology Jose Luis Hernández MD [address] [facility] [address] [place] [address] [phone] (Fax) Health Maintenance Due Date Last Done [...]
[~2016-12-11 14:30] MED LIST changes: +CEPH-507 PO
[2016-12-18] MEDS ORDERED: HYDR-3812 PO (10:36)
[2016-12-18] MEDS ORDERED: SENN-20 PO (10:36)
[2016-12-18] MEDS ORDERED: NAPR220T66 PO (10:36)
[2016-12-18] MEDS ORDERED: ENOX40DI8 SQ (10:36)
[2016-12-18] MEDS ORDERED: CRAN1CAP9 PO (11:37)
[2016-12-18] MEDS ORDERED: OMEP20CA12 PO (11:37)
[2016-12-23] MEDS ORDERED: APIX5TAB PO (10:09)
[2016-12-23] MEDS ORDERED: GABA-488 PO (10:10)
[2016-12-25] MEDS ORDERED: OXYC-471 PO (06:27)
[2017-01-02] MEDS ORDERED: OMG1KC PO (09:04)
[2017-01-02] MEDS ORDERED: APIX5TAB PO (09:04)
[2017-01-02] MEDS ORDERED: OXYC-471 PO (09:04)
[2017-01-02] MEDS ORDERED: ONDA4TAB11 PO (10:54)
[2017-01-11] MEDS ORDERED: ALPR0.25 PO (17:54)
[2017-01-11] MEDS ORDERED: ONDA8TAB13 PO (17:54)
[2017-01-11] MEDS ORDERED: NITR-65 PO (17:54)
[2017-01-11] MEDS ORDERED: FAMO-119 PO (17:54)
== END 2017-01-11 | disposition home or self-care (01) ==
LOC: PULM 14:30
PROVIDERS: ATTEND Internal Medicine Critical Care Medicine
DX: R06.00 Dyspnea, unspecified (principal); R09.02 Hypoxemia
CPT/HCPCS: 99211

== ENCOUNTER → 2016-12-12 | Outpatient (CLI) | payer MEDICARE ==
[~2016-12-12] MED LIST changes: +ALPR0.25 PO; +CRAN1CAP9 PO; +ENOX40DI8 SQ; +FAMO-119 PO; +NAPR220T66 PO; +NITR-65 PO; +OMG1KC PO; +ONDA4TAB11 PO; +ONDA8TAB13 PO; +OXYC-471 PO
--- NOTE | 2016-12-12 14:51 | Diagnostic Imaging Report ---
PROCEDURE: US right lower extremity venous. TECHNIQUE: Multiple real-time grayscale images were obtained over the right lower extremity in various projections. Additional duplex Doppler and color Doppler images were also obtained. INDICATION: Severe right leg pain. COMPARISON: None. TECHNIQUE: The right lower extremity deep venous system was interrogated from the common femoral vein through the popliteal vein. These images were assessed for grayscale appearance, color and spectral Doppler blood flow, compression, and augmentation. FINDINGS: There is no evidence of intraluminal filling defect. Normal compression and augmentation is noted throughout. Soft tissues are unremarkable. IMPRESSION: No sonographic evidence of deep venous thrombosis in the right lower extremity. Dictated by: Dictated on workstation # [id number]
== END ==
LOC: RAD 14:09
PROVIDERS: ATTEND Nurse Practitioner Family
DX: M79.604 Pain in right leg (principal)

== ENCOUNTER 2016-12-18 10:01 | Outpatient (CLI) | payer MEDICARE ==
[~2016-12-18] VITALS: Ht 166.4 cm; Wt 68.5 kg
[~2016-12-18 10:01] MED LIST changes: -ALPR0.25 PO; -CRAN1CAP9 PO; -ENOX40DI8 SQ; -FAMO-119 PO; -NAPR220T66 PO; -NITR-65 PO; -OMG1KC PO; -ONDA4TAB11 PO; -ONDA8TAB13 PO; -OXYC-471 PO
[2016-12-18 10:14] VITALS: BP 129/67
[2016-12-18] MEDS ORDERED: NAPR220T66 PO (10:36)
[2016-12-18] MEDS ORDERED: HYDR-3812 PO (10:36)
[2016-12-18] MEDS ORDERED: ENOX40DI8 SQ (10:36)
[2016-12-18] MEDS ORDERED: SENN-20 PO (10:36)
[2016-12-18] MEDS ORDERED: OMEP20CA12 PO (11:37)
[2016-12-18] MEDS ORDERED: CRAN1CAP9 PO (11:37)
== END 2016-12-18 11:00 | disposition home or self-care (01) ==
LOC: PREOP 10:01
PROVIDERS: ATTEND Orthopaedic Surgery
DX: Z01.818 Encounter for other preprocedural examination (principal); Z11.2 Encounter for screening for other bacterial diseases; M51.26 Other intervertebral disc displacement, lumbar region
CPT/HCPCS: 87081

== ENCOUNTER 2016-12-22 13:12 | Inpatient (IN) | payer MEDICARE ==
[~2016-12-22] VITALS: Ht 166.4 cm; Wt 68.5 kg
[~2016-12-22 13:12] MED LIST changes: +CRAN1CAP9 PO; +ENOX40DI8 SQ; +NAPR220T66 PO
[2016-12-22] MEDS ORDERED: CLINDAMYCIN 600 MG/50 ML IVPB 50 ML IV ONE ×2 (13:38→13:45)
[2016-12-22] MEDS ORDERED: CLINDAMYCIN 600 MG/NS 50 ML IVPB IV ONE ×2 (13:45)
--- NOTE | 2016-12-22 13:48 | Progress Note-Pre Operative ---
Pre-Operative Progress Note H&P Reviewed The H&P was reviewed, patient examined and no changes noted. Date H&P Reviewed: Dec 22, 2016 Time H&P Reviewed: 13:48 Pre-Operative Diagnosis: lumbar stensosis and lumbar HNP KEESHA MCCALL DO Dec 22, 2016 13:48
[2016-12-22] MEDS: LACTATED RINGERS 1,000 ML IV PRN ×3 (14:06→21:55)
[2016-12-22] MEDS ORDERED: VANCOMYCIN 1000 MG/VIAL ONE (14:35)
[2016-12-22] MEDS ORDERED: BUPIVACAINE 0.5% 30 ML (SENSORCAINE) VIAL ONE (14:35)
[2016-12-22] MEDS ORDERED: MIDAZOLAM 2 MG/2 ML (VERSED) VIAL ONE (14:45)
[2016-12-22] MEDS ORDERED: fentaNYL INJECTION 250 MCG/5 ML AMP ONE (14:45)
[2016-12-22] MEDS ORDERED: DEXMEDETOMIDINE PRE-MIX (OR) 50 ML IV ONE (14:50)
[2016-12-22] MEDS ORDERED: NEOSTIGMINE (BLOXIVERZ ) 1 MG/1ML 10 ML VIAL ONE (16:18)
[2016-12-22] MEDS ORDERED: GLYCOPYRROLATE 0.2 MG/ML (ROBINUL) 2 ML VIAL ONE (16:18)
[2016-12-22] MEDS ORDERED: proPOfol 200 MG/20 ML (DIPRIVAN) VIAL IV ONE (16:19)
[2016-12-22] MEDS ORDERED: LACTATED RINGERS 1,000 ML IV ONE ×3 (16:19→17:12)
[2016-12-22] MEDS ORDERED: ROCURONIUM 50 MG/5 ML (ZEMURON) VIAL IV ONE (16:19)
[2016-12-22] MEDS ORDERED: SEVOFLURANE (ULTANE) 15 ML INHAL SOLN ONE ×3 (16:19→17:36)
[2016-12-22] MEDS ORDERED: DEXAMETHASONE PF 10 MG/ML (DECADRON) VIAL ONE (16:19)
[2016-12-22] MEDS ORDERED: ONDANSETRON 4 MG/2 ML (SDV) Z0FRAN ONE ×2 (16:19→17:03)
[2016-12-22] MEDS ORDERED: LIDOCAINE PF 2% 10 ML (XYLOCAINE) AMP ONE (16:19)
[2016-12-22] MEDS ORDERED: BACITRACIN 100,000 UNIT/NS 1000 ML POUR BOTTLE IR ONE ×2 (16:30)
[2016-12-22] MEDS ORDERED: fentaNYL INJECTION 100 MCG/2 ML AMP ONE (17:02)
[2016-12-22] MEDS ORDERED: morphine INJ 10 MG/ML 1ML (SYR OR VIAL) ONE (17:03)
[2016-12-22] MEDS ORDERED: HYDROmorphone (DILAUDID) 2 MG/ML VIAL ONE (17:03)
[2016-12-22] MEDS ORDERED: MEPERIDINE (DEMEROL) INJ 50 MG/ML ONE (17:03)
--- NOTE | 2016-12-22 17:29 | Diagnostic Imaging Report ---
INDICATION: Lumbar fusion. IMPRESSION: 38.6 seconds of fluoroscopy was provided for Dr. Trenton Felder during a lumbar fusion. Pedicle screws are seen at what appears to be the L3 and L4 vertebral bodies. Dictated by: Dictated on workstation # [id number]
[2016-12-22] MEDS ORDERED: BISACODYL 10 MG SUPP (DULCOLAX) PR PRN (17:45)
[2016-12-22] MEDS ORDERED: CYCLOBENZAPRINE 10 MG (FLEXERIL) TAB PO PRN (17:45)
[2016-12-22] MEDS ORDERED: ACETAMINOPHEN 325 MG TABLET/CAPLET (TYLENOL) PO PRN (17:45)
[2016-12-22] MEDS ORDERED: ONDANSETRON 4 MG/2 ML (SDV) Z0FRAN IVP PRN (18:15)
[2016-12-22] MEDS ORDERED: morphine INJ 10 MG/ML 1ML (SYR OR VIAL) IVP PRN (18:15)
[2016-12-22 19:00] VITALS: BP 124/59
[2016-12-22] MEDS ORDERED: OXYBUTYNIN ER 5 MG (DITROPAN XL) TAB NON-FORMULARY PO SCH (21:00)
[2016-12-22] MEDS: ATORVASTATIN 10 MG (LIPITOR) TABLET PO SCH (21:55)
[2016-12-22] MEDS: GABAPENTIN 300 MG (NEURONTIN) CAP PO SCH (21:55)
[2016-12-22] MEDS: ceFAZolin INJECTION 1,000 MG in NS (IVPB) 50 ML IV SCH (21:55)
[2016-12-22] MEDS: FAMOTIDINE 20 MG (PEPCID) TABLET PO SCH (21:55)
[2016-12-22 22:04] VITALS: BP 106/55
[2016-12-22] MEDS: meTOprolol TARTRATE 25 MG (LOPRESSOR) TABLET PO SCH (22:08)
[2016-12-23] VITALS: BP 112/57
[2016-12-23] MEDS: morphine INJ 4 MG/ML 1 ML (VIAL/SYRINGE) IVP PRN ×3 (00:09→17:53)
[2016-12-23 04:51] VITALS: BP 101/58
[2016-12-23] MEDS: ceFAZolin INJECTION 1,000 MG in NS (IVPB) 50 ML IV SCH ×2 (05:05→12:39)
[2016-12-23] MEDS: MULTIVIT W/MINERALS TAB (THERAGRAN M) PO SCH (05:56)
[2016-12-23 07:37] LABS: MEAN PLATELET VOLUME 10.2 FL (7.4-10.4); RED BLOOD COUNT 3.48 10^6/uL (4.35-5.85); RED CELL DISTRIBUTION WIDTH 14.6 % (10.0-14.5); WHITE BLOOD COUNT 10.9 10^3/uL (4.3-11.0)
[2016-12-23 07:57] LABS: ALANINE AMINOTRANSFERASE 69 U/L (0-55); ALBUMIN 3.3 G/DL (3.2-4.5); ANION GAP 9 MMOL/L (5-14); ASPARTATE AMINO TRANSFERASE 73 U/L (5-34); BILIRUBIN,TOTAL 0.4 MG/DL (0.1-1.0); BLOOD UREA NITROGEN 9 MG/DL (7-18); BUN/CREATININE RATIO 13; CALCIUM 8.3 MG/DL (8.5-10.1); CARBON DIOXIDE 26 MMOL/L (21-32); CHLORIDE 103 MMOL/L (98-107); GFR ESTIMATED > 60; GLUCOSE 105 MG/DL (70-105); POTASSIUM 3.9 MMOL/L (3.6-5.0); SODIUM 138 MMOL/L (135-145); TOTAL PROTEIN 5.3 G/DL (6.4-8.2)
[2016-12-23 08:00] VITALS: BP 114/56
[2016-12-23] MEDS: oxyCODONE/APAP 5/325MG (PERCOCET 5) TABLET PO PRN ×3 (08:36→22:09)
[2016-12-23] MEDS ORDERED: MULTIVIT W/MINERALS TAB (THERAGRAN M) PO SCH (09:00)
[2016-12-23] MEDS: LEVOTHYROXINE 75 MCG (LEVOTHROID) TABLET PO SCH (09:08)
[2016-12-23] MEDS: GABAPENTIN 300 MG (NEURONTIN) CAP PO SCH ×3 (09:08→20:13)
[2016-12-23] MEDS: meTOprolol TARTRATE 25 MG (LOPRESSOR) TABLET PO SCH ×2 (09:08→21:00)
[2016-12-23] MEDS: FAMOTIDINE 20 MG (PEPCID) TABLET PO SCH ×2 (09:08→20:13)
[2016-12-23] MEDS: OXYBUTYNIN (DITROPAN) 5 MG TAB PO SCH ×3 (09:10→20:13)
[2016-12-23] MEDS ORDERED: APIX5TAB PO (10:09)
[2016-12-23] MEDS ORDERED: GABA-488 PO (10:10)
[2016-12-23 12:00] VITALS: BP 99/49
--- NOTE | 2016-12-23 12:32 | Physical Therapy Evaluation ---
PT Evaluation-General Medical Diagnosis Admission Date Dec 22, 2016 at 13:12 Medical Diagnosis: Lumbar stenosis; lumbar HNP Onset Date: Dec 22, 2016 Therapy Diagnosis Therapy Diagnosis: weakness; abn gait Height/Weight Height (Feet): 5 Height (Inches): 5.50 Weight (Pounds): 151 Weight (Ounces): 0.0 Precautions Precautions/Isolations: Fall Prevention, Standard Precautions Referral Physician: Bradford Reason for Referral: Evaluation/Treatment Medical History Pertinent Medical History: Atrial Fib, Hypothroidism, Smoking Current History Pt admitted with above diagnosis and underwent L3 and L4 fusion Reviewed History: Yes Social History Current Living Status: Spouse Entry Into Home: Stairs With Railing Prior/Core FIM Prior Level of Function Functional [place] Measure 0=Not Assessed/NA 4=Minimal Assistance 1=Total Assistance 5=Supervision or Setup 2=Maximal Assistance 6=Modified [place] 3=Moderate Assistance 7=Complete [place] Prior to onset of back pain, pt was indep with all mobility and self care and able to drive. Recently (approx last 2 weeks) she has needed a cane and is limited in her walking due to back and right leg pain. PT Evaluation-Current Subjective Pt tearful. Pt begging to wait until tomorrow. Pt reporting she has not eaten well for several days and is too weak to participate. Pt did agree to therapy after much encouragement. Pain Numeric Pain Scale: 6 Location: Posterior, Lower Location Body Site: Back Comment: "hurts" Pt/Family Goals Home with her spouse when able. Objective Patient Orientation: Person, Place, Time, Situation Problem Solving: Fair Attachments: Oxygen, May Catheter ROM/Strength ROM Lower Extremities WNL Strenght Lower Extremities strength is functional; able to stand using the FWW; grossly 4/5 Integumentary/Posture Integumentary Intact; covered surgical sites on back; drain in place Bowel Incontinence: No Bladder Incontinence: May Cath Posture normal and symmetrical; upon initial standing she is slightly forward flexed but corrects with cuing. Neuromuscular (Tone, Coordination, Reflexes) Intact and without functional deficit Sensory Vision: Functional Hearing: Functional Hand Dominance: Right Sensation Right Lower Extremit: Intact Sensation Left Lower Extremity: Intact Transfers Functional [place] Measure 0=Not Assessed/NA 4=Minimal Assistance 1=Total Assistance 5=Supervision or Setup 2=Maximal Assistance 6=Modified [place] 3=Moderate Assistance 7=Complete [place] Sit to/from Stand: 4 (CGA and skilled cues to sequence and for hand placement) Gait Mode of Locomotion: Walk Anticipated Mode of Locomotion: Walk Comments/Gait Description Pt did not walk at evaluation; only stood and performed weight shifting. Balance Sitting Static: Good Sitting Dynamic: Good Standing Static: Fair Standing Dynamic: Fair Treatment Sit to stand x 2 with FWW with cues for hand placement and weight shifting. Pt able to stand apprx 1 minute each time and needed encouragement to keep standing and that she is doing well. Assessment/Needs Pt presents post lumbar fusion. Apprehensive about participation with therapy but with gentle and persistent encouragement, she did agree to participate. Pt slow with all tasks and needs frequent cues and encouragement. Pt will benefit from skilled PT intervention to promote functional mobility and strength to allow her to return home and care for herself as before. 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 Time Frame: Dec 30, 2016 Transfers (B,C,W/C) (FIM): 6 Gait (FIM): 6 Gait distance (FIM): 3=150 ft Gait Assistive Device: FWW PT Plan Problem List Problem List: Activity Tolerance, Functional Strength, Safety, Balance, Gait, Transfer, Bed Mobility Treatment/Plan Treatment Plan: Continue Plan of Care Treatment Plan: Bed Mobility, Education, Functional Activity Alicia, Functional Strength, Gait, Safety, Therapeutic Exercise, Transfers Treatment Duration: Dec 30, 2016 # of days/week 6 Visits Per Week: 11 Safety Risks/Education Patient Education: Transfer Techniques, Safety Issues Teaching Recipient: Patient Teaching Methods: Demonstration, Discussion Response to Teaching: Reinforcement Needed Time/GCodes Time In: 1030 Time Out: 1109 Total Billed Treatment Time: 39 Total Billed Treatment visit EVM 15 FA 24 CLEVELAND CLEMENTE PT Dec 23, 2016 12:31
[2016-12-23] MEDS: ONDANSETRON 4 MG/2 ML (SDV) Z0FRAN IV PRN ×2 (12:38→18:40)
--- NOTE | 2016-12-23 12:43 | Diagnostic Imaging Report ---
EXAMINATION: Two views of the lumbar spine. INDICATION: Post lumbar fusion. FINDINGS: There is posterior fusion hardware involving the L3 and L4 levels. There is also a disc cage at this level. There is grade 1 spondylolisthesis of L5 over S1. The vertebral body heights are preserved. There is significant disc height loss and endplate sclerosis involving the L1-2 and L2-3 levels. Multilevel mild anterior osteophytes are seen. There is suggestion of small posterior osteophytes at the L2-3 level. Surgical clips in the right abdomen and a catheter projecting over the upper left abdomen are seen. Sclerotic changes along the lower lumbar spine facet joints are seen. IMPRESSION: Grade 1 spondylolisthesis of L5 over S1. Post surgical fusion changes at L3-4 and degenerative changes as described. Dictated by: Dictated on workstation # [id number]
--- NOTE | 2016-12-23 13:10 | Physical Therapy Daily Note ---
PT Daily Note-Current Subjective Agreeable to PT. Post treatment, pt noted...."I didn't cry this time!". Reports her spouse is an estate administrator of a NH in [place] and she thought about going there for a short stay. Mental Status Patient Orientation: Person, Place, Time, Situation Transfers Functional [place] Measure 0=Not Assessed/NA 4=Minimal Assistance 1=Total Assistance 5=Supervision or Setup 2=Maximal Assistance 6=Modified [place] 3=Moderate Assistance 7=Complete IndependenceIRFPAI Quality Coding Scale 6 Independent with activity with or without an assistive device 5 Patient requires set up or clean up by helper. Patient completes activity by themselves 4 Supervision or touching assist (CGA). [place] provide cues , steadying assist 3 The helper provides less than half the effort to complete the activity 2 The helper provides more than half the effort to complete the activity 1 Dependent. The helper does all the effort to complete an activity 7 Patient refused to complete or attempt activity 9 The patient did not perform the activity before the current illness or injury 88 Not attempted due to Medical conditions or safety concerns Treatments Sit to stand with with skilled cuing for sequencing and CGA. Pt stood approx 1 minute and performed weight shifting and marching. Pt in chair post treatment with needs met. Assessment Current Status: Good Progress Improved initiation and completion of task. Did not have to assist physically with sit to stand this visit. Pt still apprehensive about mobilizing but tolerated better this pm. PT Usp Goals Usp Goals PT Usp Goals Time Frame: Dec 30, 2016 Transfers (B,C,W/C) (FIM): 6 Gait (FIM): 6 Gait distance (FIM): 3=150 ft Gait Assistive Device: FWW PT Plan Problem List Problem List: Activity Tolerance, Functional Strength Treatment/Plan Treatment Plan: Continue Plan of Care Treatment Plan: Bed Mobility, Education, Functional Activity Alicia, Functional Strength, Gait, Safety, Therapeutic Exercise, Transfers Treatment Duration: Dec 30, 2016 Visits Per Week: 11 Time/GCodes Time In: 1245 Time Out: 1308 Total Billed Treatment Time: 23 Total Billed Treatment visit FA 23 CLEVELAND CLEMENTE PT Dec 23, 2016 13:09
--- NOTE | 2016-12-23 14:31 | Progress Note (SOAP) ---
Subjective Subjective/Events-last exam FILI. DOing very well this AM. Has incisional pain but her preoperative RLE pain gone. she is very pleased. she is tolerating PO diet. she has no N/V/CP/SOB. she has been OOB today. Objective Exam Vital Signs Date Time Temp Pulse Resp B/P (MAP) Pulse Ox O2 Delivery O2 Flow Rate FiO2 12/23/16 09:00 Nasal Cannula 2.00 12/23/16 08:00 97.5 70 20 114/56 99 Nasal Cannula 3.00 12/23/16 04:51 98.8 76 18 101/58 97 Nasal Cannula 3.00 12/23/16 00:00 97.4 64 20 112/57 100 Nasal Cannula 3.00 12/22/16 22:04 58 106/55 12/22/16 21:54 3.00 12/22/16 19:30 Nasal Cannula 2.00 12/22/16 19:00 94.2 64 16 124/59 95 Nasal Cannula 3.00 I & O 12/23/16 07:00 Intake Total 3650 ml Output Total 2490 ml Balance 1160 ml Capillary Refill : Extremity: Other (5/5 motor wendi LE, incision CDI, drain o/p minimal, NVSI all dermatomes) Results Lab Laboratory Tests 12/23/16 07:15: White Blood Count 10.9, Red Blood Count 3.48L, Hemoglobin 10.7L, Hematocrit 32L , Mean Corpuscular Volume 91, Mean Corpuscular Hemoglobin 31, Mean Corpuscular Hemoglobin Concent 34, Red Cell Distribution Width 14.6H, Platelet Count 261, Mean Platelet Volume 10.2, Sodium Level 138, Potassium Level 3.9, Chloride Level 103, Carbon Dioxide Level 26, Anion Gap 9, Blood Urea Nitrogen 9, Creatinine 0.70, Estimat Glomerular Filtration Rate > 60, BUN/Creatinine Ratio 13, Glucose Level 105, Calcium Level 8.3L, Total Bilirubin 0.4, Aspartate Amino Transf (AST/SGOT) 73H, Alanine Aminotransferase (ALT/SGPT) 69H, Alkaline Phosphatase 55, Total Protein 5.3L, Albumin 3.3 Assessment/Plan Assessment/Plan Assess & Plan/Chief Complaint ASSESSMENT: s/p TLIF POD 1 PLAN: possible dc SNF tomorrow will consult social insurance administrator for SNF planning per her request OOB with assist d/c drain today Final Diagnosis s/p laminectomy TLIF/excision HNP Clinical Quality Measures DVT/VTE Risk/Contraindication: Risk Factor Score Per Nursin RFS Level Per Nursing on Admit: 4+=Very High KEESHA MCCALL DO Dec 23, 2016 14:31
--- NOTE | 2016-12-23 15:14 | Anesthesia-General Post-Op ---
General Patient Condition Mental Status/LOC: Same as Preop Cardiovascular: Satisfactory Nausea/Vomiting: Absent Respiratory: Satisfactory Pain: Controlled Complications: Absent Post Op Complications Complications None Follow Up Care/Instructions Patient Instructions None needed. Anesthesia/Patient Condition Patient Condition Patient is doing well, no complaints, stable vital signs, no apparent adverse anesthesia problems. No complications reported per nursing. [place] [facility] [place] JSA BASILIO CRNA Dec 23, 2016 15:14
[2016-12-23 15:55] VITALS: BP 106/81
[2016-12-23] MEDS: ATORVASTATIN 10 MG (LIPITOR) TABLET PO SCH (20:13)
[2016-12-23 20:20] VITALS: BP 99/49
[2016-12-23] MEDS: BISACODYL 5 MG (DULCOLAX) TABLET PO PRN (20:27)
[2016-12-24 00:40] VITALS: BP 106/62
[2016-12-24] MEDS: oxyCODONE/APAP 5/325MG (PERCOCET 5) TABLET PO PRN ×2 (03:56→08:24)
[2016-12-24 04:40] VITALS: BP 101/60
--- NOTE | 2016-12-24 05:45 | Progress Note (SOAP) ---
Subjective Subjective/Events-last exam POD #2, s/p L3-4 TLIF VSS, Afebrile Complains of back pain Pre-operative leg pain has resolved Review of Systems General: No Chills, No Night Sweats Pulmonary: No Dyspnea, No Cough Cardiovascular: No: Chest Pain Gastrointestinal: No: Abdominal Pain, Nausea, Vomiting Musculoskeletal: back pain, No: leg pain Neurological: No: Numbness Objective Exam Vital Signs Date Time Temp Pulse Resp B/P (MAP) Pulse Ox O2 Delivery O2 Flow Rate FiO2 12/24/16 00:40 98.7 70 20 106/62 100 Nasal Cannula 2.00 12/23/16 21:00 Room Air 12/23/16 20:20 98.9 69 16 99/49 99 Room Air 12/23/16 16:30 2.00 12/23/16 15:55 97.5 63 24 106/81 100 Room Air 12/23/16 12:00 97.3 63 20 99/49 100 Nasal Cannula 3.00 12/23/16 09:00 Nasal Cannula 2.00 12/23/16 08:00 97.5 70 20 114/56 99 Nasal Cannula 3.00 I & O 12/24/16 07:00 Intake Total 1640 ml Output Total 1265 ml Balance 375 ml Capillary Refill : General Appearance: No Apparent Distress, WD/WN Respiratory: No Respiratory Distress Cardiovascular: Normal Peripheral Pulses Gastrointestinal: soft Extremity: Normal Capillary Refill, Non Tender, No Calf Tenderness Neurologic/Psychiatric: Alert, Oriented x3, No Motor/Sensory Deficits, Normal Mood/Affect, 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 Norm as Tested Skin: Other (Dressing CDI) Results Lab Laboratory Tests 12/23/16 07:15: White Blood Count 10.9, Red Blood Count 3.48L, Hemoglobin 10.7L, Hematocrit 32L , Mean Corpuscular Volume 91, Mean Corpuscular Hemoglobin 31, Mean Corpuscular Hemoglobin Concent 34, Red Cell Distribution Width 14.6H, Platelet Count 261, Mean Platelet Volume 10.2, Sodium Level 138, Potassium Level 3.9, Chloride Level 103, Carbon Dioxide Level 26, Anion Gap 9, Blood Urea Nitrogen 9, Creatinine 0.70, Estimat Glomerular Filtration Rate > 60, BUN/Creatinine Ratio 13, Glucose Level 105, Calcium Level 8.3L, Total Bilirubin 0.4, Aspartate Amino Transf (AST/SGOT) 73H, Alanine Aminotransferase (ALT/SGPT) 69H, Alkaline Phosphatase 55, Total Protein 5.3L, Albumin 3.3 Assessment/Plan Assessment/Plan Assess & Plan/Chief Complaint S/P L3-4 TLIF Lumbar stenosis Lumbar radiculopathy DC planning Clinical Quality Measures DVT/VTE Risk/Contraindication: Risk Factor Score Per Nursin RFS Level Per Nursing on Admit: 4+=Very High JAMAICA BAUMAN Dec 24, 2016 05:45
[2016-12-24] MEDS: MULTIVIT W/MINERALS TAB (THERAGRAN M) PO SCH (06:10)
[2016-12-24 08:00] VITALS: BP 94/55
[2016-12-24] MEDS: FAMOTIDINE 20 MG (PEPCID) TABLET PO SCH ×2 (08:21→20:11)
[2016-12-24] MEDS: GABAPENTIN 300 MG (NEURONTIN) CAP PO SCH ×3 (08:21→20:11)
[2016-12-24] MEDS: LEVOTHYROXINE 75 MCG (LEVOTHROID) TABLET PO SCH (08:21)
[2016-12-24] MEDS: OXYBUTYNIN (DITROPAN) 5 MG TAB PO SCH ×3 (08:21→20:11)
[2016-12-24] MEDS: meTOprolol TARTRATE 25 MG (LOPRESSOR) TABLET PO SCH ×2 (08:46→20:12)
--- NOTE | 2016-12-24 09:11 | OPERATIVE REPORT ---
PROCEDURE PHYSICIAN: KEESHA MCCALL DATE OF PROCEDURE: 12/22/2016 SURGEON: Dr. Bradford D.O. WALL AND FLOOR TILER: LOWELL Gray. This is a medically necessary procedure and periodicals library assistant is necessary for retraction of vital neurovascular structures. Without an periodicals library assistant, the procedure would not be possible. PREOPERATIVE DIAGNOSES: 1. Lumbar herniated nucleus pulposus. 2. Lumbar spinal stenosis (foraminal, bony, connective tissue). 3. Lumbar radiculopathy. POSTOPERATIVE DIAGNOSIS: 1. Lumbar herniated nucleus pulposus. 2. Lumbar spinal stenosis (foraminal, bony, connective tissue). 3. Lumbar radiculopathy. PROCEDURE PERFORMED: 1. L3-4 transforaminal lumbar interbody fusion. 2. L3-4 excision of herniated nucleus pulposus. 3. L3-4 posterior spinal fusion. 4. L3-4 posterior instrumentation. 5. Bilateral laminectomy L3-4. 6. Use of human allograft for spine. 7. Use of local bone autograft. 8. Application of peek cage L3-4. COMPLICATIONS: None. SPECIMEN SENT: None. DRAIN PLACED: Subfascial Hemovac. ANESTHESIA: General endotracheal tube anesthesia with local anesthetic. HISTORY OF PRESENT ILLNESS: Ms. Shirley is a very pleasant 71-year-old patient of mine who has twice been admitted for intractable pain due to her right lower extremity pain. She had an MRI demonstrating a large L3-4 inferiorly extruded herniated nucleus pulposus with severe far lateral foraminal stenosis due to degenerative disc disease. She failed conservative measures. She did wish to proceed with operative intervention. Her blood thinners were held and she was stable for surgery on December 222016. OPERATION: The patient was identified by name on wrist band in the preoperative holding area. Her operative site was signed, consent was signed. SCDs were placed, neural monitoring was hooked up and antibiotics were started. She was taken to the operating room theater and placed under general endotracheal tube anesthesia and transferred to the operating room table in the prone position. All bony prominences were well padded. She was prepped and draped usual sterile fashion. A formal timeout was conducted. Lateral x-ray was brought into place. I marked out the extent of my incision. I then made a midline incision from the spinous process of L3 to spinous process of L4. I proceeded with a bilateral subperiosteal paraspinal muscular approach exposing the posterior elements at this level. I then placed pedicle screws bilaterally in L3 and also in L4. I did this under lateral x-ray. Once the screws were in place I tested with EMG neural monitoring. The screws were in good location. AP and lateral x-ray demonstrated appropriate positioning of the hardware as well. At this point, I turn my attention to the bilateral laminectomy at L3-4, which I accomplished using a high-speed bur, [place] rongeurs and [place] rongeur. Once the decompression was complete, I retracted the thecal sac medially from the right side at L3-4, located the disc space. Performed an annulotomy and followed by complete discectomy; removed as much of the disc material as I could. I then obtained the appropriate size titanium interbody cage packed with human allograft and I seated it in the midline position. At this point, I located the large inferiorly extruded disc fragment and I was able to remove significant portion of disc at the level of the L4 pedicle. Once this was complete, I placed a conrad on the left and conrad on the right, I placed set screws, I final tightened these set screws. I thoroughly irrigated the wound, maintain hemostasis. I packed human allograft and local bone autograft along the transverse processes at the L3-4 level to promote posterior spinal fusion. I then placed a deep subfascial Hemovac drain and I sewed the drain into place. I closed the wound in my usual layered fashion utilizing 0 Vicryl, followed by 2-0 Vicryl, followed by running 3-0 subcuticular stitch. I applied dressings. I took the patient in supine position to the PACU where she awoke without incident. She tolerated the procedure very well. PLAN: At this time is to admit the patient for IV antibiotics, IV pain control and postoperative, monitoring. We will resume her blood thinners after about postop day in 2 or 3, continue her drain and her May per my protocol. We will have her out of bed on postop day one with a brace on. Please note instrumentation utilized was NuVasive for everything. Also note neural monitoring was stable throughout the procedure. Job ID: [id number] Dictated Date: 12/22/2016 17:23:19 Senior Copywriter Date: 12/24/2016 09:00:01 / dhaval
--- NOTE | 2016-12-24 10:37 | Physical Therapy Daily Note ---
PT Daily Note-Current Subjective Patient in recliner pre tx, agrees to PT, patient is very drowsy and falls asleep while talking. Patient states that at rest her pain is only 2/10 with activity it is 9/10. Patient has a back brace to put on when up. Appearance Patient in recliner post tx, has nurse call, phone, tray, all needs met. Patient requests to wear back brace on for now. Mental Status Patient Orientation: Person, Place, Situation back brace on when up Transfers Functional [place] Measure 0=Not Assessed/NA 4=Minimal Assistance 1=Total Assistance 5=Supervision or Setup 2=Maximal Assistance 6=Modified [place] 3=Moderate Assistance 7=Complete IndependenceIRFPAI Quality Coding Scale 6 Independent with activity with or without an assistive device 5 Patient requires set up or clean up by helper. Patient completes activity by themselves 4 Supervision or touching assist (CGA). [place] provide cues , steadying assist 3 The helper provides less than half the effort to complete the activity 2 The helper provides more than half the effort to complete the activity 1 Dependent. The helper does all the effort to complete an activity 7 Patient refused to complete or attempt activity 9 The patient did not perform the activity before the current illness or injury 88 Not attempted due to Medical conditions or safety concerns Transfers (B, C, W/C) (FIM): 3 Sit to/from Stand: 3 cues for safety and hand placement, very slow movement Gait Training Gait (FIM): 1 Distance: 15'x2 Gait Level of Assist: 4 Gait Persons Needed: 1 Gait Assistive Device: FWW Patient ambulated to the other side of the bed to the sink and says she was getting sick, she tried to throw up in the sink but could not, then ambulated back to the chair. 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 Time Frame: Dec 30, 2016 Transfers (B,C,W/C) (FIM): 6 Gait (FIM): 6 Gait distance (FIM): 3=150 ft Gait Assistive Device: FWW PT Plan Problem List Problem List: Activity Tolerance, Functional Strength, Safety, Balance, Gait, Transfer, Bed Mobility, ROM Treatment/Plan Treatment Plan: Continue Plan of Care Treatment Plan: Bed Mobility, Education, Functional Activity Alicia, Functional Strength, Gait, Safety, Therapeutic Exercise, Transfers Treatment Duration: Dec 30, 2016 Visits Per Week: 11 Safety Risks/Education Patient Education: Gait Training, Transfer Techniques, Correct Positioning, Safety Issues Teaching Recipient: Patient Teaching Methods: Demonstration, Discussion Response to Teaching: Reinforcement Needed Time/GCodes Time In: 1010 Time Out: 1030 Total Billed Treatment Time: 20 Total Billed Treatment 1 visit GT 20 min OPAL STRANGE PT Dec 24, 2016 10:37
[2016-12-24 11:47] VITALS: BP 86/51
[2016-12-24] MEDS: BISACODYL 5 MG (DULCOLAX) TABLET PO PRN ×2 (13:03→20:12)
[2016-12-24] MEDS: ONDANSETRON 4 MG/2 ML (SDV) Z0FRAN IV PRN (14:18)
--- NOTE | 2016-12-24 14:22 | Physical Therapy Daily Note ---
PT Daily Note-Current Subjective Patient in recliner bent over sleeping. Agrees to PT upon waking. Patient very anxious. States she has pain of 8/10. Appearance Patient in recliner post tx, she is nauseated and has thrown up in basin, nurse in room taking care of it. Has nurse call,phone, tray, all needs met. Mental Status Patient Orientation: Confused back brace on when up Transfers Functional [place] Measure 0=Not Assessed/NA 4=Minimal Assistance 1=Total Assistance 5=Supervision or Setup 2=Maximal Assistance 6=Modified [place] 3=Moderate Assistance 7=Complete IndependenceIRFPAI Quality Coding Scale 6 Independent with activity with or without an assistive device 5 Patient requires set up or clean up by helper. Patient completes activity by themselves 4 Supervision or touching assist (CGA). [place] provide cues , steadying assist 3 The helper provides less than half the effort to complete the activity 2 The helper provides more than half the effort to complete the activity 1 Dependent. The helper does all the effort to complete an activity 7 Patient refused to complete or attempt activity 9 The patient did not perform the activity before the current illness or injury 88 Not attempted due to Medical conditions or safety concerns Transfers (B, C, W/C) (FIM): 4 Supine to/from Sit: 4 min assist to stand, cues for hand placement Gait Training Gait (FIM): 1 Distance: 20' Gait Level of Assist: 4 Gait Persons Needed: 1 Gait Assistive Device: FWW unsteady, slow, patient needs cues for direction and safety Treatments transfers, ambulation, patient nauseated so no further treatment Assessment Current Status: Poor Progress Patient nauseated and very anxious. PT Residential Goals Feather Separator Goals PT Feather Separator Goals Time Frame: Dec 30, 2016 Transfers (B,C,W/C) (FIM): 6 Gait (FIM): 6 Gait distance (FIM): 3=150 ft Gait Assistive Device: FWW PT Plan Problem List Problem List: Activity Tolerance, Functional Strength, Safety, Balance, Gait, Transfer, Bed Mobility, ROM Treatment/Plan Treatment Plan: Continue Plan of Care Treatment Plan: Bed Mobility, Education, Functional Activity Alicia, Functional Strength, Gait, Safety, Therapeutic Exercise, Transfers Treatment Duration: Dec 30, 2016 Visits Per Week: 11 Safety Risks/Education Patient Education: Gait Training, Transfer Techniques, Correct Positioning, Safety Issues Teaching Recipient: Patient Teaching Methods: Demonstration, Discussion Response to Teaching: Reinforcement Needed Time/GCodes Time In: 1405 Time Out: 1420 Total Billed Treatment Time: 15 Total Billed Treatment 1 visit GT 15 min OPAL STRANGE PT Dec 24, 2016 14:22
[2016-12-24 15:50] VITALS: BP 94/59
[2016-12-24 19:55] VITALS: BP 113/68
[2016-12-24] MEDS: ATORVASTATIN 10 MG (LIPITOR) TABLET PO SCH (20:12)
[2016-12-25] VITALS: BP 108/57
[2016-12-25 04:19] VITALS: BP 118/68
[2016-12-25] MEDS: MULTIVIT W/MINERALS TAB (THERAGRAN M) PO SCH (05:30)
--- NOTE | 2016-12-25 06:18 | Progress Note (SOAP) ---
Subjective Subjective/Events-last exam Bria is POD #3 s/p lumbar decompression and fusion. She reports back pain, her leg pain is gone. She has not been OOB except to use restroom and has not been compliant with IS. Both have been encouraged. We have discussed SNF placement to aid in rehab. She reports + flatus but no BM. She denies fever, chills, cough, shortness of breath. Review of Systems General: No Chills, No Night Sweats HEENT: No Head Aches Pulmonary: No Dyspnea, No Cough Cardiovascular: No: Chest Pain, Palpitations Gastrointestinal: No: Abdominal Pain, Nausea, Vomiting Musculoskeletal: back pain Neurological: No: Incoordination, Numbness, Weakness Objective Exam Vital Signs Date Time Temp Pulse Resp B/P (MAP) Pulse Ox O2 Delivery O2 Flow Rate FiO2 12/25/16 04:19 98.2 72 12 118/68 100 Nasal Cannula 2.00 12/25/16 00:00 98.6 75 16 108/57 100 Nasal Cannula 2.00 12/24/16 21:10 98.6 12/24/16 20:46 Room Air 12/24/16 20:11 100.2 12/24/16 19:55 100.2 85 20 113/68 93 Room Air 12/24/16 15:50 99.4 76 20 94/59 97 Room Air 12/24/16 11:47 98.7 68 20 86/51 93 Room Air 12/24/16 08:42 Room Air 12/24/16 08:00 99.2 74 18 94/55 97 Nasal Cannula 2.00 I & O 12/25/16 07:00 Intake Total 1790 ml Output Total 1525 ml Balance 265 ml Capillary Refill : General Appearance: No Apparent Distress Neck: Normal Inspection Respiratory: No Accessory Muscle Use, No Respiratory Distress Cardiovascular: No Edema, No JVD, Normal Peripheral Pulses Peripheral Pulses: 2+ Dorsalis Pedis (R), 2+ Left Dors-Pedis (L) Gastrointestinal: non tender, soft, no organomegaly, no pulsatile mass Extremity: Normal Capillary Refill, Normal Inspection, Non Tender, No Calf Tenderness Neurologic/Psychiatric: Alert, Oriented x3, No Motor/Sensory Deficits Skin: Normal Color, Warm/Dry Assessment/Plan Assessment/Plan Assess & Plan/Chief Complaint Assessment: POD #3 s/p lumbar decompression and fusion lumbar radiculopathy lumbar stenosis Plan: plan d/c to snf back brace when OOB IS at bedside and encouraged pain control with oral medications follow up in clinic in 2 weeks for post op care keep incision covered dry spine precautions: 10 lb weight restriction Clinical Quality Measures DVT/VTE Risk/Contraindication: Risk Factor Score Per Nursin RFS Level Per Nursing on Admit: 4+=Very High JOSHUA TIRADO Dec 25, 2016 06:18
--- NOTE | 2016-12-25 06:22 | Discharge Summary ---
Diagnosis/Chief Complaint Date of Admission Dec 22, 2016 at 13:12 Date of Discharge Dec 25, 2016 Admission Diagnosis Admission Diagnosis lumbar stenosis with radiculopathy Discharge Diagnosis same Reason Hospital Visit lumbar decompression and fusion for lumbar stenosis with radiculopathy Discharge Summary Hospital Course Hospital Course Bria was admitted to the hospital for lumbar decompression and fusion. The surgery occurred without complication. The patient was monitored and her villas and labs were stable post operatively. PT worked with the patient but due to significant back pain she was limited and will still require PT to aid in ambulation before going home. We discussed SNF which she is agreeable too. Patient is being D/c to SNF on POD #3 in stable condition. She denies new symptoms today other than back pain. Labs Laboratory Tests 12/23/16 07:15: Red Blood Count 3.48L, Hemoglobin 10.7L, Hematocrit 32L, Red Cell Distribution Width 14.6H, Calcium Level 8.3L, Aspartate Amino Transf (AST/SGOT) 73H, Alanine Aminotransferase (ALT/SGPT) 69H, Total Protein 5.3L Procedures None. Discharge Physical Examination Allergies: Coded Allergies: erythromycin base (Verified Allergy, Unknown, 04/04/16) levofloxacin (Verified Allergy, Unknown, 04/04/16) Vitals & I&Os Vital Signs Date Time Temp Pulse Resp B/P (MAP) Pulse Ox O2 Delivery O2 Flow Rate FiO2 12/25/16 04:19 98.2 72 12 118/68 100 Nasal Cannula 2.00 General Appearance: Alert, Oriented X3, Cooperative, No Acute Distress Respiratory: Normal Air Movement Cardiovascular: Regular Rate Abdominal: Soft, No Tenderness, No Masses Extremities: No Clubbing, No Cyanosis, No Edema, Normal Pulses, No Tenderness/ Swelling Skin: No Rashes, No Breakdown Neuro: Normal Speech, Strength at 5/5 X4 Ext, Sensation Intact Discharge Home Medications Reviewed and agree with Discharge Medication list on patient's Discharge Instruction sheet Instructions to Patient/Family Please see electonic discharge instructions given to patient. Clinical Quality Measures DVT/VTE Risk/Contraindication: Risk Factor Score Per Nursin RFS Level Per Nursing on Admit: 4+=Very High JOSHUA TIRADO Dec 25, 2016 06:22
[2016-12-25] MEDS ORDERED: OXYC-471 PO (06:27)
--- NOTE | 2016-12-25 06:32 | Discharge Inst-Simple/Standard ---
Discharge Inst-Standard Discharge Medications New, Converted or Re-Newed RX: RX on Chart Patient Instructions/Follow Up Plan of Care/Instructions/FU: follow up in office in 2 weeks back brace on when out of bed avoid bending, lifting greater than 10 lbs keep incision clean and dry may resume eliquis on 12/27/2016 along with other anticoagulation Activity as Tolerated: No Discharge Diet: No Restrictions Return to The Hospital For: shortness of breath, chest pain, fever, chills, night sweats JOSHUA TIRADO Dec 25, 2016 06:32
[2016-12-25 07:52] VITALS: BP 122/68
[2016-12-25] MEDS: FAMOTIDINE 20 MG (PEPCID) TABLET PO SCH (08:21)
[2016-12-25] MEDS: oxyCODONE/APAP 5/325MG (PERCOCET 5) TABLET PO PRN (08:21)
[2016-12-25] MEDS: LEVOTHYROXINE 75 MCG (LEVOTHROID) TABLET PO SCH (08:21)
[2016-12-25] MEDS: GABAPENTIN 300 MG (NEURONTIN) CAP PO SCH (08:21)
[2016-12-25] MEDS: meTOprolol TARTRATE 25 MG (LOPRESSOR) TABLET PO SCH (08:21)
[2016-12-25] MEDS: OXYBUTYNIN (DITROPAN) 5 MG TAB PO SCH (08:21)
[2016-12-25 12:00] VITALS: BP 122/68
== END 2016-12-25 11:20 | DRG 460 ==
LOC: 4TH 13:12 → SURG 13:13 → EDSTATUS 16:00 → 4TH 19:31
PROVIDERS: ADMIT Orthopaedic Surgery; ATTEND Orthopaedic Surgery
PROC: 0SG0071 Fusion of Lumbar Vertebral Joint with Autologous Tissue Substitute, Posterior Approach, Posterior Column, Open Approach (ICD-10-PCS; 2016-12-22)
PROC: 0ST20ZZ Resection of Lumbar Vertebral Disc, Open Approach (ICD-10-PCS; 2016-12-22)
PROC: 0SG00AJ Fusion of Lumbar Vertebral Joint with Interbody Fusion Device, Posterior Approach, Anterior Column, Open Approach (ICD-10-PCS; principal; 2016-12-22 14:50)
DX: M51.16 Intervertebral disc disorders with radiculopathy, lumbar region (principal); M48.06 Spinal stenosis, lumbar region; M51.37 Other intervertebral disc degeneration, lumbosacral region; M43.10 Spondylolisthesis, site unspecified; M47.27 Other spondylosis with radiculopathy, lumbosacral region; I48.91 Unspecified atrial fibrillation; I10 Essential (primary) hypertension; I25.10 Atherosclerotic heart disease of native coronary artery without angina pectoris; K21.9 Gastro-esophageal reflux disease without esophagitis; Z87.891 Personal history of nicotine dependence
CPT/HCPCS: 36415; 72100; 80053; 85027; 86850; 86900; 86901; 93005; 94664

== ENCOUNTER 2016-12-25 11:20 | Inpatient (IN) | payer MEDICARE ==
[~2016-12-25] VITALS: Ht 165.1 cm; Wt 67.6 kg
[~2016-12-25 11:20] MED LIST changes: +OXYC-471 PO
[2016-12-25 12:45] VITALS: BP 103/65
--- NOTE | 2016-12-25 12:54 | Occupational Therapy Eval ---
OT Evaluation-General/PLF Medical Diagnosis Admission Date Dec 25, 2016 at 11:20 Medical Diagnosis: s/p L3-L4 decompression and fusion Onset Date: Dec 22, 2016 Therapy Diagnosis Therapy Diagnosis: decr self care, weakness, decr activity tolerance, decr functional mobility Height/Weight Height (Feet): 5 Height (Inches): 5.50 Weight (Pounds): 151 Weight (Ounces): 0.0 Precautions Precautions/Isolations: Standard Precautions Referral Referral Comments No bending, no lifting greater than 10#, back brace on when up Medical History Pertinent Medical History: Atrial Fib, Hypothroidism, Smoking Additional Medical History Heartburn, temperature intolerance, hard of hearing, DJD Current History Lumbar stenosis, with hx R low back, R hip and R leg pain and decreased sensation for several months Reviewed History: Yes Social History Home: Multilevel Current Living Status: Spouse Entry Into Home: Stairs With Railing Steps Inside Home: 3 ADL-Prior Level of Function ADL PLOF Comments Pt reported that she has been able to manage all of her basic self care needs prior to admission. She did not work outside of the home. She still drives and manages all her housework. DME/Equipment: Grab Bars, Tub/Shower Drive Self: Yes OT Current Status Subjective Pt seen in room, agreeable to OT. Pain reported 0/10 Appearance Alert, cooperative Mental Status/Objective Patient Orientation: Person, Place, Time, Situation Attachments: [place] Lock Current Glasses/Contacts: Yes Dentures/Partials: Yes (partial, lower) Hand Dominance: Right Upper Extremity ROM Grossly WFL bilat. Pt reported some trouble getting full range L shoulder but range is functional Upper Extremity Sensation WFL, per pt report Upper Extremity Strength Grossly 4/5 bilat. Did not apply much resistance because pt reported it hurt her back. ADL-Treatment ADL-Current Pt was not able to don back brace by herself. It does fit better when applied in standing. Functional [place] Measure 0=Not Assessed/NA 4=Minimal Assistance 1=Total Assistance 5=Supervision or Setup 2=Maximal Assistance 6=Modified [place] 3=Moderate Assistance 7=Complete IndependenceIRFPAI Quality Coding Scale 6 Independent with activity with or without an assistive device 5 Patient requires set up or clean up by helper. Patient completes activity by themselves 4 Supervision or touching assist (CGA). [place] provide cues , steadying assist 3 The helper provides less than half the effort to complete the activity 2 The helper provides more than half the effort to complete the activity 1 Dependent. The helper does all the effort to complete an activity 7 Patient refused to complete or attempt activity 9 The patient did not perform the activity before the current illness or injury 88 Not attempted due to Medical conditions or safety concerns Grooming (FIM): 5 (SBA to wash hands at sink, FWW.) Toileting (FIM): 4 (CGA, FWW to manage clothing. managed hygiee. Taller toilet , grab bar) Toileting Hygiene (QC): 4 (CGA) Transfers (B, C, W/C) (FIM): 4 (CGA to min assist, FWW. SKilled cues for hand placement) Toilet/Commode Transfer (FIM): 4 (CGA, FWW, grab bars, tall toilet. SKilled cues for hand placement) Toilet Transfer (QC): 4 Co-tx with PT due to decreased activity tolerance. OT focused on ADLs and UE function, PT focused on LEs and balance. Education OT Patient Education: Modified ADL techniques, Purpose of tx/functional activities, Rehab process, Safety issues, Transfer techniques Teaching Recipient: Patient Response to Teaching: Reinforcement Needed OT Truck Striker Goals Senior Living Goals Time Frame: January 09, 2017 Eating (FIM): 6 Eating (QC): 6 Groomin Oral Hygiene (QC): 6 Bathing(FIM): 6 Shower/Bathe Self (QC): 6 Upper Body Dressing(FIM): 6 Upper Body Dressing (QC): 6 Lower Body Dressing(FIM): 6 Lower Body Dressing (QC): 6 On/Off Footwear (QC): 6 Toileting(FIM): 6 Toileting Hygiene (QC): 6 Toilet/Commode Transfer(FIM): 6 Toilet/Commode Transfer (QC): 6 Shower Transfer(FIM): 6 Additional Goals: 1-Demonstrate ADL Tasks, 2-Verbalize Understanding, 3- ImproveStrength/Alicia 1=Demonstrate adherence to instructed precautions during ADL tasks. 2=Patient will verbalize/demonstrate understanding of assistive devices/ modifications for ADL. 3=Patient will improve strength/tolerance for activity to enable patient to perform ADL's. OT Education/Plan Problem List/Assessment Assessment: Decreased Activ Tolerance, Decreased UE Strength, Dependent Transfers, Impaired Funct Balance, Impaired Self-Care Skills Pt would benefit from skilled OT to increase her independence in basic self care to allow her to return home safely to live with her and decrease caregiver burden. Discharge Recommendations Plan/Recommendations: Continue POC Treatment Plan/Plan of Care Treatment,Training & Education: Yes Patient would benefit from OT for education, treatment and training to promote independence in ADL's, mobility, safety and/or upper extremity function for ADL' s. Plan of Care: ADL Retraining, Functional Mobility, Group Exercise/Act as Ind ( education, exercise, activity tolerance, functional activities, socialization), UE Funct Exercise/Act, UE Neuromus Re-Ed/Coord Treatment Duration: January 09, 2017 # of days/week 5-6 Visits Per Week: 10-11 Minutes/Day (M-F): 75-90 Minutes/Day (Sat/[place]): PRN Agreement: Yes Rehab Potential: Good Time/GCodes Start Time: 11:10 Stop Time: 11:50 Total Time Billed (hr/min): 40 Billed Treatment Time visit, 10 minutes OT evaluation medium intensity, 30 minutes functional activities co-tx with PT KOLE RAY OT Dec 25, 2016 12:54
[2016-12-25] MEDS ORDERED: NON-FORMULARY MEDICATION 1 EA EA PO SCH ×4 (13:45)
--- NOTE | 2016-12-25 14:31 | ST Cognitive Linguistic Eval ---
Speech Evaluation-General Medical Diagnosis s/p L3-L4 decompression and fusion Onset Date: Dec 22, 2016 Therapy Diagnosis Therapy Diagnosis: Cognitive Linguistic Skills WNL Precautions Precautions/Isolations: Standard Precautions Referral Referring Physician: Dr. Chivo Mendes Reason for Referral: Evaluation/Treatment Cognitive, Speech, and Language Evaluation Medical History Pertinent Medical History: Atrial Fib, Hypothroidism, Smoking Reviewed History: Yes Social History Current Living Status: Spouse Speech PLF-Current Status Prior Level of Function The patient denied cognitive, speech, or language deficits prior to admission. Subjective The patient was recently admitted to [facility] following a back procedure. The patient greeted the clinician appropriately and agreed to participate in the speech, language, and cognitive evaluation on this date. Language Eval: Auditory Comprehends Simple Yes/No Ques: Functional Indent/Objects [place]: Functional Ident/Pics in [place]: Functional Follows 1-Step Commands: Functional Follows Complex Directions: Functional Follows General Conversations: Functional Language Eval: Verbal Language Completes Spontaneous Greeting: Functional Produces Auto, Serial Info: Functional Imitates Simple Words/Phrases: Functional Word Finding: Functional Requests Basic Needs: Functional States Basic Personal Info: Functional Expresses Complex Ideas: Functional Cognitive Patient Orientation The patient was oriented to self, location, month, day of week, date, and year ( independently). Objective Cognitive Domain Attention: WNL Memory: WNL Problem Solving: Functional Objective Impression The patient demonstrated cognitive linguistic skills grossly within normal limits and appropriate for completion of ADL's. Communication/Social Cognition Comprehension: 6 Expression: 6 Social Interaction: 6 Problem Solvin Memory: 5 Speech Patient Assess Expression of Ideas/Wants: Expression (4) Understanding [place] Content: Understands (4) Brief Interview-Mental Status: Yes Repetition of Three Words: Three (3) Temporal Orientation: Year: Correct (3) Temporal Orientation: Month: Accurate within 5 days(2) Temporal Orientation: Day: Correct (1) Recall : Wear to say "Sock": Yes, no cue required (2) Recall : Color: Yes, no cue required (2) Recall : Bed: Yes, no cue required (2) Speech-Plan Treatment Plan Speech Therapy Treatment Plan: Discontinue ST Evaluation, only. Rehab Potential: Good Safety Risks/Education Teaching Recipient: Patient Teaching Methods: Discussion Response to Teaching: Verbalize Understanding Education Topics Provided: Plan of Care, Results, Recommendations Time Speech Therapy Time In: 14:00 Speech Therapy Time Out: 14:15 Total Billed Time: 15 Billed Treatment Time 1, MAYRA SCHMIDT Dec 25, 2016 14:31
[2016-12-25] MEDS: oxyCODONE/APAP 5/325MG (PERCOCET 5) TABLET PO PRN ×2 (15:12→20:55)
--- NOTE | 2016-12-25 15:40 | Physical Therapy Evaluation ---
PT Evaluation-General Medical Diagnosis Admission Date Dec 25, 2016 at 11:20 Medical Diagnosis: s/p L3-L4 decompression and fusion Onset Date: Dec 22, 2016 Therapy Diagnosis Therapy Diagnosis: weakness and abn gait Height/Weight Height (Feet): 5 Height (Inches): 5.50 Weight (Pounds): 151 Weight (Ounces): 0.0 Precautions Precautions/Isolations: Standard Precautions Referral Physician: Vaughn Reason for Referral: Evaluation/Treatment Medical History Pertinent Medical History: Atrial Fib, Hypothroidism, Smoking Current History Admitted post surgery as noted in diagnosis; s/p HNP Reviewed History: Yes Social History Home: Multilevel (but she only lives on the main level) Current Living Status: Spouse Entry Into Home: Stairs With Railing PT Steps Inside Home: 3 Prior/Core FIM Prior Level of Function Functional [place] Measure 0=Not Assessed/NA 4=Minimal Assistance 1=Total Assistance 5=Supervision or Setup 2=Maximal Assistance 6=Modified [place] 3=Moderate Assistance 7=Complete [place] Bed Mobility: 7 Transfers (B,C,W/C) (FIM): 7 Gait: 7 Pt active community ambulator and still drives. However, for the last 2-3 weeks, she has been using a cane and staying in due to extreme back and right leg pain. PT Evaluation-Current Subjective Pt agreeble to PT. Reports she is anxious to start moving more. She did report, "my is trying to get me into the [facility] at [place] , where he is the [employer] administrator." Pain Numeric Pain Scale: 6 Location: Posterior Location Body Site: Back Pain Description: Burning Pt/Family Goals Her goal is to decrease her pain and return gaby.e Objective Patient Orientation: Person, Place, Time, Situation Problem Solving: Fair ROM/Strength ROM Lower Extremities WNL Strenght Lower Extremities grossly 4/5 throughout. Integumentary/Posture Integumentary Intact; refer to nursing notes Bowel Incontinence: No Bladder Incontinence: No Posture normal and symmetrical; in gait, she tends to forward flex at the hips as this is a position of comfort ; slight increase in burning in her back with lumbar neutral for gait. Neuromuscular (Tone, Coordination, Reflexes) WFL Sensory Vision: Functional Hearing: Functional Hand Dominance: Right Sensation Right Lower Extremit: Intact Sensation Left Lower Extremity: Intact Transfers Functional [place] Measure 0=Not Assessed/NA 4=Minimal Assistance 1=Total Assistance 5=Supervision or Setup 2=Maximal Assistance 6=Modified [place] 3=Moderate Assistance 7=Complete IndependenceIRFPAI Quality Coding Scale 6 Independent with activity with or without an assistive device 5 Patient requires set up or clean up by helper. Patient completes activity by themselves 4 Supervision or touching assist (CGA). [place] provide cues , steadying assist 3 The helper provides less than half the effort to complete the activity 2 The helper provides more than half the effort to complete the activity 1 Dependent. The helper does all the effort to complete an activity 7 Patient refused to complete or attempt activity 9 The patient did not perform the activity before the current illness or injury 88 Not attempted due to Medical conditions or safety concerns Transfers (B, C, W/C) (FIM): 3 Scootin Rollin Roll Left to Right (QC): 3 Supine to/from Sit: 3 (assist with both legs into bed) Sit to/from Stand: 4 (CGA and slow with the transfer) Sit to Lying (QC): 3 Lying to Sitting/Side of Bed(Q: 3 Sit to Stand (QC): 4 Chair/Pyp-ki-Ocxle Xfer(QC): 4 Car Transfer (QC): 88 (unsafe to attempt) Pt is slow with all functional transfers and needs skilled cueing to complete. Pt transferred sup to from sit x 2 reps with mod assist. Gait Does the Patient Walk?: Yes Anticipated Mode of Locomotion: Walk Gait (FIM): 4 Distance (FIM): 3=150 ft Walk 10 feet (QC): 4 Walk 50 ft with 2 Turns(QC): 4 Walk 150 ft (QC): 4 Walking 10ft/uneven surface-QC: 4 Gait Assistive Device: FWW Comments/Gait Description Pt ambulated x 150 ft x 4 different episodes; 50 ft x 2 epsisodes with FWW with min -CGA and lumbar brace in situ. Pt required skilled cueing for posture and sequencing for optimal safety with gait. Wheelchair Training Does the Pt Use a Wheelchair?: No Stairs Stairs (FIM): 1 #of Steps: 1 Level of Assist: 4 1 Step (curb) (QC): 4 4 Steps (QC): 88 (unable to attempt due to safety concerns) Assistive Device: Walker 12 Steps (QC): 88 Balance Sitting Static: Good Sitting Dynamic: Good Standing Static: Fair Standing Dynamic: Fair Picking up an Object (QC): 88 (prohibited by no bending) Treatment Review of ARU expectations as well as the treatment POC. Treatment during the course encompassed bed mobility/transfer training; gait training, functional activity tolerance, functional balance activities while completing UE tasks. Partial time was spent co treating with OT so that OT could addres functional tasks while PT could address functional static and dynamic balance. In addition , pt demonstrates decreased functional activity tolerance. Assessment/Needs Pt presents post lumbar surgery with a decline in ability to functionally transfer or ambulate as well as postural abnormalities during gait. In addition she has limited functional activity tolerance and strength deficits that impair her ability to care for herself at home. She is home during the day alone and will need to be mod indep to indep with all functional mobility to safely discharge home. She will benefit from skilled PT intervnetion to work on these deficits to achieve mod indep level. The evaluation is of moderate complexity due to her comorbidites and functions involved. PT Short Term Goals Short Term Goals Time Frame: Jan 01, 2017 Transfers (B,C,W/C) (FIM): 4 Gait (FIM): 4 Distance (FIM): 3=150 ft Gait Assistive Device: FWW PT Prison Goals Marketing Editor Goals PT Prison Goals Time Frame: January 15, 2017 Transfers (B,C,W/C) (FIM): 6 Sit to Lying (QC): 6 Lying-Sitting on Side/Bed(QC): 6 Sit to Stand (QC): 6 Roll Left to Right (QC): 6 Chair/Lpu-hk-Cplnw Xfer(QC): 6 Car Transfer (QC): 5 Does the Patient Walk: Yes Gait (FIM): 6 Gait distance (FIM): 3=150 ft Walk 10 feet (QC): 6 Walk 10ft-Uneven Surface(QC): 6 Walk 50ft with 2 Turns (QC): 6 Walk 150 ft (QC): 6 Gait Level of Assist: 6 Gait Assistive Device: FWW Does the Pt use WC or Scooter?: No Stairs (FIM): 5 # of Steps: 8 1 Step (curb) (QC): 6 4 Steps (QC): 5 12 Steps (QC): 88 Picking up an Object (QC): 88 PT Plan Problem List Problem List: Activity Tolerance, Functional Strength, Safety, Balance, Gait, Transfer, Bed Mobility Treatment/Plan Treatment Plan: Continue Plan of Care Treatment Plan: Bed Mobility, Education, Functional Activity Alicia, Functional Strength, Group Therapy, Gait, Safety, Therapeutic Exercise, Transfers Treatment Duration: January 15, 2017 # of days/week 5-6 Visits Per Week: 10-15 Minutes/Day (M-F): 60-90 Pt/Family Agrees w/Plan: Yes Safety Risks/Education Patient Education: Transfer Techniques, Safety Issues Teaching Recipient: Patient Teaching Methods: Demonstration, Discussion Response to Teaching: Reinforcement Needed Discharge Recommendations Therapy D/C Recommendations: Physical Therapy Home Care Time/GCodes Time In: 1120 Time Out: 1220 (then 1320 to 1355) Total Billed Treatment Time: 95 Total Billed Treatment visit EVM 10 FA 50; (20 minutes were co treat with OT) visit GT 35 [place] CLEMENTE PT Dec 25, 2016 15:40
--- NOTE | 2016-12-25 16:06 | Occupational Ther Daily Note ---
OT Current Status-Daily Note Subjective Pt seen in room, up in recliner, agreeable to OT. She had originally wanted to shower but now would like to wait until tomorrow. No pain initially but in increased to 5-6/10, described as burning in her back. Nursing notified. Appearance Alert, cooperative Mental Status/Objective Functional [place] Measure 0=Not Assessed/NA 4=Minimal Assistance 1=Total Assistance 5=Supervision or Setup 2=Maximal Assistance 6=Modified [place] 3=Moderate Assistance 7=Complete [place] ADL-Treatment Functional [place] Measure 0=Not Assessed/NA 4=Minimal Assistance 1=Total Assistance 5=Supervision or Setup 2=Maximal Assistance 6=Modified [place] 3=Moderate Assistance 7=Complete IndependenceIRFPAI Quality Coding Scale 6 Independent with activity with or without an assistive device 5 Patient requires set up or clean up by helper. Patient completes activity by themselves 4 Supervision or touching assist (CGA). [place] provide cues , steadying assist 3 The helper provides less than half the effort to complete the activity 2 The helper provides more than half the effort to complete the activity 1 Dependent. The helper does all the effort to complete an activity 7 Patient refused to complete or attempt activity 9 The patient did not perform the activity before the current illness or injury 88 Not attempted due to Medical conditions or safety concerns Toilet/Commode Transfer (FIM): 4 Other Treatment Pt had back brace on. Needed min assist sit to stand and then walked to gym with CGA for safety, FWW. Once in the gym, she did 10 minutes bilat UE exercise on arm bike set at 15W resistance, with no recovery periods or breaks. She walked back to her room, CGA for safety, FWW and asked to sit on the toilet. She transferred to toilet with CGA, FWW and use of grab bar. Pt left on toilet, with call light. Nursing notified. Education OT Patient Education: Exercise program, Modified ADL techniques, Purpose of tx/ functional activities, Transfer techniques Teaching Methods: Demonstration, Discussion Response to Teaching: Verbalize Understanding, Return Demonstration, Reinforcement Needed OT Short Term Goals Short Term Goals 1=Demonstrate adherence to instructed precautions during ADL tasks. 2=Patient will verbalize/demonstrate understanding of assistive devices/ modifications for ADL. 3=Patient will improve strength/tolerance for activity to enable patient to perform ADL's. 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 2=Patient will verbalize/demonstrate understanding of assistive devices/ modifications for ADL. 3=Patient will improve strength/tolerance for activity to enable patient to perform ADL's. OT Education/Plan Problem List/Assessment Pt would benefit from skilled OT to increase her independence in basic self care to allow her to return home safely to live with her and decrease caregiver burden. Discharge Recommendations Plan/Recommendations: Continue POC Treatment Plan/Plan of Care Patient would benefit from OT for education, treatment and training to promote independence in ADL's, mobility, safety and/or upper extremity function for ADL' s. Plan of Care: ADL Retraining, Functional Mobility, Group Exercise/Act as Ind ( education, exercise, activity tolerance, functional activities, socialization), UE Funct Exercise/Act, UE Neuromus Re-Ed/Coord Treatment Duration: January 09, 2017 Visits Per Week: 10-11 Minutes/Day (M-F): 75-90 Minutes/Day (Sat/[place]): PRN Agreement: Yes Rehab Potential: Good Time/GCodes Start Time: 14:15 Stop Time: 14:50 Total Time Billed (hr/min): 35 Billed Treatment Time visit, 20 minutes functional activity, 15 minutes exercise KOLE RAY OT Dec 25, 2016 16:06
[2016-12-25 18:38] VITALS: BP 95/58
[2016-12-25] MEDS: CALCIUM CARB + VIT D 600 MG (CALCARB + D) TAB PO SCH (20:52)
[2016-12-25] MEDS: GABAPENTIN 300 MG (NEURONTIN) CAP PO SCH (20:53)
[2016-12-25] MEDS: OXYBUTYNIN (DITROPAN) 5 MG TAB PO SCH (20:53)
[2016-12-25] MEDS: ATORVASTATIN 10 MG (LIPITOR) TABLET PO SCH (20:53)
[2016-12-25] MEDS: meTOprolol TARTRATE 25 MG (LOPRESSOR) TABLET PO SCH (20:53)
[2016-12-26] MEDS: oxyCODONE/APAP 5/325MG (PERCOCET 5) TABLET PO PRN ×3 (01:19→11:18)
[2016-12-26 05:00] VITALS: BP 101/58
[2016-12-26] MEDS: ZINC SULFATE 220 MG CAPSULE PO SCH (06:14)
[2016-12-26] MEDS: LEVOTHYROXINE 75 MCG (LEVOTHROID) TABLET PO SCH (06:14)
[2016-12-26] MEDS ORDERED: CYANOCOBALAMIN 500 MCG TAB (VITAMIN B-12) PO SCH (09:00)
[2016-12-26] MEDS: CALCIUM CARB + VIT D 600 MG (CALCARB + D) TAB PO SCH ×2 (09:00→20:42)
[2016-12-26] MEDS: ASCORBIC ACID (VIT C) 500 MG TABLET PO SCH (09:01)
[2016-12-26] MEDS: PANTOPRAZOLE 20 MG TABLET (PROTONIX) PO SCH (09:01)
[2016-12-26] MEDS: OXYBUTYNIN (DITROPAN) 5 MG TAB PO SCH ×3 (09:01→20:42)
[2016-12-26] MEDS: VITAMIN D3 1,000 UNITS (CHOLECALCIFEROL) TABLET PO SCH (09:01)
[2016-12-26] MEDS: GABAPENTIN 300 MG (NEURONTIN) CAP PO SCH ×3 (09:02→20:43)
[2016-12-26] MEDS: meTOprolol TARTRATE 25 MG (LOPRESSOR) TABLET PO SCH ×2 (09:02→20:43)
[2016-12-26] MEDS: OMEGA 3 (FISH OIL) 1000 MG CAP PO SCH (09:02)
--- NOTE | 2016-12-26 10:02 | History & Physicial ---
History of Present Illness History of Present Illness Reason for visit/HPI PT IS A 71 Y/O FEMALE WHO IS KNOWN TO ME FROM CLINIC AND MULTIPLE PREVIOUS HOSPITALIZATIONS. PT WAS TAKEN TO SURGERY THIS PAST WEEK FOR A HERNIATED NUCLEUS PULPOUS AND WAS SENT TO INPATIENT REHAB FOR FURTHER STRENGTHENING AND REHABILITATION POST- OPERATIVELY. TODAY SHE STATES THAT SHE IS FEELING QUITE A BIT BETTER, SHE STILL HAS BACK PAIN , BUT IS MOVING BETTER OVER THE PAST 24 HOURS. SHE DENIES ANY CHEST PAIN OR SHORTNESS OF BREATH AT THIS TIME. Date of Admission Dec 25, 2016 at 11:20 I consulted on this patient on 12/26/16 09:57 Attending Physician Chivo Mendes MD Admitting Physician Sergio Underwood MD Consult Allergies and Home Medications Allergies Coded Allergies: erythromycin base (Verified Allergy, Unknown, 04/04/16) levofloxacin (Verified Allergy, Unknown, 04/04/16) Home Medications Ascorbic Acid 500 Mg Tablet, 500-1,000 MG PO DAILY, (Reported) Atorvastatin Calcium 10 Mg Tablet, 5 MG PO HS, (Reported) TAKES 1/2 (10MG) TABLET Calcium Carbonate/Vitamin D3 1 Each Tablet, 1 TAB PO BID, (Reported) Cholecalciferol (Vitamin D3) 1,000 Unit Capsule, 1,000 UNIT PO DAILY@1300, ( Reported) Coconut Oil 1,000 Mg Capsule, 2,000 MG PO BID, (Reported) take 2 (1000mg) tabs Cranberry Conc/Ascorbic Acid 1 Each Capsule, 2 CAP PO TID, (Reported) Cyanocobalamin (Vitamin B-12) 50 Mcg Tablet, 50 MCG PO DAILY, (Reported) Gabapentin 300 Mg Capsule, 300 MG PO TID, (Reported) Krill/Om-3/Dha/Epa/Phospho/Ast 1 Each Capsule, 1,000 MG PO DAILY, (Reported) Levothyroxine Sodium 75 Mcg Tablet, 75 MCG PO DAILY, (Reported) Lutein/Zeaxanthin 1 Each Capsule, 1 CAP PO HS, (Reported) Metoprolol Tartrate 25 Mg Tablet, 12.5 MG PO BID, (Reported) TAKES 1/2 (25MG) TABLET Multivitamin 1 Each Tablet, 1 TAB PO DAILY, (Reported) Omeprazole 20 Mg Capsule.dr, 20 MG PO DAILY, (Reported) Oxybutynin Chloride 5 Mg Tab.er.24, 2.5 MG PO TID, (Reported) TAKES 1/2 (5MG) TABLET Oxycodone HCl/Acetaminophen 1 Each Tablet, 1-2 TAB PO Q4H PRN for PAIN-MODERATE TO SEVERE, #90 Prescribed by: JOSHUA TIRADO on 12/25/16 0627 Sennosides/Docusate Sodium 1 Each Tablet, 1 TAB PO BID PRN for CONSTIPATION-6TH LINE, (Reported) Turmeric Root Extract 500 Mg Capsule, 500 MG PO DAILY, (Reported) Zinc Amino Acid Chelate 50 Mg Tablet, 50 MG PO DAILY, (Reported) Past Oiwnfdg-Zwxxmy-Rdddrc Hx Patient Social History Marrital Status: Living Status: LIVES AT HOME WITH HER Employed/Student: retired Alcohol Use: Denies Use Recreational Drug Use: No Smoking Status: Former Smoker Type Used: Cigarettes 2nd Hand Smoke Exposure: No Physical Abuse Screen: No Sexual Abuse: No Recent Foreign Travel: No Contact w/other who traveled: No Recent Hopitalizations: Yes (INTRACTABLE PAIN) Recent Infectious Disease Expo: No Immunizations Up To Date Date of Pneumonia Vaccine: Jun 07, 2012 Date of Influenza Vaccine: Jun 07, 2016 Seasonal Allergies Seasonal Allergies: Yes Surgeries HX Surgeries: Yes (CARDIAC ABLATION FOR ATRIAL FIBRILLATION 11/2016 AT ) Surgeries: Bladder Surgery, Cardiac, Gallbladder, Hysterectomy, Neurological ( BACK SURGERY - 2017), Vascular Surgery Respiratory Hx Respiratory Disorders: Yes Cardiovascular Hx Cardiovascular Disorders: Yes (IMPLANTED ELECTRODE-PER DR JEAN) Cardiac Disorders: Atrial Fibrillation, High Cholesterol, Hypertension Neurological Hx Neurological Disorders: No Reproductive System : No Hx Reproductive Disorders: No Sexually Transmitted Disease: No HIV/AIDS: No Female Reproductive Disorders: Denies Genitourinary Hx Genitourinary Disorders: Yes (STRESS INCONTINENCE) Gastrointestinal Hx Gastrointestinal Disorders: Yes Gastrointestinal Disorders: Gastroesophageal Reflux Musculoskeletal Hx Musculoskeletal Disorders: Yes Musculoskeletal Disorders: Chronic Back Pain Endocrine Hx Endocrine Disorders: Yes Endocrine Disorders: Hypothyroidsim HEENT HX ENT Disorders: No Loss of Vision: Denies Hearing Impairment: Hard of Hearing Cancer Hx Cancer: No Psychosocial Hx Psychiatric Problems: No Integumentary HX Skin/Integumentary Disorder: No Blood Transfusions Hx Blood Disorders: No Adverse Reaction to a Blood Tr: No Reviewed Nursing Assessment Reviewed/Agree w Nursing PMH: Yes Family Medical History Significant Family History: Heart Disease, Hypertension Family Hx: Alcoholism 19 FATHER Constitutional: No chills, No fever, No malaise, weakness (OF LEGS) EENTM: No hoarseness, No mouth pain, No throat pain, No throat swelling Respiratory: No cough, No dyspnea on exertion, No short of breath Cardiovascular: No chest pain, Hx of Intervention Gastrointestinal: No abdominal pain, No constipation, No diarrhea, No loss of appetite, No nausea, No vomiting Genitourinary: no symptoms reported : No Musculoskeletal: back pain, muscle weakness (LEG WEAKNESS) Skin: No change in color, No lesions Psychiatric/Neurological: Denies Anxiety, Denies Depressed All Other Systems Reviewed Negative Unless Noted: Yes Physical Exam Vital Signs Vital Sign - Last 12Hours 12/25/16 12/25/16 12:45 22:20 Temp 97.3 Pulse 76 Resp 18 B/P (MAP) 103/65 Pulse Ox 95 O2 Delivery Room Air O2 Flow Rate 2.00 Capillary Refill : General Appearance: No Apparent Distress, WD/WN Eyes: Bilateral Eye EOMI, Bilateral Eye Normal Inspection, Bilateral Eye PERRL HEENT: PERRL/EOMI, Pharynx Normal Neck: Full Range of Motion, Supple Respiratory: Chest Non Tender, No Accessory Muscle Use, No Respiratory Distress , Crackles (FAINT IN LEFT BASE - CLEARED WITH COUGHING) Cardiovascular: Irregularly Irregular Gastrointestinal: Normal Bowel Sounds, No Organomegaly, No Pulsatile Mass, Non Tender, Soft Rectal: Deferred Back: Other (DRESSING IN PLACE ON BACK, NO ERYTHEMA) Extremity: Normal Capillary Refill, Normal Range of Motion, Non Tender, No Calf Tenderness, No Pedal Edema Neurologic/Psychiatric: Alert, Oriented x3, Normal 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 L3-4 transforaminal lumbar interbody fusion. 2. L3-4 excision of herniated nucleus pulposus. 3. L3-4 posterior spinal fusion. 4. L3-4 posterior instrumentation. 5. Bilateral laminectomy L3-4. 6. Use of human allograft for spine. 7. Use of local bone autograft. 8. Application of peek cage L3-4. ADMISSION TO THE INPATIENT REHAB UNIT - PT TO HAVE PHYSICAL THERAPY FOR STRENGTHENING POST LUMBAR SPINE SURGERY. TRAINING IN SAFE TRANSFERS, MONITORING OF BACK INCISION AND DRAIN OUTPUT. AFIB/HYPERTENSION - RESTARTED ELIQUIS - CONTINUE WITH METOPROLOL FOR HEART RATE CONTROL AND BLOOD PRESSURE CONTROL. GERD - RESTART HOME MEDICATION - OMEPRAZOLE CONSTIPATION - RESTART SENNA NEUROPATHIC PAIN - CONTINUE WITH NEURONTIN HYPOTHYROID - SYMPTOMS STABLE - CONTINUE LEVOTHYROXINE. 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
[2016-12-26] MEDS: MULTIVIT W/MINERALS TAB (THERAGRAN M) PO SCH (12:36)
--- NOTE | 2016-12-26 14:00 | Physical Therapy Daily Note ---
PT Daily Note-Current Subjective pt reports she is tired from taking her shower and getting dressed but is willing to do what she can for PT. Mental Status Patient Orientation: Normal For Age Transfers Functional [place] Measure 0=Not Assessed/NA 4=Minimal Assistance 1=Total Assistance 5=Supervision or Setup 2=Maximal Assistance 6=Modified [place] 3=Moderate Assistance 7=Complete IndependenceIRFPAI Quality Coding Scale 6 Independent with activity with or without an assistive device 5 Patient requires set up or clean up by helper. Patient completes activity by themselves 4 Supervision or touching assist (CGA). [place] provide cues , steadying assist 3 The helper provides less than half the effort to complete the activity 2 The helper provides more than half the effort to complete the activity 1 Dependent. The helper does all the effort to complete an activity 7 Patient refused to complete or attempt activity 9 The patient did not perform the activity before the current illness or injury 88 Not attempted due to Medical conditions or safety concerns Sit to/from Stand: 5 Bed to/from Chair: 5 Gait Training Does the Patient Walk?: Yes Gait (FIM): 5 Distance (FIM): 3=150 ft Distance: 200 Gait Level of Assist: 5 Gait Persons Needed: 1 Gait Assistive Device: FWW Ambulated with instruction to stand upright and avoid trunk flexion. Ambulated 150ft with FWW and SBA, rest, 200ft rest, 150ft. Exercises Standing: Hip Abduction, Heel/toe raises, 3 way Ex=Flex, Abd, Ext, Mini squats , Step-ups Standing Reps: 15 exercises for LE strengthening to promote increased bed mobility and gait NuStep Minutes: 10 NuStep Workload: 3 PT Short Term Goals Short Term Goals Time Frame: Jan 01, 2017 Transfers (B,C,W/C) (FIM): 4 Gait (FIM): 4 Distance (FIM): 3=150 ft Gait Assistive Device: FWW PT Software Testing Specialist Goals Software Testing Specialist Goals PT Software Testing Specialist Goals Time Frame: January 15, 2017 Transfers (B,C,W/C) (FIM): 6 Sit to Lying (QC): 6 Lying-Sitting on Side/Bed(QC): 6 Sit to Stand (QC): 6 Rollin Roll Left to Right (QC): 6 Chair/Rfg-yb-Gmfiz Xfer(QC): 6 Car Transfer (QC): 5 Does the Patient Walk: Yes Gait (FIM): 6 Gait distance (FIM): 3=150 ft Walk 10 feet (QC): 6 Walk 10ft-Uneven Surface(QC): 6 Walk 50ft with 2 Turns (QC): 6 Walk 150 ft (QC): 6 Gait Level of Assist: 6 Gait Assistive Device: FWW Does the Pt use WC or Scooter?: No Stairs (FIM): 5 # of Steps: 8 1 Step (curb) (QC): 6 4 Steps (QC): 5 12 Steps (QC): 88 Picking up an Object (QC): 88 PT Plan Treatment/Plan Treatment Plan: Bed Mobility, Education, Functional Activity Alicia, Functional Strength, Group Therapy, Gait, Safety, Therapeutic Exercise, Transfers Treatment Duration: January 15, 2017 Visits Per Week: 10-15 Minutes/Day (M-F): 60-90 Time/GCodes Time In: 1110 Time Out: 1210 Total Billed Treatment Time: 60 Total Billed Treatment visit, gait 30min, ex 30 min PAPI MÉNDEZ PT Dec 26, 2016 14:00
--- NOTE | 2016-12-26 14:46 | Therapy Group Daily Note ---
Therapy Daily Group Note Other/Notes Each patient participated in group therapy in the common area of the rehab floor. Each patient was transported from their room via wheelchair or ambulation to the common area. After they were gathered each patient had to introduce themselves and state where they were from and recall a specific memory from their past. The group was oriented to the rehab floor because there are several new people and topics such as minutes of therapy needed and the role of the different therapy disciplines and discharge planning were covered. Patients also performed several upper extremity exercises as a group. Patient's also received education orally from the therapists about stroke signs and symptoms. Finally each patient participated in a group activity that involved digital manipulation, memory, critical thinking, problem solving, and strategy. Then each patient was transported back to their rooms via wheelchair or ambulation and placed in a chair or bed with nurse call, phone, and tray within reach. Start Time: 13:00 Stop Time: 14:30 Total Billed Treatment Time: 90 Total Billed Treatment 1 visit GRP 90 min OPAL STRANGE PT Dec 26, 2016 14:46
--- NOTE | 2016-12-26 15:47 | Occupational Ther Daily Note ---
OT Current Status-Daily Note Subjective Pt seen in room, up at EOB, agreeable to OT. Pain reported 0/10. Appearance Alert, cooperative Mental Status/Objective Functional [place] Measure 0=Not Assessed/NA 4=Minimal Assistance 1=Total Assistance 5=Supervision or Setup 2=Maximal Assistance 6=Modified [place] 3=Moderate Assistance 7=Complete [place] ADL-Treatment Functional [place] Measure 0=Not Assessed/NA 4=Minimal Assistance 1=Total Assistance 5=Supervision or Setup 2=Maximal Assistance 6=Modified [place] 3=Moderate Assistance 7=Complete IndependenceIRFPAI Quality Coding Scale 6 Independent with activity with or without an assistive device 5 Patient requires set up or clean up by helper. Patient completes activity by themselves 4 Supervision or touching assist (CGA). [place] provide cues , steadying assist 3 The helper provides less than half the effort to complete the activity 2 The helper provides more than half the effort to complete the activity 1 Dependent. The helper does all the effort to complete an activity 7 Patient refused to complete or attempt activity 9 The patient did not perform the activity before the current illness or injury 88 Not attempted due to Medical conditions or safety concerns Eating (FIM): 6 (dentures. can feed herself and cut up food) Eating (QC): 6 Grooming (FIM): 5 (SBA standing at sink with FWW to clean dentures. Mod I to apply makeup while seated at sink) Oral Hygiene (QC): 4 (SBA standing at sink, FWW) Bathing (FIM): 5 (Pt washed and dried all parts except back, seated on shower bench. SBA when standing to wash jesse and bottom. Grab bars, hand held shower) Shower/Bathe Self (QC): 4 (SBA when standing to wash jesse and bottom) Upper Body (FIM): 5 (setup, including bra and t shirt) Upper Body Dressing (QC): 5 Lower Body Dressing (FIM): 5 (SBA when standing to pull pants up, FWW for bakance. Donned socks and shoes without help except setup (mod technique to tie shoes)) Lower Body Dressing (QC): 4 (SBA, FWW) On/Off Footwear (QC): 5 (setup) Transfers (B, C, W/C) (FIM): 5 (SBA, FWW) Shower Transfer(FIM): 5 (SBA. pt education on hand placement to get in/out of shower. Grab bars, shower bench ) Pt needed assistance to don back brace. Care transferred to PT. Education OT Patient Education: Modified ADL techniques, Progress toward Goal/Update tx plan, Purpose of tx/functional activities, Safety issues Teaching Recipient: Patient Teaching Methods: Demonstration, Discussion Response to Teaching: Verbalize Understanding, Return Demonstration OT Short Term Goals Short Term Goals Transfers (B,C,W/C) (FIM): 4 1=Demonstrate adherence to instructed precautions during ADL tasks. 2=Patient will verbalize/demonstrate understanding of assistive devices/ modifications for ADL. 3=Patient will improve strength/tolerance for activity to enable patient to perform ADL's. OT Halfway Goals Halfway Goals Time Frame: January 09, 2017 Eating (FIM): 6 Eating (QC): 6 Groomin Oral Hygiene (QC): 6 Bathing(FIM): 6 Shower/Bathe Self (QC): 6 Upper Body Dressing(FIM): 6 Upper Body Dressing (QC): 6 Lower Body Dressing(FIM): 6 Lower Body Dressing (QC): 6 On/Off Footwear (QC): 6 Toileting(FIM): 6 Toileting Hygiene (QC): 6 Toilet/Commode Transfer(FIM): 6 Toilet/Commode Transfer (QC): 6 Shower Transfer(FIM): 6 Additional Goals: 1-Demonstrate ADL Tasks, 2-Verbalize Understanding, 3- ImproveStrength/Alicia 1=Demonstrate adherence to instructed precautions during ADL tasks. 2=Patient will verbalize/demonstrate understanding of assistive devices/ modifications for ADL. 3=Patient will improve strength/tolerance for activity to enable patient to perform ADL's. OT Education/Plan Problem List/Assessment Pt would benefit from skilled OT to increase her independence in basic self care to allow her to return home safely to live with her and decrease caregiver burden. Discharge Recommendations Plan/Recommendations: Continue POC Treatment Plan/Plan of Care Patient would benefit from OT for education, treatment and training to promote independence in ADL's, mobility, safety and/or upper extremity function for ADL' s. Plan of Care: ADL Retraining, Functional Mobility, Group Exercise/Act as Ind ( education, exercise, activity tolerance, functional activities, socialization), UE Funct Exercise/Act, UE Neuromus Re-Ed/Coord Treatment Duration: January 09, 2017 Visits Per Week: 10-11 Minutes/Day (M-F): 75-90 Minutes/Day (Sat/[place]): PRN Agreement: Yes Rehab Potential: Good Time/GCodes Start Time: 10:05 Stop Time: 11:10 Total Time Billed (hr/min): 65 Billed Treatment Time visit, 65 minutes ADL KOLE RAY OT Dec 26, 2016 15:47
[2016-12-26] MEDS: SENNA W/DOCUSATE (SENOKOT S) TABLET PO PRN (17:46)
[2016-12-26 18:56] VITALS: BP 121/78
--- NOTE | 2016-12-26 19:35 | PM & R (SOAP) Progress Note ---
Subjective Subjective/Events-last exam Patient was seen in her room this evening with her spouse Patient concerned re Spinal orthosis being uncomfortable and rubbing against her skin The area about the incision site is erythematous at places from apparent irritation fro orthosis Patient admitted to IRU during my absence by DR Underwood PCP Appreciate her assistance,Patient is SBA for gait with FWW Had Been Modified Independent prior to this but having difficulty due to increased back and leg pain Review of Systems Musculoskeletal: back pain skin irritation Objective Exam Last Set of Vital Signs Vital Signs Date Time Temp Pulse Resp B/P (MAP) Pulse Ox O2 Delivery O2 Flow Rate FiO2 12/26/16 09:00 Room Air 12/26/16 05:00 97.8 68 20 101/58 96 1.50 Capillary Refill : I&O Bad table General: Alert, Oriented X3, Cooperative, No Acute Distress, Other (sitting up in chair) HEENT: Atraumatic, PERRLA, EOMI, Mucous Memb Moist/[place] Neck: Supple, No JVD Lungs: Clear to Auscultation Heart: Regular Rate Abdomen: Normal Bowel Sounds, Soft, No Tenderness Extremities: No Edema Skin: Other (mild erythema from Spinal orthosis) Neuro: Other (generalized weakness has active dorsiflexion at both ankles) Assessment/Plan Assessment S/P RT Lumbar 3-4 transforaminal lumbar interbody fusion/posteriorspinal fusion with excision HNP postop anemia A FIB controlled with meds Chronic OAC Chronic back pain Mild dermatitis fro spinal orthosis Gerd on meds Atelectasis Using IS Plan Continue PT/OT/skin care and pain management Leave brace off when in bed Check with PT/ortho re better fitting spinal orthosis F/U with DR Underwood and orthospine Continue with current meds and IS MIGUEL MCCALL MD Dec 26, 2016 19:35
--- NOTE | 2016-12-26 19:50 | PM&R Post Admission Assessment ---
Post Admission Physician Asses The preadmission screen agrees with the post admission assessment that the patient is a good candidate for inpatient rehabilitation. The patient will have a comprehensive program of inpatient rehabilitation with a goal of maximizing level of functional dependence prior to discharge home with [family]. The patient will have PT/OT ninety minutes per day, each discipline, five days a week for gait strengthening, conditioning, balance, ADLs , any patient/family/caregiver training necessary. Speech therapy to do cognitive assessment and treat as indicted. Rehabilitation nursing to assist with bowel, bladder, skin, wound care, medication administration, pain management. Pick Up Man to assist with discharge planning, community reentry. SCD's for DVT prophylaxis. She appears to be well motivated to participate in three hours of therapy a day. She should be able to tolerate three hours of therapy a day from a medical standpoint. She should benefit from the three hours of therapy a day. She has a reasonable discharge plan, reasonable discharge rehabilitation goals and a supportive family. She has various comorbidities that need to be closely monitored with medications and treatments adjusted on a daily basis as needed. These include: Postop atelectasis Mild dermatitis and discomfort from spinal orthosis A FIB controlled with meds OAC Gerd Postop anemia Chronic constipation Barriers to discharge for this patient who had been independent prior to this are for her to be modified independent to supervision for ADLs and mobility skills prior to discharge home with [family], so as to lessen the burden of the caregivers. Risks for this patient include: 1. Fall 2. Fracture 3. DVT 4. Pulmonary embolism 5. Wound infection 6. Skin breakdown 7. Contractures 8. Poorly controlled pain 9. Urinary retention 10. UTI 11. Respiratory infection 12. Aspiration 13. Poorly controlled A FIB 14. Skin breakdown fron Spinal orthosis 15. Worsening constipation-Has hx of chronic constipation 16. Worsening postop anemia 17. Worsening atelectasis Estimated Length of Stay: 14 days Prognosis: Rehab prognosis appears good for goal of discharge home with spouse modified independent to supervision for ADLs and mobility skills. MIGUEL MCCALL MD Dec 26, 2016 19:50
--- NOTE | 2016-12-26 19:56 | Individualized Plan of Care ---
Individualized Plan of Care Rehab Nursing IPOC Order Admission Date Dec 25, 2016 at 11:20 Current Orders Orders Atorvastatin Tablet (Lipitor Tablet) (12/25/16 21:00) Gabapentin Capsule/Tablet (Neurontin Cap (12/25/16 21:00) Levothyroxine Tablet (Synthroid Tablet) (12/26/16 06:30) Metoprolol Tartrate (Ir) Tab (Lopressor (12/25/16 21:00) Oxybutynin Tablet (Ditropan Tablet) (12/25/16 21:00) Therapeutic Multivitamin Tab (Vitamins, (12/26/16 11:29) Patient Visit (12/26/16 ) Exercise Therap, Ea 15 Min (12/26/16 ) Gait Training, Ea 15 Min (12/26/16 ) Patient Visit (12/26/16 ) Therapeutic, Group (12/26/16 ) Toilet every (bladder): (hrs): 2 hours while awake PRN and monitor for urinary retention Other Nursing Orders: Adjust Meds for chronic constipation as needed Monitor skin adjacent to spi PT IPOC Problem List: Activity Tolerance, Functional Strength, Safety, Balance, Gait, Transfer, Bed Mobility Treatment Plan: Continue Plan of Care Bed Mobility, Education, Functional Activity Alicia, Functional Strength, Group Therapy, Gait, Safety, Therapeutic Exercise, Transfers Treatment Duration: January 15, 2017 Visits Per Week: 10-15 Minutes/Day (M-F): 60-90 Minutes/Day (Sat/Gibson): prn OT IPOC Problems: Decreased Activ Tolerance, Decreased UE Strength, Dependent Transfers , Impaired Funct Balance, Impaired Self-Care Skills OT Problems Pt would benefit from skilled OT to increase her independence in basic self care to allow her to return home safely to live with her and decrease caregiver burden. Plan of Care: ADL Retraining, Functional Mobility, Group Exercise/Act as Ind ( education, exercise, activity tolerance, functional activities, socialization), UE Funct Exercise/Act, UE Neuromus Re-Ed/Coord Treatment Duration: January 09, 2017 Visits Per Week: 10-11 Minutes/Day (M-F): 75-90 Minutes/Day (Sat/Gibson): PRN ST IPOC Speech Therapy Treatment Plan: Discontinue ST Physician IPOC Medical Issues being managed closely and that require the 24 hour availability of a physician: pain management chronic constipation GERD Skin irritation under spinal orthosis A Fib postop anemia Atelectasis Medical Issues: Bowel/Bladder Function, DVT Prophylaxis, Falls Precautions, Fluid/Electrolyte/Nutrition Balance, Infection Protection, Pain Management, Wound Care, Other (List) (as per above incision has island dressing in place which is clean and dry) Brief Synthesis of Preadmission Screen, Post-Admission Evaluation, and Therapy Evaluations: 71 yo female who underewent lumbar spine surgery 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
[2016-12-26 20:40] VITALS: BP 125/77
[2016-12-26] MEDS: ATORVASTATIN 10 MG (LIPITOR) TABLET PO SCH (20:43)
[2016-12-27 05:36] VITALS: BP 126/76
[2016-12-27] MEDS: ZINC SULFATE 220 MG CAPSULE PO SCH (06:08)
[2016-12-27] MEDS: MULTIVIT W/MINERALS TAB (THERAGRAN M) PO SCH (06:08)
[2016-12-27] MEDS: LEVOTHYROXINE 75 MCG (LEVOTHROID) TABLET PO SCH (06:08)
[2016-12-27] MEDS: GABAPENTIN 300 MG (NEURONTIN) CAP PO SCH ×3 (09:01→20:26)
[2016-12-27] MEDS: APIXABAN 5 MG (ELIQUIS) TABLET PO SCH ×2 (09:02→20:27)
[2016-12-27] MEDS: CALCIUM CARB + VIT D 600 MG (CALCARB + D) TAB PO SCH ×2 (09:02→20:26)
[2016-12-27] MEDS: meTOprolol TARTRATE 25 MG (LOPRESSOR) TABLET PO SCH ×2 (09:02→20:26)
[2016-12-27] MEDS: VITAMIN D3 1,000 UNITS (CHOLECALCIFEROL) TABLET PO SCH (09:02)
[2016-12-27] MEDS: OXYBUTYNIN (DITROPAN) 5 MG TAB PO SCH ×3 (09:02→20:27)
[2016-12-27] MEDS: OMEGA 3 (FISH OIL) 1000 MG CAP PO SCH (09:02)
[2016-12-27] MEDS: ASCORBIC ACID (VIT C) 500 MG TABLET PO SCH (09:02)
[2016-12-27] MEDS: PANTOPRAZOLE 20 MG TABLET (PROTONIX) PO SCH (09:02)
[2016-12-27] MEDS: ONDANSETRON 4 MG (ZOFRAN) ORAL DISSOLVE TAB PO PRN (10:26)
--- NOTE | 2016-12-27 10:56 | Physical Therapy Progress Note ---
Therapy Progress Note Patient adamantly declined PT secondary to Nausea, dizziness and lethargy. RN notified and issued nausea medication. PT will attempt later on this date. 1 ref RAYMON COY PT Dec 27, 2016 10:56
--- NOTE | 2016-12-27 11:59 | Physical Therapy Daily Note ---
PT Daily Note-Current Subjective Patient reluctantly agrees to PT. After much encouragement, agrees. Pain Numeric Pain Scale: 5-Moderate Pain Location: Lower Location Body Site: Back Pain Description: Acute Mental Status Patient Orientation: Normal For Age Transfers Functional [place] Measure 0=Not Assessed/NA 4=Minimal Assistance 1=Total Assistance 5=Supervision or Setup 2=Maximal Assistance 6=Modified [place] 3=Moderate Assistance 7=Complete IndependenceIRFPAI Quality Coding Scale 6 Independent with activity with or without an assistive device 5 Patient requires set up or clean up by helper. Patient completes activity by themselves 4 Supervision or touching assist (CGA). [place] provide cues , steadying assist 3 The helper provides less than half the effort to complete the activity 2 The helper provides more than half the effort to complete the activity 1 Dependent. The helper does all the effort to complete an activity 7 Patient refused to complete or attempt activity 9 The patient did not perform the activity before the current illness or injury 88 Not attempted due to Medical conditions or safety concerns Transfers (B, C, W/C) (FIM): 4 Scootin Sit to/from Stand: 4 Sit to Stand (QC): 4 Gait Training Does the Patient Walk?: Yes Gait (FIM): 5 Distance (FIM): 3=150 ft Distance: 350' Walk 10 feet (QC): 5 Walk 50 ft with 2 Turns(QC): 5 Walk 150 ft (QC): 5 Gait Level of Assist: 5 Gait Assistive Device: FWW safe and functional Assessment Patient requires time to complete all functional tasks. Patient progressing with treatment plan. PT Short Term Goals Short Term Goals Time Frame: Jan 01, 2017 Transfers (B,C,W/C) (FIM): 4 Gait (FIM): 4 Distance (FIM): 3=150 ft Gait Assistive Device: FWW PT Assembly Operator Goals Assembly Operator Goals PT Skilled Nursing Goals Time Frame: January 15, 2017 Transfers (B,C,W/C) (FIM): 6 Sit to Lying (QC): 6 Lying-Sitting on Side/Bed(QC): 6 Sit to Stand (QC): 6 Rollin Roll Left to Right (QC): 6 Chair/[id number] Xfer(QC): 6 Car Transfer (QC): 5 Does the Patient Walk: Yes Gait (FIM): 6 Gait distance (FIM): 3=150 ft Walk 10 feet (QC): 6 Walk 10ft-Uneven Surface(QC): 6 Walk 50ft with 2 Turns (QC): 6 Walk 150 ft (QC): 6 Gait Level of Assist: 6 Gait Assistive Device: FWW Does the Pt use WC or Scooter?: No Stairs (FIM): 5 # of Steps: 8 1 Step (curb) (QC): 6 4 Steps (QC): 5 12 Steps (QC): 88 Picking up an Object (QC): 88 PT Plan Treatment/Plan Treatment Plan: Continue Plan of Care Treatment Plan: Bed Mobility, Education, Functional Activity Alicia, Functional Strength, Group Therapy, Gait, Safety, Therapeutic Exercise, Transfers Treatment Duration: January 15, 2017 Visits Per Week: 10-15 Minutes/Day (M-F): 60-90 Minutes/Day (Sat/Gibson): prn Time/GCodes Time In: 1107 Time Out: 1127 Total Billed Treatment Time: 20 Total Billed Treatment 1 visit GT 20 min RAYMON COY PT Dec 27, 2016 11:59
[2016-12-27] MEDS ORDERED: MILK OF MAGNESIA 400 MG/5 ML 30 ML UDC PO NR (12:15)
[2016-12-27 18:00] VITALS: BP 120/76
[2016-12-27] MEDS: oxyCODONE/APAP 5/325MG (PERCOCET 5) TABLET PO PRN ×2 (20:26→23:29)
[2016-12-27] MEDS: ATORVASTATIN 10 MG (LIPITOR) TABLET PO SCH (20:27)
[2016-12-28] MEDS: oxyCODONE/APAP 5/325MG (PERCOCET 5) TABLET PO PRN ×4 (04:04→19:50)
[2016-12-28 05:21] VITALS: BP 110/57
[2016-12-28] MEDS: ZINC SULFATE 220 MG CAPSULE PO SCH (06:18)
[2016-12-28] MEDS: MULTIVIT W/MINERALS TAB (THERAGRAN M) PO SCH (06:18)
[2016-12-28] MEDS: LEVOTHYROXINE 75 MCG (LEVOTHROID) TABLET PO SCH (06:18)
[2016-12-28] MEDS: MILK OF MAGNESIA 400 MG/5 ML 30 ML UDC PO PRN (09:00)
[2016-12-28] MEDS: OMEGA 3 (FISH OIL) 1000 MG CAP PO SCH (09:01)
[2016-12-28] MEDS: APIXABAN 5 MG (ELIQUIS) TABLET PO SCH ×2 (09:01→19:51)
[2016-12-28] MEDS: OXYBUTYNIN (DITROPAN) 5 MG TAB PO SCH ×3 (09:01→19:51)
[2016-12-28] MEDS: CALCIUM CARB + VIT D 600 MG (CALCARB + D) TAB PO SCH ×2 (09:01→19:51)
[2016-12-28] MEDS: ASCORBIC ACID (VIT C) 500 MG TABLET PO SCH (09:02)
[2016-12-28] MEDS: meTOprolol TARTRATE 25 MG (LOPRESSOR) TABLET PO SCH ×2 (09:02→19:50)
[2016-12-28] MEDS: VITAMIN D3 1,000 UNITS (CHOLECALCIFEROL) TABLET PO SCH (09:02)
[2016-12-28] MEDS: GABAPENTIN 300 MG (NEURONTIN) CAP PO SCH ×3 (09:02→19:50)
[2016-12-28] MEDS: PANTOPRAZOLE 20 MG TABLET (PROTONIX) PO SCH (09:02)
[2016-12-28 17:48] VITALS: BP 122/72
[2016-12-28] MEDS ORDERED: FLEET ENEMA ADULT 1 EA BTL PR PRN (18:30)
[2016-12-28] MEDS: ATORVASTATIN 10 MG (LIPITOR) TABLET PO SCH (19:51)
[2016-12-29] MEDS: oxyCODONE/APAP 5/325MG (PERCOCET 5) TABLET PO PRN ×4 (00:26→17:38)
[2016-12-29] MEDS: MULTIVIT W/MINERALS TAB (THERAGRAN M) PO SCH (05:35)
[2016-12-29] MEDS: ZINC SULFATE 220 MG CAPSULE PO SCH (05:35)
[2016-12-29] MEDS: LEVOTHYROXINE 75 MCG (LEVOTHROID) TABLET PO SCH (05:35)
[2016-12-29 05:50] VITALS: BP 112/62
[2016-12-29] MEDS: CALCIUM CARB + VIT D 600 MG (CALCARB + D) TAB PO SCH ×2 (08:07→20:04)
[2016-12-29] MEDS: meTOprolol TARTRATE 25 MG (LOPRESSOR) TABLET PO SCH ×2 (08:08→20:04)
[2016-12-29] MEDS: OXYBUTYNIN (DITROPAN) 5 MG TAB PO SCH ×3 (08:08→20:03)
[2016-12-29] MEDS: APIXABAN 5 MG (ELIQUIS) TABLET PO SCH ×2 (08:09→20:05)
[2016-12-29] MEDS: VITAMIN D3 1,000 UNITS (CHOLECALCIFEROL) TABLET PO SCH (08:09)
[2016-12-29] MEDS: GABAPENTIN 300 MG (NEURONTIN) CAP PO SCH ×3 (08:11→20:04)
[2016-12-29] MEDS: OMEGA 3 (FISH OIL) 1000 MG CAP PO SCH ×2 (08:11→08:19)
[2016-12-29] MEDS: ASCORBIC ACID (VIT C) 500 MG TABLET PO SCH (08:11)
[2016-12-29] MEDS: PANTOPRAZOLE 20 MG TABLET (PROTONIX) PO SCH (08:11)
[2016-12-29] MEDS: MILK OF MAGNESIA 400 MG/5 ML 30 ML UDC PO PRN (09:42)
--- NOTE | 2016-12-29 10:25 | Physical Therapy Daily Note ---
PT Daily Note-Current Subjective Pt. initially resists getting up stating she knows her pain rating which is now a 2/10 will raise. Pt. explains she is dealing with constipation. States she had a Fleets last night and it helped a little bit. Pain Numeric Pain Scale: 3 Location: Medial Location Body Site: Back Pain Description: Ache Mental Status Patient Orientation: Normal For Age Transfers Functional [place] Measure 0=Not Assessed/NA 4=Minimal Assistance 1=Total Assistance 5=Supervision or Setup 2=Maximal Assistance 6=Modified [place] 3=Moderate Assistance 7=Complete IndependenceIRFPAI Quality Coding Scale 6 Independent with activity with or without an assistive device 5 Patient requires set up or clean up by helper. Patient completes activity by themselves 4 Supervision or touching assist (CGA). [place] provide cues , steadying assist 3 The helper provides less than half the effort to complete the activity 2 The helper provides more than half the effort to complete the activity 1 Dependent. The helper does all the effort to complete an activity 7 Patient refused to complete or attempt activity 9 The patient did not perform the activity before the current illness or injury 88 Not attempted due to Medical conditions or safety concerns Transfers (B, C, W/C) (FIM): 5 Scootin Rollin Supine to/from Sit: 5 Sit to/from Stand: 5 Bed to/from Chair: 5 Gait Training Does the Patient Walk?: Yes Gait (FIM): 5 Distance (FIM): 3=150 ft (x3) Gait Level of Assist: 5 Gait Persons Needed: 1 Gait Assistive Device: FWW slow, kyphotic Exercises Supine Ex: Ankle pumps, Quad Set, Rolling, Glut sets, Heel Slides, Short Arc Quads, Scooting, Hip abd/add Supine Reps: 15 Seated Therapy Exercises: Ankle pumps, Sit to stand, Long arc quads, Hip flexion Seated Reps: 10 Treatments in bathroom for some grooming, pt. brushed her hair at mirror before Rx Assessment Current Status: Good Progress PT Short Term Goals Short Term Goals Time Frame: Jan 01, 2017 Transfers (B,C,W/C) (FIM): 4 Gait (FIM): 4 Distance (FIM): 3=150 ft Gait Assistive Device: FWW PT Custodial Goals Advertising Agency Manager Goals PT Advertising Agency Manager Goals Time Frame: January 15, 2017 Transfers (B,C,W/C) (FIM): 6 Sit to Lying (QC): 6 Lying-Sitting on Side/Bed(QC): 6 Sit to Stand (QC): 6 Rollin Roll Left to Right (QC): 6 Chair/Vpv-fz-Iveav Xfer(QC): 6 Car Transfer (QC): 5 Does the Patient Walk: Yes Gait (FIM): 6 Gait distance (FIM): 3=150 ft Walk 10 feet (QC): 6 Walk 10ft-Uneven Surface(QC): 6 Walk 50ft with 2 Turns (QC): 6 Walk 150 ft (QC): 6 Gait Level of Assist: 6 Gait Assistive Device: FWW Does the Pt use WC or Scooter?: No Stairs (FIM): 5 # of Steps: 8 1 Step (curb) (QC): 6 4 Steps (QC): 5 12 Steps (QC): 88 Picking up an Object (QC): 88 PT Plan Treatment/Plan Treatment Plan: Continue Plan of Care Treatment Plan: Bed Mobility, Education, Functional Activity Alicia, Functional Strength, Group Therapy, Gait, Safety, Therapeutic Exercise, Transfers Treatment Duration: January 15, 2017 Visits Per Week: 10-15 Minutes/Day (M-F): 60-90 Minutes/Day (Sat/[place]): prn Safety Risks/Education Patient Education: Gait Training, Transfer Techniques, Correct Positioning, Disease Process, Safety Issues Teaching Recipient: Patient Teaching Methods: Demonstration, Discussion Response to Teaching: Verbalize Understanding, Return Demonstration Time/GCodes Time In: 930 Time Out: 1015 Total Billed Treatment Time: 45 Total Billed Treatment 1,FA15m,EX15m,GT15m G Codes Necessary: DAYANA Dunn LAB CLERK Dec 29, 2016 10:24
[2016-12-29] MEDS: ONDANSETRON 4 MG (ZOFRAN) ORAL DISSOLVE TAB PO PRN (12:08)
--- NOTE | 2016-12-29 14:56 | Therapy Group Daily Note ---
Therapy Daily Group Note Patient Education Topic Home Safety Exercises LE Seated Exercise, Sit to/from Stand, UE Exercise Other/Notes Pt. attended group PT OT ST session this date. Pt. ambulated with FWW and did sit to stand portion of bag toss game. Pt. introduced self and was social. Education and game this date focused on Home safety aspects. Pts did sit to stand and bag toss onto a safety topic written on scattered pieces of paper on floor. Pts expressed her views of safety in the home while dealing with pets. Voice exercises were also done per REINFORCING STEEL MACHINE OPERATOR. Pt. to room after with mod assist to bed and to doff pants etc. Start Time: 13:00 Stop Time: 14:15 Total Billed Treatment Time: 75 Total Billed Treatment 1,GRP DAYANA HOOKS BANKING ASSISTANT Dec 29, 2016 14:56
--- NOTE | 2016-12-29 15:39 | Occupational Ther Daily Note ---
OT Current Status-Daily Note Subjective Pt seen in room, up in recliner, agreeable to OT and would like to take a shower. No pain mentioned. Appearance Alert, cooperative Mental Status/Objective Functional [place] Measure 0=Not Assessed/NA 4=Minimal Assistance 1=Total Assistance 5=Supervision or Setup 2=Maximal Assistance 6=Modified [place] 3=Moderate Assistance 7=Complete [place] ADL-Treatment All ADLs took longer than usual. Functional [place] Measure 0=Not Assessed/NA 4=Minimal Assistance 1=Total Assistance 5=Supervision or Setup 2=Maximal Assistance 6=Modified [place] 3=Moderate Assistance 7=Complete IndependenceIRFPAI Quality Coding Scale 6 Independent with activity with or without an assistive device 5 Patient requires set up or clean up by helper. Patient completes activity by themselves 4 Supervision or touching assist (CGA). [place] provide cues , steadying assist 3 The helper provides less than half the effort to complete the activity 2 The helper provides more than half the effort to complete the activity 1 Dependent. The helper does all the effort to complete an activity 7 Patient refused to complete or attempt activity 9 The patient did not perform the activity before the current illness or injury 88 Not attempted due to Medical conditions or safety concerns Grooming (FIM): 6 (Mod I w/c level. Cleaning teeth, brushing hair, putting on makeup. Washed face and hands in shower) Bathing (FIM): 5 (Setup. Washed and dried all parts, shower bench, grab bars, hand held shower) Upper Body (FIM): 5 (Setup, bra, t shirt, shirt) Lower Body Dressing (FIM): 5 (SBA when standing to pull pants up. Doffed and donned socks, doffed shoes. FWW) Toileting (FIM): 5 (SBA, tall toilet, grab bars, FWW) Toilet/Commode Transfer (FIM): 5 (SBA, tall toilet, grab bars) Shower Transfer(FIM): 5 (SBA, shower bench, grab bars, FWW) Other Treatment Pt left up in w/c to groom at the sink. pt knows to call for help to get back into bed or recliner. Education OT Patient Education: Progress toward Goal/Update tx plan, Safety issues Teaching Recipient: Patient Response to Teaching: Reinforcement Needed OT Short Term Goals Short Term Goals Transfers (B,C,W/C) (FIM): 4 1=Demonstrate adherence to instructed precautions during ADL tasks. 2=Patient will verbalize/demonstrate understanding of assistive devices/ modifications for ADL. 3=Patient will improve strength/tolerance for activity to enable patient to perform ADL's. OT Railroad Yard Worker Goals Railroad Yard Worker Goals Time Frame: January 09, 2017 Eating (FIM): 6 Eating (QC): 6 Groomin Oral Hygiene (QC): 6 Bathing(FIM): 6 Shower/Bathe Self (QC): 6 Upper Body Dressing(FIM): 6 Upper Body Dressing (QC): 6 Lower Body Dressing(FIM): 6 Lower Body Dressing (QC): 6 On/Off Footwear (QC): 6 Toileting(FIM): 6 Toileting Hygiene (QC): 6 Toilet/Commode Transfer(FIM): 6 Toilet/Commode Transfer (QC): 6 Shower Transfer(FIM): 6 Additional Goals: 1-Demonstrate ADL Tasks, 2-Verbalize Understanding, 3- ImproveStrength/Alicia 1=Demonstrate adherence to instructed precautions during ADL tasks. 2=Patient will verbalize/demonstrate understanding of assistive devices/ modifications for ADL. 3=Patient will improve strength/tolerance for activity to enable patient to perform ADL's. OT Education/Plan Problem List/Assessment Pt would benefit from skilled OT to increase her independence in basic self care to allow her to return home safely to live with her and decrease caregiver burden. Discharge Recommendations Plan/Recommendations: Continue POC Treatment Plan/Plan of Care Patient would benefit from OT for education, treatment and training to promote independence in ADL's, mobility, safety and/or upper extremity function for ADL' s. Plan of Care: ADL Retraining, Functional Mobility, Group Exercise/Act as Ind ( education, exercise, activity tolerance, functional activities, socialization), UE Funct Exercise/Act, UE Neuromus Re-Ed/Coord Treatment Duration: January 09, 2017 Visits Per Week: 10-11 Minutes/Day (M-F): 75-90 Minutes/Day (Sat/[place]): PRN Agreement: Yes Rehab Potential: Good Time/GCodes Start Time: 10:30 Stop Time: 11:25 Total Time Billed (hr/min): 55 Billed Treatment Time visit, 55 minutes ADL KOLE RAY OT Dec 29, 2016 15:39
[2016-12-29 18:53] VITALS: BP 117/69
--- NOTE | 2016-12-29 19:09 | PM & R (SOAP) Progress Note ---
Subjective Subjective/Events-last exam Patient was seen in her room earlier this evening Patient SBA for transfers Patient had nausea earlier today-now improved Review of Systems skin irritation Objective Exam Last Set of Vital Signs Vital Signs Date Time Temp Pulse Resp B/P (MAP) Pulse Ox O2 Delivery O2 Flow Rate FiO2 12/29/16 09:00 Room Air 12/29/16 05:50 96.9 75 18 112/62 91 12/28/16 17:48 2.00 Capillary Refill : I&O Intake and Output 12/29/16 00:00 Intake Total 960 ml Balance 960 ml Intake Oral 960 ml # Voids 7 # Bowel Movements 1 General: Alert, Oriented X3, Cooperative, No Acute Distress, Other (sitting up in chair) HEENT: Atraumatic, PERRLA, EOMI, Mucous Memb Moist/[place] Neck: Supple, No JVD Lungs: Clear to Auscultation Heart: Regular Rate Abdomen: Normal Bowel Sounds, Soft, No Tenderness Extremities: No Edema Skin: Other (mild erythema from Spinal orthosis) Neuro: Other (generalized weakness has active dorsiflexion at both ankles) Assessment/Plan Assessment S/P RT Lumbar 3-4 transforaminal lumbar interbody fusion/posteriorspinal fusion with excision HNP postop anemia A FIB controlled with meds Chronic OAC Chronic back pain Mild dermatitis fro spinal orthosis Gerd on meds Atelectasis Using IS Nausea resolved Plan Continue PT/OT/skin care and pain management Leave brace off when in bed Check with PT/ortho re better fitting spinal orthosis F/U with DR Underwood and laurie Continue with current meds and IS Team Conference 12/31/16 MIGUEL MCCALL MD Dec 29, 2016 19:09
[2016-12-29] MEDS: ATORVASTATIN 10 MG (LIPITOR) TABLET PO SCH (20:03)
[2016-12-29] MEDS: SENNA W/DOCUSATE (SENOKOT S) TABLET PO PRN (20:04)
[2016-12-29] MEDS: SENNA W/DOCUSATE (SENOKOT S) TABLET PO SCH (20:37)
[2016-12-30] MEDS: oxyCODONE/APAP 5/325MG (PERCOCET 5) TABLET PO PRN ×4 (00:20→19:47)
[2016-12-30 05:06] VITALS: BP 122/69
[2016-12-30] MEDS: ZINC SULFATE 220 MG CAPSULE PO SCH (06:12)
[2016-12-30] MEDS: LEVOTHYROXINE 75 MCG (LEVOTHROID) TABLET PO SCH (06:12)
[2016-12-30] MEDS: MULTIVIT W/MINERALS TAB (THERAGRAN M) PO SCH (06:14)
[2016-12-30] MEDS: APIXABAN 5 MG (ELIQUIS) TABLET PO SCH ×2 (08:47→20:46)
[2016-12-30] MEDS: CALCIUM CARB + VIT D 600 MG (CALCARB + D) TAB PO SCH ×2 (08:47→20:45)
[2016-12-30] MEDS: VITAMIN D3 1,000 UNITS (CHOLECALCIFEROL) TABLET PO SCH (08:47)
[2016-12-30] MEDS: meTOprolol TARTRATE 25 MG (LOPRESSOR) TABLET PO SCH ×2 (08:47→20:45)
[2016-12-30] MEDS: OMEGA 3 (FISH OIL) 1000 MG CAP PO SCH ×2 (08:48→08:54)
[2016-12-30] MEDS: PANTOPRAZOLE 20 MG TABLET (PROTONIX) PO SCH (08:48)
[2016-12-30] MEDS: SENNA W/DOCUSATE (SENOKOT S) TABLET PO SCH ×2 (08:48→20:46)
[2016-12-30] MEDS: GABAPENTIN 300 MG (NEURONTIN) CAP PO SCH ×3 (08:48→20:46)
[2016-12-30] MEDS: ASCORBIC ACID (VIT C) 500 MG TABLET PO SCH (08:48)
[2016-12-30] MEDS: OXYBUTYNIN (DITROPAN) 5 MG TAB PO SCH ×3 (08:48→20:45)
[2016-12-30 08:54] VITALS: BP 118/74
--- NOTE | 2016-12-30 08:55 | Physical Therapy Daily Note ---
PT Daily Note-Current Subjective Pt. reluctant to participate. States she is still constipated and doesnt want to leave her room or get dressed b/c she feels nauseous and has back pain. This NAPPING MACHINE OPERATOR encouraged walking, Nustep and drinking water or fluids. Pt. reluctant but cooperative with encouragement. Pt. requesting nurse give her an enema and or suppository. At end of treatment pt requested going to toilet feeling she may be able to have BM. This was successful and pt. even asked this NAPPING MACHINE OPERATOR to look at her results before she flushed. Pain Numeric Pain Scale: 3 Location: Posterior Location Body Site: Back Pain Description: Ache, Pressure Mental Status Patient Orientation: Normal For Age Transfers Functional [place] Measure 0=Not Assessed/NA 4=Minimal Assistance 1=Total Assistance 5=Supervision or Setup 2=Maximal Assistance 6=Modified [place] 3=Moderate Assistance 7=Complete IndependenceIRFPAI Quality Coding Scale 6 Independent with activity with or without an assistive device 5 Patient requires set up or clean up by helper. Patient completes activity by themselves 4 Supervision or touching assist (CGA). [place] provide cues , steadying assist 3 The helper provides less than half the effort to complete the activity 2 The helper provides more than half the effort to complete the activity 1 Dependent. The helper does all the effort to complete an activity 7 Patient refused to complete or attempt activity 9 The patient did not perform the activity before the current illness or injury 88 Not attempted due to Medical conditions or safety concerns Transfers (B, C, W/C) (FIM): 6 Scootin Rollin Supine to/from Sit: 6 Sit to/from Stand: 6 Bed to/from Chair: 6 Gait Training Does the Patient Walk?: Yes Gait (FIM): 6 Distance (FIM): 3=150 ft (300x2) Gait Level of Assist: 6 Gait Assistive Device: FWW Stair Training Stair Training: Handrails/: 2 handrails Stairs (FIM): 5 #of Steps: 8 Stairs: Pattern: Reciprocal Level of Assist: 5 Exercises Seated Therapy Exercises: Ankle pumps, Sit to stand, Long arc quads, Hip flexion Seated Reps: 12 NuStep Minutes: 11 NuStep Workload: 2 Assessment Current Status: Excellent Progress nausea and back pain greatly decreased with lg BM. PT Short Term Goals Short Term Goals Time Frame: Jan 01, 2017 Transfers (B,C,W/C) (FIM): 4 Gait (FIM): 4 Distance (FIM): 3=150 ft Gait Assistive Device: FWW PT Bus Or Truck Garage Mechanic Goals Bus Or Truck Garage Mechanic Goals PT Bus Or Truck Garage Mechanic Goals Time Frame: January 15, 2017 Transfers (B,C,W/C) (FIM): 6 Sit to Lying (QC): 6 Lying-Sitting on Side/Bed(QC): 6 Sit to Stand (QC): 6 Rollin Roll Left to Right (QC): 6 Chair/Nyb-hl-Evlsq Xfer(QC): 6 Car Transfer (QC): 5 Does the Patient Walk: Yes Gait (FIM): 6 Gait distance (FIM): 3=150 ft Walk 10 feet (QC): 6 Walk 10ft-Uneven Surface(QC): 6 Walk 50ft with 2 Turns (QC): 6 Walk 150 ft (QC): 6 Gait Level of Assist: 6 Gait Assistive Device: FWW Does the Pt use WC or Scooter?: No Stairs (FIM): 5 # of Steps: 8 1 Step (curb) (QC): 6 4 Steps (QC): 5 12 Steps (QC): 88 Picking up an Object (QC): 88 PT Plan Treatment/Plan Treatment Plan: Continue Plan of Care Treatment Plan: Bed Mobility, Education, Functional Activity Alicia, Functional Strength, Group Therapy, Gait, Safety, Therapeutic Exercise, Transfers Treatment Duration: January 15, 2017 Visits Per Week: 10-15 Minutes/Day (M-F): 60-90 Minutes/Day (Sat/[place]): prn Safety Risks/Education Patient Education: Gait Training, Transfer Techniques, Steps Teaching Recipient: Patient Teaching Methods: Demonstration, Discussion Response to Teaching: Verbalize Understanding, Return Demonstration, Reinforcement Needed educated pt. RE: trying to avoid leg crossing as this influences her back alignment and symetry etc. Time/GCodes Time In: 800 Time Out: 900 Total Billed Treatment Time: 60 Total Billed Treatment 1,FA25m,GT20m,EX15 G Codes Necessary: DAYANA Dunn NAPPING MACHINE OPERATOR Dec 30, 2016 08:55
[2016-12-30] MEDS: ONDANSETRON 4 MG (ZOFRAN) ORAL DISSOLVE TAB PO PRN (09:21)
--- NOTE | 2016-12-30 13:35 | Physical Therapy Daily Note ---
PT Daily Note-Current Subjective Clothed with make up on and hair styled, looking well. States she would like to plan on DC for Thursday Pain Numeric Pain Scale: 0-No Pain Mental Status Patient Orientation: Normal For Age Transfers Functional [place] Measure 0=Not Assessed/NA 4=Minimal Assistance 1=Total Assistance 5=Supervision or Setup 2=Maximal Assistance 6=Modified [place] 3=Moderate Assistance 7=Complete IndependenceIRFPAI Quality Coding Scale 6 Independent with activity with or without an assistive device 5 Patient requires set up or clean up by helper. Patient completes activity by themselves 4 Supervision or touching assist (CGA). [place] provide cues , steadying assist 3 The helper provides less than half the effort to complete the activity 2 The helper provides more than half the effort to complete the activity 1 Dependent. The helper does all the effort to complete an activity 7 Patient refused to complete or attempt activity 9 The patient did not perform the activity before the current illness or injury 88 Not attempted due to Medical conditions or safety concerns all TRFs chair and sup to sit all Mod I Gait Training Gait Assistive Device: FWW switched FWWs as pt. felt the wheels were not functioning properly, new FWW acceptable Stair Training Stair Training: Handrails/: 1 handrail Stairs (FIM): 5 #of Steps: 12 Stairs: Pattern: Step to Level of Assist: 5 pt. simulated her step situation at home Exercises Supine Ex: Ankle pumps, Quad Set, Rolling, Glut sets, Heel Slides, Short Arc Quads, Scooting, Hip abd/add Supine Reps: 15 Standing: Hip Abduction, Hamstring curls, Heel/toe raises, Marching Standing Reps: 12 Assessment Current Status: Good Progress meeting goals PT Short Term Goals Short Term Goals Time Frame: Jan 01, 2017 Transfers (B,C,W/C) (FIM): 4 Gait (FIM): 4 Distance (FIM): 3=150 ft Gait Assistive Device: FWW PT Nursing Home Goals Nursing Home Goals PT Nursing Home Goals Time Frame: January 15, 2017 Transfers (B,C,W/C) (FIM): 6 Sit to Lying (QC): 6 Lying-Sitting on Side/Bed(QC): 6 Sit to Stand (QC): 6 Rollin Roll Left to Right (QC): 6 Chair/Mza-zc-Whqds Xfer(QC): 6 Car Transfer (QC): 5 Does the Patient Walk: Yes Gait (FIM): 6 Gait distance (FIM): 3=150 ft Walk 10 feet (QC): 6 Walk 10ft-Uneven Surface(QC): 6 Walk 50ft with 2 Turns (QC): 6 Walk 150 ft (QC): 6 Gait Level of Assist: 6 Gait Assistive Device: FWW Does the Pt use WC or Scooter?: No Stairs (FIM): 5 # of Steps: 8 1 Step (curb) (QC): 6 4 Steps (QC): 5 12 Steps (QC): 88 Picking up an Object (QC): 88 PT Plan Treatment/Plan Treatment Plan: Continue Plan of Care Treatment Plan: Bed Mobility, Education, Functional Activity Alicia, Functional Strength, Group Therapy, Gait, Safety, Therapeutic Exercise, Transfers Treatment Duration: January 15, 2017 Visits Per Week: 10-15 Minutes/Day (M-F): 60-90 Minutes/Day (Sat/[place]): prn Safety Risks/Education Patient Education: Gait Training, Transfer Techniques, Steps Teaching Recipient: Patient Teaching Methods: Demonstration, Discussion Response to Teaching: Verbalize Understanding, Return Demonstration, Reinforcement Needed discussed safety when approaching chair with FWW Time/GCodes Time In: 1300 Time Out: 1330 Total Billed Treatment Time: 30 Total Billed Treatment 1,FA15,EX15 G Codes Necessary: DAYANA Dunn TITLE SEARCHER Dec 30, 2016 13:34
--- NOTE | 2016-12-30 15:17 | Occupational Ther Daily Note ---
OT Current Status-Daily Note Subjective Pt seen in room, up in recliner, feeling a little better after BM but still a little nauseated. Nsg provided meds for nausea. No pain mentioned Appearance Alert, cooperative Mental Status/Objective Functional [place] Measure 0=Not Assessed/NA 4=Minimal Assistance 1=Total Assistance 5=Supervision or Setup 2=Maximal Assistance 6=Modified [place] 3=Moderate Assistance 7=Complete [place] ADL-Treatment Pt did not want to bathe today but was agreeable to changing clothes. She walked to the closet SBA for safety, FWW to get her clean clothes and was careful to keep FWW in front of her. All ADLs took longer than usual, with some brief breaks while nauseated. Functional [place] Measure 0=Not Assessed/NA 4=Minimal Assistance 1=Total Assistance 5=Supervision or Setup 2=Maximal Assistance 6=Modified [place] 3=Moderate Assistance 7=Complete IndependenceIRFPAI Quality Coding Scale 6 Independent with activity with or without an assistive device 5 Patient requires set up or clean up by helper. Patient completes activity by themselves 4 Supervision or touching assist (CGA). [place] provide cues , steadying assist 3 The helper provides less than half the effort to complete the activity 2 The helper provides more than half the effort to complete the activity 1 Dependent. The helper does all the effort to complete an activity 7 Patient refused to complete or attempt activity 9 The patient did not perform the activity before the current illness or injury 88 Not attempted due to Medical conditions or safety concerns Grooming (FIM): 6 (Able to apply makeup and clean teeth, brush hair while seated at sink. Still reporting a little nausea but feeeling better. ) Upper Body (FIM): 5 (Retrieved clothes from closet with SBA, FWW) Lower Body Dressing (FIM): 5 (Retrieved clothes from closet with SBA, FWW. Able to tie shoes) Transfers (B, C, W/C) (FIM): 5 (SBA for safety, FWW. Sometimes puts FWW aside and skilled cues needed to keep walker with her. ) Pt left up in recliner, with late breakfast. Education OT Patient Education: Purpose of tx/functional activities, Safety issues, Transfer techniques Teaching Recipient: Patient Response to Teaching: Reinforcement Needed OT Short Term Goals Short Term Goals Transfers (B,C,W/C) (FIM): 4 1=Demonstrate adherence to instructed precautions during ADL tasks. 2=Patient will verbalize/demonstrate understanding of assistive devices/ modifications for ADL. 3=Patient will improve strength/tolerance for activity to enable patient to perform ADL's. OT Trimming Cutter Machine Goals Trimming Cutter Machine Goals Time Frame: January 09, 2017 Eating (FIM): 6 Eating (QC): 6 Groomin Oral Hygiene (QC): 6 Bathing(FIM): 6 Shower/Bathe Self (QC): 6 Upper Body Dressing(FIM): 6 Upper Body Dressing (QC): 6 Lower Body Dressing(FIM): 6 Lower Body Dressing (QC): 6 On/Off Footwear (QC): 6 Toileting(FIM): 6 Toileting Hygiene (QC): 6 Toilet/Commode Transfer(FIM): 6 Toilet/Commode Transfer (QC): 6 Shower Transfer(FIM): 6 Additional Goals: 1-Demonstrate ADL Tasks, 2-Verbalize Understanding, 3- ImproveStrength/Alicia 1=Demonstrate adherence to instructed precautions during ADL tasks. 2=Patient will verbalize/demonstrate understanding of assistive devices/ modifications for ADL. 3=Patient will improve strength/tolerance for activity to enable patient to perform ADL's. OT Education/Plan Problem List/Assessment Pt would benefit from skilled OT to increase her independence in basic self care to allow her to return home safely to live with her and decrease caregiver burden. Discharge Recommendations Plan/Recommendations: Continue POC Treatment Plan/Plan of Care Patient would benefit from OT for education, treatment and training to promote independence in ADL's, mobility, safety and/or upper extremity function for ADL' s. Plan of Care: ADL Retraining, Functional Mobility, Group Exercise/Act as Ind ( education, exercise, activity tolerance, functional activities, socialization), UE Funct Exercise/Act, UE Neuromus Re-Ed/Coord Treatment Duration: January 09, 2017 Visits Per Week: 10-11 Minutes/Day (M-F): 75-90 Minutes/Day (Sat/[place]): PRN Agreement: Yes Rehab Potential: Good Time/GCodes Start Time: 09:00 Stop Time: 10:00 Total Time Billed (hr/min): 60 Billed Treatment Time visit, ADL 60 minutes KOLE RAY OT Dec 30, 2016 15:17
--- NOTE | 2016-12-30 16:01 | Occupational Ther Daily Note ---
OT Current Status-Daily Note Subjective Pt seen in room, up in recliner, agreeable to OT. No pain mentioned. Appearance Alert, cooperative, feeling better Mental Status/Objective Functional [place] Measure 0=Not Assessed/NA 4=Minimal Assistance 1=Total Assistance 5=Supervision or Setup 2=Maximal Assistance 6=Modified [place] 3=Moderate Assistance 7=Complete [place] ADL-Treatment Functional [place] Measure 0=Not Assessed/NA 4=Minimal Assistance 1=Total Assistance 5=Supervision or Setup 2=Maximal Assistance 6=Modified [place] 3=Moderate Assistance 7=Complete IndependenceIRFPAI Quality Coding Scale 6 Independent with activity with or without an assistive device 5 Patient requires set up or clean up by helper. Patient completes activity by themselves 4 Supervision or touching assist (CGA). [place] provide cues , steadying assist 3 The helper provides less than half the effort to complete the activity 2 The helper provides more than half the effort to complete the activity 1 Dependent. The helper does all the effort to complete an activity 7 Patient refused to complete or attempt activity 9 The patient did not perform the activity before the current illness or injury 88 Not attempted due to Medical conditions or safety concerns Other Treatment Pt transferred from recliner to w/c with FWW, SBA for safety, some cues for walker placement. She propelled her w/c as UE exercise and for community reentry activity, on the unit, on and off the elevator (pushed buttons), in the hospital lobby, cafeteria and gift shop. She was able to maneuver the w/c in the gift shop and find several items that she purchased. She needed just a little help to back chair out of tight space in gift shop. Pt continued to propel herself back through the lobby, on and off the elevator and back to her room. She walked SBA for safety, FWW back to recliner and was left up, with all needs met. Education OT Patient Education: Purpose of tx/functional activities Teaching Recipient: Patient Teaching Methods: Demonstration Response to Teaching: Return Demonstration OT Short Term Goals Short Term Goals Transfers (B,C,W/C) (FIM): 4 1=Demonstrate adherence to instructed precautions during ADL tasks. 2=Patient will verbalize/demonstrate understanding of assistive devices/ modifications for ADL. 3=Patient will improve strength/tolerance for activity to enable patient to perform ADL's. OT Tight Rope Walker Goals [facility] Goals Time Frame: January 09, 2017 Eating (FIM): 6 Eating (QC): 6 Groomin Oral Hygiene (QC): 6 Bathing(FIM): 6 Shower/Bathe Self (QC): 6 Upper Body Dressing(FIM): 6 Upper Body Dressing (QC): 6 Lower Body Dressing(FIM): 6 Lower Body Dressing (QC): 6 On/Off Footwear (QC): 6 Toileting(FIM): 6 Toileting Hygiene (QC): 6 Toilet/Commode Transfer(FIM): 6 Toilet/Commode Transfer (QC): 6 Shower Transfer(FIM): 6 Additional Goals: 1-Demonstrate ADL Tasks, 2-Verbalize Understanding, 3- ImproveStrength/Alicia 1=Demonstrate adherence to instructed precautions during ADL tasks. 2=Patient will verbalize/demonstrate understanding of assistive devices/ modifications for ADL. 3=Patient will improve strength/tolerance for activity to enable patient to perform ADL's. OT Education/Plan Problem List/Assessment Pt would benefit from skilled OT to increase her independence in basic self care to allow her to return home safely to live with her and decrease caregiver burden. Discharge Recommendations Plan/Recommendations: Continue POC Treatment Plan/Plan of Care Patient would benefit from OT for education, treatment and training to promote independence in ADL's, mobility, safety and/or upper extremity function for ADL' s. Plan of Care: ADL Retraining, Functional Mobility, Group Exercise/Act as Ind ( education, exercise, activity tolerance, functional activities, socialization), UE Funct Exercise/Act, UE Neuromus Re-Ed/Coord Treatment Duration: January 09, 2017 Visits Per Week: 10-11 Minutes/Day (M-F): 75-90 Minutes/Day (Sat/[place]): PRN Agreement: Yes Rehab Potential: Good Time/GCodes Start Time: 14:00 Stop Time: 14:30 Total Time Billed (hr/min): 30 Billed Treatment Time visit, 30 minutes exercise KOLE RAY OT Dec 30, 2016 16:01
[2016-12-30 18:23] VITALS: BP 129/75
--- NOTE | 2016-12-30 19:25 | PM & R (SOAP) Progress Note ---
Subjective Subjective/Events-last exam Patient was seen in her room earlier today Patient c/o gas Discussed with RN Patient had rx for constipation yesterday with good results Review of Systems Gastrointestinal: Other (as per above) skin irritation Objective Exam Last Set of Vital Signs Vital Signs Date Time Temp Pulse Resp B/P (MAP) Pulse Ox O2 Delivery O2 Flow Rate FiO2 12/30/16 08:54 73 118/74 Room Air 12/30/16 05:06 98.8 16 94 2.00 Capillary Refill : I&O Intake and Output 12/30/16 00:00 Intake Total 1350 ml Balance 1350 ml Intake Oral 1350 ml # Voids 7 # Bowel Movements 1 General: Alert, Oriented X3, Cooperative, No Acute Distress, Other (sitting up in chair) HEENT: Atraumatic, PERRLA, EOMI, Mucous Memb Moist/[place] Neck: Supple, No JVD Lungs: Clear to Auscultation Heart: Regular Rate Abdomen: Normal Bowel Sounds, Soft, No Tenderness Extremities: No Edema Skin: Other (mild erythema from Spinal orthosis) Neuro: Other (generalized weakness has active dorsiflexion at both ankles) Assessment/Plan Assessment S/P RT Lumbar 3-4 transforaminal lumbar interbody fusion/posteriorspinal fusion with excision HNP postop anemia A FIB controlled with meds Chronic OAC Chronic back pain Mild dermatitis fro spinal orthosis Gerd on meds Atelectasis Using IS Nausea resolved Postop constipation treated Plan Continue PT/OT/skin care and pain management Leave brace off when in bed Check with PT/ortho re better fitting spinal orthosis as needed F/U with DR Underwood and orthospine Continue with current meds and IS Team Conference tomorrow 12/31/16 MIGUEL MCCALL MD Dec 30, 2016 19:25
[2016-12-30] MEDS: ATORVASTATIN 10 MG (LIPITOR) TABLET PO SCH (20:46)
[2016-12-31 05:00] VITALS: BP 111/67
[2016-12-31] MEDS: ZINC SULFATE 220 MG CAPSULE PO SCH (06:19)
[2016-12-31] MEDS: MULTIVIT W/MINERALS TAB (THERAGRAN M) PO SCH (06:19)
[2016-12-31] MEDS: LEVOTHYROXINE 75 MCG (LEVOTHROID) TABLET PO SCH (06:19)
[2016-12-31] MEDS: oxyCODONE/APAP 5/325MG (PERCOCET 5) TABLET PO PRN ×3 (06:19→13:21)
--- NOTE | 2016-12-31 09:00 | Progress Note (SOAP) ---
Objective Exam Vital Signs Date Time Temp Pulse Resp B/P (MAP) Pulse Ox O2 Delivery O2 Flow Rate FiO2 12/31/16 05:00 98.2 66 22 111/67 98 Nasal Cannula 1.50 12/30/16 18:23 97.3 65 16 129/75 96 I & O 12/31/16 07:00 Intake Total 1550 ml Balance 1550 ml Capillary Refill : Clinical Quality Measures DVT/VTE Risk/Contraindication: Risk Factor Score Per Nursin RFS Level Per Nursing on Admit: 4+=Very High SERGIO MORENO MD Dec 31, 2016 09:00
--- NOTE | 2016-12-31 09:02 | Physical Therapy Daily Note ---
PT Daily Note-Current Subjective Pt. reluctant at first to participate. After up and around doing very well pt. requests to be up ad elly. Pain Numeric Pain Scale: 0-No Pain Appearance pjs and robe on. Mental Status Patient Orientation: Normal For Age Transfers Functional [place] Measure 0=Not Assessed/NA 4=Minimal Assistance 1=Total Assistance 5=Supervision or Setup 2=Maximal Assistance 6=Modified [place] 3=Moderate Assistance 7=Complete IndependenceIRFPAI Quality Coding Scale 6 Independent with activity with or without an assistive device 5 Patient requires set up or clean up by helper. Patient completes activity by themselves 4 Supervision or touching assist (CGA). [place] provide cues , steadying assist 3 The helper provides less than half the effort to complete the activity 2 The helper provides more than half the effort to complete the activity 1 Dependent. The helper does all the effort to complete an activity 7 Patient refused to complete or attempt activity 9 The patient did not perform the activity before the current illness or injury 88 Not attempted due to Medical conditions or safety concerns Transfers (B, C, W/C) (FIM): 6 Scootin Rollin Roll Left to Right (QC): 6 Supine to/from Sit: 6 Sit to/from Stand: 6 Sit to Lying (QC): 6 Sit to Stand (QC): 6 Chair/Tzl-ip-Uydde Xfer(QC): 6 Bed to/from Chair: 6 Gait Training Does the Patient Walk?: Yes Gait (FIM): 6 Distance (FIM): 3=150 ft (x3) Gait Level of Assist: 6 Gait Persons Needed: 0 Gait Assistive Device: FWW advanced to up ad elly Stair Training Stair Training: Handrails/: 1 handrail Stairs (FIM): 6 #of Steps: 12 Stairs: Pattern: Reciprocal Level of Assist: 6 needs someone to bring walker up down steps for her other than that indep Exercises Supine Ex: Ankle pumps, Quad Set, Rolling, Glut sets, Lower trunk rotation, Heel Slides, Short Arc Quads, Scooting, Hip abd/add Supine Reps: 20 NuStep Minutes: 10 NuStep Workload: 2 Treatments pt. demonstrates up in bathroom and donning robe etc indep. sat up for coffee and brushed hair etc Assessment Current Status: Excellent Progress meets goals PT Short Term Goals Short Term Goals Time Frame: Jan 01, 2017 Transfers (B,C,W/C) (FIM): 4 (met 4-25 at 6) Gait (FIM): 4 (met 4-26 at 6) Distance (FIM): 3=150 ft Gait Assistive Device: FWW PT Vocal Artist Goals Senior Living Goals PT Senior Living Goals Time Frame: January 15, 2017 Transfers (B,C,W/C) (FIM): 6 Sit to Lying (QC): 6 Lying-Sitting on Side/Bed(QC): 6 Sit to Stand (QC): 6 Rollin Roll Left to Right (QC): 6 Chair/Xnz-ch-Kgoyd Xfer(QC): 6 Car Transfer (QC): 5 Does the Patient Walk: Yes Gait (FIM): 6 Gait distance (FIM): 3=150 ft Walk 10 feet (QC): 6 Walk 10ft-Uneven Surface(QC): 6 Walk 50ft with 2 Turns (QC): 6 Walk 150 ft (QC): 6 Gait Level of Assist: 6 Gait Assistive Device: FWW Does the Pt use WC or Scooter?: No Stairs (FIM): 5 # of Steps: 8 1 Step (curb) (QC): 6 4 Steps (QC): 5 12 Steps (QC): 88 Picking up an Object (QC): 88 PT Plan Treatment/Plan Treatment Plan: Continue Plan of Care Treatment Plan: Bed Mobility, Education, Functional Activity Alicia, Functional Strength, Group Therapy, Gait, Safety, Therapeutic Exercise, Transfers Treatment Duration: January 15, 2017 Visits Per Week: 10-15 Minutes/Day (M-F): 60-90 Minutes/Day (Sat/[place]): prn Safety Risks/Education Patient Education: Gait Training, Transfer Techniques, Steps, Correct Positioning, Disease Process, Safety Issues Teaching Recipient: Patient Teaching Methods: Demonstration, Discussion Response to Teaching: Verbalize Understanding, Return Demonstration Time/GCodes Time In: 800 Time Out: 900 Total Billed Treatment Time: 60 Total Billed Treatment 1,FA25m,GT15m,EX20m G Codes Necessary: DAYANA Dunn ENGRAVER HAND HARD METALS Dec 31, 2016 09:02
[2016-12-31] MEDS: GABAPENTIN 300 MG (NEURONTIN) CAP PO SCH ×3 (09:03→20:21)
[2016-12-31] MEDS: VITAMIN D3 1,000 UNITS (CHOLECALCIFEROL) TABLET PO SCH (09:03)
[2016-12-31] MEDS: OXYBUTYNIN (DITROPAN) 5 MG TAB PO SCH ×3 (09:03→20:22)
[2016-12-31] MEDS: meTOprolol TARTRATE 25 MG (LOPRESSOR) TABLET PO SCH ×2 (09:03→20:20)
[2016-12-31] MEDS: OMEGA 3 (FISH OIL) 1000 MG CAP PO SCH (09:03)
[2016-12-31] MEDS: SENNA W/DOCUSATE (SENOKOT S) TABLET PO SCH ×3 (09:03→20:23)
[2016-12-31] MEDS: CALCIUM CARB + VIT D 600 MG (CALCARB + D) TAB PO SCH ×2 (09:03→20:21)
[2016-12-31] MEDS: APIXABAN 5 MG (ELIQUIS) TABLET PO SCH ×2 (09:04→20:21)
[2016-12-31] MEDS: PANTOPRAZOLE 20 MG TABLET (PROTONIX) PO SCH (09:04)
[2016-12-31] MEDS: ASCORBIC ACID (VIT C) 500 MG TABLET PO SCH (09:04)
[2016-12-31] MEDS: ONDANSETRON 4 MG (ZOFRAN) ORAL DISSOLVE TAB PO PRN (11:20)
--- NOTE | 2016-12-31 13:32 | Physical Therapy Daily Note ---
PT Daily Note-Current Subjective Agrees to Rx. Would like to have HEP. Pt. to gym ad elly Pain Numeric Pain Scale: 2 Location: Medial Location Body Site: Back Pain Description: Ache Mental Status Patient Orientation: Normal For Age Attachments: Other-See Comments (light back support, velcro, pt fabien rios) Transfers Functional [place] Measure 0=Not Assessed/NA 4=Minimal Assistance 1=Total Assistance 5=Supervision or Setup 2=Maximal Assistance 6=Modified [place] 3=Moderate Assistance 7=Complete IndependenceIRFPAI Quality Coding Scale 6 Independent with activity with or without an assistive device 5 Patient requires set up or clean up by helper. Patient completes activity by themselves 4 Supervision or touching assist (CGA). [place] provide cues , steadying assist 3 The helper provides less than half the effort to complete the activity 2 The helper provides more than half the effort to complete the activity 1 Dependent. The helper does all the effort to complete an activity 7 Patient refused to complete or attempt activity 9 The patient did not perform the activity before the current illness or injury 88 Not attempted due to Medical conditions or safety concerns all TRFs Mod I Gait Training Gait Assistive Device: FWW up ad elly with FWW to from rehab indep Exercises Supine Ex: Ankle pumps, Quad Set, Rolling, Heel Slides, Short Arc Quads, Hip abd/add Supine Reps: 15 Seated Therapy Exercises: Ankle pumps pt. was able to observe HEP and complete therex per handout written illustrated guide Assessment Current Status: Excellent Progress PT Short Term Goals Short Term Goals Time Frame: Jan 01, 2017 Transfers (B,C,W/C) (FIM): 4 (met 4-25 at 6) Gait (FIM): 4 (met 4-26 at 6) Distance (FIM): 3=150 ft Gait Assistive Device: FWW PT Medical Genetics Director Goals Medical Genetics Director Goals PT Halfway Goals Time Frame: January 15, 2017 Transfers (B,C,W/C) (FIM): 6 Sit to Lying (QC): 6 Lying-Sitting on Side/Bed(QC): 6 Sit to Stand (QC): 6 Rollin Roll Left to Right (QC): 6 Chair/Hym-dh-Biirm Xfer(QC): 6 Car Transfer (QC): 5 Does the Patient Walk: Yes Gait (FIM): 6 Gait distance (FIM): 3=150 ft Walk 10 feet (QC): 6 Walk 10ft-Uneven Surface(QC): 6 Walk 50ft with 2 Turns (QC): 6 Walk 150 ft (QC): 6 Gait Level of Assist: 6 Gait Assistive Device: FWW Does the Pt use WC or Scooter?: No Stairs (FIM): 5 # of Steps: 8 1 Step (curb) (QC): 6 4 Steps (QC): 5 12 Steps (QC): 88 Picking up an Object (QC): 88 PT Plan Treatment/Plan Treatment Plan: Continue Plan of Care Treatment Plan: Bed Mobility, Education, Functional Activity Alicia, Functional Strength, Group Therapy, Gait, Safety, Therapeutic Exercise, Transfers Treatment Duration: January 15, 2017 Visits Per Week: 10-15 Minutes/Day (M-F): 60-90 Minutes/Day (Sat/[place]): prn Safety Risks/Education Patient Education: Gait Training, Transfer Techniques, Issued Written HEP Teaching Recipient: Patient Teaching Methods: Demonstration, Discussion Response to Teaching: Verbalize Understanding, Return Demonstration Time/GCodes Time In: 1300 Time Out: 1330 Total Billed Treatment Time: 30 Total Billed Treatment 1,EX30m G Codes Necessary: DAYANA Dunn ATHLETIC MONITOR Dec 31, 2016 13:32
--- NOTE | 2016-12-31 13:40 | Occupational Ther Daily Note ---
OT Current Status-Daily Note Subjective Pt seen in room, up in recliner, agreeable to OT. She had earlier requested time for breakfast and scheduled tx time was changed. No pain mentioned specifically. Appearance Alert, cooperative Mental Status/Objective Functional [place] Measure 0=Not Assessed/NA 4=Minimal Assistance 1=Total Assistance 5=Supervision or Setup 2=Maximal Assistance 6=Modified [place] 3=Moderate Assistance 7=Complete [place] ADL-Treatment Functional [place] Measure 0=Not Assessed/NA 4=Minimal Assistance 1=Total Assistance 5=Supervision or Setup 2=Maximal Assistance 6=Modified [place] 3=Moderate Assistance 7=Complete IndependenceIRFPAI Quality Coding Scale 6 Independent with activity with or without an assistive device 5 Patient requires set up or clean up by helper. Patient completes activity by themselves 4 Supervision or touching assist (CGA). [place] provide cues , steadying assist 3 The helper provides less than half the effort to complete the activity 2 The helper provides more than half the effort to complete the activity 1 Dependent. The helper does all the effort to complete an activity 7 Patient refused to complete or attempt activity 9 The patient did not perform the activity before the current illness or injury 88 Not attempted due to Medical conditions or safety concerns Other Treatment Pt transferred without assistance, FWW and walked to gym. She did 12 minutes bilat UE exercise on arm bike set at 20W resistance, to strengthen arms which she uses for transfers and for standing up and down during ADLs. No breaks with arm bike. Returned to room and toileted. Mod I. Back in recliner, pt did 15 reps bilat UE exercise with yellow theraband, with education on how to do the different exercises and occasional cues to do them correctly. pt left up in recliner, all needs met. OT Short Term Goals Short Term Goals Transfers (B,C,W/C) (FIM): 4 (met 4-25 at 6) 1=Demonstrate adherence to instructed precautions during ADL tasks. 2=Patient will verbalize/demonstrate understanding of assistive devices/ modifications for ADL. 3=Patient will improve strength/tolerance for activity to enable patient to perform ADL's. OT Intermediate Goals Vocational Auto Body Instructor Goals Time Frame: January 09, 2017 Eating (FIM): 6 Eating (QC): 6 Groomin Oral Hygiene (QC): 6 Bathing(FIM): 6 Shower/Bathe Self (QC): 6 Upper Body Dressing(FIM): 6 Upper Body Dressing (QC): 6 Lower Body Dressing(FIM): 6 Lower Body Dressing (QC): 6 On/Off Footwear (QC): 6 Toileting(FIM): 6 Toileting Hygiene (QC): 6 Toilet/Commode Transfer(FIM): 6 Toilet/Commode Transfer (QC): 6 Shower Transfer(FIM): 6 Additional Goals: 1-Demonstrate ADL Tasks, 2-Verbalize Understanding, 3- ImproveStrength/Alicia 1=Demonstrate adherence to instructed precautions during ADL tasks. 2=Patient will verbalize/demonstrate understanding of assistive devices/ modifications for ADL. 3=Patient will improve strength/tolerance for activity to enable patient to perform ADL's. OT Education/Plan Problem List/Assessment Pt would benefit from skilled OT to increase her independence in basic self care to allow her to return home safely to live with her and decrease caregiver burden. Discharge Recommendations Plan/Recommendations: Continue POC Treatment Plan/Plan of Care Patient would benefit from OT for education, treatment and training to promote independence in ADL's, mobility, safety and/or upper extremity function for ADL' s. Plan of Care: ADL Retraining, Functional Mobility, Group Exercise/Act as Ind ( education, exercise, activity tolerance, functional activities, socialization), UE Funct Exercise/Act, UE Neuromus Re-Ed/Coord Treatment Duration: January 09, 2017 Visits Per Week: 10-11 Minutes/Day (M-F): 75-90 Minutes/Day (Sat/[place]): PRN Agreement: Yes Rehab Potential: Good Time/GCodes Start Time: 09:30 Stop Time: 10:00 Total Time Billed (hr/min): 30 Billed Treatment Time visit, 25 minutes exercise, 5 minutes ADL KOLE RAY OT Dec 31, 2016 13:40
--- NOTE | 2016-12-31 13:46 | Occupational Ther Daily Note ---
OT Current Status-Daily Note Subjective Pt seen in room, up in recliner, agreeable to OT. No pain mentioned except that her back ached a little when standing at sink. pt was provided with elastic back support and she loved it, stating that her back felt so much better. Appearance Alert, cooperative Mental Status/Objective Functional [place] Measure 0=Not Assessed/NA 4=Minimal Assistance 1=Total Assistance 5=Supervision or Setup 2=Maximal Assistance 6=Modified [place] 3=Moderate Assistance 7=Complete [place] ADL-Treatment Pt indicated that she would like to be discharged to home on Thursday and she feels confident that she will do well. She said she would ask her to stand by her when she stepped in and out of the bath tub. Pt was shown transfer tub bench and shower chair and was able to step in and out of bathtub safely with grab bar. She decided she would like a shower chair because she wouldn't need to change the glass doors on her tub. Pt also wants to shower tomorrow so will do sponge bath today. Functional [place] Measure 0=Not Assessed/NA 4=Minimal Assistance 1=Total Assistance 5=Supervision or Setup 2=Maximal Assistance 6=Modified [place] 3=Moderate Assistance 7=Complete IndependenceIRFPAI Quality Coding Scale 6 Independent with activity with or without an assistive device 5 Patient requires set up or clean up by helper. Patient completes activity by themselves 4 Supervision or touching assist (CGA). [place] provide cues , steadying assist 3 The helper provides less than half the effort to complete the activity 2 The helper provides more than half the effort to complete the activity 1 Dependent. The helper does all the effort to complete an activity 7 Patient refused to complete or attempt activity 9 The patient did not perform the activity before the current illness or injury 88 Not attempted due to Medical conditions or safety concerns Eating (FIM): 6 (No problems cutting food or feeding herself) Grooming (FIM): 6 (Mod I seated at sink or standing with FWW for balance and support. Washed face and hands, brushed teeth, put on makeup, combed hair. ) Bathing (FIM): 5 (Washed and dried all parts with sponge bath with setup, standing or sitting at the sink.) Upper Body (FIM): 6 (Pt walked to the closet, retrieved clean clothes and put dirty ones away, FWW for balance. No help needed to don/doff clothing. ) Lower Body Dressing (FIM): 6 (Pt walked to the closet, retrieved clean clothes and put dirty ones away, FWW for balance. No help needed to don/doff clothing. ) On/Off Footwear (QC): 6 Toileting (FIM): 6 (Tall toilet, grab bars, FWW) Transfers (B, C, W/C) (FIM): 6 (Occasional cue to push up, not pull up with FWW ) Toilet/Commode Transfer (FIM): 6 (Tall toilet, grab bar, FWW) Pt was provided with written handout on energy conservation/joint protection to review and discuss tomorrow. Will follow up with her with equipment needs to minimize bending or twisting. Education OT Patient Education: Energy conservation, Progress toward Goal/Update tx plan , Purpose of tx/functional activities, Reviewed precautions, Safety issues, Transfer techniques Teaching Recipient: Patient Teaching Methods: Discussion Response to Teaching: Verbalize Understanding OT Short Term Goals Short Term Goals Transfers (B,C,W/C) (FIM): 4 (met 4-25 at 6) 1=Demonstrate adherence to instructed precautions during ADL tasks. 2=Patient will verbalize/demonstrate understanding of assistive devices/ modifications for ADL. 3=Patient will improve strength/tolerance for activity to enable patient to perform ADL's. OT Fpc Goals Hand Assembler Goals Time Frame: January 09, 2017 Eating (FIM): 6 Eating (QC): 6 Groomin Oral Hygiene (QC): 6 Bathing(FIM): 6 Shower/Bathe Self (QC): 6 Upper Body Dressing(FIM): 6 Upper Body Dressing (QC): 6 Lower Body Dressing(FIM): 6 Lower Body Dressing (QC): 6 On/Off Footwear (QC): 6 Toileting(FIM): 6 Toileting Hygiene (QC): 6 Toilet/Commode Transfer(FIM): 6 Toilet/Commode Transfer (QC): 6 Shower Transfer(FIM): 6 Additional Goals: 1-Demonstrate ADL Tasks, 2-Verbalize Understanding, 3- ImproveStrength/Alicia 1=Demonstrate adherence to instructed precautions during ADL tasks. 2=Patient will verbalize/demonstrate understanding of assistive devices/ modifications for ADL. 3=Patient will improve strength/tolerance for activity to enable patient to perform ADL's. OT Education/Plan Problem List/Assessment Pt would benefit from skilled OT to increase her independence in basic self care to allow her to return home safely to live with her and decrease caregiver burden. Discharge Recommendations Plan/Recommendations: Continue POC Treatment Plan/Plan of Care Patient would benefit from OT for education, treatment and training to promote independence in ADL's, mobility, safety and/or upper extremity function for ADL' s. Plan of Care: ADL Retraining, Functional Mobility, Group Exercise/Act as Ind ( education, exercise, activity tolerance, functional activities, socialization), UE Funct Exercise/Act, UE Neuromus Re-Ed/Coord Treatment Duration: January 09, 2017 Visits Per Week: 10-11 Minutes/Day (M-F): 75-90 Minutes/Day (Sat/[place]): PRN Agreement: Yes Rehab Potential: Good Time/GCodes Start Time: 11:00 Stop Time: 12:00 Total Time Billed (hr/min): 60 Billed Treatment Time visit, 60 minutes KOLE TANNER OT Dec 31, 2016 13:46
--- NOTE | 2016-12-31 15:25 | PM & R (SOAP) Progress Note ---
Subjective Subjective/Events-last exam Patient was seen in her room this AM Patient has abdominal binder for support now and tolerating better then spinal orthosis Patient Modified Independent for transfers.Constipation treated Review of Systems skin irritation Objective Exam Last Set of Vital Signs Vital Signs Date Time Temp Pulse Resp B/P (MAP) Pulse Ox O2 Delivery O2 Flow Rate FiO2 12/31/16 05:00 98.2 66 22 111/67 98 Nasal Cannula 1.50 Capillary Refill : I&O Intake and Output 12/31/16 00:00 Intake Total 2260 ml Balance 2260 ml Intake Oral 2260 ml # Voids 7 # Bowel Movements 1 General: Alert, Oriented X3, Cooperative, No Acute Distress, Other (sitting up in chair) HEENT: Atraumatic, PERRLA, EOMI, Mucous Memb Moist/[place] Neck: Supple, No JVD Lungs: Clear to Auscultation Heart: Regular Rate Abdomen: Normal Bowel Sounds, Soft, No Tenderness Extremities: No Edema Skin: Other (mild erythema from Spinal orthosis) Neuro: Other (generalized weakness has active dorsiflexion at both ankles) Assessment/Plan Assessment S/P RT Lumbar 3-4 transforaminal lumbar interbody fusion/posteriorspinal fusion with excision HNP postop anemia A FIB controlled with meds Chronic OAC Chronic back pain Mild dermatitis fro spinal orthosis Gerd on meds Atelectasis Using IS Nausea resolved Postop constipation treated Plan Continue PT/OT/skin care and pain management Leave binder off when in bed Check with PT/ortho re better fitting spinal orthosis as needed-done as per above F/U with DR Underwood and orthospine Continue with current meds and IS Team Conference held earlier today-See report for full functional update and POC Discharge set tentatvely for Thursday01/02/17 to home with spouse. MIGUEL MCCALL MD Dec 31, 2016 15:25
[2016-12-31 15:39] VITALS: BP 101/57
[2016-12-31 20:20] VITALS: BP 137/74
[2016-12-31] MEDS: ATORVASTATIN 10 MG (LIPITOR) TABLET PO SCH (20:21)
[2017-01-01 06:00] VITALS: BP 100/60
[2017-01-01] MEDS: ZINC SULFATE 220 MG CAPSULE PO SCH (06:14)
[2017-01-01] MEDS: MULTIVIT W/MINERALS TAB (THERAGRAN M) PO SCH (06:14)
[2017-01-01] MEDS: LEVOTHYROXINE 75 MCG (LEVOTHROID) TABLET PO SCH (06:14)
--- NOTE | 2017-01-01 08:00 | PM & R (SOAP) Progress Note ---
Subjective Subjective/Events-last exam Patient was seen in her room this AM Patient Modified Independent for transfers Review of Systems skin irritation Objective Exam Last Set of Vital Signs Vital Signs Date Time Temp Pulse Resp B/P (MAP) Pulse Ox O2 Delivery O2 Flow Rate FiO2 01/01/17 06:00 97.8 71 20 100/60 94 Room Air 12/31/16 05:00 1.50 Capillary Refill : I&O Intake and Output 01/01/17 00:00 Intake Total 2090 ml Balance 2090 ml Intake Oral 2090 ml # Voids 9 # Bowel Movements 4 General: Alert, Oriented X3, Cooperative, No Acute Distress, Other (sitting up in chair) HEENT: Atraumatic, PERRLA, EOMI, Mucous Memb Moist/[place] Neck: Supple, No JVD Lungs: Clear to Auscultation Heart: Regular Rate Abdomen: Normal Bowel Sounds, Soft, No Tenderness Extremities: No Edema Skin: Other (mild erythema from Spinal orthosis) Neuro: Other (generalized weakness has active dorsiflexion at both ankles) Assessment/Plan Assessment S/P RT Lumbar 3-4 transforaminal lumbar interbody fusion/posteriorspinal fusion with excision HNP postop anemia A FIB controlled with meds Chronic OAC Chronic back pain Mild dermatitis fro spinal orthosis Gerd on meds Atelectasis Using IS Nausea resolved Postop constipation treated Plan Continue PT/OT/skin care and pain management Leave binder off when in bed Check with PT/ortho re better fitting spinal orthosis as needed-done as per above F/U with DR Underwood and orthospine Continue with current meds and IS Team Conference held yesterday--See report for full functional update and POC Discharge reset for Thursday01/03/17 to home with spouse. GI savage feeling much better and appetite slowly improving MIGUEL MCCALL MD Jan 01, 2017 08:00
[2017-01-01] MEDS: OMEGA 3 (FISH OIL) 1000 MG CAP PO SCH (08:38)
[2017-01-01] MEDS: APIXABAN 5 MG (ELIQUIS) TABLET PO SCH ×2 (08:38→21:04)
[2017-01-01] MEDS: SENNA W/DOCUSATE (SENOKOT S) TABLET PO SCH ×2 (08:38→21:04)
[2017-01-01] MEDS: CALCIUM CARB + VIT D 600 MG (CALCARB + D) TAB PO SCH ×2 (08:38→21:03)
[2017-01-01] MEDS: OXYBUTYNIN (DITROPAN) 5 MG TAB PO SCH ×3 (08:39→21:03)
[2017-01-01] MEDS: GABAPENTIN 300 MG (NEURONTIN) CAP PO SCH ×3 (08:39→21:03)
[2017-01-01] MEDS: PANTOPRAZOLE 20 MG TABLET (PROTONIX) PO SCH (08:41)
[2017-01-01] MEDS: ASCORBIC ACID (VIT C) 500 MG TABLET PO SCH (08:41)
[2017-01-01] MEDS: meTOprolol TARTRATE 25 MG (LOPRESSOR) TABLET PO SCH ×2 (08:41→21:04)
[2017-01-01] MEDS: VITAMIN D3 1,000 UNITS (CHOLECALCIFEROL) TABLET PO SCH (08:41)
--- NOTE | 2017-01-01 08:56 | Physical Therapy Daily Note ---
PT Daily Note-Current Subjective Patient in recliner eating breakfast pre tx, agrees to PT, has more pain at 5/10 , nurse notified. Appearance Patient in recliner post tx with nurse call, phone, tray, all needs met. Mental Status Patient Orientation: Normal For Age Transfers Functional [place] Measure 0=Not Assessed/NA 4=Minimal Assistance 1=Total Assistance 5=Supervision or Setup 2=Maximal Assistance 6=Modified [place] 3=Moderate Assistance 7=Complete IndependenceIRFPAI Quality Coding Scale 6 Independent with activity with or without an assistive device 5 Patient requires set up or clean up by helper. Patient completes activity by themselves 4 Supervision or touching assist (CGA). [place] provide cues , steadying assist 3 The helper provides less than half the effort to complete the activity 2 The helper provides more than half the effort to complete the activity 1 Dependent. The helper does all the effort to complete an activity 7 Patient refused to complete or attempt activity 9 The patient did not perform the activity before the current illness or injury 88 Not attempted due to Medical conditions or safety concerns Transfers (B, C, W/C) (FIM): 6 Scootin Rollin Roll Left to Right (QC): 6 Supine to/from Sit: 6 Sit to/from Stand: 6 Sit to Lying (QC): 6 Sit to Stand (QC): 6 Chair/Ywu-os-Dnhsd Xfer(QC): 6 Bed to/from Chair: 6 Gait Training Gait (FIM): 6 Distance: 200'x2 Walk 10 feet (QC): 6 Walk 50 ft with 2 Turns(QC): 6 Walk 150 ft (QC): 6 Walking 10ft/uneven surface-QC: 6 Gait Assistive Device: FWW Patient up ad elly Wheelchair Training Does the Pt Use a Wheelchair?: No Stair Training Stair Training: Handrails/: 2 handrails Stairs (FIM): 6 #of Steps: 12 1 Step (curb) (QC): 6 4 Steps (QC): 6 12 Steps (QC): 6 Stairs: Pattern: Reciprocal Balance Picking up an Object (QC): 88 Exercises Supine Ex: Ankle pumps, Quad Set, Glut sets, Straight leg raise Supine Reps: 20 sit to stands 2 sets of 5, SAQ with 2# ankle weights x 5 min NuStep Minutes: 15 NuStep Workload: 5 Treatments bed mobility and transfers, ambulation, stair training, functional strengthening Assessment Current Status: Fair Progress Patient is mod I with all mobility PT Short Term Goals Short Term Goals Time Frame: Jan 01, 2017 Transfers (B,C,W/C) (FIM): 4 (met 4-25 at 6) Gait (FIM): 4 (met 4-26 at 6) Distance (FIM): 3=150 ft Gait Assistive Device: FWW PT Track Laying Supervisor Goals Mcc Goals PT Track Laying Supervisor Goals Time Frame: January 15, 2017 Transfers (B,C,W/C) (FIM): 6 (et) Sit to Lying (QC): 6 (met) Lying-Sitting on Side/Bed(QC): 6 (met) Sit to Stand (QC): 6 (met) Rollin (met) Roll Left to Right (QC): 6 (met) Chair/Tty-ea-Kaqwr Xfer(QC): 6 (met) Car Transfer (QC): 5 Does the Patient Walk: Yes Gait (FIM): 6 (met) Gait distance (FIM): 3=150 ft Walk 10 feet (QC): 6 (met) Walk 10ft-Uneven Surface(QC): 6 (met) Walk 50ft with 2 Turns (QC): 6 (met) Walk 150 ft (QC): 6 (met) Gait Level of Assist: 6 Gait Assistive Device: FWW Does the Pt use WC or Scooter?: No Stairs (FIM): 5 (met) # of Steps: 8 (memet) 1 Step (curb) (QC): 6 (met) 4 Steps (QC): 5 (met) 12 Steps (QC): 88 (met) Picking up an Object (QC): 88 PT Plan Problem List Problem List: Activity Tolerance, Functional Strength, Safety, Balance, Gait, Transfer Treatment/Plan Treatment Plan: Continue Plan of Care Treatment Plan: Bed Mobility, Education, Functional Activity Alicia, Functional Strength, Group Therapy, Gait, Safety, Therapeutic Exercise, Transfers Treatment Duration: January 15, 2017 Visits Per Week: 10-15 Minutes/Day (M-F): 60-90 Minutes/Day (Sat/[place]): prn Safety Risks/Education Patient Education: Gait Training, Transfer Techniques, Steps, Safety Issues Teaching Recipient: Patient Teaching Methods: Demonstration, Discussion Response to Teaching: Reinforcement Needed Time/GCodes Time In: 800 Time Out: 900 Total Billed Treatment Time: 60 Total Billed Treatment 1 visit EX 30 min GT 20 min FA 10 min OPAL STRANGE PT Jan 01, 2017 08:56
[2017-01-01] MEDS: oxyCODONE/APAP 5/325MG (PERCOCET 5) TABLET PO PRN ×2 (09:35→21:13)
--- NOTE | 2017-01-01 12:33 | Occupational Ther Daily Note ---
OT Current Status-Daily Note Subjective Pt seen in room, up in recliner, agreeable to OT. No pain mentioned. She had been anticipating discharge on Thursday but it has apparently been changed to Thursday. Appearance Alert, cooperative Mental Status/Objective Functional [place] Measure 0=Not Assessed/NA 4=Minimal Assistance 1=Total Assistance 5=Supervision or Setup 2=Maximal Assistance 6=Modified [place] 3=Moderate Assistance 7=Complete [place] ADL-Treatment Pt was left up in recliner, all needs met. Functional [place] Measure 0=Not Assessed/NA 4=Minimal Assistance 1=Total Assistance 5=Supervision or Setup 2=Maximal Assistance 6=Modified [place] 3=Moderate Assistance 7=Complete IndependenceIRFPAI Quality Coding Scale 6 Independent with activity with or without an assistive device 5 Patient requires set up or clean up by helper. Patient completes activity by themselves 4 Supervision or touching assist (CGA). [place] provide cues , steadying assist 3 The helper provides less than half the effort to complete the activity 2 The helper provides more than half the effort to complete the activity 1 Dependent. The helper does all the effort to complete an activity 7 Patient refused to complete or attempt activity 9 The patient did not perform the activity before the current illness or injury 88 Not attempted due to Medical conditions or safety concerns Eating (FIM): 6 (Has dentures and some foods she cannot eat without her teeth. Orders her own food and can open packages, cut food, feed herself. She reported that she hasn't had much of an appetite lately. ) Eating (QC): 6 Grooming (FIM): 6 (Washed face and hands in shower. Put on makeup and combed/ curled hair seated (mod technique) at sink. Cleans dentures at sink. All Mod I) Oral Hygiene (QC): 6 Bathing (FIM): 6 (Washed and dried all parts. Turned water on and off and retrieved towels from bar. Shower bench, grab bars, hand held shower. ) Shower/Bathe Self (QC): 6 Upper Body (FIM): 6 (Retrieved clean clothes from closet and put dirty ones away, standing at closet with FWW for balance. Doffed and donned clothing, including bra, without help. ) Upper Body Dressing (QC): 6 Lower Body Dressing (FIM): 6 (Retrieved clean clothes from closet and put dirty ones away, standing at closet with FWW for balance. Doffed and donned clothing, including socks and shoes, without help. Able to don elastic brace herself) Lower Body Dressing (QC): 6 On/Off Footwear (QC): 6 Toileting (FIM): 6 (Managed clothing and hygiene without help. Tall toilet, grab bars, FWW.) Toileting Hygiene (QC): 6 Transfers (B, C, W/C) (FIM): 6 (FWW. Still occasionally needs cues for hand placement so that she doesn't pull herself up with FWW. Normally pushes up from arms of chair) Toilet/Commode Transfer (FIM): 6 (Tall toilet, grab bars, FWW) Toilet Transfer (QC): 6 Shower Transfer(FIM): 6 (Shower bench, grab bars, FWW) Education OT Patient Education: Progress toward Goal/Update tx plan, Purpose of tx/ functional activities, Safety issues, Transfer techniques Teaching Recipient: Patient Teaching Methods: Demonstration, Discussion Response to Teaching: Verbalize Understanding, Return Demonstration OT Short Term Goals Short Term Goals Transfers (B,C,W/C) (FIM): 4 (met 4-25 at 6) 1=Demonstrate adherence to instructed precautions during ADL tasks. 2=Patient will verbalize/demonstrate understanding of assistive devices/ modifications for ADL. 3=Patient will improve strength/tolerance for activity to enable patient to perform ADL's. OT Senior Living Goals Furnace Builder Goals Time Frame: January 09, 2017 Eating (FIM): 6 Eating (QC): 6 Groomin Oral Hygiene (QC): 6 Bathing(FIM): 6 Shower/Bathe Self (QC): 6 Upper Body Dressing(FIM): 6 Upper Body Dressing (QC): 6 Lower Body Dressing(FIM): 6 Lower Body Dressing (QC): 6 On/Off Footwear (QC): 6 Toileting(FIM): 6 Toileting Hygiene (QC): 6 Toilet/Commode Transfer(FIM): 6 Toilet/Commode Transfer (QC): 6 Shower Transfer(FIM): 6 Additional Goals: 1-Demonstrate ADL Tasks, 2-Verbalize Understanding, 3- ImproveStrength/Alicia 1=Demonstrate adherence to instructed precautions during ADL tasks. 2=Patient will verbalize/demonstrate understanding of assistive devices/ modifications for ADL. 3=Patient will improve strength/tolerance for activity to enable patient to perform ADL's. OT Education/Plan Problem List/Assessment Pt would benefit from skilled OT to increase her independence in basic self care to allow her to return home safely to live with her and decrease caregiver burden. Discharge Recommendations Plan/Recommendations: Continue POC Treatment Plan/Plan of Care Patient would benefit from OT for education, treatment and training to promote independence in ADL's, mobility, safety and/or upper extremity function for ADL' s. Plan of Care: ADL Retraining, Functional Mobility, Group Exercise/Act as Ind ( education, exercise, activity tolerance, functional activities, socialization), UE Funct Exercise/Act, UE Neuromus Re-Ed/Coord Treatment Duration: January 09, 2017 Visits Per Week: 10-11 Minutes/Day (M-F): 75-90 Minutes/Day (Sat/[place]): PRN Agreement: Yes Rehab Potential: Good Time/GCodes Start Time: 09:35 Stop Time: 10:35 Total Time Billed (hr/min): 60 Billed Treatment Time visit, 60 minutes ADL KOLE RAY OT Jan 01, 2017 12:33
--- NOTE | 2017-01-01 12:55 | Occupational Ther Daily Note ---
OT Current Status-Daily Note Subjective Pt seen in room, up in chair, agreeable to OT. No pain reported. Appearance Alert, cooperative Mental Status/Objective Functional [place] Measure 0=Not Assessed/NA 4=Minimal Assistance 1=Total Assistance 5=Supervision or Setup 2=Maximal Assistance 6=Modified [place] 3=Moderate Assistance 7=Complete [place] ADL-Treatment Pt transferred mod I from chair, pushing up on armrests, for safety. She walked to the commons area and was shown several different types of walker trays and walker bags. She tried them out and is most interested in a nylon walker bag. She also walked to the tub room and tried out two different types of shower chairs. She was able to step in and out of the tub safely, using grab bars and could get on/off shower chair safely. Pt educ to put rubber mad down in tub for safety. She was shown where she could order a shower chair on line if she wants and was given information from on ordering a walker prior to discharge. Pt walked back to room, up in recliner, all needs met. Functional [place] Measure 0=Not Assessed/NA 4=Minimal Assistance 1=Total Assistance 5=Supervision or Setup 2=Maximal Assistance 6=Modified [place] 3=Moderate Assistance 7=Complete IndependenceIRFPAI Quality Coding Scale 6 Independent with activity with or without an assistive device 5 Patient requires set up or clean up by helper. Patient completes activity by themselves 4 Supervision or touching assist (CGA). [place] provide cues , steadying assist 3 The helper provides less than half the effort to complete the activity 2 The helper provides more than half the effort to complete the activity 1 Dependent. The helper does all the effort to complete an activity 7 Patient refused to complete or attempt activity 9 The patient did not perform the activity before the current illness or injury 88 Not attempted due to Medical conditions or safety concerns Education OT Patient Education: Modified ADL techniques, Transfer techniques, Use of adapted equipment Teaching Recipient: Patient Teaching Methods: Demonstration, Discussion Response to Teaching: Verbalize Understanding, Return Demonstration OT Short Term Goals Short Term Goals Transfers (B,C,W/C) (FIM): 4 (met 4-25 at 6) 1=Demonstrate adherence to instructed precautions during ADL tasks. 2=Patient will verbalize/demonstrate understanding of assistive devices/ modifications for ADL. 3=Patient will improve strength/tolerance for activity to enable patient to perform ADL's. OT Senior Housekeeper Goals Senior Housekeeper Goals Time Frame: January 09, 2017 Eating (FIM): 6 Eating (QC): 6 Groomin Oral Hygiene (QC): 6 Bathing(FIM): 6 Shower/Bathe Self (QC): 6 Upper Body Dressing(FIM): 6 Upper Body Dressing (QC): 6 Lower Body Dressing(FIM): 6 Lower Body Dressing (QC): 6 On/Off Footwear (QC): 6 Toileting(FIM): 6 Toileting Hygiene (QC): 6 Toilet/Commode Transfer(FIM): 6 Toilet/Commode Transfer (QC): 6 Shower Transfer(FIM): 6 Additional Goals: 1-Demonstrate ADL Tasks, 2-Verbalize Understanding, 3- ImproveStrength/Alicia 1=Demonstrate adherence to instructed precautions during ADL tasks. 2=Patient will verbalize/demonstrate understanding of assistive devices/ modifications for ADL. 3=Patient will improve strength/tolerance for activity to enable patient to perform ADL's. OT Education/Plan Problem List/Assessment Pt would benefit from skilled OT to increase her independence in basic self care to allow her to return home safely to live with her and decrease caregiver burden. Discharge Recommendations Plan/Recommendations: Continue POC Treatment Plan/Plan of Care Patient would benefit from OT for education, treatment and training to promote independence in ADL's, mobility, safety and/or upper extremity function for ADL' s. Plan of Care: ADL Retraining, Functional Mobility, Group Exercise/Act as Ind ( education, exercise, activity tolerance, functional activities, socialization), UE Funct Exercise/Act, UE Neuromus Re-Ed/Coord Treatment Duration: January 09, 2017 Visits Per Week: 10-11 Minutes/Day (M-F): 75-90 Minutes/Day (Sat/[place]): PRN Agreement: Yes Rehab Potential: Good Time/GCodes Start Time: 11:05 Stop Time: 11:35 Total Time Billed (hr/min): 30 Billed Treatment Time visit, 30 minutes ADL KOLE RAY OT Jan 01, 2017 12:55
--- NOTE | 2017-01-01 13:30 | Physical Therapy Daily Note ---
PT Daily Note-Current Subjective Patient reports less pain 2-3/10, agrees to PT Appearance Patient in room post tx, she is mod I with a rolling walker. A different rolling walker was obtained for her because the one she was using was just a little too short for her and could not be adjusted higher. Mental Status Patient Orientation: Normal For Age Transfers Functional [place] Measure 0=Not Assessed/NA 4=Minimal Assistance 1=Total Assistance 5=Supervision or Setup 2=Maximal Assistance 6=Modified [place] 3=Moderate Assistance 7=Complete IndependenceIRFPAI Quality Coding Scale 6 Independent with activity with or without an assistive device 5 Patient requires set up or clean up by helper. Patient completes activity by themselves 4 Supervision or touching assist (CGA). [place] provide cues , steadying assist 3 The helper provides less than half the effort to complete the activity 2 The helper provides more than half the effort to complete the activity 1 Dependent. The helper does all the effort to complete an activity 7 Patient refused to complete or attempt activity 9 The patient did not perform the activity before the current illness or injury 88 Not attempted due to Medical conditions or safety concerns Transfers (B, C, W/C) (FIM): 6 Sit to/from Stand: 6 Gait Training Gait (FIM): 6 Distance: 1000'x2 Gait Assistive Device: FWW Patient was able to go into the gift shop and maneuver around the aisles in tight spaces. Treatments transfers, ambulation Assessment Current Status: Fair Progress Patient only had one rest break between walks PT Short Term Goals Short Term Goals Time Frame: Jan 01, 2017 Transfers (B,C,W/C) (FIM): 4 (met 4-25 at 6) Gait (FIM): 4 (met 4-26 at 6) Distance (FIM): 3=150 ft Gait Assistive Device: FWW PT Fdc Goals Associate Software Application Engineer Goals PT Associate Software Application Engineer Goals Time Frame: January 15, 2017 Transfers (B,C,W/C) (FIM): 6 (et) Sit to Lying (QC): 6 (met) Lying-Sitting on Side/Bed(QC): 6 (met) Sit to Stand (QC): 6 (met) Rollin (met) Roll Left to Right (QC): 6 (met) Chair/Xbm-ch-Pwtov Xfer(QC): 6 (met) Car Transfer (QC): 5 Does the Patient Walk: Yes Gait (FIM): 6 (met) Gait distance (FIM): 3=150 ft Walk 10 feet (QC): 6 (met) Walk 10ft-Uneven Surface(QC): 6 (met) Walk 50ft with 2 Turns (QC): 6 (met) Walk 150 ft (QC): 6 (met) Gait Level of Assist: 6 Gait Assistive Device: FWW Does the Pt use WC or Scooter?: No Stairs (FIM): 5 (met) # of Steps: 8 (memet) 1 Step (curb) (QC): 6 (met) 4 Steps (QC): 5 (met) 12 Steps (QC): 88 (met) Picking up an Object (QC): 88 PT Plan Problem List Problem List: Activity Tolerance, Functional Strength, Safety, Balance, Gait, Transfer Treatment/Plan Treatment Plan: Continue Plan of Care Treatment Plan: Bed Mobility, Education, Functional Activity Alicia, Functional Strength, Group Therapy, Gait, Safety, Therapeutic Exercise, Transfers Treatment Duration: January 15, 2017 Visits Per Week: 10-15 Minutes/Day (M-F): 60-90 Minutes/Day (Sat/[place]): prn Safety Risks/Education Patient Education: Gait Training, Safety Issues Teaching Recipient: Patient Teaching Methods: Demonstration, Discussion Response to Teaching: Reinforcement Needed Time/GCodes Time In: 1300 Time Out: 1330 Total Billed Treatment Time: 30 Total Billed Treatment 1 visit GT 30' OPAL STRANGE PT Jan 01, 2017 13:30
[2017-01-01 18:34] VITALS: BP 132/74
[2017-01-01] MEDS: ATORVASTATIN 10 MG (LIPITOR) TABLET PO SCH (21:03)
[2017-01-02 06:00] VITALS: BP 109/65
[2017-01-02] MEDS: ZINC SULFATE 220 MG CAPSULE PO SCH (06:12)
[2017-01-02] MEDS: oxyCODONE/APAP 5/325MG (PERCOCET 5) TABLET PO PRN ×4 (06:12→22:50)
[2017-01-02] MEDS: LEVOTHYROXINE 75 MCG (LEVOTHROID) TABLET PO SCH (06:12)
[2017-01-02] MEDS: MULTIVIT W/MINERALS TAB (THERAGRAN M) PO SCH (06:12)
--- NOTE | 2017-01-02 08:57 | Physical Therapy Daily Note ---
PT Daily Note-Current Subjective Anxious to get home back to her routine. Doesnt think therapies should start until about 930 AM Pain Numeric Pain Scale: 2 Location: Medial Location Body Site: Back Pain Description: Ache Appearance in PJs and robe Mental Status Patient Orientation: Normal For Age Transfers Functional [place] Measure 0=Not Assessed/NA 4=Minimal Assistance 1=Total Assistance 5=Supervision or Setup 2=Maximal Assistance 6=Modified [place] 3=Moderate Assistance 7=Complete IndependenceIRFPAI Quality Coding Scale 6 Independent with activity with or without an assistive device 5 Patient requires set up or clean up by helper. Patient completes activity by themselves 4 Supervision or touching assist (CGA). [place] provide cues , steadying assist 3 The helper provides less than half the effort to complete the activity 2 The helper provides more than half the effort to complete the activity 1 Dependent. The helper does all the effort to complete an activity 7 Patient refused to complete or attempt activity 9 The patient did not perform the activity before the current illness or injury 88 Not attempted due to Medical conditions or safety concerns Transfers (B, C, W/C) (FIM): 6 Scootin Rollin Roll Left to Right (QC): 6 Supine to/from Sit: 6 Sit to/from Stand: 6 Sit to Lying (QC): 6 Sit to Stand (QC): 6 Chair/Wbl-bp-Vuegh Xfer(QC): 6 Bed to/from Chair: 6 Gait Training Does the Patient Walk?: Yes Gait (FIM): 6 Distance (FIM): 3=150 ft ([id number]) Gait Level of Assist: 6 Gait Persons Needed: 0 Gait Assistive Device: FWW better alignment today Stair Training Stair Training: Handrails/: 1 handrail (both hands) Stairs (FIM): 6 #of Steps: 16 Stairs: Pattern: Step to Level of Assist: 6 Exercises Supine Ex: Ankle pumps, Quad Set, Rolling, Glut sets, Heel Slides, Short Arc Quads, Scooting, Straight leg raise (x5), Hip abd/add Seated Therapy Exercises: Ankle pumps, Sit to stand, Long arc quads, Hip flexion Seated Reps: 10 Standing: Hip Abduction, Hamstring curls, Heel/toe raises, Marching, Mini squats, Sit to Stand Standing Reps: 12 Treatments toileted and brushed hair indep Assessment Current Status: Good Progress PT Short Term Goals Short Term Goals Time Frame: Jan 01, 2017 Transfers (B,C,W/C) (FIM): 4 (met 4-25 at 6) Gait (FIM): 4 (met 4-26 at 6) Distance (FIM): 3=150 ft Gait Assistive Device: FWW PT Poultry Farm Laborer Goals Poultry Farm Laborer Goals PT Poultry Farm Laborer Goals Time Frame: January 15, 2017 Transfers (B,C,W/C) (FIM): 6 (et) Sit to Lying (QC): 6 (met) Lying-Sitting on Side/Bed(QC): 6 (met) Sit to Stand (QC): 6 (met) Rollin (met) Roll Left to Right (QC): 6 (met) Chair/Jgi-qu-[place] Xfer(QC): 6 (met) Car Transfer (QC): 5 Does the Patient Walk: Yes Gait (FIM): 6 (met) Gait distance (FIM): 3=150 ft Walk 10 feet (QC): 6 (met) Walk 10ft-Uneven Surface(QC): 6 (met) Walk 50ft with 2 Turns (QC): 6 (met) Walk 150 ft (QC): 6 (met) Gait Level of Assist: 6 Gait Assistive Device: FWW Does the Pt use WC or Scooter?: No Stairs (FIM): 5 (met) # of Steps: 8 (memet) 1 Step (curb) (QC): 6 (met) 4 Steps (QC): 5 (met) 12 Steps (QC): 88 (met) Picking up an Object (QC): 88 PT Plan Treatment/Plan Treatment Plan: Continue Plan of Care Treatment Plan: Bed Mobility, Education, Functional Activity Alicia, Functional Strength, Group Therapy, Gait, Safety, Therapeutic Exercise, Transfers Treatment Duration: January 15, 2017 Visits Per Week: 10-15 Minutes/Day (M-F): 60-90 Minutes/Day (Sat/[place]): prn Safety Risks/Education Patient Education: Gait Training, Transfer Techniques, Steps, Correct Positioning, Disease Process, Safety Issues Teaching Recipient: Patient Teaching Methods: Demonstration, Discussion Response to Teaching: Verbalize Understanding, Return Demonstration Time/GCodes Time In: 800 Time Out: 900 Total Billed Treatment Time: 60 Total Billed Treatment 1,EX40,FA20 G Codes Necessary: DAYANA Dunn PHARMACY TECH Jan 02, 2017 08:57
--- NOTE | 2017-01-02 08:57 | PM & R (SOAP) Progress Note ---
Subjective Subjective/Events-last exam Patient was seen in her room this AM Patient Modified Independent for mobility with FWW.Current labs reviewed Review of Systems skin irritation Objective Exam Last Set of Vital Signs Vital Signs Date Time Temp Pulse Resp B/P (MAP) Pulse Ox O2 Delivery O2 Flow Rate FiO2 01/02/17 06:00 97.6 63 18 109/65 93 Room Air 12/31/16 05:00 1.50 Capillary Refill : I&O Intake and Output 01/02/17 00:00 Intake Total 1200 ml Balance 1200 ml Intake Oral 1200 ml # Voids 6 General: Alert, Oriented X3, Cooperative, No Acute Distress, Other (sitting up in chair) HEENT: Atraumatic, PERRLA, EOMI, Mucous Memb Moist/[place] Neck: Supple, No JVD Lungs: Clear to Auscultation Heart: Regular Rate Abdomen: Normal Bowel Sounds, Soft, No Tenderness Extremities: No Edema Skin: Other (mild erythema from Spinal orthosis) Neuro: Other (generalized weakness has active dorsiflexion at both ankles) Assessment/Plan Assessment S/P RT Lumbar 3-4 transforaminal lumbar interbody fusion/posteriorspinal fusion with excision HNP postop anemia A FIB controlled with meds Chronic OAC Chronic back pain Mild dermatitis fro spinal orthosis Gerd on meds Atelectasis Using IS Nausea resolved Postop constipation treated Plan Continue PT/OT/skin care and pain management Leave binder off when in bed Check with PT/ortho re better fitting spinal orthosis as needed-done as per above F/U with DR Underwood and orthospine Continue with current meds and IS Team Conference held 12-31-16--See report for full functional update and POC Discharge reset for Thursday01/03/17 to home with spouse. GI savage feeling much better and appetite much improved See orders. MIGUEL MCCALL MD Jan 02, 2017 08:57
[2017-01-02] MEDS ORDERED: OMG1KC PO (09:04)
[2017-01-02] MEDS ORDERED: OXYC-471 PO (09:04)
[2017-01-02] MEDS ORDERED: APIX5TAB PO (09:04)
[2017-01-02] MEDS: CALCIUM CARB + VIT D 600 MG (CALCARB + D) TAB PO SCH ×2 (09:25→21:27)
[2017-01-02] MEDS: VITAMIN D3 1,000 UNITS (CHOLECALCIFEROL) TABLET PO SCH (09:25)
[2017-01-02] MEDS: OMEGA 3 (FISH OIL) 1000 MG CAP PO SCH ×2 (09:25→09:29)
[2017-01-02] MEDS: GABAPENTIN 300 MG (NEURONTIN) CAP PO SCH ×3 (09:26→21:28)
[2017-01-02] MEDS: PANTOPRAZOLE 20 MG TABLET (PROTONIX) PO SCH (09:26)
[2017-01-02] MEDS: ASCORBIC ACID (VIT C) 500 MG TABLET PO SCH (09:26)
[2017-01-02] MEDS: OXYBUTYNIN (DITROPAN) 5 MG TAB PO SCH ×5 (09:26→21:28)
[2017-01-02] MEDS: APIXABAN 5 MG (ELIQUIS) TABLET PO SCH ×2 (09:26→21:28)
[2017-01-02] MEDS: meTOprolol TARTRATE 25 MG (LOPRESSOR) TABLET PO SCH ×2 (09:26→21:27)
[2017-01-02] MEDS: SENNA W/DOCUSATE (SENOKOT S) TABLET PO SCH ×2 (09:27→21:28)
[2017-01-02] MEDS: ONDANSETRON 4 MG (ZOFRAN) ORAL DISSOLVE TAB PO PRN (10:10)
[2017-01-02] MEDS ORDERED: ONDA4TAB11 PO (10:54)
--- NOTE | 2017-01-02 11:12 | Occupational Ther Daily Note ---
OT Current Status-Daily Note Subjective Pt seen in room, up in recliner, agreeable to OT. No pain mentioned. Appearance Alert, cooperative Mental Status/Objective Functional [place] Measure 0=Not Assessed/NA 4=Minimal Assistance 1=Total Assistance 5=Supervision or Setup 2=Maximal Assistance 6=Modified [place] 3=Moderate Assistance 7=Complete [place] ADL-Treatment Pt tends to walk off and leave her walker and hold on to furniture. She said she will be doing this at home because there are some places where her walker won't fit (on the sofa and beside her bed). Functional [place] Measure 0=Not Assessed/NA 4=Minimal Assistance 1=Total Assistance 5=Supervision or Setup 2=Maximal Assistance 6=Modified [place] 3=Moderate Assistance 7=Complete IndependenceIRFPAI Quality Coding Scale 6 Independent with activity with or without an assistive device 5 Patient requires set up or clean up by helper. Patient completes activity by themselves 4 Supervision or touching assist (CGA). [place] provide cues , steadying assist 3 The helper provides less than half the effort to complete the activity 2 The helper provides more than half the effort to complete the activity 1 Dependent. The helper does all the effort to complete an activity 7 Patient refused to complete or attempt activity 9 The patient did not perform the activity before the current illness or injury 88 Not attempted due to Medical conditions or safety concerns Grooming (FIM): 6 (Washed face and hands at sink, put on makeup, brushed hair, all done seated at sink (modified technique)) Upper Body (FIM): 6 (retrieved clean clothes form closet and put dirty ones away, FWW for balance. No difficulty donning bra, t shirt, shirt, back support, if stand, with FWW for support.) Lower Body Dressing (FIM): 6 (retrieved clean clothes from closet and put dirty one away, FWW for support. Donned shoes and sokcs, pants, FWW for balance) Toileting (FIM): 6 (Tall toilet, grab bars, FWW. managed clothing and hygiene) Toilet/Commode Transfer (FIM): 6 (Tall toilet, grab bars, FWW) Other Treatment Pt walked to gym with FWW, no assist and no LOB observed. In the gym, she did 10 minutes on arm bike set at 25-30W resistance (increased resistance so decreased time). To help with sit ti stand and stability while standing at sink to brush teeth. Pt stated that she preferred to go to [facility] rather than do home health (including OT) - information shared with SW. Pt walked back to room without help, FWW and was left up in recliner, all needs met. Education OT Patient Education: Modified ADL techniques, Progress toward Goal/Update tx plan, Purpose of tx/functional activities, Safety issues, Transfer techniques Teaching Recipient: Patient Teaching Methods: Discussion Response to Teaching: Verbalize Understanding OT Short Term Goals Short Term Goals Transfers (B,C,W/C) (FIM): 4 (met -25 at 6) 1=Demonstrate adherence to instructed precautions during ADL tasks. 2=Patient will verbalize/demonstrate understanding of assistive devices/ modifications for ADL. 3=Patient will improve strength/tolerance for activity to enable patient to perform ADL's. OT Specification Consultant Goals Fdc Goals Time Frame: January 09, 2017 Eating (FIM): 6 (Met 01-01-17) Eating (QC): 6 (Met 01-01-17) Groomin (Met 01-01-17) Oral Hygiene (QC): 6 (Met 01-01-17) Bathing(FIM): 6 (Met 01-01-17) Shower/Bathe Self (QC): 6 (Met 01-01-17) Upper Body Dressing(FIM): 6 (Met 01-01-17) Upper Body Dressing (QC): 6 (Met 01-01-17) Lower Body Dressing(FIM): 6 (Met 01-01-17) Lower Body Dressing (QC): 6 (Met 01-01-17) On/Off Footwear (QC): 6 (Met 01-01-17) Toileting(FIM): 6 (Met 01-01-17) Toileting Hygiene (QC): 6 (Met 01-01-17) Toilet/Commode Transfer(FIM): 6 (Met 01-01-17) Toilet/Commode Transfer (QC): 6 (Met 01-01-17) Shower Transfer(FIM): 6 (Met 01-01-17) Additional Goals: 1-Demonstrate ADL Tasks, 2-Verbalize Understanding, 3- ImproveStrength/Alicia 1=Demonstrate adherence to instructed precautions during ADL tasks. 2=Patient will verbalize/demonstrate understanding of assistive devices/ modifications for ADL. 3=Patient will improve strength/tolerance for activity to enable patient to perform ADL's. OT Education/Plan Problem List/Assessment Pt would benefit from skilled OT to increase her independence in basic self care to allow her to return home safely to live with her and decrease caregiver burden. Discharge Recommendations Plan/Recommendations: Continue POC Treatment Plan/Plan of Care Patient would benefit from OT for education, treatment and training to promote independence in ADL's, mobility, safety and/or upper extremity function for ADL' s. Plan of Care: ADL Retraining, Functional Mobility, Group Exercise/Act as Ind ( education, exercise, activity tolerance, functional activities, socialization), UE Funct Exercise/Act, UE Neuromus Re-Ed/Coord Treatment Duration: January 09, 2017 Visits Per Week: 10-11 Minutes/Day (M-F): 75-90 Minutes/Day (Sat/[place]): PRN Agreement: Yes Rehab Potential: Good Time/GCodes Start Time: 09:35 Stop Time: 10:35 Total Time Billed (hr/min): 60 Billed Treatment Time visit, 45 minutes ADL, 15 minutes exercise KOLE RAY OT Jan 02, 2017 11:12
--- NOTE | 2017-01-02 13:52 | Therapy Group Daily Note ---
Therapy Daily Group Note Patient Education Topic Home Safety Other/Notes Pt was an active participant in OT group. She introduced herself by sharing her rehab story with others. She contributed to group discussion /education on home safety (especially pertinent since she is going home tomorrow) and was able to identify ways that she has done or will do to be safer at home. She walked independently, FWW to and from group, with no LOB observed. Start Time: 12:30 Stop Time: 13:30 Total Billed Treatment Time: 60 Total Billed Treatment visit, group 60 minutes KOLE RAY OT Jan 02, 2017 13:52
--- NOTE | 2017-01-02 14:46 | Therapy Team Discharge Summary ---
Therapy Discharge Summary Discharge Recommendations Date of Discharge January 03, 2017 Therapy D/C Recommendations: Occupational Therapy Home Care, Physical Therapy Home Care Occupational Therapy Pt was seen for skilled OT to increase her independence in basic self care to allow her to safely return to her home to live with her and son, after back surgery. On admission she needed CGA for toileting, toilet transfers, SBA or setup for grooming, bathing, dressing and shower transfers and was modified indep with eating. By discharge she was modified independent with all basic ADLs , including donning and doffing back support. Equipment used included FWW, long handled sponge, sock aid, dressing stick, shower bench, grab bars, BSC over toilet. She would like a shower chair for use at home. Home Health OT is recommended. See tx plan for goals met. DC OT PT Senior Living Goals Senior Living Goals PT Copy Holder Goals Time Frame: January 15, 2017 Transfers (B,C,W/C) (FIM): 6 (et) Roll Left to Right (QC): 6 (met) Sit to Lying (QC): 6 (met) Lying-Sitting on Side/Bed(QC): 6 (met) Sit to Stand (QC): 6 (met) Chair/Zpj-xv-Enjgj Xfer(QC): 6 (met) Car Transfer (QC): 5 Does the Patient Walk: Yes Gait (FIM): 6 (met) Gait distance (FIM): 3=150 ft Walk 10 feet (QC): 6 (met) Walk 10ft-Uneven Surface(QC): 6 (met) Walk 50ft with 2 Turns (QC): 6 (met) Walk 150 ft (QC): 6 (met) Gait Level of Assist: 6 Gait Assistive Device: FWW Does the Pt use WC or Scooter?: No Stairs (FIM): 5 (met) # of Steps: 8 (memet) 1 Step (curb) (QC): 6 (met) 4 Steps (QC): 5 (met) 12 Steps (QC): 88 (met) Picking up an Object (QC): 88 OT Senior Living Goals Copy Holder Goals Time Frame: January 09, 2017 Eating (FIM): 6 (Met 01-01-17) Eating (QC): 6 (Met 01-01-17) Oral Hygiene (QC): 6 (Met 01-01-17) Grooming(FIM): 6 (Met 01-01-17) Bathing(FIM): 6 (Met 01-01-17) Shower/Bathe Self (QC): 6 (Met 01-01-17) Upper Body Dressing(FIM): 6 (Met 01-01-17) Upper Body Dressing (QC): 6 (Met 01-01-17) Lower Body Dressing(FIM): 6 (Met 01-01-17) Lower Body Dressing (QC): 6 (Met 01-01-17) On/Off Footwear (QC): 6 (Met 01-01-17) Toileting(FIM): 6 (Met 01-01-17) Toileting Hygiene (QC): 6 (Met 01-01-17) Toilet/Commode Transfer(FIM): 6 (Met 01-01-17) Toilet/Commode Transfer (QC): 6 (Met 01-01-17) Shower Transfer(FIM): 6 (Met 01-01-17) Additional Goals: 1-Demonstrate ADL Tasks, 2-Verbalize Understanding, 3- ImproveStrength/Alicia 1=Demonstrate adherence to instructed precautions during ADL tasks. 2=Patient will verbalize/demonstrate understanding of assistive devices/ modifications for ADL. 3=Patient will improve strength/tolerance for activity to enable patient to perform ADL's. KOLE RAY OT Jan 02, 2017 14:46
[2017-01-02 18:00] VITALS: BP 131/76
[2017-01-02] MEDS: ATORVASTATIN 10 MG (LIPITOR) TABLET PO SCH (21:27)
[2017-01-03 06:46] VITALS: BP 115/69
[2017-01-03] MEDS: LEVOTHYROXINE 75 MCG (LEVOTHROID) TABLET PO SCH (06:55)
[2017-01-03] MEDS: ZINC SULFATE 220 MG CAPSULE PO SCH (06:55)
[2017-01-03] MEDS: MULTIVIT W/MINERALS TAB (THERAGRAN M) PO SCH (06:55)
[2017-01-03] MEDS: PANTOPRAZOLE 20 MG TABLET (PROTONIX) PO SCH (09:01)
[2017-01-03] MEDS: VITAMIN D3 1,000 UNITS (CHOLECALCIFEROL) TABLET PO SCH (09:01)
[2017-01-03] MEDS: meTOprolol TARTRATE 25 MG (LOPRESSOR) TABLET PO SCH (09:02)
[2017-01-03] MEDS: CALCIUM CARB + VIT D 600 MG (CALCARB + D) TAB PO SCH (09:02)
[2017-01-03] MEDS: ASCORBIC ACID (VIT C) 500 MG TABLET PO SCH (09:02)
[2017-01-03] MEDS: OXYBUTYNIN (DITROPAN) 5 MG TAB PO SCH ×2 (09:02→13:04)
[2017-01-03] MEDS: APIXABAN 5 MG (ELIQUIS) TABLET PO SCH (09:02)
[2017-01-03] MEDS: GABAPENTIN 300 MG (NEURONTIN) CAP PO SCH ×2 (09:03→13:04)
[2017-01-03] MEDS: oxyCODONE/APAP 5/325MG (PERCOCET 5) TABLET PO PRN ×2 (09:03→13:50)
[2017-01-03] MEDS: SENNA W/DOCUSATE (SENOKOT S) TABLET PO SCH (09:04)
[2017-01-03] MEDS: OMEGA 3 (FISH OIL) 1000 MG CAP PO SCH (09:05)
[2017-01-03] MEDS: ONDANSETRON 4 MG (ZOFRAN) ORAL DISSOLVE TAB PO PRN (09:31)
[2017-01-03 09:40] VITALS: BP 109/69
--- NOTE | 2017-01-03 10:35 | Therapy Team Discharge Summary ---
Therapy Discharge Summary Discharge Recommendations Date of Discharge Therapy D/C Recommendations: Occupational Therapy Home Care, Physical Therapy Home Care Physical Therapy Patient came to rehab s/p L3-L4 decompression and fusion. Upon admission patient performed bed mobility with mod assist and transfers with mod to min assist, ambulated 150' with a rolling walker with CGA/Cristhian, and went up and down 1 step using a rolling walker with min assist. Patient has been performing bed mobility and transfer training, balance and endurance training, functional strengthening, stair training, gait training, and education. Patient has made good progress and has met all of her half-way goals. Now, patient performs bed mobility and transfers with mod I, ambulates 300' with a rolling walker with mod I (including 50' with at least 2 turns of 90 degrees and 10' over an uneven surface), and can go up and down 16 steps using 1 handrail (both hands) with modified independence. Patient is being discharged from this facility today and will be discharged from PT at this time. PT Group Home Goals Group Home Goals PT Wood Casket Maker Goals Time Frame: January 15, 2017 Transfers (B,C,W/C) (FIM): 6 (et) Roll Left to Right (QC): 6 (met) Sit to Lying (QC): 6 (met) Lying-Sitting on Side/Bed(QC): 6 (met) Sit to Stand (QC): 6 (met) Chair/Uyu-mr-Crqjt Xfer(QC): 6 (met) Car Transfer (QC): 5 Does the Patient Walk: Yes Gait (FIM): 6 (met) Gait distance (FIM): 3=150 ft Walk 10 feet (QC): 6 (met) Walk 10ft-Uneven Surface(QC): 6 (met) Walk 50ft with 2 Turns (QC): 6 (met) Walk 150 ft (QC): 6 (met) Gait Level of Assist: 6 Gait Assistive Device: FWW Does the Pt use WC or Scooter?: No Stairs (FIM): 5 (met) # of Steps: 8 (memet) 1 Step (curb) (QC): 6 (met) 4 Steps (QC): 5 (met) 12 Steps (QC): 88 (met) Picking up an Object (QC): 88 OT Group Home Goals Wood Casket Maker Goals Time Frame: January 09, 2017 Eating (FIM): 6 (Met 01-01-17) Eating (QC): 6 (Met 01-01-17) Oral Hygiene (QC): 6 (Met 01-01-17) Grooming(FIM): 6 (Met 01-01-17) Bathing(FIM): 6 (Met 01-01-17) Shower/Bathe Self (QC): 6 (Met 01-01-17) Upper Body Dressing(FIM): 6 (Met 01-01-17) Upper Body Dressing (QC): 6 (Met 01-01-17) Lower Body Dressing(FIM): 6 (Met 01-01-17) Lower Body Dressing (QC): 6 (Met 01-01-17) On/Off Footwear (QC): 6 (Met 01-01-17) Toileting(FIM): 6 (Met 01-01-17) Toileting Hygiene (QC): 6 (Met 01-01-17) Toilet/Commode Transfer(FIM): 6 (Met 01-01-17) Toilet/Commode Transfer (QC): 6 (Met 01-01-17) Shower Transfer(FIM): 6 (Met 01-01-17) Additional Goals: 1-Demonstrate ADL Tasks, 2-Verbalize Understanding, 3- ImproveStrength/Alicia 1=Demonstrate adherence to instructed precautions during ADL tasks. 2=Patient will verbalize/demonstrate understanding of assistive devices/ modifications for ADL. 3=Patient will improve strength/tolerance for activity to enable patient to perform ADL's. OPAL STRANGE PT Jan 03, 2017 10:35
[2017-01-03 14:24] VITALS: BP 109/69
== END 2017-01-03 14:43 | disposition home or self-care (01) | DRG 949 ==
LOC: ENPENDDIS 01-03 12:00
PROVIDERS: ADMIT Physical Medicine & Rehabilitation; ATTEND Physical Medicine & Rehabilitation
DX: Z48.89 Encounter for other specified surgical aftercare (principal); Z98.1 Arthrodesis status; J98.11 Atelectasis; I48.91 Unspecified atrial fibrillation; E78.00 Pure hypercholesterolemia, unspecified; I10 Essential (primary) hypertension; K21.9 Gastro-esophageal reflux disease without esophagitis; E03.9 Hypothyroidism, unspecified; K59.00 Constipation, unspecified; D64.9 Anemia, unspecified; L30.9 Dermatitis, unspecified; Z79.01 Long term (current) use of anticoagulants; Z87.891 Personal history of nicotine dependence

== ENCOUNTER 2017-01-11 13:45 | Emergency (ER) | payer MEDICARE ==
[~2017-01-11] VITALS: Ht 167.6 cm; Wt 61.2 kg
[~2017-01-11 13:45] MED LIST changes: +OMG1KC PO; +ONDA4TAB11 PO
[2017-01-11] MEDS ORDERED: NS IV 1000 ML 1,000 ML IV ONE (15:35)
[2017-01-11] MEDS ORDERED: FAMOTIDINE 20MG/2ML IV (PEPCID) IV STA (15:35)
--- NOTE | 2017-01-11 15:36 | ED GI ---
General Chief Complaint: Abdominal/GI Problems Stated Complaint: LOSS OF APPETITE/VOMITING/WEAKNESS Nursing Triage Note: c/o fatigue/nausea/decreased appetite/sweats/chills appetite. Patient had lumbar surgery with hardware 3 weeks ago Thursday. She was discharged from skilled rehab one 1 week ago. Patient had been on narcotics for "weeks" and quit them 2 days ago. Sepsis Screen: No Definite Risk Source of Information: Patient, Spouse Exam Limitations: No Limitations History of Present Illness Time Seen By Provider: 15:36 Allergies and Home Medications Allergies Coded Allergies: erythromycin base (Verified Allergy, Unknown, 04/04/16) levofloxacin (Verified Allergy, Unknown, 04/04/16) Home Medications Apixaban 5 Mg Tablet, 5 MG PO BID for 30 Days, #60 Prescribed by: MIGUEL MCCALL on 01/02/17 0904 Ascorbic Acid 500 Mg Tablet, 500-1,000 MG PO DAILY, (Reported) Atorvastatin Calcium 10 Mg Tablet, 5 MG PO HS, (Reported) TAKES 1/2 (10MG) TABLET Calcium Carbonate/Vitamin D3 1 Each Tablet, 1 TAB PO BID, (Reported) Cholecalciferol (Vitamin D3) 1,000 Unit Capsule, 1,000 UNIT PO DAILY@1300, ( Reported) Cyanocobalamin (Vitamin B-12) 50 Mcg Tablet, 50 MCG PO DAILY, (Reported) Gabapentin 300 Mg Capsule, 300 MG PO TID, (Reported) Levothyroxine Sodium 75 Mcg Tablet, 75 MCG PO DAILY, (Reported) Metoprolol Tartrate 25 Mg Tablet, 12.5 MG PO BID, (Reported) TAKES 1/2 (25MG) TABLET Multivitamin 1 Each Tablet, 1 TAB PO DAILY, (Reported) [place] 3 Polyunsat Fatty Acids 1,000 Mg Cap, 1,000 MG PO DAILY for 30 Days, #30 Prescribed by: MIGUEL MCCALL on 01/02/17 0904 Omeprazole 20 Mg Capsule.dr, 20 MG PO DAILY, (Reported) Ondansetron 4 Mg Tab.rapdis, 4 MG PO Q6H PRN for NAUSEA/VOMITING-1ST LINE for 30 Days, #60 Prescribed by: MIGUEL MCCALL on 01/02/17 1054 Oxybutynin Chloride 5 Mg Tab.er.24, 2.5 MG PO TID, (Reported) TAKES 1/2 (5MG) TABLET Oxycodone HCl/Acetaminophen 1 Each Tablet, 1-2 TAB PO Q4H PRN for PAIN-MODERATE for 14 Days, #40 Prescribed by: MIGUEL MCCALL on 01/02/17 0904 Sennosides/Docusate Sodium 1 Each Tablet, 1 TAB PO BID PRN for CONSTIPATION-6TH LINE, (Reported) Zinc Amino Acid Chelate 50 Mg Tablet, 50 MG PO DAILY, (Reported) Past Xlvklmo-Tfbebi-Upsmpv Hx Patient Social History Alcohol Use: Denies Use Recreational Drug Use: No Smoking Status: Former Smoker Type Used: Cigarettes 2nd Hand Smoke Exposure: No Recent Foreign Travel: No Contact w/Someone Who Travel: No Recent Infectious Disease Expo: No Recent Hopitalizations: Yes (INTRACTABLE PAIN) Immunizations Up To Date Tetanus Booster (TDap): Unknown PED Vaccines UTD: No Date of Pneumonia Vaccine: Jun 07, 2012 Date of Influenza Vaccine: Jun 07, 2016 Seasonal Allergies Seasonal Allergies: Yes Surgeries HX Surgeries: Yes (CARDIAC ABLATION FOR ATRIAL FIBRILLATION 11/2016 AT ) Surgeries: Bladder Surgery, Cardiac, Gallbladder, Hysterectomy, Neurological, Vascular Surgery Respiratory Hx Respiratory Disorders: Yes Respiratory Disorders: Pneumonia Cardiovascular Hx Cardiac Disorders: Yes (IMPLANTED ELECTRODE-PER DR JEAN) Cardiac Disorders: Atrial Fibrillation, High Cholesterol, Hypertension Neurological Hx Neurological Disorders: No Reproductive System Hx Reproductive Disorders: No Sexually Transmitted Disease: No HIV/AIDS: No Female Reproductive Disorders: Denies Genitourinary Hx Genitourinary Disorders: Yes (STRESS INCONTINENCE) Gastrointestinal Hx Gastrointestinal Disorders: Yes Gastrointestinal Disorders: Gastroesophageal Reflux Musculoskeletal Hx Musculoskeletal Disorders: Yes Musculoskeletal Disorders: Chronic Back Pain Endocrine Hx Endocrine Disorders: Yes Endocrine Disorders: Hypothyroidsim HEENT HX ENT Disorders: No Loss of Vision: Denies Hearing Impairment: Hard of Hearing Cancer Hx Cancer: No Psychosocial Hx Psychiatric Problems: No Integumentary HX Skin/Integumentary Disorder: No Blood Transfusions Hx Blood Disorders: No Adverse Reaction to a Blood Tr: No Family Medical History Significant Family History: Heart Disease, Hypertension Family Medial History: Alcoholism 19 FATHER Physical Exam Vital Signs VS - Last 72 Hours, by Label 01/11/17 14:10 Temp 97.5 B/P (MAP) 134/84 Pulse Ox 98 O2 Delivery Room Air Capillary Refill : Less Than 3 Seconds Progress/Results/Core Measures Results/Orders Lab Results Laboratory Tests Test 01/11/17 16:10 01/11/17 17:00 Range/Units White Blood Count 5.8 4.3-11.0 10^3/uL Red Blood Count 4.06 L 4.35-5.85 10^6/uL Hemoglobin 12.2 11.5-16.0 G/DL Hematocrit 36 35-52 % Mean Corpuscular Volume 89 80-99 FL Mean Corpuscular Hemoglobin 30 25-34 PG Mean Corpuscular Hemoglobin Concent 34 32-36 G/DL Red Cell Distribution Width 14.3 10.0-14.5 % Platelet Count 390 130-400 10^3/uL Mean Platelet Volume 9.9 7.4-10.4 FL Neutrophils (%) (Auto) 71 42-75 % Lymphocytes (%) (Auto) 21 12-44 % Monocytes (%) (Auto) 8 0-12 % Eosinophils (%) (Auto) 1 0-10 % Basophils (%) (Auto) 0 0-10 % Neutrophils # (Auto) 4.1 1.8-7.8 X 10^3 Lymphocytes # (Auto) 1.2 1.0-4.0 X 10^3 Monocytes # (Auto) 0.5 0.0-1.0 X 10^3 Eosinophils # (Auto) 0.0 0.0-0.3 10^3/uL Basophils # (Auto) 0.0 0.0-0.1 10^3/uL Sodium Level 140 135-145 MMOL/L Potassium Level 3.3 L 3.6-5.0 MMOL/L Chloride Level 103 98-107 MMOL/L Carbon Dioxide Level 25 21-32 MMOL/L Anion Gap 12 5-14 MMOL/L Blood Urea Nitrogen 6 L 7-18 MG/DL Creatinine 0.75 0.60-1.30 MG/DL Estimat Glomerular Filtration Rate > 60 BUN/Creatinine Ratio 8 Glucose Level 99 70-105 MG/DL Calcium Level 9.6 8.5-10.1 MG/DL Total Bilirubin 0.5 0.1-1.0 MG/DL Aspartate Amino Transf (AST/SGOT) 20 5-34 U/L Alanine Aminotransferase (ALT/SGPT) 15 0-55 U/L Alkaline Phosphatase 76 40-136 U/L Total Protein 7.1 6.4-8.2 G/DL Albumin 4.0 3.2-4.5 G/DL Lipase 91 H 8-78 U/L Urine Color YELLOW Urine Clarity CLEAR Urine pH 8 5-9 Urine Specific [place] 1.010 L 1.016-1.022 Urine Protein NEGATIVE NEGATIVE Urine Glucose (UA) NEGATIVE NEGATIVE Urine Ketones 1+ H NEGATIVE Urine Nitrite NEGATIVE NEGATIVE Urine Bilirubin NEGATIVE NEGATIVE Urine Urobilinogen NORMAL NORMAL MG/DL Urine Leukocyte Esterase 1+ H NEGATIVE Urine RBC (Auto) NEGATIVE NEGATIVE Urine RBC NONE /HPF Urine WBC 5-10 H /HPF Urine Squamous Epithelial Cells NONE /HPF Urine Renal Epithelial Cells 0-2 /HPF Urine Crystals NONE /LPF Urine Bacteria FEW H /HPF Urine Casts NONE /LPF Urine Mucus NEGATIVE /LPF Urine Culture Indicated YES My Orders Orders - ALINA DICKSON PA Cbc With Automated Diff (01/11/17 15:35) Comprehensive Metabolic Panel (01/11/17 15:35) Lipase (01/11/17 15:35) Ua Culture If Indicated (01/11/17 15:35) Saline Lock/Iv-Start (01/11/17 15:35) Chest 1 View, Ap/Pa Only (01/11/17 15:35) Ns Iv 1000 Ml (Sodium Chloride 0.9%) (01/11/17 15:35) Ondansetron Injection (Zofran Injectio (01/11/17 15:45) Famotidine Injection (Pepcid Injection) (01/11/17 15:35) Urine Culture (01/11/17 17:00) Medications Given in ED Current Medications Medications Dose Ordered Sig/Liana Route Start Time Stop Time Status Last Admin Dose Admin Ondansetron HCl 4 mg ONCE ONCE IVP 01/11/17 15:45 01/11/17 15:46 DC 01/11/17 16:08 4 MG Sodium Chloride 1,000 ml @ 0 mls/hr Q0M ONCE IV 01/11/17 15:35 01/11/17 15:37 DC 01/11/17 16:09 0 MLS/HR Vital Signs/I&O Vital Sign - Last 12Hours 01/11/17 14:10 Temp 97.5 B/P (MAP) 134/84 Pulse Ox 98 O2 Delivery Room Air Blood Pressure Mean: 101 Departure Impression Impression: Primary Impression: Acute drug withdrawal syndrome Qualified Codes: F19.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 Decision time for Depature: 17:51 Referrals: SERGIO UNDERWOOD MD (PCP/Family) Primary Care Physician NATALEE FELDER Patient Instructions: Prescription Drug Withdrawal (DC), Urinary Tract Infection, Adult (DC) Add. Discharge Instructions: All discharge instructions reviewed with patient and/or family. Voiced understanding. Medications as instructed. Increase Zofran to 8 mg by mouth every 4-6 hours as needed for nausea. Continue usual home medications. Follow- up with Dr. Felder as previously scheduled. Follow-up with Dr. Underwood as outpatient for recheck. Continue current restrictions as directed by Dr. Felder. Return to the emergency department immediately for worsened vomiting, pain, vomiting blood, dizziness, shortness of air, chest pain, black stools, rectal bleeding, abdominal swelling, fever, or any other concerns. Scripts Famotidine (Pepcid) 20 Mg Tablet 20 MG PO BID, #20 TAB 0 Refills Prov: ALINA DICKSON 01/11/17 Nitrofurantoin Monohyd/M-Cryst (Macrobid 100 mg Capsule) 100 Mg Capsule 1 TAB PO BID, #14 CAP 0 Refills Prov: ALINA DICKSON 01/11/17 Ondansetron (Ondansetron Odt) 8 Mg Tab.rapdis 8 MG PO Q6H Y for NAUSEA/VOMITING-1ST LINE, #10 TAB 0 Refills Prov: ALINA DICKSON 01/11/17 Alprazolam (Xanax) 0.25 Mg Tablet 0.25 MG PO Q6H Y for ANXIETY, #10 TAB 0 Refills Prov: ALINA DICKSON 01/11/17 ALINA DICKSON January 11, 2017 15:36
[2017-01-11] MEDS ORDERED: ONDANSETRON 4 MG/2 ML (SDV) Z0FRAN IVP ONE (15:45)
--- NOTE | 2017-01-11 15:58 | Diagnostic Imaging Report ---
INDICATION: Malaise. Chest pain. FINDINGS: Portable chest shows mild cardiomegaly with normal vascularity. The lungs are clear. There is no effusion or pneumothorax. IMPRESSION: Cardiomegaly. No acute abnormality is seen. Dictated by: Dictated on workstation # [id number]
[2017-01-11 16:21] LABS: BASOPHILS % (AUTO) 0 % (0-10); EOSINOPHILS % (AUTO) 1 % (0-10); LYMPHOCYTES # (AUTO) 1.2 X 10^3 (1.0-4.0); LYMPHOCYTES % (AUTO) 21 % (12-44); MEAN CORPUSCULAR HEMOGLOBIN 30 PG (25-34); MEAN CORPUSCULAR HGB CONC 34 G/DL (32-36); MEAN CORPUSCULAR VOLUME 89 FL (80-99); MEAN PLATELET VOLUME 9.9 FL (7.4-10.4); MONOCYTES # (AUTO) 0.5 X 10^3 (0.0-1.0); MONOCYTES % (AUTO) 8 % (0-12); NEUTROPHILS # (AUTO) 4.1 X 10^3 (1.8-7.8); NEUTROPHILS % (AUTO) 71 % (42-75); PLATELET COUNT 390 10^3/uL (130-400); RED BLOOD COUNT 4.06 10^6/uL (4.35-5.85); RED CELL DISTRIBUTION WIDTH 14.3 % (10.0-14.5); WHITE BLOOD COUNT 5.8 10^3/uL (4.3-11.0)
[2017-01-11 16:42] LABS: ALANINE AMINOTRANSFERASE 15 U/L (0-55); ANION GAP 12 MMOL/L (5-14); ASPARTATE AMINO TRANSFERASE 20 U/L (5-34); BILIRUBIN,TOTAL 0.5 MG/DL (0.1-1.0); BLOOD UREA NITROGEN 6 MG/DL (7-18); BUN/CREATININE RATIO 8; CALCIUM 9.6 MG/DL (8.5-10.1); CARBON DIOXIDE 25 MMOL/L (21-32); CHLORIDE 103 MMOL/L (98-107); CREATININE SERUM 0.75 MG/DL (0.60-1.30); GFR ESTIMATED > 60; GLUCOSE 99 MG/DL (70-105); LIPASE 91 U/L (8-78); POTASSIUM 3.3 MMOL/L (3.6-5.0); SODIUM 140 MMOL/L (135-145); TOTAL PROTEIN 7.1 G/DL (6.4-8.2)
[2017-01-11 17:13] LABS: BILIRUBIN,URINE NEGATIVE (NEGATIVE); KETONES,URINE 1+ (NEGATIVE); LEUKOCYTE ESTERASE ,URINE 1+ (NEGATIVE); NITRITE,URINE NEGATIVE (NEGATIVE); PH,URINE 8 (5-9); PROTEIN,URINE NEGATIVE (NEGATIVE); UROBILINOGEN,URINE NORMAL (NORMAL)
[2017-01-11 17:35] LABS: RENAL EPITHELIAL CELLS,URINE 0-2 /HPF
[2017-01-11] MEDS ORDERED: RX-NITROFURANTOIN 100 MG (MACROBID) CAP PPK#2 PO STA (17:49)
[2017-01-11] MEDS ORDERED: ONDA8TAB13 PO (17:54)
[2017-01-11] MEDS ORDERED: FAMO-119 PO (17:54)
[2017-01-11] MEDS ORDERED: NITR-65 PO (17:54)
[2017-01-11] MEDS ORDERED: ALPR0.25 PO (17:54)
[2017-01-11] MEDS ORDERED: ALPRAZolam 0.25 MG (XANAX) TAB PO ONE (18:00)
[2017-01-11 18:11] VITALS: BP 128/82
== END 2017-01-11 18:11 | disposition home or self-care (01) ==
LOC: EDUNIT# 13:45 → ER 13:47
DX: F11.23 Opioid dependence with withdrawal (principal); N39.0 Urinary tract infection, site not specified; I48.2 Chronic atrial fibrillation; I10 Essential (primary) hypertension; Z87.891 Personal history of nicotine dependence; Z79.899 Other long term (current) drug therapy; Z98.890 Other specified postprocedural states
CPT/HCPCS: 36415; 71010; 80053; 81000; 83690; 85025; 87088; 87186; 96361; 96374; 96375; 99285

== ENCOUNTER → 2017-05-19 | Outpatient (CLI) | payer MEDICARE ==
[~2017-05-19] MED LIST changes: +ALPR0.25 PO; +BARIUM SUSPENSION 105% (LIQUID POLIBAR PLUS) 240 ML/DOSE PO ONE; +BARIUM SUSPENSION 60% (LIQUID EZ PAQUE) 240 ML DOSE PO ONE; +FAMO-119 PO; +NITR-65 PO; +ONDA8TAB13 PO
--- NOTE | 2017-05-19 11:13 | Diagnostic Imaging Report ---
EXAMINATION: Upper GI study, double contrast. Block Breaker image of the abdomen was performed. After the oral administration of gas forming granules, the patient drank thick and thin barium with visualization under fluoroscopy, with spot images taken over the esophagus, stomach and duodenum and followed by overhead images in the chest and abdomen. INDICATION: Dysphagia and abdominal pain. FLUOROSCOPY TIME: One minutes and 38 seconds. FINDINGS: Block Breaker images of the abdomen demonstrate moderate amount of fecal material. vehicle monitor technician projecting over the left chest and surgical clips in the right side of the abdomen, and the spine fusion hardware at L2/3 level seen. The esophagus demonstrates normal caliber with no strictures. The mucosal pattern demonstrates no filling defects, diverticulum or ulceration. There is normal relaxation of the distal sphincter. Occasional tertiary contractions and gastroesophageal reflux is seen during the exam particularly noted in the supine and prone positions. There is no hiatal hernia. The stomach demonstrates normal distensibility with normal appearance of the mucosal folds. There are no ulcers or evidence of mass. The duodenal bulb and sweep appear normal. IMPRESSION: Tertiary contractions in the esophagus and gastroesophageal reflux is seen on this exam without a high-grade stricture or concerning filling defect identified. Dictated by: Dictated on workstation # [id number]
== END ==
LOC: RAD 08:57
PROVIDERS: ATTEND Internal Medicine Gastroenterology
DX: R13.10 Dysphagia, unspecified (principal); R10.13 Epigastric pain
CPT/HCPCS: 74241

== ENCOUNTER → 2017-05-28 | Outpatient (CLI) | payer MEDICARE ==
[~2017-05-28] MED LIST changes: -BARIUM SUSPENSION 105% (LIQUID POLIBAR PLUS) 240 ML/DOSE PO ONE; -BARIUM SUSPENSION 60% (LIQUID EZ PAQUE) 240 ML DOSE PO ONE
== END ==
LOC: RAD 14:32
PROVIDERS: ATTEND Family Medicine
DX: Z12.31 Encounter for screening mammogram for malignant neoplasm of breast (principal)
CPT/HCPCS: 77067

== ENCOUNTER → 2017-11-09 | Outpatient (CLI) | payer MEDICARE ==
[~2017-11-09] MED LIST changes: +ACHD5005 PO; -HYDR-3812 PO; +REGADENOSON 0.4 MG/5 ML SYR (LEXISCAN) IV ONE
[2017-11-09] MEDS: CATHETER FLUSH 10 ML SYR IV PRN ×2 (08:19→09:27)
[2017-11-09 09:25] VITALS: BP 156/71
--- NOTE | 2017-11-09 21:33 | STRESS TEST ---
DATE OF SERVICE: 11/09/2017 LEXISCAN MYOVIEW STRESS TEST REPORT REFERRING PHYSICIAN: Stacey Underwood MD. Baseline heart rate is 81. Baseline blood pressure is 156/70. Baseline EKG is sinus rhythm with no ischemic changes. In summary, patient was injected with 10.57 mCi of technetium-99 Myoview and the resting images were obtained. Then, the patient received 0.4 mg of Lexiscan followed by 29.9 mCi of technetium-99 Myoview. Throughout the test, there were no EKG changes. The resting and stress images were reviewed and compared in the short axis, horizontal long axis, and vertical long axis views. Review of the images showed breast attenuation with good radiotracer uptake, no significant ischemia or infarction was seen. SSS is 2, SDS 2, and TID value 1.07. On the gated images, the left ventricle appeared to be in normal size with normal contractility. Calculated ejection fraction is 73%. CONCLUSION: 1. The patient tolerated Lexiscan well. 2. Breast attenuation with typical female pattern. No significant ischemia or infarction on SPECT images. 3. Normal left ventricular size with normal contractility. Calculated ejection fraction is 72%. Job ID: [id number] DocumentID: [id number] Dictated Date: 11/09/2017 16:01:25 Chemist Biological Date: 11/09/2017 21:32:30 Dictated By: ABDON JEAN MD
== END ==
LOC: CARD 07:49
PROVIDERS: ATTEND Internal Medicine Cardiovascular Disease
DX: I48.0 Paroxysmal atrial fibrillation (principal); I49.1 Atrial premature depolarization; E78.5 Hyperlipidemia, unspecified; E03.9 Hypothyroidism, unspecified; G47.33 Obstructive sleep apnea (adult) (pediatric); R00.2 Palpitations
CPT/HCPCS: 78452; 93017

== ENCOUNTER → 2017-11-11 | Outpatient (CLI) | payer MEDICARE ==
[~2017-11-11] MED LIST changes: -REGADENOSON 0.4 MG/5 ML SYR (LEXISCAN) IV ONE
== END ==
LOC: CARD 11:27
PROVIDERS: ATTEND Internal Medicine Cardiovascular Disease
DX: I48.0 Paroxysmal atrial fibrillation (principal); I49.1 Atrial premature depolarization; E78.5 Hyperlipidemia, unspecified; E03.9 Hypothyroidism, unspecified; G47.33 Obstructive sleep apnea (adult) (pediatric); R00.2 Palpitations; I34.0 Nonrheumatic mitral (valve) insufficiency
CPT/HCPCS: 93306

== ENCOUNTER → 2019-09-21 | Outpatient (CLI) | payer MEDICARE ==
[~2019-09-21] MED LIST changes: -AMIO200T2 PO; +AMIO200T4 PO; -IPRA3AMP IH; -IPRA3AMP INH; +IPRA3AMP31 IH; +IPRA3AMP31 INH; +OMEP-280 PO; -OMEP20CA12 PO; -OXYB5TAB PO; +OXYB5TAB3 PO
--- NOTE | 2019-09-21 10:32 | Diagnostic Imaging Report ---
INDICATION: Routine screening. COMPARISON: 05/28/2017 and 08/24/2014. TECHNIQUE: 2D and 3D bilateral screening mammography was performed with CAD. FINDINGS: Scattered fibroglandular densities are identified bilaterally. A cardiac monitoring device over the upper inner left breast is again noted. There are benign calcifications. No mass or malignant appearing microcalcifications are seen. The axillae are unremarkable. IMPRESSION: No mammographic features suspicious for malignancy are identified. ACR BI-RADS Category 2: Benign findings. Result letter will be mailed to the patient. Note: At least 10% of breast cancer is not imaged by mammography. Dictated by: Dictated on workstation # [id number]
== END ==
LOC: RAD 07:42
PROVIDERS: ATTEND Family Medicine
DX: Z12.31 Encounter for screening mammogram for malignant neoplasm of breast (principal)
CPT/HCPCS: 77067

== ENCOUNTER → 2019-09-30 | Outpatient (CLI) | payer MEDICARE ==
--- NOTE | 2019-09-30 10:48 | Diagnostic Imaging Report ---
EXAMINATION: Modified barium swallow. INDICATION: Dysphagia. FINDINGS: This study was performed in the presence of the speech pathologist, Arleen. The patient was given barium in different substances to swallow. This included honey, nectar, thin barium, barium on a banana, soft mechanical, and barium on a cracker. The patient was able to swallow the contrast material without difficulty. There was no aspiration or penetration identified. IMPRESSION: The swallowing mechanism is within normal limits. There is no evidence of aspiration or penetration. Dictated by: Dictated on workstation # [id number]
== END ==
LOC: RAD 09:53
PROVIDERS: ATTEND Internal Medicine Gastroenterology
DX: R13.19 Other dysphagia (principal)
CPT/HCPCS: 74230

== ENCOUNTER → 2020-07-20 | Outpatient (CLI) | payer MEDICARE ==
[~2020-07-20] MED LIST changes: -AMIO200T4 PO; +AMIO200T6 PO; +ASCO500T17 PO; -ASCO500T6 PO; -OMEP-280 PO; +OMEP20CA18 PO; +OXYB-52 PO; -OXYB5TAB3 PO; -PANT40TA3 PO; +PANT40TA52 PO; +WARF4TAB3 PO; -WARF4TAB70 PO
--- NOTE | 2020-07-20 11:14 | Diagnostic Imaging Report ---
INDICATION: Cough. TIME OF EXAM: 11:00 a.m. COMPARISON: Correlation is made with prior chest 05/19/2017. FINDINGS: Heart size is normal. Monitoring device overlies the left heart. Lungs appear clear. No infiltrates are detected. There is no effusion or pneumothorax. IMPRESSION: No acute cardiopulmonary process is detected. Dictated by: Dictated on workstation # [id number]
== END ==
LOC: RAD 10:42
PROVIDERS: ATTEND Nurse Practitioner Family
DX: R05 Cough (principal)
CPT/HCPCS: 71046

== ENCOUNTER → 2021-03-13 | Outpatient (CLI) | payer MEDICARE ==
[~2021-03-13] MED LIST changes: -OXYC-471 PO; +OXYC1TAB11 PO
--- NOTE | 2021-03-13 17:51 | Diagnostic Imaging Report ---
PROCEDURE: MRI lumbar spine. TECHNIQUE: Multiplanar, multisequence MRI of the lumbar spine was performed without contrast. INDICATION: Increasing low back pain. History of lumbar spine surgery in 2017. COMPARISON: MRI lumbar spine without contrast 12/04/2016. FINDINGS: There are five lumbar-type vertebral bodies for the purposes of this report. Grade 1 retrolisthesis of L1 on L2, L2 on L3, and grade 2 anterolisthesis of L5 on S1. Cclhdwmv-er-nzmmnibq S-shaped lumbar curvature. The malalignment has mildly progressed since the prior exam. There has been interval bilateral conrad and pedicle screw fixation with laminectomy and interbody fusion at L3-L4. No abnormal signal in the conus which terminates at L2. Normal morphology of the cauda equina. The visualized pelvis and paravertebral soft tissues are unremarkable. L1-L2: The retrolisthesis and disc osteophyte complex result in severe left lateral recess narrowing. Moderate left neural foraminal narrowing. No substantial spinal canal narrowing. L2-L3: Facet arthropathy and ligamentous hypertrophy primarily result in voqhqqiq-mp-zrmvpg bilateral lateral recess narrowing. Severe bilateral neural foraminal narrowing. Mild spinal canal narrowing. L3-L4: The spinal canal is decompressed well. The retrolisthesis and disc osteophyte complex result in [id number]-dl-wwcevw bilateral neural foraminal narrowing, likely progressed since the prior exam. No substantial lateral recess narrowing. L4-L5: Disc osteophyte complex, ligamentous hypertrophy, and facet arthropathy all result in severe bilateral lateral recess and moderate spinal canal narrowing. These findings have mildly progressed. Severe bilateral neural foraminal narrowing has also progressed. L5-S1: The anterolisthesis and unroofing of the intervertebral disc combines with facet arthropathy to result in severe right and moderate left lateral recess narrowing. Mild spinal canal narrowing. Yxjzhzha-kv-zwpysi bilateral neural foraminal narrowing. IMPRESSION: 1. Interval bilateral conrad and pedicle screw fixation with laminectomy and interbody fusion at L3-L4. 2. 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 3. Moderate spinal canal narrowing at L4-L5. No other high-grade spinal canal stenosis. Dictated by: Dictated on workstation # [id number]
== END ==
LOC: RAD 15:27
PROVIDERS: ATTEND Orthopaedic Surgery
DX: M47.27 Other spondylosis with radiculopathy, lumbosacral region (principal); M48.07 Spinal stenosis, lumbosacral region; M43.17 Spondylolisthesis, lumbosacral region; M40.46 Postural lordosis, lumbar region; M51.17 Intervertebral disc disorders with radiculopathy, lumbosacral region
CPT/HCPCS: 72148

== ENCOUNTER → 2021-06-05 | Outpatient (CLI) | payer MEDICARE ==
[~2021-06-05] MED LIST changes: +CATHETER FLUSH 10 ML SYR IV PRN; +REGADENOSON 0.4 MG/5 ML SYR (LEXISCAN) IV ONE
[2021-06-05 08:57] VITALS: BP 167/74
--- NOTE | 2021-06-05 12:59 | Cardiology Stress Test Report ---
Stress Test Report Date of Procedure/Referring: Date of Procedure: Jun 05, 2021 PCP Abdon Munoz MD Admitting Physician Stacey Underwood MD Indications: HTN Baseline Heart Rate: 66 Baseline Blood Pressure: Blood Pressure Systolic: 167 Blood Pressure Diastolic: 74 Baseline Vitals Vital Signs Date Time Temp Pulse Resp B/P (MAP) Pulse Ox O2 Delivery O2 Flow Rate FiO2 06/05/21 08:57 74 18 167/74 (105) 98 Room Air Baseline EKG: Baseline EKG: NSR Summary After explaining the procedure to the patient, she signed a consent and then brought to the stress nuclear laboratory. Patient received 0.4 mg Lexiscan for stress test, ECG, heart rate and blood pressure were monitored continuously. Resting and stress dose of radio tracer were injected, imaging was acquired and reviewed in short axis, horizontal long axis and vertical long axis views. TID: 0.98 SSS: 1 SDS: 1 EF: 57 1. Patient tolerated Lexiscan well 2. No significant ischemia or infarction on SPECT images 3. Normal left ventricular size, EF 57% ABDON MUNOZ MD Jun 05, 2021 12:59
== END ==
LOC: CARD 07:30
PROVIDERS: ATTEND Internal Medicine Cardiovascular Disease
DX: I10 Essential (primary) hypertension (principal); I25.10 Atherosclerotic heart disease of native coronary artery without angina pectoris
CPT/HCPCS: 78452; 93017; A9502

== ENCOUNTER → 2021-06-06 | Outpatient (CLI) | payer MEDICARE ==
[~2021-06-06] MED LIST changes: -CATHETER FLUSH 10 ML SYR IV PRN; -REGADENOSON 0.4 MG/5 ML SYR (LEXISCAN) IV ONE
--- NOTE | 2021-06-06 18:05 | Diagnostic Imaging Report ---
INDICATION: Routine screening. Comparison is made with prior mammogram 09/21/2019 and 05/28/2017. 2-D and 3-D bilateral screening mammography was performed with CAD. Scattered fibroglandular densities are noted bilaterally. Cardiac monitoring device overlies the left breast. There are benign calcifications. No mass or malignant-appearing microcalcifications are seen. Axillae are unremarkable. IMPRESSION: BI-RADS Category 2 No mammographic features suspicious for malignancy are identified. ACR BI-RADS Category 2: Benign findings. Result letter will be mailed to the patient. Note: At least 10% of breast cancer is not imaged by mammography. Dictated by: Dictated on workstation # [id number]
== END ==
LOC: RAD 15:00
PROVIDERS: ATTEND Family Medicine
DX: Z12.31 Encounter for screening mammogram for malignant neoplasm of breast (principal)
CPT/HCPCS: 77063; 77067

== ENCOUNTER → 2022-07-18 | Outpatient (CLI) | payer MEDICARE ==
[~2022-07-18] MED LIST changes: -AMIO200T6 PO; +AMIO200T65 PO
== END ==
LOC: CARD 14:30
PROVIDERS: ATTEND Internal Medicine Cardiovascular Disease
DX: I10 Essential (primary) hypertension (principal); I25.10 Atherosclerotic heart disease of native coronary artery without angina pectoris
CPT/HCPCS: 93306